=== PATIENT | male | born 1975 | race Caucasian/White ===

== ENCOUNTER 2017-10-12 18:14 | Emergency (ER) | payer SELFPAY ==
[2017-10-12 18:15] VITALS: BP 122/78; PULSE 85; RESP 16; TEMP 36.9; O2SAT 98
[2017-10-12 18:58] LABS: Absolute Lymphocyte Count 2.13 X10^3/ul (0.83-4.51); Absolute Neutrophil Count 5.5 X10^3/uL (2.0-7.7); Basophil# 0.16 X10^3/uL; Basophil% 1.8 % (0-1); Eosinophil# 0.33 X10^3/uL; Eosinophils% 3.6 % (0-5); Hematocrit 45.3 % (40-54); Hemoglobin 14.7 g/dl (13.0-16.5); Lymphocyte # 2.13 X10^3/ul (4.0); Lymphocyte % 23.5 % (19-41); Mean Corp Hgb Conc 32.5 g/gl (32-36); Mean Corpuscular Hgb 29.9 pg (27.0-32.0); Mean Corpuscular Volume 92.3 fL (80-94); Mean Platelet Vol. 9.7 fl (6.2-12.0); Monocyte% 9.9 % (0-10); Neutrophil # 5.52 X10^3/uL (2.7-7.7); Neutrophil % 61.1 % (47-70); Platelet Count 296 K/mm3 (150-450); RBC Distribution Width CV 13.6 % (11.6-14.6); RBC Distribution Width SD 45.9 fl (35.1-43.9); Red Blood Count 4.91 M/mm3 (4.6-6.2); White Blood Count 9.1 K/mm3 (4.4-11.0)
[2017-10-12 18:59] LABS: POSITIVE COUNT NO; POSITIVE DIFFERENTIAL NO; POSITIVE MORPHOLOGY NO
[2017-10-12 19:04] LABS: Anion Gap 7 (5-15); BUN 13 mg/dL (7-18); BUN/Creat Ratio 14.6 RATIO (10-20); Calcium,Total 9.3 mg/dL (8.5-10.1); Chloride 104 mmol/L (98-107); Creatinine, Serum 0.89 mg/dL (0.70-1.30); EST Glomerular Filtration Rate 100 mL/min (>60); Est Glom Filt Rate - Afr Amer 121 mL/min (>60); Estimated Creatinine Clearance 98.11 ml/min; Glucose 73 mg/dL (74-106); Potassium 4.5 mmol/L (3.5-5.1); Sodium Level 140 mmol/L (136-145)
[2017-10-12 19:08] LABS: Amphetamine Urine VISTA POSITIVE (<1000 ng/mL); Barbiturate Urine VISTA NEGATIVE (< 200 ng/mL); Benzodiazepine Urine VISTA NEGATIVE (< 200 ng/mL); Cocaine Urine VISTA NEGATIVE (< 300 ng/mL); Ecstacy Urine VISTA NEGATIVE (< 500 ng/mL); Methadone Urine VISTA NEGATIVE (< 300 ng/mL); PCP Urine VISTA NEGATIVE (< 25 ng/mL); THC Urine VISTA NEGATIVE (< 50 ng/mL); Vista UDS pH Range 6
[2017-10-12 19:21] VITALS: BP 111/68; PULSE 74; RESP 16; O2SAT 99
--- NOTE | 2017-10-12 20:09 | ED.DCSUM_ITS ---
- ER Visit Summary Date of Service: 10/12/17 Chief Complaint: Suicidal thoughts History of Present Illness: The patient is a 41 M with no primary care physician or psychiatrist. He reports that he has had suicidal thoughts for the past 2 days. Reports this is because he has no more Rosa to turn to. States that he is upset about his marriage because his is a drug addict. He does not have a plan to harm himself. Review of systems: General: No fever, chills, cold sweats. Cardiovascular: No chest pain, palpitations. Respiratory: No cough, shortness of breath, dyspnea on exertion. Gastrointestinal: No abdominal pain, nausea, vomiting, diarrhea, melena, or hematochezia. Genitourinary: No dysuria, frequency, hematuria. Skin: No rash. Neuro: No headache, numbness, weakness. Physical Examination: Vitals: Stable. Afebrile. General: Well-nourished and well-developed. Head: Normocephalic atraumatic. Neck: Supple, no lymphadenopathy. No JVD. Nontender. Cardiovascular: Regular rate and rhythm. No murmurs. Respiratory: No respiratory distress. Clear to auscultation bilaterally. Abdominal: Soft, nontender, nondistended, normal bowel sounds. No guarding, rebound, or peritoneal signs. Back: Nontender. Extremities: Nontender, no edema. Skin: Normal color, no rash. Neurologic: Alert and oriented ?3. Cranial nerves II through XII are intact. Normal strength and sensation. Mental status exam: Patient appears their stated age. Good posture and grooming. Good eye contact. Normal rate, volume, and latency of speech. No homicidal ideation. No auditory or visual hallucinations. Flow of thought is logical. Insight and judgment is fair. Test Results: CBC is more for basophils of 2. Chem-7 is more for glucose 73. Tox screen shows amphetamines. Blood alcohol level 0. Emergency Department Course and Treatment: Patient is resting comfortably and is very compliant while here. Treatment Plan: Patient is able to contract for safety. I do not feel that he needs to be admitted to the hospital. He was discussed with the counseling center and is given an appointment tomorrow at 3 PM. He is instructed to return to the emergency department for any worsening thoughts of harming himself. Disposition: To home in improved and stable condition. Impression: 1. Depression. 2. Methamphetamine abuse. This note was generated with Eg[employer] dictation software. It may contain incorrect words, spelling, and punctuation that were not noted in review of the chart prior to signing ED Disposition - Plan for ED Patient: Disposition: Home or Assisted Living Chief Complaint: Suicidal Instructions: ED Depression Referrals: Counseling,Center [GROUP OF PHYSICIANS] - 10/13/17 3:00 pm
== END 2017-10-12 20:32 | disposition home or self-care (01) ==
PROVIDERS: Emergency Provider Emergency Medicine
DX: F32.9 Major depressive disorder, single episode, unspecified (principal); F15.10 Other stimulant abuse, uncomplicated; Z87.891 Personal history of nicotine dependence
CPT/HCPCS: 36415; 80048; 80307; 80320; 85025; 99283; G0480

== ENCOUNTER 2022-06-08 16:42 | Emergency (ER) | payer MEDICAID, SELFPAY ==
[2022-06-08 16:43] VITALS: BP 135/75; PULSE 95; RESP 16; TEMP 35.8; O2SAT 94; BMI 19.6
[2022-06-08] MEDS: predniSONE 20 MG Tablet 40 MG PO (17:31)
[2022-06-08] MEDS: DiphenhydrAMINE 25 MG Capsule 50 MG PO (17:33)
--- NOTE | 2022-06-08 17:50 | EDS_ITS ---
HPI <ANAY Rodriguez - Last Filed: 06/08/22 17:58> History of Present Illness Chief Complaint: Rash Narrative Narrative: Patient presenting today with a generalized pruritic rash that erupted over this last week. He states he has it on his trunk, legs, arms, and groin. He [place] out in the [place] and thinks that he got poison ivette. He has a history of poison ivette and states that this feels similar. He has been using chamomile lotion without relief. He denies a PMH of any chronic health conditions. PFSH <ANAY Rodriguez - Last Filed: 06/08/22 17:58> PFSH Medical History no medical history Home Medications diphenhydramine HCl 25 mg capsule (Benadryl) 25 mg PO TID PRN allergic reaction 5 days #14 caps 06/08/22 [Rx Last Taken Unknown] prednisone 20 mg tablet 40 mg PO DAILY 10 days #20 tabs 06/08/22 [Rx Last Taken Unknown] Allergy/AdvReac Type Severity Reaction Status Date / Time Penicillins Allergy Swelling Verified 06/08/22 16:45 Social History Smoking Status: Former smoker ROS <ANAY Rodriguez - Last Filed: 06/08/22 17:58> ROS ED Constitutional Constitutional ED: Denies chills or fever(s) Cardiovascular Cardiovascular: Denies chest pain Respiratory/Chest Respiratory/Chest: Denies cough or dyspnea Gastrointestinal Gastrointestinal: Denies abdominal pain, nausea or vomiting Musculoskeletal Musculoskeletal: Denies arthralgias or myalgias Integumentary Reports rash; Denies abscess or Abrasions Neurologic Neurologic: Denies weakness Psychiatric Psychiatric: Denies anxiety or depression EXAM <ANAY Rodriguez - Last Filed: 06/08/22 17:58> Physical Exam Const Vital Signs: 06/08/22 16:43 Temperature 96.5 F L Temperature Source Temporal Pulse Rate 95 Respiratory Rate 16 Blood Pressure 135/75 H Blood Pressure Mean 95 Pulse Ox 94 Oxygen Delivery Method Room Air Positive well nourished, well developed and no apparent distress General Appearance ED: well developed HEENT Reports normocephalic and head/scalp atraumatic Mouth ED: Yes moist mucous membranes normal Eyes PERRL and EOMs intact bilaterally Neck full ROM and supple Chest Wall inspection of chest normal Resp normal respiratory effort and clear to auscultation bilaterally Cardio regular rate and regular rhythm GI soft to palpation, non-tender, non-distended and no masses Back/Spine normal ROM and normal to inspection Extremity full ROM General Extremety ED: Negative for edema General Extremity: Negative for edema Neuro oriented x3, CN's II-XII intact bilaterally, moves all extremities, no focal motor deficits and no sensory deficits noted Sensorium / Orientation: awake and alert Psych mental status grossly normal and thought process normal Skin Skin Narrative: Several linear erythemic fluid-filled blisters on arms, legs, and chest. <Collin Villaseñor MD - Last Filed: 06/08/22 18:17> Physical Exam Const Vital Signs: 06/08/22 16:43 Temperature 96.5 F L Temperature Source Temporal Pulse Rate 95 Respiratory Rate 16 Blood Pressure 135/75 H Blood Pressure Mean 95 Pulse Ox 94 Oxygen Delivery Method Room Air MDM <ANAY Rodriguez - Last Filed: 06/08/22 17:58> [facility] Narrative Medical decision making narrative: Patient presenting today with a pruritic rash that he has had worsening over this past week with concerns that he has poison ivette after hanging out in the [place] with his friend on Thursday. He has a history of poison ivette and states this feels similar. Patient does have multiple linear and erythemic fluid-filled blisters scattered around his arms, legs, and chest that are consistent with a poison ivette dermatitis. There are no signs of any infection or abscess. He is well-appearing and in no acute distress. He has been started on prednisone with first dose here as well as Benadryl. He will be discharged home in stable condition and is comfortable with plan. <Collin Villaseñor MD - Last Filed: 06/08/22 18:17> [facility] Treatment and Re-Evaluation :: I have personally performed a face to face assessment of the patient and have reviewed the FATMATA Note. I performed a substantive portion of the visit including all aspects of the following. My marquez findings include: History is diffuse, itchy rash, history of being out in the [place]. No fevers or purulent drainage. Exam is afebrile. Vital signs noted. Nontoxic-appearing. Positive diffuse, pruritic rash consistent with contact dermatitis. Medical Decision Making symptomatic treatment, steroid burst, antihistamine, follow-up primary care. Discharge. Other additions or changes: [None] Discharge Plan Triage Chief Complaint: Rash ED Midlevel Provider: Annabelle Gan ED Provider: Collin Villaseñor Dx/Rx/DC Orders Clinical Impression: Contact dermatitis Instructions: ED Poison Ivette Rash Prescriptions: New prednisone 20 mg tablet 40 mg PO DAILY 10 Days Qty: 20 0RF diphenhydramine HCl [Benadryl] 25 mg capsule 25 mg PO TID PRN (Reason: allergic reaction) 5 Days Qty: 14 0RF Primary Care Provider: Care Physician,No Primary Referrals: Care Physician,No Primary [Primary Care Provider] - Activity Restrictions/Additional Instructions: Take the prednisone until it is complete. You can take the Benadryl as needed for symptoms. Disposition Disposition: Home, Self Care Discharge Date/Time: 06/08/22 17:41
== END 2022-06-08 17:41 | disposition home or self-care (01) ==
PROVIDERS: Emergency Provider Emergency Medicine; Visit Provider Emergency Medicine
DX: L25.9 Unspecified contact dermatitis, unspecified cause (principal); Z87.891 Personal history of nicotine dependence
CPT/HCPCS: 99283

== ENCOUNTER 2023-08-12 16:31 | Emergency (ER) | payer MEDICAID, SELFPAY ==
[2023-08-12 16:32] VITALS: BP 83/62; PULSE 82; RESP 16; TEMP 36.3; O2SAT 100; BMI 22.4
--- NOTE | 2023-08-12 16:48 | EKG12_ITS ---
Test Reason : PHYSCH Blood Pressure : / mmHG Vent. Rate : 069 BPM Atrial Rate : 069 BPM P-R Int : 136 ms QRS Dur : 088 ms QT Int : 378 ms P-R-T Axes : 033 040 059 degrees QTc Int : 405 ms Normal sinus rhythm Normal ECG Confirmed by Ok Cline ([id number]), movie editor TRUE MARMOLEJO ([id number]) on 08/15/2023 7:33:19 AM Referred By: TWAN Confirmed By:Ok Cline
--- NOTE | 2023-08-12 16:49 | EDS_ITS ---
HPI HPI - Psych History of Present Illness Chief Complaint: Mental Health Detail of Chief Complaint: Medical clearance for psychiatric facility Informant: patient Narrative Narrative: Patient presents to the emergency department at request of counseling center for clearance for placement to mental health facility. Patient apparently has been feeling quite paranoid and anxious for months. He has remote history of methamphetamine abuse but has been clean for about 4 months. Patient states he is having a hard time keeping a job because he gets quite paranoid and then has a hard time retaining information people are telling him. He is hearing some voices that are usually muffled and he was just calling his name. Denies any visual hallucinations. Patient denies feeling suicidal or homicidal. Patient is concerned about his current job and losing it and wants to get some help to get stabilized. PFSH PFSH Medical History no medical history Home Medications ?Medication ?Instructions ?Recorded ?Last Taken ?Type diphenhydramine HCl 25 mg capsule 25 mg PO TID PRN allergic reaction 06/08/22 Unknown Rx (Benadryl) 5 days #14 caps prednisone 20 mg tablet 40 mg (2 x 20 mg) PO DAILY 10 days 06/08/22 Unknown Rx #20 tabs Allergy/AdvReac Type Severity Reaction Status Date / Time Penicillins Allergy Swelling Verified 06/08/22 16:45 Social History Smoking Status: Former smoker ROS ROS ED Review of Systems ROS Unobtainable: other Constitutional Constitutional ED: Reports lethargy; Denies chills, fever(s), sweats or weight loss Eyes Eyes: Denies blurry vision, change in vision or diplopia ENT ENT ED: Denies rhinorrhea or sore throat Cardiovascular Cardiovascular: Denies chest pain, orthopnea or racing heartbeat Respiratory/Chest Respiratory/Chest: Denies cough, dyspnea, dyspnea on exertion, orthopnea or sputum Gastrointestinal Gastrointestinal: Denies abdominal pain, diarrhea, nausea or vomiting Genitourinary Genitourinary ED: Denies dysuria, hematuria or urinary frequency Musculoskeletal Musculoskeletal: Denies arthralgias, back pain, myalgias or neck pain Integumentary Denies abscess, Abrasions or rash Neurologic Neurologic: Denies headache(s) or weakness Psychiatric Psychiatric: Reports other Details: Paranoia, anxiety ; Denies anxiety, depression or suicidal thoughts Endocrine Endocrinology: Denies polydipsia, polyphagia or polyuria Hematologic/Lymphatic Hematologic/Lymphatic: Denies easy bleeding, easy bruising or lymphadenopathy Allergic/Immunologic Allergic/Immunologic ED: Denies mouth swelling, tongue swelling or urticaria EXAM Physical Exam Const Vital Signs: 08/12/23 16:32 08/12/23 18:51 Temperature 97.4 F L Temperature Source Temporal Pulse Rate 82 75 Respiratory Rate 16 18 Blood Pressure 83/62 L 96/65 Blood Pressure Mean 69 75 Pulse Ox 100 99 Oxygen Delivery Method Room Air Room Air Positive well nourished and well developed General Appearance ED: well developed and NAD HEENT Reports TM's clear and moist mucous membranes normocephalic and atraumatic; Negative for trauma or tenderness Tympanic Membrane ED: Yes TM's clear Eyes PERRL and EOMs intact bilaterally General Eye ED: Negative for pale conjunctiva or scleral icterus Neck no lymphadenopathy, supple and no JVD General: Negative for tenderness Chest Wall inspection of chest normal and palpation of chest normal Chest: Negative for tenderness Resp normal respiratory effort and clear to auscultation bilaterally Effort and Inspection: Negative for respiratory distress or pain with movement Auscultation: Negative for rhonchi, wheezes or diminished lung sounds Cardio regular rate, regular rhythm, S1 normal heart sound, S2 normal heart sound and no murmurs Peripheral Pulses: pulses 2+ throughout GI normal to inspection, nondistended, normoactive bowel sounds, soft to palpation, non-tender, non-distended and no masses Back/Spine no CVA tenderness and no thoracic nor lumbar tenderness Extremity normal to inspection General Extremety ED: Negative for edema General Extremity: Negative for edema Neuro oriented x3, CN's II-XII intact bilaterally, no sensory deficits noted and gait normal Sensorium / Orientation: awake, alert, oriented to person, oriented to place and oriented to time Motor Exam: strength 5/5 throughout and strength abnormal Psych mental status grossly normal Skin no rashes or lesions noted and no wounds MDM MDM MDM Narrative Medical decision making narrative: Patient presents to the emergency department for medical clearance for psychiatric facility. CBC with differential obtained was unremarkable. Chemistries unremarkable. Alcohol was less than 3. Toxicology screen pending. Patient was accepted at psychiatric facility. He will be transferred for definitive care. Lab Data Attestation: I reviewed the patient's lab results. Labs: Laboratory Results - last 24 hr 08/12/23 17:00 WBC 6.3 RBC 4.33 L Hgb 12.7 L Hct 39.0 L MCV 90.1 MCH 29.3 MCHC 32.6 RDW Std Deviation 44.6 H RDW Coeff of Kena 13.3 Plt Count 233 MPV 9.5 Immature Gran % (Auto) 0.300 Neut % (Auto) 59.2 Lymph % (Auto) 23.0 [place] % (Auto) 8.9 Eos % (Auto) 7.0 H Baso % (Auto) 1.6 H Absolute Neuts (auto) 3.7 Absolute Lymphs (auto) 1.44 Nucleated RBC % 0 Sodium 140 Potassium 3.9 Chloride 109 H Carbon Dioxide 31.0 Anion Gap 0 L BUN 18 Creatinine 1.04 Estim Creat Clear Calc 85.80 Est GFR (MDRD) Af Amer 98 Est GFR (MDRD) Non-Af 81 BUN/Creatinine Ratio 17.3 Glucose 97 Calcium 8.6 Ethyl Alcohol < 3.0 EKG Initial EKG: Attestation: I personally reviewed and interpreted this EKG as follows: Comments: Sinus rhythm with ventricular rate of 69 bpm with no acute ST segment changes Discharge Plan Triage Chief Complaint: Mental Health ED Provider: Tonie Diaz Dx/Rx/DC Orders Clinical Impression: Psychosis, Acute paranoia Prescriptions: No Action prednisone 20 mg tablet 40 mg PO DAILY 10 Days Qty: 20 0RF diphenhydramine HCl [Benadryl] 25 mg capsule 25 mg PO TID PRN (Reason: allergic reaction) 5 Days Qty: 14 0RF Primary Care Provider: Care Physician,No Primary Referrals: Care Physician,No Primary [Primary Care Provider] - Print Language: Irish Disposition Disposition: Psychiatric Hospital or Unit
[2023-08-12 17:21] LABS: Absolute Lymphocyte Count 1.44 X10^3/uL (0.83-4.51); Absolute Neutrophil Count 3.7 X10^3/uL (2.0-7.7); Basophil% 1.6 % (0-1); Eosinophil# 0.44 X10^3/uL; Hemoglobin 12.7 g/dL (13.0-16.5); Lymphocyte # 1.44 X10^3/ul (0.83-4.51); Mean Corp Hgb Conc 32.6 g/dL (32-36); Mean Corpuscular Hgb 29.3 pg (27.0-32.0); Mean Corpuscular Volume 90.1 fL (80-94); Mean Platelet Vol. 9.5 fl (6.2-12.0); Monocyte# 0.56 X10^3/uL; Monocyte% 8.9 % (0-10); NRBC Flagged by Analyzer 0 % (0-5); Neutrophil # 3.71 X10^3/uL (2.7-7.7); Neutrophil % 59.2 % (47-70); Platelet Count 233 K/mm3 (150-450); RBC Distribution Width CV 13.3 % (11.6-14.6); RBC Distribution Width SD 44.6 fl (35.1-43.9); Red Blood Count 4.33 M/mm3 (4.6-6.2); White Blood Count 6.3 K/mm3 (4.4-11.0)
[2023-08-12 17:31] LABS: Anion Gap 0 (5-15); BUN 18 mg/dL (7-18); BUN/Creat Ratio 17.3 RATIO (10-20); Calcium,Total 8.6 mg/dL (8.5-10.1); Chloride 109 mmol/L (98-107); Creatinine, Serum 1.04 mg/dL (0.70-1.30); EST Glomerular Filtration Rate 81 mL/min (>60); Est Glom Filt Rate - Afr Amer 98 mL/min (>60); Glucose 97 mg/dL (74-106); Potassium 3.9 mmol/L (3.5-5.1); Sodium Level 140 mmol/L (136-145)
[2023-08-12 17:32] LABS: Alcohol, Blood (Medical)-Serum < 3.0 mg/dL
[2023-08-12 18:51] VITALS: BP 96/65; PULSE 75; RESP 18; O2SAT 99
[2023-08-12 20:08] LABS: Amphetamine Urine VISTA NEGATIVE (<1000 ng/mL); Barbiturate Urine VISTA NEGATIVE (< 200 ng/mL); Benzodiazepine Urine VISTA NEGATIVE (< 200 ng/mL); Cocaine Urine VISTA NEGATIVE (< 300 ng/mL); Ecstacy Urine VISTA NEGATIVE (< 500 ng/mL); Methadone Urine VISTA NEGATIVE (< 300 ng/mL); PCP Urine VISTA NEGATIVE (< 25 ng/mL); THC Urine VISTA POSITIVE (< 50 ng/mL); Vista UDS pH Range 7
--- NOTE | 2023-08-12 20:35 | ED.RN ---
Physician's ETA for transport to [facility] 0700 08/13/23
--- NOTE | 2023-08-12 23:41 | ED.RN ---
Rian Harrell updated on pt's ETA
[2023-08-13 02:51] VITALS: BP 111/61; PULSE 60; RESP 16; TEMP 36.3; O2SAT 97
--- NOTE | 2023-08-13 03:14 | ED.RN ---
Report called to Cee [facility]OK[facility], questions/concerns answered
[2023-08-13 07:33] VITALS: BP 111/61; PULSE 60; RESP 16; TEMP 36.3; O2SAT 97
== END 2023-08-13 07:42 ==
PROVIDERS: Emergency Provider Emergency Medicine; Visit Provider Emergency Medicine
DX: F29 Unspecified psychosis not due to a substance or known physiological condition (principal); F22 Delusional disorders; Z87.891 Personal history of nicotine dependence
CPT/HCPCS: 80048; 80307; 80320; 85025; 93005; 99283; G0480

== ENCOUNTER → 2023-11-10 | Outpatient (CLI) | payer MEDICAID, SELFPAY ==
[2023-11-10 12:27] LABS: Erythrocyte Sedimentation Rate 9 mm/hr (0-20)
[2023-11-10 13:28] LABS: Rheumatoid Factor < 10.0 IU/mL (<15)
== END | disposition home or self-care (01) ==
LOC: BIMLAB 09:35
PROVIDERS: PCP Family Medicine; Visit Provider Family Medicine
DX: M24.549 Contracture, unspecified hand (principal)
CPT/HCPCS: 36415; 85652; 86431

== ENCOUNTER → 2023-11-27 | Outpatient (CLI) | payer MEDICAID, SELFPAY ==
--- NOTE | 2023-11-27 14:56 | RAD_ITS ---
STUDY: X-RAY - LEFT HAND REASON FOR EXAM: Male, 48 years old. Pain, decreased range of motion TECHNIQUE: 3 view(s) of the hand. COMPARISON: None. FINDINGS: The index and fifth digits appear to be in permanent flexion, likely due to Dupuytren''s contractures Normal radiocarpal articulation. Normal distal radioulnar joint. Normal visualized carpal bones. Normal carpal articulations Normal carpometacarpal articulation of the thumb. Normal second through fifth carpometacarpal joints. Normal metacarpi. Normal metacarpophalangeal joint of the thumb. Normal interphalangeal joint of the thumb. Normal proximal and distal phalanges of the thumb. Normal metacarpophalangeal joints of the second through fifth fingers. Normal proximal and distal interphalangeal joints of the second through fifth fingers. Normal phalanges of the second through fifth fingers. The soft tissue structures are unremarkable. RAD/Hand Min 3 Views IMPRESSION: No demonstrated fracture or significant joint space abnormality. The index and fifth fingers are in apparent permanent contraction consistent with Dupuytren''s contractures Electronically Signed: Michael Malloy MD at 15:15 EDT ,
== END | disposition home or self-care (01) ==
LOC: RAD 14:55
PROVIDERS: PCP Family Medicine; Referring Provider Surgery Plastic and Reconstructive Surgery; Visit Provider Surgery Plastic and Reconstructive Surgery
DX: M24.549 Contracture, unspecified hand (principal)
CPT/HCPCS: 73130

== ENCOUNTER → 2023-12-23 | Outpatient (CLI) | payer MEDICAID, SELFPAY | END | disposition home or self-care (01) | PROVIDERS: PCP Family Medicine; Referring Provider Surgery Plastic and Reconstructive Surgery; Visit Provider Surgery Plastic and Reconstructive Surgery | DX: M24.549 Contracture, unspecified hand (principal) | CPT/HCPCS: 95886; 95910 ==

== ENCOUNTER 2024-01-27 07:26 | Day surgery (SDC) | payer MEDICAID, SELFPAY ==
[2024-01-06 15:20] LABS: Absolute Lymphocyte Count 2.47 X10^3/uL (0.83-4.51); Absolute Neutrophil Count 4.6 X10^3/uL (2.0-7.7); Basophil% 1.2 % (0-1); Eosinophil# 0.41 X10^3/uL; Eosinophils% 4.8 % (0-5); Hematocrit 41.7 % (40-54); Hemoglobin 14.1 g/dL (13.0-16.5); Lymphocyte # 2.47 X10^3/ul (0.83-4.51); Lymphocyte % 28.9 % (19-41); Mean Corp Hgb Conc 33.8 g/dL (32-36); Mean Corpuscular Hgb 29.7 pg (27.0-32.0); Mean Platelet Vol. 9.5 fl (6.2-12.0); Monocyte# 0.91 X10^3/uL; Monocyte% 10.6 % (0-10); NRBC Flagged by Analyzer 0 % (0-5); Neutrophil # 4.62 X10^3/uL (2.7-7.7); Platelet Count 293 K/mm3 (150-450); RBC Distribution Width CV 13.2 % (11.6-14.6); RBC Distribution Width SD 42.4 fl (35.1-43.9); Red Blood Count 4.74 M/mm3 (4.6-6.2); White Blood Count 8.6 K/mm3 (4.4-11.0)
[2024-01-06 15:52] LABS: AST(SGOT) 14 U/L (15-37); Alanine Aminotransfer ALT/SGPT 31 U/L (16-61); Albumin, Serum 3.9 g/dL (3.2-5.0); Alkaline Phosphatase 67 U/L (45-117); Anion Gap 4 (5-15); BUN 16 mg/dL (7-18); BUN/Creat Ratio 15.5 RATIO (10-20); Calcium,Total 9.3 mg/dL (8.5-10.1); Chloride 103 mmol/L (98-107); Cholesterol 160 mg/dL (200); Creatinine, Serum 1.03 mg/dL (0.70-1.30); EST Glomerular Filtration Rate 82 mL/min (>60); Est Glom Filt Rate - Afr Amer 99 mL/min (>60); Globulin 4.1 g/dL (2.2-4.2); Glucose 92 mg/dL (74-106); High Density Lipoprotein 52 mg/dL; Potassium 4.5 mmol/L (3.5-5.1); Sodium Level 138 mmol/L (136-145); Triglycerides 105 mg/dL; Very Low Density Lipoprotein 21 mg/dL (5-40)
--- NOTE | 2024-01-07 14:05 | EKG12_ITS ---
Test Reason : PRE OP Blood Pressure : */* mmHG Vent. Rate : 78 BPM Atrial Rate : 78 BPM P-R Int : 142 ms QRS Dur : 82 ms QT Int : 370 ms P-R-T Axes : 57 39 56 degrees QTcB Int : 421 ms Normal sinus rhythm Normal ECG Confirmed by CHRIS SCHNEIDER ([id number]), graphic editor SYLVIA MONTALVO ([id number]) on 01/08/2024 11:58:53 AM Referred By: Tuan Sanchez Confirmed By: CHRIS SCHNEIDER
[2024-01-27] VITALS (9 sets, daily range): BP systolic 102–123; BP diastolic 66–80; PULSE 58–101; RESP 16–18; TEMP 36.1–36.6; O2SAT 95–100; BMI 25.0
--- NOTE | 2024-01-27 07:42 | PRE.ANES_ITS ---
ASA Classification* ASA Classification ASA Classification: 3 Assessment & Plan Anesthesia* Anesthesia Assessment Anesthesia Assessment: Discussed sedation and/or anesthesia options, risks, benefits, and alternatives with patient/parents/legal guardian/POA. Questions invited. The patient/parents/legal guardian/POA seems to understand and agrees to proceed with anesthesia plan. Reviewed the physical assessment, medical history, allergy history and patient home medications list prior to surgery/procedure/anesthetic and documented any changes. Performed airway and anesthesia risk assessments. Anesthesia Type Anesthesia Type: General Anesthesia Focused Assessment* Airway Assessment Mouth opens: >3 cm Mallampati Score: II Focused Labs Anesthesia Preop lab: CBC WBC 8.6 K/mm3 (4.4-11.0) 01/06/24 14:51 RBC 4.74 M/mm3 (4.6-6.2) 01/06/24 14:51 Hgb 14.1 g/dL (13.0-16.5) 01/06/24 14:51 Hct 41.7 % (40-54) 01/06/24 14:51 Plt Count 293 K/mm3 (150-450) 01/06/24 14:51 CHEMISTRY Potassium 4.5 mmol/L (3.5-5.1) 01/06/24 14:51 Sodium 138 mmol/L (136-145) 01/06/24 14:51 BUN 16 mg/dL (7-18) 01/06/24 14:51 Creatinine 1.03 mg/dL (0.70-1.30) 01/06/24 14:51 Glucose 92 mg/dL (74-106) 01/06/24 14:51 COAG Pre-Assessment Diagnosis/Proposed Procedure Planned Operative Procedure(s): PALMAR FASCIECTOMY FOR DUPUYTREUS LEFT AND RIGHT RING FINGER A1 KATHRYN RELEASE Anesthesia History 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 When Was Last Pacemaker Check QUESTION #4 FULL TEXT: You/Your Family Experience fever (hyperthermia) with Anesthesia Last Oral Intake Last Oral intake: Last Oral Intake NPO since Meds taken in AM with sips of water? Meds patient instructed to take am of surgery PONV PONV - garment manufacturer: PONV - garment manufacturer Female No 01/06/24 08:25 HX of Motion Sickness No 01/06/24 08:25 HX of N/V After Surgery No 01/06/24 08:25 Non-Smoker Yes 01/06/24 08:25 Duration of Surgery greater Yes 01/06/24 08:25 than 60 minutes Number of Risk Factors 2 01/06/24 08:25 PONV Score Moderate Risk 01/06/24 08:25 Height & Weight Height & Weight: Anesthesia: Height & Weight Height 5 ft 9 in 01/19/24 09:22 Respiratory Assessment Respiratory Assessment - garment manufacturer: Respiratory Tract Infection Hx - garment manufacturer Hx Respiratory Tract Infection No 01/06/24 08:25 STOP Sleep Apnea STOP Sleep Apnea - garment manufacturer: STOP Sleep Apnea - garment manufacturer Hx Hypertension No 01/06/24 08:25 Hx Sleep Apnea No 01/06/24 08:25 CPAP BIPAP Do you snore loudly (louder No 01/06/24 08:25 than talking or can be heard Do you often feel tired/ No 01/06/24 08:25 fatigued/ sleepy during daytime? Has anyone observed you stop No 01/06/24 08:25 breathing during sleep? STOP Results Negative 01/06/24 08:25 QUESTION #5 FULL TEXT : Do you snore loudly (louder than talking or can be heard through closed doors)? 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 Specify any problems Hx of Preganancy in last 3 N/A 01/06/24 08:25 Months Nurse Filling Out Transfusion DSCHRIBER 01/06/24 08:25 & Questions: Date: 01/06/24 01/06/24 08:25 Time: 08:01/06/24 08:25 Patient unable to answer at this time (ie. confused, unrespo /Reproduction History /Reproductive History - garment manufacturer: /Reproductive Hx- garment manufacturer Hx Now No 01/06/24 08:25 Gestational Age (in weeks): EDC: Hx Hx Para Hx Section SAB No 01/06/24 08:25 Active Medications Active Medications: Current Medications Generic Name Dose Route Start Last Admin Trade Name Freq PRN Reason Stop Dose Admin Clindamycin Phosphate 900 mg in 50 mls @ 75 mls/hr 01/27/24 11:00 Cleocin IV 01/27/24 11:39 PREOP ONE Sodium Chloride 1,000 mls @ 15 mls/hr 01/27/24 07:35 IV 02/01/24 20:54 .Q48H [facility] Protocol PFSH Medical History Wears glasses Depression Anxiety Marijuana use Restless legs Migraine headache Seizures Gastric reflux Former smoker Physical exam, pre-employment History of tumor Arthritis Home Medications ?Medication ?Instructions ?Recorded ?Last Taken ?Type hydroxyzine pamoate 50 mg capsule 50 mg PO BID PRN PRN anxiety 11/10/23 Unknown History meloxicam 7.5 mg tablet 7.5 mg PO DAILY 11/10/23 Unknown History risperidone 1 mg tablet 1 mg PO BID 11/10/23 Unknown History buspirone 15 mg tablet 15 mg PO TID 01/06/24 Unknown History esomeprazole magnesium 40 mg 40 mg PO QDAY #30 caps 01/06/24 Unknown Rx capsule,delayed release famotidine 20 mg tablet 20 mg PO QHS #20 tabs 01/06/24 Unknown Rx tramadol 50 mg tablet 50 mg PO BID PRN pain #30 tabs 01/26/24 Unknown Rx Allergy/AdvReac Type Severity Reaction Status Date / Time Penicillins Allergy Swelling Verified 01/27/24 07:30 Family History Father Anxiety Arthritis Hx of blood clots Cancer skin Depression Myocardial infarction Hypertension CVA (cerebral vascular accident) Mother Arthritis Cancer Fibromyalgia Surgical History History of removal of cyst Social History household members: family housing: house current occupational status: employed current occupation: [employer] Smoking Status: Former smoker how long ago did patient quit smoking: quit smoking 3yr ago alcohol intake: never substance use type: does not use what type of physical activity do you participate in: walking frequency: 3-4 times per week seatbelt use: always do you feel safe at home: Yes additional social history: no vaping, no substance, ibuprofen and mobic prn. no blood clotting dx history Review of Systems (Anesthesia) ROS Narrative System reviewed and no additional complaints, except as documented.
[2024-01-27] MEDS: 0.9% Normal Saline (1000mL) 1,000 ML 15 ML IV (08:01)
--- NOTE | 2024-01-27 09:00 | DUP_PTH ---
PATIENT: LEBRON MARTIN [place] [facility] [place][id number] AGE/SX: 48/M ROOM: RE01/27/[address]: Dr. Tuan Sanchez MD : 1975 BED: DIS: 01/27/2024 SPEC #: [id number] RECD: 01/28/24 13:57 STATUS: DOROTEO RESandy #: [id number] DIEGO: 01/27/24 09:[address]: Tuan Sanchez DEPT: SURGICAL PATHOLOGY RECD BY: Caitlin Brown ENTERED: 01/29/24 09:36 SP TYPE: COLIN FONTENOT DR: Dr. Kun Soto, DO Tissues: A - Ligament, NOS B - Ligament, NOS C - Finger, NOS Procedures: Decalcification bone/plaque Surgery Specimen Level IV HEADER OPERATION: Fasciectomy for Dupuytrens left hand, joint release PRE-OP DIAGNOSIS: Dupuytren contracture TISSUE SUBMITTED: A- Left index finger Dupuytrens cord, B- Left middle finger Dupuytrens cord, C- Left small finger MICROSCOPIC DIAGNOSIS A. Left index finger tissue, biopsy: Consistent with Dupuytren's cord. B. Soft tissue of left middle finger, excision: Consistent with Dupuytren's cord. C. Left small finger: Bone and tissue with focal reparative and reactive change. Skin- no pathologic change. [facility] COMMENT Case has been reviewed in consultation with Dr. Graham who concurs with the above diagnosis. IDC:SJ MICROSCOPIC DESCRIPTION Slides are reviewed. GROSS DESCRIPTION A. Received in fixative is one container labeled with the patient's name and designated Left index finger Dupuytren's cord. The specimen consists of a white tissue fragment which is soft measuring 2.5 x 1.0 x 0.6cm. The specimen is bisected and submitted in one cassette. B. Received in fixative is one container labeled with the patient's name and designated Left middle finger Dupuytren's cord. The specimen consists of a whiteish tissue fragment which is soft measuring 2.7cm in length and 5.0mm in greatest diameter. The specimen is totally submitted in one cassette. C. Received in fixative is one container labeled with the patient's name and designated Left small finger. The specimen consists of a finger which appears normal and measures 5.0cm in length. The entire nail is present and measures 1.2cm in length and 1.2cm in greatest width. The skin portion of the finger measures 3.0cm in length. The greatest diameter of the finger is 1.8cm. A fragment of bone and tendon stick out from the skin portion. The skin appears grossly viable at the excision site. The bone and tendon tissue extends for approximately 2.0cm beyond the skin portion and greatest diameter is 1.5cm. Export Packer section submitted in two cassettes after decalcification. 01/29/2024 TC:5 CPT:[id number]
--- NOTE | 2024-01-27 09:07 | HP.PCM.SX_ITS ---
HPI - General HPI Narrative LEBRON MARTIN, is a 48 M who presents for left hand Dupuytren's Contracture Surgery. Current Encounter (DATE OF SURGERY H&P UPDATE): I saw and examined the patient this morning in pre-operative holding. We discussed risks and benefits of today's surgery and they would like to proceed. NO CHANGE in health history since last seen and evaluated. Ready to proceed with surgery. [facility]LY [facility] Medical History Wears glasses Depression Anxiety Marijuana use Restless legs Migraine headache Seizures Gastric reflux Former smoker Physical exam, pre-employment History of tumor Arthritis Home Medications ?Medication ?Instructions ?Recorded ?Last Taken ?Type hydroxyzine pamoate 50 mg capsule 50 mg PO BID PRN PRN anxiety 11/10/23 Unknown History meloxicam 7.5 mg tablet 7.5 mg PO DAILY 11/10/23 Unknown History risperidone 1 mg tablet 1 mg PO BID 11/10/23 Unknown History buspirone 15 mg tablet 15 mg PO TID 01/06/24 Unknown History esomeprazole magnesium 40 mg 40 mg PO QDAY #30 caps 01/06/24 01/27/24 07:00 Rx capsule,delayed release famotidine 20 mg tablet 20 mg PO QHS #20 tabs 01/06/24 Unknown Rx tramadol 50 mg tablet 50 mg PO BID PRN pain #30 tabs 01/26/24 Unknown Rx Allergy/AdvReac Type Severity Reaction Status Date / Time Penicillins Allergy Swelling Verified 01/27/24 07:30 Family History Father Anxiety Arthritis Hx of blood clots Cancer skin Depression Myocardial infarction Hypertension CVA (cerebral vascular accident) Mother Arthritis Cancer Fibromyalgia Surgical History History of removal of cyst Social History household members: family housing: house current occupational status: employed 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 no blood clotting dx history Vital Signs Vital Signs Vital Signs: 01/27/24 07:55 01/27/24 07:55 Temperature 97.8 F Temperature Source Temporal Pulse Rate 58 L Respiratory Rate 16 Respiratory Pattern Normal Blood Pressure 115/73 Blood Pressure Mean 87 Blood Pressure Source Monitor Blood Pressure Position Sitting Blood Pressure Location Left Arm Pulse Ox 100 Oxygen Delivery Method Room Air Weight Weight: 169 lb 12.095 oz Body Mass Index (BMI) 25.0 Physical Exam Narrative PE: LEFT UPPER EXTREMITY Ruff Left index finger: LIF Left long finger: LLF Left ring finger: LRF Left small finger: LSF Exam of the LEFT upper limb revealed: (+) tenderness to palpation over A1 aline region of LEFT RING finger. (+) reproducible triggering of Left ring finger. (+) Table Top test. (+) pretendinous cord visible and palpable over index, long, ring, and small fingers. (80) degree of flexion contracture of PIPJ of LIF. (20) degree of flexion contracture of MCPJ of LIF. (60) degree of flexion contracture of PIPJ of LLF. (20) degree of flexion contracture of MCPJ of LLF. (10) degree of flexion contracture of PIPJ of LRF. (20) degree of flexion contracture of MCPJ of LRF. (110) degree of flexion contracture of PIPJ of LSF. (45) degree of flexion contracture of MCPJ of LSF Motor: Can bend all DIP, PIP, and MP joints, but trouble extending 2/2 contractures. Sensation: 7-8 mm 2-point on the ulnar and radial borders of the LSF and on the ulnar border of the LRF. Otherwise 2 mm 2-point discrimination on the radial and ulnar borders of the other digits. Positive Tinel sign over the left cubital tunnel, but not over Guyon's canal. Negative provocative test to the left transverse carpal ligament. No obvious signs of muscle wasting in the left hand. Vascular: fingers warm and well perfused. RUE: Right hand with mild Dupuytren's disease (no resting contractures but palpable cords) Results Lab / Micro Data 01/06/24 14:51 01/06/24 14:51 Assessment & Plan Assessment/Plan (1) Dupuytren contracture: PLAN: Plan I discussed with Mr. Martin the diagnosis and proposed treatment options.?? With regards to the triggering, the following was discussed: Treatment options for trigger finger discussed. Non-surgical treatment options include splinting, oral NSAIDs, and cortisone injection. When these options fail to improve symptoms, surgical release of A1 aline would be recommended.We also discussed how Dupuytren's disease may cause thickening of the flexor aline system, as well as thickened palmar fascia, which may make trigger finger more likely. This may also potentially make cortisone injection less effective in the treatment of trigger finger.Furthermore, any surgery on the hand (such as trigger finger release), in the presence of Dupuytren's disease, may lead to thickened and sensitive scar, as well as possible prolonged hand edema and stiffness. We could release it at the time of the Dupuytren's contracture release, and he was happy with this plan. We also discussed the pathophysiology of Dupuytren's disease, as well as treatment options. The following was discussed Once flexion contracture occurs, patient may choose to have Xiaflex (collagenase injection), percutaneous aponeurotomy, or limited fasciectomy. Xiaflex injection involves 2 clinic visits. The collagenase injection is performed during the first visit. After a week, the patient returns to clinic for cord manipulation, followed by extension night splint fabrication. The recovery time after Xiaflex injection is between 2-4 weeks. However, there is a higher rate of recurrence. There is also 1-2% chance of flexor tendon rupture associated with Xiaflex treatment, especially when treating the small finger. Percutaneous needle aponeurotomy involves making multiple small stab skin incisions along the course of the pretendinous/spiral cord, and cutting the cord at multiple locations to lengthen the cord, and therefore release the contracture. It is much less invasive than open surgery (eg. limited fasciectomy). However, the recurrence rate is higher than limited fasciectomy. Also, because the digital nerve/digital artery cannot be visualized during this procedure, there is a higher risk of injury to the digital nerve/artery. Limited fasciectomy is capable of removing a much larger amount of diseased tissue/Dupuytren's tissue. However, due to the extent of surgery, recovery time will likely be between 2-4 months, with intense hand therapy. However, the recurrence rate is the lowest amongst all forms of treatment. The main risks involved with limited fasciectomy would be injury to the digital nerve and digital artery. We also discussed that after any type of intervention, it would be important to wear a night extension splint for at least 6 months to minimize rate of recurrence. I also talked the patient extensively about the joint contractures most notably the, PIP joint contractures on the small and index fingers. Given the chronicity of the contractures, I believe he will need a checkrein ligament release and likely joint release as well in order to straighten the fingers. I talked to him about destabilizing the joint, which could lead to inability to lift heavy things without the joint buckling and therefore needing a fusion. I also talked him about the potential for ischemia of the fingers leading to need for amputations secondary to this vascularization iatrogenically during surgery. I also talked to him about iatrogenic nerve damage. PLAN FROM 27 November 2023: He needs a workup for cubital tunnel syndrome. Based on his physical exam. I have ordered an EMG. I have also referred him to hematology for above-noted reasons regarding familial blood clotting problems. We will submit to insurance for approval for limited palmar fasciectomy and ring finger trigger finger release, as the patient has elected to proceed with surgery. He understands the recovery time and need for physical therapy. I will also have his primary care doctor cleared him for surgery (especially given comorbidities). Plan from 07 January 2024: I spoke with the patient's primary care provider ANAY Thibodeaux, who thinks he is ready for surgery and cleared him. I also spoke with Mr. Martin' nurse practitioner who provides his counseling and his medication for his schizophrenia. He also cleared Mr. Martin for the Dupuytren's contracture surgery, and believes that the patient will follow through with the postoperative protocols for splinting and occupational therapy. The patient has spoken to him at several counseling sessions about his Dupuytren's disease and consistently wants to get this problem taken care of. Finally I spoke to the patient's mother on the telephone and we talked about postoperative care. The patient has his own apartment now, but spends a lot of time at home with his parents as well, and they are willing to take care of him postoperatively while he recovers. She also feels that the timing is right for surgery as the patient has been stable and doing quite well on his medications and not doing drugs or alcohol. I believe the patient is optimized for surgery at this point. I talked to Mr. Martin today in clinic about the severity of disease and we reiterated the concerns for the PIP joint contractures especially on the small and index fingers. He will need PIP joint releases and I talked to them about the potential for not being able to get these digits straightened completely, and the potential to destabilize the joint by releasing the collateral ligaments, which could lead to need for fusion. I talked him also about the potential need for amputation of the small finger, as it is so chronically contracted. I reiterated to him the risks of devascularization of the fingers during the operation which could lead to amputation. I also discussed with him the risks of nerve injuries, which are quite high. Furthermore we discussed the risks of need for wound care and revision procedures. We also talked about the risk of needing a skin graft which is a distinct possibility, and we talked about donor site locations and the hypothenar eminence in the forearm. He is accepting of the risks. He would like to proceed with fasciectomy for Dupuytren's contracture. He has been scheduled tentatively for 20 January 2024. He understands plan for postoperative protocol postop week 1 with occupational therapist who will make him a nighttime splint and start him on exercises. Plan from 19 Jan 2024: We further discussed goals of the surgery and the above noted risks/benefits and alternatives and potential for treatment. We talked about small finger treatments, including the digit wigit, which he is not interested in (does not want to do the pin site care, movements, and multiple surgeries with unpredictable results). We also discussed the option for extensive release of the PIP joint including the checkrein ligaments and accessory collateral ligaments and possibly proper collaterals. We talked about subsequent joint instability and possible joint fusion as a treatment. He is not interested in this option as much, because it would take longer to heal and the finger may still get in the way. He reported today the pinky doesn't do anything but get in the way. I also talked to him about amputation of the small finger through the proximal interphalangeal joint (PIP joint) as an option, and we discussed the risks/benefits. We would also do Dupuytren's contracture release to impove MP joint of the small finger. He was in agreement with this plan, as this will likely get him back to work faster. Plan for limited palmar fasciectomy of the index, long, and small fingers, with amputation of the small finger through the PIP joint. INTERVAL H&P PLAN, DATE OF SURGERY: We will proceed with surgery today. I talked to him again today about options other than amputation for the small finger, including PIP joint checkrein release/accessory ligament release with possible fusion as needed, digit widgit,and other modalities, but he would like PIP joint amputation. I have discussed with several colleagues including my partner and fellowship mentors, and they agree this is a reasonable option. He understands risks, benefits, and alternatives (all discussed). He understands high risk of digitalnerve injury. Plan for limited palmar fasciectomy of the left index and long fingers, small finger limited palmar fasciectomy with PIP joint level amputation of the left small finger.
[2024-01-27] MEDS: Clindamycin 900 MG/50 ML BAG 75 MG IV (09:30)
[2024-01-27] MEDS: BUPIVACAINE LIPOSOME/PF 20 ML VIAL OPERA.SITE (12:53)
[2024-01-27] MEDS: Bupivacaine Mpf 0.5% 30 ML VIAL (13:30)
--- NOTE | 2024-01-27 13:53 | PCM.POST.ANE ---
Anesthesia: Postop Eval I Current Vital Signs Temperature: 97.5 F Pulse Rate: 98 Blood Pressure: 121/78 Respiratory Rate: 18 Pulse Ox: 100 Oxygen Delivery Method: Room Air Assessment Airway patent: Yes Spontaneous unlabored respirations: Yes Mental status: Awake and Calm nausea: No Vomiting: No Anesthesia Complication: No Fluid Hydration Crystalloid volume administer (ml): 1,000 Total IV fluid infused: 1,000 Progress Note Anesthesia document: Postop Eval 1 completed: Yes
--- NOTE | 2024-01-27 14:16 | POSTOPAN2_ITS ---
Anesthesia Postop Eval I Sum Postop Eval Completion status Anesthesia document: Postop Eval 1 completed: Yes Anesthesia Postop Eval I Summary Anesthesia Postop Eval I Summary: Anesthesia Postop Eval I: Assessment Summary Airway patent Yes 01/27/24 13:54 [email or web address] Spontaneous unlabored Yes 01/27/24 13:54 PLUMBER [email or web address] respirations Mental status Awake,Calm 01/27/24 13:54 PLUMBER [email or web address] nausea No 01/27/24 13:54 PLUMBER SUPERVISOR.MIAHOBAries Vomiting No 01/27/24 13:54 PLUMBER [email or web address].[email or web address] Anesthesia Postop Eval I: Fluid Summary Crystalloid volume administer 1,000 01/27/24 13:54 [email or web address] (ml) Colloids volume administered ( ml) Blood Product volume administered (ml) Total IV fluid infused 1,000 01/27/24 13:54 PLUMBER [email or web address] Anesthesia Postop Eval I: Summary Notes Anesthesia Complication No 01/27/24 13:54 PLUMBER [email or web address] Anesthesia Complication Comment: Post-operative progress note Anesthesia: Postop Eval II Evaluation Mental status: Awake Pain Level: 2 nausea: No Vomiting: No
--- NOTE | 2024-01-27 14:16 | PCM.POSTANE2 ---
Anesthesia Postop Eval I Sum Postop Eval Completion status Anesthesia document: Postop Eval 1 completed: Yes Anesthesia Postop Eval I Summary Anesthesia Postop Eval I Summary: Anesthesia Postop Eval I: Assessment Summary Airway patent Yes 01/27/24 13:54 [email or web address] Spontaneous unlabored Yes 01/27/24 13:54 FABRICATION [email or web address] respirations Mental status Awake,Calm 01/27/24 13:54 FABRICATION [email or web address] nausea No 01/27/24 13:54 FABRICATION ENGINEER.MIAHOBAries Vomiting No 01/27/24 13:54 FABRICATION ENGINEER.MIAHOBAries Anesthesia Postop Eval I: Fluid Summary Crystalloid volume administer 1,000 01/27/24 13:54 [email or web address] (ml) Colloids volume administered ( ml) Blood Product volume administered (ml) Total IV fluid infused 1,000 01/27/24 13:54 [email or web address].[email or web address] Anesthesia Postop Eval I: Summary Notes Anesthesia Complication No 01/27/24 13:54 FABRICATION [email or web address] Anesthesia Complication Comment: Post-operative progress note Anesthesia: Postop Eval II Evaluation Mental status: Awake Pain Level: 2 nausea: No Vomiting: No
--- NOTE | 2024-01-27 15:46 | SUR.PHASEII ---
Patient nauseous in phase 2, dr. cabello aware. ordered scopolomine patch. emesis after applied, ordered benadryl/ reglan. see anesthesia document.
--- NOTE | 2024-01-27 15:50 | SUR.PHASEII ---
dr. doe to bedside post op.
--- NOTE | 2024-01-27 17:40 | OP.PCM_ITS ---
Operative Report (Standard) Operative Information Date of Procedure: 01/27/24 Pre-Operative Diagnosis: Left Hand Dupuytren's Contracture Post-Operative Diagnosis: Same Surgery/Procedure Performed: 1) Left index finger (LIF) limited palmar fasciectomy, CPT: 59632 2) LIF checkrein ligament release, proximal interphalangeal (PIP) joint, CPT: 94244 3) Left long finger (LLF) limited palmar fasciectomy, CPT: 55611 4) LLF A1 aline release, CPT: 79633 5) Left small finger (LSF) amputation at the PIP joint, CPT: 50386 call center operations manager: Yes Liaison Planner: Kay Braden Tasks completed by reproductive healthcare assistant: Retracting Type of Anesthesia: General/Supplemental (20 cc injected of a 50-50 mixture of 20 cc of Exparel and 20 cc of 0.25% Marcaine ) RN Documented Start/Stop Times: Operation Date: 01/27/24 09:00 Case Time Into Pre-Op 01/27/24 07:31 Out of Pre-Op 01/27/24 09:19 Anesthesia Start 01/27/24 09:26 Into Room 01/27/24 09:26 Procedure Start 01/27/24 09:49 Procedure End 01/27/24 13:42 Anesthesia End 01/27/24 13:50 Out of Room 01/27/24 13:50 Into Recovery 01/27/24 13:52 Out of Recovery 01/27/24 14:23 Into Phase II Recovery 01/27/24 14:27 Out of Phase II 01/27/24 17:20 Procedure Start Time: 09:49 Procedure Stop Time: 13:42 Select all DRAINS/GRAFTS/IMPLANTS that apply: None Estimated Blood Loss: 10 cc Specimen collected: Yes Description of specimen(s) removed: Dupuytren's cords to the index, long fingers, and the small finger amputated portion Description of surgery: Indications: Geo Guerrero is a 48-year-old male with past medical history of left hand Dupuytren's contracture with a severe left small finger contracture that has been persistent at the PIP joint for about 10 years. The index and long fingers have started to contract over the past 2 years then he presents today for limited palmar fasciectomy of the left index and long fingers, possible PIP joint releases, and also an amputation of the PIP level of the left small finger. He understands the risks, benefits, and alternative treatments to the above-noted procedures. 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 Procedure details: Patient was correctly identified in preoperative holding and the left index, long, and small fingers were marked. The patient was taken back to the operating room where he was administered general anesthesia and prepped and draped in sterile fashion. A timeout was performed before the procedure was started. The tourniquet was inflated to 250 mmHg after the Esmarch was used. I began the procedure by designing Leander incisions over the index and long fi ngers. I began at the level of the palm for dissection of the index finger cord opening the Annie's incision and finding the Dupuytren's cord superficial to the distal transverse palmar fascia. Deep to the distal transverse palmar fascia, I was able to find the neurovascular bundles and identify and protect them as I dissected them distally and also dissected out the cord distally. The cord was dissected into the finger past the PIP joint to its insertion over the A4 aline. The cord was released (cord excised and sent to pathology), which led to significant release of the PIP joint contracture of the index finger; however, it was persistently stuck at about 25 degrees flexion despite significant force attempting to extend it to neutral. I therefore made the decision to do a checkrein ligament release of the PIP joint volar plate. The A3 aline was incised and the FDS and FDP were retracted laterally. The check rein ligaments were released over the distal volar surface of P1 with a 15 blade scalpel. I was then able to passively extend the index finger to neutral position, so the accessory collateral ligaments were spared. I then let the tourniquet down and the wounds were irrigated with copious amounts normal saline. The Leander incisions on the index finger were closed with interrupted 3-0 nylon horizontal mattress sutures after hemostasis was obtained with bipolar electrocautery. The Esmarch was again used and the tourniquet inflated to 250 mmHg. The palmar Leander incisions for the long finger were then incised with a 15 blade scalpel and the cord was identified in the palm superficial to the distal transverse palmar fascia. The radial and ulnar digital bundles were also identified deep to the fascia, and preserved. They were followed distally as was the cord with a careful dissection. There were multiple cord components of the long finger, including a cord component going deep over the A1 aline, and therefore the A1 aline was released with a 15 blade scalpel and the cord completely excised at this level. There was also a spiral cord which was medializing the ulnar neurovascular bundle to the left long finger, and it was carefully dissected distally around the neurovascular bundle to its insertion over the A4 aline distally. The cord was excised with a 15 blade scalpel and sent to pathology. This provided significant release of the PIP joint and I was able to passively extend the long finger to the neutral position. I then let the tourniquet down and the wounds were irrigated with copious amounts normal saline. The Leander incisions on the long finger were closed with interrupted 3-0 nylon horizontal mattress sutures after hemostasis was obtained with bipolar electrocautery. The Esmarch was again used and the tourniquet inflated to 250 mmHg. A dorsal flap of skin was designed over the small finger to cover the PIP joint at the level of amputation. A 15 blade scalpel was then used to amputate the small finger at the PIP joint level and then subsequently rotate and advance disease- free dorsal skin over the head of P1. A rongeur was used to eliminate the PIP joint cartilage surface of P1. The wound was irrigated with copious amounts of normal saline. Traction neurectomies were performed for the distal digital nerves and the tourniquet was let down and hemostasis was obtained with bipolar electrocautery including the distal digital arteries. The dorsal flap was sutured into place with 3-0 nylon interrupted sutures. The release of the cord and the PIP joint eliminated all contractile forces prohibiting complete passive extension of the digit back to neutral at the MCP joint, and therefore decision to further perform limited palmar fasciectomy on this digit was deferred. The tourniquet was let down. All digits were warm and well-perfused, even when passively extending to the neutral position. 20 cc of the 50-50 mixture of Exparel and bupivacaine (see above) was injected for a local block at the incisions/digits. Xeroform was applied over the incisions. A volar blocking splint was applied with plaster. The patient tolerated the procedure well. Tourniquet times: Up at 9:57, down at 11:23 Up at 11:43, down at 12:42 Up at 13:02, down at 13:17 Surgical Findings: * Spiral cord on the left long finger medializing the ulnar digital nerve * Neurovascular bundles intact following dissection * Able to passively get index, long, and left small fingers to neutral position Complications Complications: No Admit VTE Documentation VTE Mechan Device Prophylaxis: SCD's
== END 2024-01-27 17:22 | disposition home or self-care (01) ==
LOC: SDC 07:27 → AC 07:30
PROVIDERS: Physician Assistant; PCP Family Medicine; Referring Provider Surgery Plastic and Reconstructive Surgery; Visit Provider Surgery Plastic and Reconstructive Surgery
PROC: (CPT 26045; principal; 2024-01-27 08:45)
DX: M24.542 Contracture, left hand (principal); F20.9 Schizophrenia, unspecified; Z87.891 Personal history of nicotine dependence; Z79.891 Long term (current) use of opiate analgesic; F41.9 Anxiety disorder, unspecified; F32.A Depression, unspecified; F12.90 Cannabis use, unspecified, uncomplicated
CPT/HCPCS: 26123; 26525; 26125; 26055; 26952; 01810; 36415; 80053; 80061; 85025; 88305; 88311; 93005; C9290; J2405

== ENCOUNTER 2024-04-20 06:17 | Day surgery (SDC) | payer MEDICAID, SELFPAY ==
[2024-04-20] VITALS (8 sets, daily range): BP systolic 91–143; BP diastolic 57–95; PULSE 58–71; RESP 16–18; TEMP 36.3–36.8; O2SAT 95–100; BMI 24.4
--- NOTE | 2024-04-20 06:47 | PRE.ANES_ITS ---
ASA Classification* ASA Classification ASA Classification: 2 Assessment & Plan Anesthesia* Anesthesia Assessment Anesthesia Assessment: Discussed sedation and/or anesthesia options, risks, benefits, and alternatives with patient/parents/legal guardian/POA. Questions invited. The patient/parents/legal guardian/POA seems to understand and agrees to proceed with anesthesia plan. Reviewed the physical assessment, medical history, allergy history and patient home medications list prior to surgery/procedure/anesthetic and documented any changes. Performed airway and anesthesia risk assessments. Anesthesia Type Anesthesia Type: MAC Anesthesia Focused Assessment* Airway Assessment Mouth opens: >3 cm Mallampati Score: II Focused Labs Anesthesia Preop lab: CBC WBC 8.6 K/mm3 (4.4-11.0) 01/06/24 14:51 01/06/24 RBC 4.74 M/mm3 (4.6-6.2) 01/06/24 14:51 01/06/24 Hgb 14.1 g/dL (13.0-16.5) 01/06/24 14:51 01/06/24 Hct 41.7 % (40-54) 01/06/24 14:51 01/06/24 Plt Count 293 K/mm3 (150-450) 01/06/24 14:51 01/06/24 CHEMISTRY Potassium 4.5 mmol/L (3.5-5.1) 01/06/24 14:51 01/06/24 Sodium 138 mmol/L (136-145) 01/06/24 14:51 01/06/24 BUN 16 mg/dL (7-18) 01/06/24 14:51 01/06/24 Creatinine 1.03 mg/dL (0.70-1.30) 01/06/24 14:51 01/06/24 Glucose 92 mg/dL (74-106) 01/06/24 14:51 01/06/24 COAG Pre-Assessment Diagnosis/Proposed Procedure Planned Operative Procedure(s): EGD AND COLONOSCOPY Anesthesia History Anesthesia History - 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 When Was Last Pacemaker Check QUESTION #4 FULL TEXT: You/Your Family Experience fever (hyperthermia) with Anesthesia Last Oral Intake Last Oral intake: Last Oral Intake NPO since Meds taken in AM with sips of water? Meds patient instructed to take am of surgery PONV PONV - patient clerical assistant: PONV - patient clerical assistant Female No 04/18/24 13:46 HX of Motion Sickness Yes 04/18/24 13:46 HX of N/V After Surgery Yes 04/18/24 13:46 Non-Smoker Yes 04/18/24 13:46 Duration of Surgery greater No 04/18/24 13:46 than 60 minutes Number of Risk Factors 3 04/18/24 13:46 PONV Score Moderate Risk 04/18/24 13:46 Height & Weight Height & Weight: Anesthesia: Height & Weight Height 5 ft 9 in 03/10/24 13:30 Respiratory Assessment Respiratory Assessment - patient clerical assistant: Respiratory Tract Infection Hx - patient clerical assistant Hx Respiratory Tract Infection No 04/18/24 13:46 STOP Sleep Apnea STOP Sleep Apnea - patient clerical assistant: STOP Sleep Apnea - patient clerical assistant Hx Hypertension No 04/18/24 13:46 Hx Sleep Apnea No 04/18/24 13:46 CPAP BIPAP Do you snore loudly (louder No 04/18/24 13:46 than talking or can be heard Do you often feel tired/ No 04/18/24 13:46 fatigued/ sleepy during daytime? Has anyone observed you stop No 04/18/24 13:46 breathing during sleep? STOP Results Negative 04/18/24 13:46 QUESTION #5 FULL TEXT : Do you snore loudly (louder than talking or can be heard through closed doors)? 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 Specify any problems Hx of Preganancy in last 3 N/A 04/18/24 13:46 Months Nurse Filling Out Transfusion [facility] 04/18/24 13:46 & Questions: Date: 04/18/24 04/18/24 13:46 Time: 13:49 04/18/24 13:46 Patient unable to answer at this time (ie. confused, unrespo /Reproduction History /Reproductive History - patient clerical assistant: /Reproductive Hx- patient clerical assistant Hx Now No 04/18/24 13:46 Gestational Age (in weeks): EDC: Hx Hx Para Hx Section SAB No 01/28/24 13:13 [facility] Medical History Wears glasses Depression Anxiety Marijuana use Restless legs Migraine headache Seizures Gastric reflux Former smoker Physical exam, pre-employment History of tumor Arthritis Home Medications ?Medication ?Instructions ?Recorded ?Last Taken ?Type risperidone 1 mg tablet 1 mg PO BID 11/10/23 Unknown History buspirone 15 mg tablet 15 mg PO TID 01/06/24 Unknow n History esomeprazole magnesium 40 mg 40 mg PO QDAY #30 caps 01/27/24 07:00 Rx capsule,delayed release Diltiazem 2% / Lidocaine 5% #1 ea 03/17/24 Unknown Rx ointment (compound) (Diltiazem 2%/Lidocaine 5% ointment (compound)) cholecalciferol (vitamin D3) 62.5 62.5 mcg PO DAILY Unknown History mcg (2,500 unit) capsule olanzapine 2.5 mg tablet (Zyprexa) 2.5 mg PO QDAY 02/18 Unknown History pantoprazole 40 mg tablet,delayed 40 mg PO QDAY #90 ta bs 03/17/24 Unknown Rx release tramadol 50 mg tablet 50 mg PO BID PRN pain #30 ta bs 03/22/24 Unknown Rx Allergy/AdvReac Type Severity Reaction Status Date / Time Penicillins Allergy Swelling Verified 04/18/24 13:44 Family History Father Anxiety Arthritis Hx of blood clots Cancer skin Depression Myocardial infarction Hypertension CVA (cerebral vascular accident) Mother Arthritis Cancer Fibromyalgia Surgical History H/O release of tendon History of removal of cyst Social History household members: family housing: house current occupational status: employed current occupation: [employer] Smoking Status: Former smoker how long ago did patient quit smoking: quit smoking 3yr ago alcohol intake: never substance use type: does not use what type of physical activity do you participate in: walking frequency: 3-4 times per week seatbelt use: always do you feel safe at home: Yes additional social history: no vaping, no substance, ibuprofen and mobic prn. no blood clotting dx history Review of Systems (Anesthesia) ROS Narrative System reviewed and no additional complaints, except as documented.
--- NOTE | 2024-04-20 07:30 | COLBX_PTH ---
PATIENT: LEBRON MARTIN LOC: EN U#:[id number] AGE/SX: 48/M ROOM: RE04/20/[address]: Dr. Ian Sawant DO : 1975 BED: DIS: 04/20/2024 SPEC #: [id number] RECD: 04/20/24 09:18 STATUS: DOROTEO ASAEL #: [id number] DIEGO: 04/20/24 07:[address]: Ian Sawant DEPT: SURGICAL PATHOLOGY RECD BY: Yuliya Sinclair ENTERED: 04/20/24 10:01 SP TYPE: COLON BX OTHR DR: Dr. Kun Soto, Tissues: A - Gastric mucous membrane B - Gastric mucous membrane C - Duodenum, NOS D - Esophagus, NOS E - COLON BIOPSY F - Sigmoid colon biopsy Procedures: Immunohistochemical Stains Surgery Specimen Level IV HEADER OPERATION: Colonoscopy, EGD biopsy and polypectomy PRE-OP DIAGNOSIS: GERD, loose stools, blood in stool, nausea / vomiting TISSUE SUBMITTED: A- Gastric cardia biopsy, B- Gastric antrum biopsy, C- Duodenum biopsy, D- Distal esophagus biopsy, E- Random colon biopsy, F-Sigmoid polyp MICROSCOPIC DIAGNOSIS A. Stomach, cardia, biopsy: * Oxyntic mucosa with mild chronic inflammation. * Negative for Helicobacter-like organisms (H&E). B. Stomach, antrum, biopsy: * Antral mucosa with features of reactive gastropathy. * IHC negative for H pylori organisms. C. Duodenum, biopsy: * Normal villous architecture with no specific pathologic change. * Negative for increased intraepithelial lymphocytes. D. Distal esophagus. biopsy: * Columnar mucosa with focal goblet cell metaplasia - see note. * Benign squamous mucosa. * Negative for dysplasia. * Note: The diagnosis depends on the location of the biopsy and the extent of the mucosal irregularity. If the biopsy originates from the tubular esophagus and the mucosal irregularity extends at least 1 cm above the top of the gastric folds, this represents Eng mucosa. If the biopsy originates from the gastric cardia and/or the mucosal irregularity is less than 1 cm in extent, this represents intestinal metaplasia. E. Colon, random, biopsy: * No specific pathologic change. * The histologic features of microscopic colitis are not demonstrated. F. Sigmoid colon, polyp, biopsy: * Mucosal prolapse. MICROSCOPIC DESCRIPTION Slides are reviewed. These tests were developed and their performance characteristics determined by [facility]. They may not have been cleared or approved by the U.S. Food and Drug Administration. The FDA has determined that such clearance or approval is not necessary. The above immunohistochemical/dualISH markers are ordered and reviewed by the Pathologist. GROSS DESCRIPTION A. Received in fixative is one container labeled with the patient's name and designated Gastric cardia biopsy. The specimen consists of two irregular fragments of light gaytan soft tissue that in aggregate measure 0.8 x 0.3 x 0.1 cm. The specimen is totally submitted in one cassette. B. Received in fixative is one container labeled with the patient's name and designated Gastric antrum biopsy. The specimen consists of one irregular fragment of light gaytan soft tissue that measures 0.5 x 0.3 x 0.2 cm. The specimen is totally submitted in one cassette. C. Received in fixative is one container labeled with the patient's name and designated Duodenum biopsy. The specimen consists of multiple irregular fragments of light gaytan soft tissue that in aggregate measure 1 x 0.3 x 0.1 cm. The specimen is totally submitted in one cassette. D. Received in fixative is one container labeled with the patient's name and designated Distal esophagus biopsy. The specimen consists of multiple irregular fragments of light gaytan soft tissue that in aggregate measure 0.7 x 0.5 x 0.2 cm. The specimen is totally submitted in one cassette. E. Received in fixative is one container labeled with the patient's name and designated Random colon biopsy. The specimen consists of multiple irregular fragments of light gaytan soft tissue that in aggregate measure 1.5 x 0.4 x 0.2 cm. The specimen is totally submitted in one cassette. F. Received in fixative is one container labeled with the patient's name and designated Sigmoid polyp. The specimen consists of one irregular fragment of light gaytan soft tissue that measures 0.6 x 0.5 x 0.2 cm. The specimen is totally submitted in one cassette. MS/mr 04/20/2024 CPT:91948t0,04259
--- NOTE | 2024-04-20 07:34 | PCM.HP.STD ---
[facility] - General General Date of Admission: 04/20/24 Date of Service: 04/20/24 Chief Complaint: abdominal pain, bloating, change in bowel habits and LGIB HPI Narrative LEBRON MARTIN, is a 48 M who presents for the evaluation of GERD, with abdominal disomfort and hemorroids. Pt has had progressively worsening heartburn over the past 8 years. He has been on Nexium 40 mg daily and it is no longer working. He has daily heartburn and nausea. He is vomiting up to three times per week. He gets full and bloated as soon as he starts eating. These symptoms have led to a 15 lbs weight loss over the past few months. He is also having constipation alternating with loose stools. He is having loose stools around 3x per week that are bright yellow and come with extreme urgency. Pt does still have his gallbladder. He has noticed that dairy can be a trigger but no other foods have been identified. He thinks he may have hemorrhoids as he feels something pop out when he has a bm. For about 40 minutes after a bm he will feel some pain and pressure near his anus until the hemorrhoid is reduced. He is having bright red blood when he wipes and feels this is related to the presumed hemorrhoid. [facility] Medical History Wears glasses Depression Anxiety Marijuana use Restless legs Migraine headache Seizures Gastric reflux Former smoker Physical exam, pre-employment History of tumor Arthritis Home Medications ?Medication ?Instructions ?Recorded ?Last Taken ?Type risperidone 1 mg tablet 1 mg PO BID 11/10/23 04/19/24 History buspirone 15 mg tablet 15 mg PO TID 01/06/24 04/19/24 History esomeprazole magnesium 40 mg 40 mg PO QDAY #30 caps 01/06/24 04/19/24 Rx capsule,delayed release Held on 04/20/24. Instructions: Order Changed Diltiazem 2% / Lidocaine 5% #1 ea 03/17/24 Unknown Rx ointment (compound) (Diltiazem 2%/Lidocaine 5% ointment (compound)) cholecalciferol (vitamin D3) 62.5 62.5 mcg PO DAILY 03/17/24 04/19/24 History mcg (2,500 unit) capsule olanzapine 2.5 mg tablet (Zyprexa) 2.5 mg PO QHS 03/17/24 04/19/24 History pantoprazole 40 mg tablet,delayed 40 mg PO QDAY #90 tabs 03/17/24 04/19/24 Rx release tramadol 50 mg tablet 50 mg PO BID PRN pain #30 tabs 03/22/24 Unknown Rx Allergy/AdvReac Type Severity Reaction Status Date / Time Penicillins Allergy Swelling Verified 04/18/24 13:44 Family History Father Anxiety Arthritis Hx of blood clots Cancer skin Depression Myocardial infarction Hypertension CVA (cerebral vascular accident) Mother Arthritis Cancer Fibromyalgia Surgical History H/O release of tendon History of removal of cyst Social History household members: family housing: house current occupational status: employed current occupation: [employer] Smoking Status: Former smoker how long ago did patient quit smoking: quit smoking 3yr ago alcohol intake: never substance use type: does not use what type of physical activity do you participate in: walking frequency: 3-4 times per week seatbelt use: always do you feel safe at home: Yes additional social history: no vaping, no substance, ibuprofen and mobic prn. no blood clotting dx history ROS Constitutional Constitutional: Denies fatigue, fever(s), poor appetite, weight gain or weight loss Gastrointestinal Gastrointestinal: Denies belching, bloating, change in bowel habits, change in stool character, chewing difficulty, coffee ground emesis, constipation, cramping, diarrhea, dyspepsia, dysphagia, early satiety, excessive flatus, fecal incontinence, heartburn, hematemesis, hematochezia, hemorrhoids, loose stools, melena, nausea, odynophagia, rectal bleeding, tenesmus, vomiting or weight changes Vital Signs Vital Signs Vital Signs: 04/20/24 06:51 Temperature 98.2 F Temperature Source Temporal Pulse Rate 70 Respiratory Rate 18 Blood Pressure 102/69 Blood Pressure Mean 80 Blood Pressure Source Monitor Blood Pressure Position Semi-Fowlers Blood Pressure Location Left Arm Pulse Ox 100 Oxygen Delivery Method Room Air Weight Weight: 165 lb 5.547 oz Body Mass Index (BMI) 24.4 Physical Exam Const alert, oriented x3, no apparent distress and healthy appearing General Appearance: cooperative GI normal to inspection, nondistended, normoactive bowel sounds, soft to palpation, non-tender and non-distended Percussion: normal to percussion Rectal Exam: deferred Assessment & Plan Assessment/Plan (1) Abdominal bloating: (2) Nausea & vomiting: (3) Loose stools: (4) Blood in the stool: (5) GERD (gastroesophageal reflux disease): QUALIFIERS: Esophagitis presence: esophagitis presence not specified Qualified Code(s): K21.9 - Gastro-esophageal reflux disease without esophagitis PLAN: Assessment and Plan Assessment and Plan (1) Loose stools: Status: Acute Plan: This is a 48 yo male pt here today for evaluation of GI symptoms that have been progressively worsening over the past 8 years. His heartburn is not well controlled on nexium 40 mg daily. I started him on Pantoprazole 40 mg daily. We will increase to BID if needed. He will also undergo EGD as I have concern for gastritis, esophagitis, gastroparesis or ulcers. Pt may need further work up with [facility] pending the results of the EGD. He is also having lower GI issues with constipation, loose stools and hemorrhoids. He declined rectal exam today. I will send in compounded ointment for presumed hemorrhoids. I ordered stool testing for inflammation or infection. He has never had a colonoscopy. He will undergo colonoscopy at the same time as EGD. If he is found to have internal hemorrhoids during colonoscopy these will be banded. He will f/u after procedure for further assessment and to discuss treatment plan. -Start pantoprazole 40 mg -EGD -Colonoscopy with banding if indicated -Stool testing -f/u after procedure (2) GERD (gastroesophageal reflux disease): Status: Acute Qualifiers: Esophagitis presence: esophagitis presence not specified Qualified Code(s): K21.9 - Gastro-esophageal reflux disease without esophagitis (3) Blood in the stool: Status: Acute (4) Nausea & vomiting: Status: Acute (5) Abdominal bloating: Status: Acute Orders: Orders Calprotectin, Stool Today R19.5 - Other fecal abnormalities Pancreatic Elastase, Fecal Today R19.5 - Other fecal abnormalities ENTERIC PATHOGEN PANEL STOOL Today K58.9 - Irritable bowel syndrome, unspecified, R19.5 - Other fecal abnormalities OVA+PARA w/Giardia EIA [id number] Today R19.5 - Other fecal abnormalities CDIFF (PCR) Today R19.5 - Other fecal abnormalities
--- NOTE | 2024-04-20 08:17 | PCM.POST.ANE ---
Anesthesia: Postop Eval I Current Vital Signs Temperature: 97.6 F Pulse Rate: 67 Blood Pressure: 106/92 Respiratory Rate: 16 Pulse Ox: 96 Oxygen Delivery Method: Room Air Assessment Airway patent: Yes Spontaneous unlabored respirations: Yes Mental status: Asleep nausea: No Vomiting: No Anesthesia Complication: No Fluid Hydration Crystalloid volume administer (ml): 60 Total IV fluid infused: 60 Progress Note Anesthesia document: Postop Eval 1 completed: Yes
--- NOTE | 2024-04-20 08:19 | OP.CCLET_ITS ---
04/20/2024 Kun Soto Re : Upper GI endoscopy procedure for Geo Guerrero Dear Dr. Soto This procedure was performed on Saturday, April 20, 2024. 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 Biopsied. - Medium-sized hiatal hernia. - Erythematous mucosa in the cardia and antrum. Biopsied. - No gross lesions in the duodenal bulb. Biopsied. Recommendations : - Discharge patient to home. - Resume previous diet. - Continue present medications. - Await pathology results. My findings are described in the full procedure note, which is enclosed. If I can be of further assistance, please feel free to contact me at . Sincerely, Ian Sawant, 04/20/2024 8:18:23 AM This report has been signed electronically.
--- NOTE | 2024-04-20 08:19 | OP.EGD_ITS ---
Patient Name: Geo Guerrero Procedure Date: 04/20/2024 7:41 AM Date of : 1975 Age: 48 Procedure: Upper GI endoscopy Indications: Suspected esophageal reflux Providers: Ian Sawant DO Medicines: Monitored Anesthesia Care Patient Profile: This is a 48 year old male. Refer to note in patient chart for documentation of history and physical. Patient has symptoms of chronic heartburn and chronic nausea. Complications: No immediate complications. Procedure: Pre-Anesthesia Assessment: - Prior to the procedure, a History and Physical was performed, and patient medications and allergies were reviewed. The patient is competent. The risks and benefits of the procedure and the sedation options and risks were discussed with the patient. All questions were answered and informed consent was obtained. Patient identification and proposed procedure were verified by the physician in the pre-procedure area. Mental Status Examination: alert and oriented. Airway Examination: normal oropharyngeal airway and neck mobility. Respiratory Examination: clear to auscultation. CV Examination: normal. Prophylactic Antibiotics: The patient does not require prophylactic antibiotics. Prior Anticoagulants: The patient has taken no anticoagulant or antiplatelet agents except for NSAID medication. ASA Grade Assessment: II - A patient with mild systemic disease. After reviewing the risks and benefits, the patient was deemed in satisfactory condition to undergo the procedure. The anesthesia plan was to use monitored anesthesia care (MAC). Immediately prior to administration of medications, the patient was re-assessed for adequacy to receive sedatives. The heart rate, respiratory rate, oxygen saturations, blood pressure, adequacy of pulmonary ventilation, and response to care were monitored throughout the procedure. The physical status of the patient was re-assessed after the procedure. After obtaining informed consent, the endoscope was passed under direct vision. Throughout the procedure, the patient's blood pressure, pulse, and oxygen saturations were monitored continuously. The Colonoscope was introduced through the mouth, and advanced to the second part of duodenum. The upper GI endoscopy was accomplished without difficulty. Scope In: 7:49:26 AM Scope Out: 7:55:17 AM Total Procedure Duration Time 0 hours 5 minutes 51 seconds Findings: There were esophageal mucosal changes consistent with short-segment Eng's esophagus present in the lower third of the esophagus. The maximum longitudinal extent of these mucosal changes was 2 cm in length. Mucosa was biopsied with a cold forceps for histology in a targeted manner at intervals of 1 cm in the lower third of the esophagus. One specimen bottle was sent to pathology. Verification of patient identification for the specimen was done. Estimated blood loss was minimal. A medium-sized hiatal hernia was present. Patchy mildly erythematous mucosa without bleeding was found in the cardia and in the gastric antrum. Biopsies were taken with a cold forceps for histology. Verification of patient identification for the specimen was done. Estimated blood loss was minimal. Biopsies were taken with a cold forceps for Helicobacter pylori testing. Verification of patient identification for the specimen was done. Estimated blood loss was minimal. No gross lesions were noted in the duodenal bulb. Biopsies were taken with a cold forceps for histology. Verification of patient identification for the specimen was done. Estimated blood loss was minimal. Impression: - Esophageal mucosal changes consistent with short-segment Eng's esophagus. Biopsied. - Medium-sized hiatal hernia. - Erythematous mucosa in the cardia and antrum. Biopsied. - No gross lesions in the duodenal bulb. Biopsied. Recommendation: - Discharge patient to home. - Resume previous diet. - Continue present medications. - Await pathology results. Procedure Code(s): --- Professional --- 29003, Esophagogastroduodenoscopy, flexible, transoral; with biopsy, single or multiple CPT copyright 2021 [employer]. All rights reserved. The codes documented in this report are preliminary and upon supervisor bottle machines review may be revised to meet current compliance requirements. Ian Sawant DO 04/20/2024 8:18:23 AM This report has been signed electronically. Number of Addenda: 0 Note Initiated On: 04/20/2024 7:41 AM
--- NOTE | 2024-04-20 08:21 | OP.COLON_ITS ---
Patient Name: Geo Guerrero Procedure Date: 04/20/2024 7:55 AM Date of : 1975 Age: 48 Procedure: Colonoscopy Indications: Generalized abdominal pain, Hematochezia Providers: Ian Sawant DO Medicines: Monitored Anesthesia Care Patient Profile: This is a 48 year old male. Refer to note in patient chart for documentation of history and physical. Patient has symptoms of chronic heartburn and chronic nausea. Last Colonoscopy: none. The patient's first colonoscopy is today. Complications: No immediate complications. Procedure: Pre-Anesthesia Assessment: - Prior to the procedure, a History and Physical was performed, and patient medications and allergies were reviewed. The patient is competent. The risks and benefits of the procedure and the sedation options and risks were discussed with the patient. All questions were answered and informed consent was obtained. Patient identification and proposed procedure were verified by the physician in the pre-procedure area. Mental Status Examination: alert and oriented. Airway Examination: normal oropharyngeal airway and neck mobility. Respiratory Examination: clear to auscultation. CV Examination: normal. Prophylactic Antibiotics: The patient does not require prophylactic antibiotics. Prior Anticoagulants: The patient has taken no anticoagulant or antiplatelet agents except for NSAID medication. ASA Grade Assessment: II - A patient with mild systemic disease. After reviewing the risks and benefits, the patient was deemed in satisfactory condition to undergo the procedure. The anesthesia plan was to use monitored anesthesia care (MAC). Immediately prior to administration of medications, the patient was re-assessed for adequacy to receive sedatives. The heart rate, respiratory rate, oxygen saturations, blood pressure, adequacy of pulmonary ventilation, and response to care were monitored throughout the procedure. The physical status of the patient was re-assessed after the procedure. After I obtained informed consent, the scope was passed under direct vision. Throughout the procedure, the patient's blood pressure, pulse, and oxygen saturations were monitored continuously. The Colonoscope was introduced through the anus and advanced to the terminal ileum. The colonoscopy was performed without difficulty. The patient tolerated the procedure well. The quality of the bowel preparation was adequate. The terminal ileum, ileocecal valve, appendiceal orifice, and rectum were photographed. Scope In: 7:56:55 AM Scope Withdrawal Time 0 hours 8 minutes 19 seconds Scope Out: 8:07:29 AM Total Procedure Duration Time 0 hours 10 minutes 34 seconds Findings: Hemorrhoids were found on perianal exam. A few small-mouthed diverticula were found in the recto-sigmoid colon. A 10 mm polyp was found in the sigmoid colon. The polyp was sessile. The polyp was removed with a hot snare. Resection and retrieval were complete. Verification of patient identification for the specimen was done. Estimated blood loss was minimal. An area of mildly congested mucosa was found in the sigmoid colon, at the splenic flexure, at the hepatic flexure and in the ascending colon. Biopsies were taken with a cold forceps for histology. Verification of patient identification for the specimen was done. Estimated blood loss was minimal. Impression: - Hemorrhoids found on perianal exam. - Diverticulosis in the recto-sigmoid colon. - One 10 mm polyp in the sigmoid colon, removed with a hot snare. Resected and retrieved. - Congested mucosa in the sigmoid colon, at the splenic flexure, at the hepatic flexure and in the ascending colon. Biopsied. Recommendation: - Discharge patient to home. - Resume previous diet. - Continue present medications. - Await pathology results. - Repeat colonoscopy in 5 years for surveillance. Procedure Code(s): --- Professional --- 17015, Colonoscopy, flexible; with removal of tumor(s), polyp(s), or other lesion(s) by snare technique 09016, 59, Colonoscopy, flexible; with biopsy, single or multiple CPT copyright 2021 [employer]. All rights reserved. The codes documented in this report are preliminary and upon abstracter review may be revised to meet current compliance requirements. Ian Sawant DO 04/20/2024 8:21:04 AM This report has been signed electronically. Number of Addenda: 0 Note Initiated On: 04/20/2024 7:55 AM
--- NOTE | 2024-04-20 08:21 | OP.CCLET_ITS ---
04/20/2024 Kun Soto Re : Colonoscopy procedure for Geo Guerrero Dear Dr. Soto This procedure was performed on Saturday, April 20, 2024. My impressions and recommendations are as follows: Impressions : - Hemorrhoids found on perianal exam. - Diverticulosis in the recto-sigmoid colon. - One 10 mm polyp in the sigmoid colon, removed with a hot snare. Resected and retrieved. - Congested mucosa in the sigmoid colon, at the splenic flexure, at the hepatic flexure and in the ascending colon. Biopsied. Recommendations : - Discharge patient to home. - Resume previous diet. - Continue present medications. - Await pathology results. - Repeat colonoscopy in 5 years for surveillance. My findings are described in the full procedure note, which is enclosed. If I can be of further assistance, please feel free to contact me at . Sincerely, Ian Sawant, 04/20/2024 8:21:04 AM This report has been signed electronically.
--- NOTE | 2024-04-20 08:42 | PCM.POSTANE2 ---
Anesthesia Postop Eval I Sum Postop Eval Completion status Anesthesia document: Postop Eval 1 completed: Yes Anesthesia Postop Eval I Summary Anesthesia Postop Eval I Summary: Anesthesia Postop Eval I: Assessment Summary Airway patent Yes 04/20/24 08:18 [email or web address] Spontaneous unlabored Yes 04/20/24 08:18 [email or web address] respirations Mental status Asleep 04/20/24 08:18 [email or web address] nausea No 04/20/24 08:18 [email or web address] Vomiting No 04/20/24 08:18 [email or web address] Anesthesia Postop Eval I: Fluid Summary Crystalloid volume administer 60 04/20/24 08:18 [email or web address] (ml) Colloids volume administered ( ml) Blood Product volume administered (ml) Total IV fluid infused 60 04/20/24 08:18 [email or web address] Anesthesia Postop Eval I: Summary Notes Anesthesia Complication No 04/20/24 08:18 [email or web address] Anesthesia Complication Comment: Post-operative progress note Anesthesia: Postop Eval II Evaluation Mental status: Awake Pain Level: 0 nausea: No Vomiting: No
== END 2024-04-20 08:50 | disposition home or self-care (01) ==
LOC: EN 06:17 → AC 06:18
PROVIDERS: PCP Family Medicine; Referring Provider Family Medicine; Visit Provider Internal Medicine Gastroenterology
PROC: 0DJD8ZZ Inspection of Lower Intestinal Tract, Via Natural or Artificial Opening Endoscopic (ICD-10-PCS; CPT 45378; principal; 2024-04-20 07:25)
DX: K63.89 Other specified diseases of intestine (principal); K57.30 Diverticulosis of large intestine without perforation or abscess without bleeding; K44.9 Diaphragmatic hernia without obstruction or gangrene; K31.89 Other diseases of stomach and duodenum; K21.9 Gastro-esophageal reflux disease without esophagitis; K64.9 Unspecified hemorrhoids; F32.A Depression, unspecified; Z79.899 Other long term (current) drug therapy; Z87.891 Personal history of nicotine dependence
CPT/HCPCS: 45385; 45380; 43239; 88305; 88342; A4216; J2405

== ENCOUNTER → 2024-04-29 | Outpatient (CLI) | payer MEDICAID, SELFPAY ==
--- NOTE | 2024-04-29 09:45 | RAD_ITS ---
PROCEDURE: HAND MIN 3 VIEWS REASON FOR EXAM: PAIN TECHNIQUE: Three-view imaging of the right hand. COMPARISON: None FINDINGS: Degenerative changes detected at the carpus with bony osteophyte formation which appears to account for palpable abnormality. This is most prominent base of the 4th metacarpal. No evidence of acute fracture. No bone destruction RAD/Hand Min 3 Views IMPRESSION: Bony osteophyte formation seen at the carpus accounting for patient's symptoms. No acute findings. This is probably due to sequela of old trauma Reading Location: [id number]
== END | disposition home or self-care (01) ==
PROVIDERS: PCP Family Medicine; Referring Provider Surgery Plastic and Reconstructive Surgery; Visit Provider Surgery Plastic and Reconstructive Surgery
DX: M24.549 Contracture, unspecified hand (principal)
CPT/HCPCS: 73130

== ENCOUNTER → 2024-05-26 | Outpatient (CLI) | payer MEDICAID, SELFPAY ==
--- NOTE | 2024-05-26 10:11 | NM_ITS ---
PROCEDURE: GASTRIC EMPTYING STUDY 05/26/2024 REASON FOR EXAM: HEARTBURN COMPARISON: None. TECHNIQUE: The patient ingested a standard meal of the radiopharmaceutical in oatmeal.. Anterior and posterior planar images of the upper abdomen were obtained at 1 minute intervals for a total of 60 minutes. Regions of interest were drawn, and a geometric mean was used to calculate a [id number]. Medications taken in the past 24 hours that may affect gastric emptying: None RADIOPHARMACEUTICAL: 1.2 mCi of Technetium sulfur colloid. FINDINGS: Percent activity remaining in stomach: 1 hour 47 % (normal 37-90%) NM/Gastric Emptying Study IMPRESSION: Normal gastric emptying study with 47% of activity remaining in the stomach at 60 minutes. Reading Location: [place] [id number]
== END | disposition home or self-care (01) ==
LOC: NM 10:09
PROVIDERS: PCP Family Medicine; Referring Provider Student in an Organized Health Care Education/Training Program; Visit Provider Student in an Organized Health Care Education/Training Program
DX: R14.0 Abdominal distension (gaseous) (principal); R11.2 Nausea with vomiting, unspecified
CPT/HCPCS: 78264; A9541

== ENCOUNTER 2024-05-31 09:30 | Outpatient (RCR) | payer MEDICAID, SELFPAY ==
--- NOTE | 2024-02-11 16:05 | HP.OTEVAL ---
Patient's Visit Information Visit Information Visit Information: LEBRON MARTIN is a 48 year old M, referred to Occupational Therapy by Dr. Tuan Sanchez MD, with a diagnosis of Dupuytren's contracture/fasciotomy and left little finger amputation at PIP. 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 Patient was seen my Allison Mitchell around 01/28/24 and she fabricated a resting hand splint for him to wear at night. He reports no issues with the hand splint. Patient is right hand dominant. 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 Patient reports ~5 days ago his left index finger started to swell up and was increased sensitivity/pain and now he can't bend it. He follows up with Dr. Sanchez on 02/12/24 and plans to ask him about this. ADLs Comments: currently staying with his mom and dad so they can help him as needed but he typically lives alone. Parents are helping with opening containers and cooking but otherwise he is completing his self-care independently. Able to get coat on/off. ROM Opposition: able to oppose R hand and all but little finger on the left MP: L index 80, L middle 75, L ring 70, L little 75 PIP: L index 70, L middle 77, L ring 68 DIP: L index 40, L middle 33, L ring 25 ROM Comments: ROM intact with shoulder, elbow, wrist Strength Automotive Fleet Supervisor: R 75, 71, 64 Lateral Pinch: R 14# Tripod Pinch: R 15# Tip-to-Tip Pinch: 14# Edema PIP: L index PIP 9 cm, L middle PIP 9 cm, L ring finger PIP 8 cm Other: 23 cm L MCP Sensation Index: tingling and numbness in index finger Quick DASH-Disab of Arm,Shoulder& Hand Quick DASH Score: 75.0000 Goals Goal:: Patient will demonstrate improved functional ROM of left hand for ADL's with increase in overall finger range of motion by at least 15 degreees total. Goal:: Patient will demonstrate decreased edema in left fingers for functional use of left hand with 2 cm or more less of swelling in index, middle, and ring fingers. Goal:: Patient will report increased independence with ADL's with a quick dash score of 65 of less. Goal:: Patient will be indep with orthotic wear schedule and HEP to improve fxnal use of left hand for ADl's. Rehabilitation General Assessment: Patient arrived 2 weeks and 1 day s/p dupuytren's release with fasciotomy and left little finger amputation at [facility]. Patient was seen by Allison Mitchell CHT, on 01/28/24 for fabrication of volar resting hand splint for night time wear. No concerns with [facility]. Patient presents with swelling, decreased ROM, and functional use of left hand and would benefit from skilled intervention to improve these areas for indep ADL participation. Rehabilitation Potential: Good Anticipated Interventions Anticipated Interventions: A/AAROM/PROM, Strengthening, Edema Control, Triggerpoint Release, Desensitization, Orthoses, Joint Protection/Energy Conservation and Home Program Visit Plan Frequency: 2x /Week Duration: 6 Weeks General Plan: 2x/week for 6 weeks to work on ROM, progressive strengthening, fine motor manipulation, manual tissue mobilization, HEP, wound care TEXT: Thank you for the opportunity to evaluate your patient. For Medicare and Medicare HMO plans, please review the plan of care and approve it. It will need to be FAXED BACK to us at [phone] for Medicare purposes. Please let me know if there are questions or concerns regarding this plan of care. Physician Signature: Date:
--- NOTE | 2024-03-22 15:40 | HP.OT.NRP ---
Patient Information Patient Information: LEBRON MARTIN was seen in my office for initial evaluation on 02/11/24. The following Plan of Care was established for this patient: POC Established Initial Frequency: 2x /Week Initial Duration: 6 Weeks Plan: pt to bring orthosis in for adj. Anticipated Interventions Anticipated Interventions: A/AAROM/PROM, Strengthening, Edema Control, Triggerpoint Release, Desensitization, Orthoses, Joint Protection/Energy Conservation and Home Program Last Seen Last Seen: This patient was last seen in our office 03/08/24. Pertinent comments regarding their Occupational therapy will appear below: pt was seen for 5 OT sessions: last 4 visits pt no showed apts. - pt d/c at this time due to non- attendance. At this point I will be discontinuing this patient from occupational therapy. I would be happy to see this patient again in the future if found appropriate by the physician. Thank you! Yamile Mitchell, OTR/L, CHT
--- NOTE | 2024-09-14 14:43 | HP.OT.NRP ---
Patient Information Patient Information: LEBRON MARTIN was seen in my office for initial evaluation on 02/11/24. The following Plan of Care was established for this patient: POC Established Initial Frequency: 2x /Week Initial Duration: 6 Weeks Plan: initiate BTE and simulated work tasks Anticipated Interventions Anticipated Interventions: A/AAROM/PROM, Strengthening, Edema Control, Triggerpoint Release, Desensitization, Orthoses, Joint Protection/Energy Conservation and Home Program Last Seen Last Seen: This patient was last seen in our office 03/08/24. Pertinent comments regarding their Occupational therapy will appear below: pt was seen for 5 OT sessions: last 4 visits pt no showed apts. - pt d/c at this time due to non- attendance. At this point I will be discontinuing this patient from occupational therapy. I would be happy to see this patient again in the future if found appropriate by the physician. Thank you! Yamile Mitchell, OTR/L, CHT
== END 2024-05-31 19:00 | disposition home or self-care (01) ==
LOC: OT 09:30
PROVIDERS: PCP Family Medicine; Referring Provider Surgery Plastic and Reconstructive Surgery; Visit Provider Surgery Plastic and Reconstructive Surgery
DX: M72.0 Palmar fascial fibromatosis [Dupuytren] (principal)
CPT/HCPCS: 97110; 97140; 97166; 97530; 97760

== ENCOUNTER → 2024-07-08 | Outpatient (CLI) | payer MEDICAID, SELFPAY ==
[2024-07-12 11:08] LABS: Pancreatic Elastase, Fecal > 800 (>200)
[2024-07-12 14:08] LABS: Calprotectin, Stool 104 ug/g (0-120)
== END | disposition home or self-care (01) ==
LOC: LABSPEC 08:59
PROVIDERS: PCP Nurse Practitioner Family; Referring Provider Student in an Organized Health Care Education/Training Program; Visit Provider Student in an Organized Health Care Education/Training Program
DX: K58.9 Irritable bowel syndrome, unspecified (principal); R19.5 Other fecal abnormalities
CPT/HCPCS: 82274; 82653; 83993; 87177; 87209; 87329; 87506

== ENCOUNTER → 2024-07-13 | Outpatient (CLI) | payer MEDICAID, SELFPAY ==
--- NOTE | 2024-07-13 17:02 | RAD_ITS ---
PROCEDURE: CERV SPINE 2 OR 3 VIEWS 07/13/2024 REASON FOR EXAM: CHRONIC NECK PAIN TECHNIQUE: 3 views of the cervical spine. AP, lateral, open-mouth odontoid COMPARISON: None available FINDINGS: Cervical spine is visualized on the lateral from the skull base to the top of T1. No fracture or malalignment. No prevertebral soft tissue swelling. C6-7 severe disc space narrowing with degenerative endplate changes and uncovertebral hypertrophic change with mild posterior and anterior corner spurring. Visualized apices appear clear. RAD/Cerv Spine 2 or 3 Views IMPRESSION: C6-7 spondylosis/discogenic change as above. Reading Location: [id number]
[2024-07-13 17:15] LABS: Hematocrit 44.5 % (40-54); Hemoglobin 14.8 g/dL (13.0-16.5); Mean Corp Hgb Conc 33.3 g/dL (32-36); Mean Corpuscular Volume 90.1 fL (80-94); Platelet Count 224 K/mm3 (150-450); RBC Distribution Width CV 13.9 % (11.6-14.6); RBC Distribution Width SD 45.6 fl (35.1-43.9); Red Blood Count 4.94 M/mm3 (4.6-6.2); White Blood Count 11.3 K/mm3 (4.4-11.0)
[2024-07-13 17:55] LABS: ALB/GLOB Ratio 1.6 RATIO (0.9-2.4); AST(SGOT) 21 U/L (<=37); Alanine Aminotransfer ALT/SGPT 27 U/L (<=46); Alkaline Phosphatase 70 U/L (40-129); Anion Gap 9 (5-15); BUN 17 mg/dL (4-19); Calcium,Total 9.2 mg/dL (7.6-11.0); Carbon Dioxide 26.6 mmol/L (21.0-32.0); Chloride 104 mmol/L (98-108); Creatinine, Serum 0.94 mg/dL (0.70-1.20); EST Glomerular Filtration Rate 100 (>60); Globulin 2.5 g/dL (2.2-4.2); Glucose 87 mg/dL (70-99); Potassium 4.9 mmol/L (3.3-5.1); Protein, Total 6.5 g/dL (5.9-8.4); Sodium Level 140 mmol/L (133-145); Total Bilirubin 0.23 mg/dL (0.00-1.30)
== END | disposition home or self-care (01) ==
LOC: LAB 16:32
PROVIDERS: PCP Nurse Practitioner Family; Referring Provider Nurse Practitioner Family; Visit Provider Nurse Practitioner Family
DX: Z00.00 Encounter for general adult medical examination without abnormal findings (principal); M54.2 Cervicalgia; G89.29 Other chronic pain; Z13.1 Encounter for screening for diabetes mellitus; Z13.220 Encounter for screening for lipoid disorders
CPT/HCPCS: 36415; 72040; 80053; 85027

== ENCOUNTER → 2024-07-20 | Outpatient (CLI) | payer MEDICAID, SELFPAY ==
[2024-07-20 21:13] LABS: Amphetamine Urine NEGATIVE (<1000 ng/mL); Barbiturate Urine NEGATIVE (< 200 ng/mL); Benzodiazepine Urine NEGATIVE (< 200 ng/mL); Buprenorphine Urine NEGATIVE (< 200 ng/mL); Cocaine Urine NEGATIVE (< 300 ng/mL); Fentanyl, Urine NEGATIVE; Methadone Urine NEGATIVE (< 300 ng/mL); Opiates Urine NEGATIVE (< 300 ng/mL); Oxycodone, Urine NEGATIVE (< 100 ng/mL); PCP Urine NEGATIVE (< 25 ng/mL); THC Urine PRESUMPTIVE POSITIVE (< 50 ng/mL)
== END | disposition home or self-care (01) ==
LOC: LAB 17:07
PROVIDERS: PCP Nurse Practitioner Family; Referring Provider Anesthesiology Pain Medicine; Visit Provider Anesthesiology Pain Medicine
DX: F11.20 Opioid dependence, uncomplicated (principal)
CPT/HCPCS: 80307

== ENCOUNTER → 2024-09-07 | Outpatient (CLI) | payer MEDICAID, SELFPAY ==
--- NOTE | 2024-09-07 08:04 | MRI_ITS ---
PROCEDURE: SPINE CERVICAL (ROUTINE) 09/07/2024 REASON FOR EXAM: CERVICAL RADICULOPATHY TECHNIQUE: SPINE CERVICAL (ROUTINE) Multiplanar and multisequence images were obtained without IV contrast administration. COMPARISON: None. FINDINGS: Vertebrae: Cervical vertebral body heights are preserved. Bone marrow signal is unremarkable. Alignment: Normal. No spondylolisthesis. Spinal Cord: Cervical spinal cord is of normal size and signal intensities. Structures at the foramen magnum are unremarkable. C2-3: No significant foraminal or canal stenosis. C3-4: Uncovertebral hypertrophy. Facet joint arthropathy. Mild bilateral foramina stenosis. No canal stenosis. C4-5: No significant foraminal or canal stenosis C5-6: No significant foraminal or canal stenosis C6-7: No significant foraminal or canal stenosis. C7-T1: No significant foraminal or canal stenosis. MRI/Spine Cervical (Routine) IMPRESSION: Bilateral mild foraminal stenosis at C3-C4. Otherwise, unremarkable MRI of the cervical spine without significant foraminal or canal stenosis. Reading Location: [id number]
--- OUTSIDE RECORDS SUMMARY | 2024-09-07 08:29 | XMS RPT_ITS | CCD ---
Author Organization [facility] Care Team Providers Care Dry Room Attendant Name Role Phone Unavailable Primary Care Provider UnavailKATIE Herman MD Attending Unavailable PHYSICIAN, NONE Primary Care Unavailable Antonio IVERSON, Agnes Unavailable PHYSICIAN, NONE Primary Care Physician Unavailab jostin PHYSICIAN, NONE Primary Care Unavailable REFERRING, CONRAD GARCIA Attending Unavailable Cecily Garnica DO Primary Care Provider Trinidad Sanchez MD Unavailable GREGORY RIVERS Attending Unavailable TRINIDAD SANCHEZ Referring Unavailable CECILY GARNICA Primary Care Unavailable AGNES JONES Referring Unavailable ISA VILLA MD Attending Unavailsamuel siegel PHYSICIAN, NONE Primary Care Unavailable Dr. Cecily Garnica DO Primary Care Provider [phone] Dr. Cecily Garnica DO Referring Provider [phone] Dr. Trinidad Sanchez MD Attending Provider Dr. Trinidad Sanchez MD Referring Provider Dr. Triindad Sanchez MD Other Provider Obey Luis Attending Provider Neli San Attending Provider Dr. Ian Sawant DO Attending Provider Dr. Ian Sawant DO Other Provider Dr. Cecily Garnica DO Primary Care Provider Dr. Cecily Garnica DO Referring Provider [phone] Dr. Trinidad Sanchez MD Attending Provider Dr. Trinidad Sanchez MD Referring Provider Dr. Cecily Garnica DO Attending Provider [phone] Neli San Referring Provider Dr. Cecily Garnica DO Primary Care Provider Charles MCINTOSH, Dr. Cecily Nicholas Referring Provider [phone] Laura ORTIZ, Dr. Dickerson Attending Provider ZION NARROW FABRIC CALENDERER-C, GLORIA Primary Care Provider ZION NARROW FABRIC CALENDERER-C, GLORIA Attending Provider ZION NARROW FABRIC CALENDERER-C, GLORIA Referring Provider Charles MCINTOSH, Dr. Cecily Nicholas Primary Care Provider Dr. Cecily Garnica DO Referring Provider Neli San Attending Provider Jayne ORTIZ, Dr. Smith Attending Provider Jayne ORTIZ, Dr. Smith Referring Provider ZION NARROW FAB[employer]IC CALENDERER-C, GLORIA Primary Care Provider ZION NARROW FABRIC CALENDERER-C, GLORIA Attending Provider [phone] ZION [employer]ARROW FAB[employer]IC CALENDERER-C, GLORIA Referring Provider [phone] Trinidad Sanchez Attending Unavailable Brown, Cecily R Primary Care Unavailable Siska, Trinidad Referring Unavailable SiskaTrinidad Attending Unavailable Brown, Cecily R Primary Care Unavailable Sisjoycelyn, Trinidad Referring Unavailable Trinidad Sanchez Attending Unavailable Brown, Cecily R Primary Care Unavailable SiskaTrinidad Referring Unavailable Ian Sawant Attending Unavailable Brown, Cecily R Referring Unavailable Brown, Cecily R Primary Care Unavailable Siska, Trinidad Referring Unavailable Brown, Cecily R Primary Care Unavailable Trinidad Sanchez Attending Unavailable Neli Bazan Attending Unavailable Neli Bazan Referring Unavailable Brown, Cecily R Primary Care Unavailable Care Physician, No Primary Primary Care Unava ilable [facility] UnavailAgnes Holden Referring UnavailWesley Kuo Referring Unavailable Wesley Davenport Attending Unavailable Brown, Cecily R Primary Care Unavailable Chris Young Attending Unavailable Siska, Trinidad Referring Unavailable Brown, Cecily R Primary Care Unavailable Siska, Trinidad Attending Unavailable Brown, Cecily R Primary Care Unavailable Brown, Cecily R Referring Unavailable Brown, Cecily R Referring Unavailable Brown, Cecily R Primary Care Unavailable SiskaTrinidad Attending Unavailable Obey Luis Attending Unavailable Brown, Cecily R Referring Unavailable Brown, Cecily R Primary Care Unavailable Brown, Cecily R Referring Unavailable Brown, Cecily R Primary Care Unavailable SiskaTrinidad Attending Unavailable Siska, Trinidad Attending Unavailable Brown, Cecily R Referring Unavailable Brown, Cecily R Primary Care Unavailable Wesley Davenport Attending Unavailable Brown, Cecily R Referring Unavailable Brown, Cecliy R Primary Care Unavailable Neli Bazan Attending Unavailable Brown, Cecily R Referring Unavailable Brown, Cecily R Primary Care Unavailable Brown, Cecily R Attending Unavailable Brown, Cecily R Referring Unavailable GLORIA DONOVAN Primary Care Unavailable Neli Bazan Attending Unavailable Neli Bazan Referring Unavailable Trinidad Sanchez Attending Unavailable SiskaTrinidad Referring Unavailable SiskaTrinidad Consulting Unavailable Brown, Cecily R Primary Care Unavailable Friend, Ian Consulting Unavailable Friend, Ian Attending Unavailable Brown, Cecily R Primary Care Unavailable Brown, Cecily R Referring Unavailable Brown, Cecily R Referring Unavailable Anil Panda Attending Unavailable Brown, Cecily R Primary Care Unavailable SiskaTrinidad Attending Unavailable Siska, Trinidad Referring Unavailable Brown, Cecily R Primary Care Unavailable Siska, Trinidad Attending Unavailable Wesley Davenport Attending Unavailable Brown, Cecily R Referring Unavailable Brown, Cecily R Primary Care Unavailable Neli Bazan Attending Unavailable Brown, Cecily R Primary Care Unavailable Brown, Cecily R Referring Unavailable SiskaTrinidad Attending Unavailable Brown, Cecily R Primary Care Unavailable Brown, Cecily R Referring Unavailable Neli Bazan Attending Unavailable Brown, Cecily R Referring Unavailable Brown, Cecily R Primary Care Unavailable SiskaTrinidad Attending Unavailable Brown, Cecily R Referring Unavailable Brown, Cecily R Primary Care Unavailable Siska, Trinidad Attending Unavailable Brown, Cecily R Referring Unavailable Brown, Cecily R Primary Care Unavailable SiskaTrinidad Attending Unavailable Brown, Cecily R Referring Unavailable Brown, Cecily R Primary Care Unavailable SiskaTrinidad Attending Unavailable Brown, Cecily R Referring Unavailable Brown, Cecily R Primary Care Unavailable Brown, Cecily R Referring Unavailable Brown, Cecily R Primary Care Unavailable Obey Luis Attending Unavailable SiskaTrinidad Consulting Unavailable Ahmad, Arsal Attending Unavailable Trinidad Sanchez Referring Unavailable Brown, Cecily R Primary Care Unavailable ZION, GLORIA Primary Care Unavailable Basali, Ayman Attending Unavailable Basali, Ayman Referring Unavailable Brown, Cecily R Primary Care Unavailable Brown, Cecily R Attending Unavailable ZION, GLORIA Primary Care Unavailable Basali, Ayman Attending Unavailable Basali, Ayman Referring Unavailable Care Physician, No Primary Primary Care Unava ilable Care Physician, No Primary Referring Unava ilable Brown, Cecily R Attending Unavailable SisTrinidad hirsch Attending Unavailable ZION, GLORIA Referring Unavailable ZION, GLORIA Primary Care Unavailable ZION, GLORIA Primary Care Unavailable ZION, GLORIA Attending Unavailable ZION, GLORIA Referring Unavailable ZION, GLORIA Primary Care Unavailable Basali, Ayman Attending Unavailable Basali, Ayman Referring Unavailable ZION, GLORIA Attending Unavailable ZION, GLORIA Referring Unavailable ZION, GLORIA Primary Care Unavailable Allergies Allergy Classification Reported Allergen(s) Allergy Type Date of Onset Reaction(s) Facility (5 sources) Acetaminophen / HYDROcodone; Translations: [HYDROCODONE-ACET AMINOPHEN] Drug Allergy 11-05-19 14 GI Upset [facility] (5 sources) Penicillins; Translations: [PENICILLINS] Drug Intolerance 02-11-20 08 Rash [facility] (2 sources) Penicillin; Translations: [penicillins] Drug Allergy throat swelling [facility] (6 sources) Penicillins Allergy to substance 04-30-19 Swelling [facility] (1 source) Penicillins Drug allergy (disorder) 08-18-19 25 [facility] Repository Medications Current Medications Medication Drug Class(es) Dates Sig (Normalized) Sig (Original) Tylenol (2 sources) Start: 12-25-2018 Tylenol 0 Refill(s) Start Date: 12/25/18 Status: Ordered aluminum chloride 200 mg/ml topical solution (5 sources) Start: 05-18-2024 Aluminum Chloride (Drysol) 20 % solution Active 1 [facility] TOPICAL EVERY WEEK as needed for hyperhidrosis 37.5 2 May 18, 2024 12:00am busPIRone hydrochloride 15 mg oral tablet (13 sources) Start: 01-06-2024 take 1 tablet by mouth three times daily Buspirone 15 mg tablet Active 15 mg PO THREE TIMES A DAY January 06, 2024 1:00am Start: 2023 take 1 tablet by [facility] three times daily busPIRone (BUSPAR) 15 mg tablet Take 15 mg by mouth three times a day. 2023 Active Start: 11-10-2023 End: 01-06-2024 take 1 tablet by mouth three times daily Buspirone 10 mg tablet Discontinued 10 mg PO THREE TIMES A DAY November 10, 2023 12:00am January 06, 2024 9:21am cholecalciferol 0.025 mg oral tablet (7 sources) Vitamin D Start: 08-17-2024 take 1 tablet by mouth once daily Cholecalciferol (Vitamin D3) (Vitamin D3) 25 mcg (1,000 unit) tablet Active 25 ug PO daily August 17, 2024 12:00am Start: 03-17-2024 End: 08-17-2024 take 1 capsule by mouth once daily Cholecalciferol (Vitamin D3) 62.5 mcg (2,500 unit) capsule Discontinued 62.5 ug PO DAILY March 17, 2024 1:00am August 17, 2024 3:40pm Start: 03-17-2024 take 1 capsule by [facility] once daily Cholecalciferol (Vitamin D3) 62.5 mcg (2,500 unit) capsule Active 62.5 ug PO DAILY March 17, 2024 1:00am clindamycin 300 mg oral capsule (4 sources) Lincosamide Antibacterial Start: 01-25-2015 take 1 capsule by mouth four times daily clindamycin (CLEOCIN) 300 mg capsule Take 1 capsule by mouth four times daily. 40 capsule 0 01/25/2015 Active Comment on above: Take 1 capsule by [facility] four times daily. Dexlansoprazole 30 mg capsule,biphase delayed releas (5 sources) Start: 05-20-2024 take 1 capsule by mouth once daily Dexlansoprazole 30 mg capsule,biphase delayed releas Active 30 mg PO daily May 20, 2024 12:00am Start: 05-20-2024 take 1 capsule by [facility] once daily Dexlansoprazole 30 mg capsule,biphase delayed releas Active 30 mg PO daily May 20, 2024 12:00am Diltiazem 2% / Lidocaine 5% Ointment (Compound) [Diltiazem 2%/Lidocaine 5% Ointment (Compound)] (Diltiazem 2%/Lidocaine 5% ) ointment (6 sources) Start: 03-17-2024 Diltiazem 2% / Lidocaine 5% Ointment (Compound) [Diltiazem 2%/Lidocaine 5% Ointment (Compound)] (Diltiazem 2%/Lidocaine 5% ) ointment Active 0 .Route 1 March 17, 2024 1:00am apply pea sized amount to anus twice daily for hemorrhoids Start: 03-17-2024 Diltiazem 2% / Lidocaine 5% Ointment (Compound) [Diltiazem 2%/Lidocaine 5% Ointment (Compound)] (Diltiazem 2%/Lidocaine 5% ) ointment Active 0 .Route 1 March 17, 2024 1:00am apply pea sized amount to anus twice daily for hemorrhoids esomeprazole 40 mg delayed release oral capsule (16 sources) Proton Pump Inhibitor Start: 01-06-2024 take 1 capsule by mouth once daily Esomeprazole Magnesium 40 mg capsule,delayed release(DR/EC) Active 40 mg PO daily 30 January 06, 2024 1:00am On Hold: Order Changed Start: 12-25-2018 NexIUM 0 Refil l(s) Start Date: 12/25/18 Status: Ordered Start: 02-14-2015 take 1 capsule by mo ut once daily esomeprazole magnesium (NEXIUM 24HR) 22.3 mg cpDR Take 1 capsule by mouth once daily. 30 capsule 5 02/14/2015 Active Start: 02-10-2015 take 1 capsule by mo uth once daily before breakfast esomeprazole (NEXIUM) 40 mg capsule Take 1 capsule by mouth daily before breakfast. 1/2 hr before meal. 30 capsule 0 02/10/2015 Active Comment on above: Take 1 capsule by mo uth daily before breakfast. 1/2 hr before meal. Take 1 capsule by mo uth once daily. famotidine 20 mg oral tablet (10 sources) Histamine-2 Receptor Antagonist Start: 07-08-2024 take 1 tablet by mouth once daily Famotidine 20 mg tablet Active 20 mg PO daily 60 July 08, 2024 12:00am Start: 01-06-2024 End: 03-17-2024 take 1 tablet by mouth at bedtime Famotidine 20 mg tablet Discontinued 20 mg PO AT BEDTIME 20 0 January 06, 2024 1:00am March 17, 2024 4:38pm hydrOXYzine pamoate 50 mg oral capsule (8 sources) Antihistamine Start: 08-17-2024 Hydroxyzine Pa moate 50 mg capsule Active mg PO August 17, 2024 12:00am Start: 11-10-2023 End: 03-17-2024 take 1 capsule by mouth twice daily as needed for anxiety Hydroxyzine Pamoate 50 mg capsule Discontinued 50 mg PO TWICE DAILY NEEDED as needed for anxiety November 10, 2023 12:00am March 17, 2024 4:38pm Start: 11-05-2023 take 1 capsule by mo [facility] every six hours as needed hydrOXYzine pamoate (VISTARIL) 50 mg capsule Take 50 mg by mouth four times a day as needed. 11/05/2023 Active OLANZapine 5 mg oral tablet (13 sources) Atypical Antipsychotic Start: 08-17-2024 take 1 tablet by mouth at bedtime Olanzapine 5 mg tablet Active 5 mg PO AT BEDTIME August 17, 2024 12:00am Start: 03-17-2024 End: 05-18-2024 take 1 tablet by mouth at bedtime as needed Olanzapine (Zyprexa) 2.5 mg tablet Active 2.5 mg PO AT BEDTIME as needed May 18, 2024 10:34am Start: 11-12-2023 [facility] OLANZapine (ZYPREXA) 10 mg tablet Take 10 mg by mouth daily at bedtime. 11/12/2023 Active omeprazole 20 mg / sodium bicarbonate 1100 mg oral capsule (4 sources) Proton Pump Inhibitor Start: 12-05-2014 take 1 capsule by mouth twice daily Omeprazole-Sodium Bicarbonate 20-1.1 mg-gram cap Take 1 capsule by mouth twice daily. 60 capsule 2 12/05/2014 Active Comment on above: Take 1 capsule by mo ut twice daily. ramelteon 8 mg oral tablet (1 source) Melatonin Receptor Agonist Start: 08-17-2024 take 1 tablet by mouth at bedtime Ramelteon 8 mg tablet Active 8 mg PO AT BEDTIME August 17, 2024 12:00am risperiDONE 2 mg oral tablet (8 sources) Atypical Antipsychotic Start: 08-17-2024 take 1 tablet by mouth at bedtime Risperidone 2 mg tablet Active 2 mg PO AT BEDTIME August 17, 2024 12:00am Start: 11-10-2023 take 1 tablet by giancarlo th twice daily Risperidone 1 mg tablet Active 1 mg PO TWICE A DAY November 10, 2023 12:00am Start: 11-05-2023 take 1 tablet by giancarlo th every twelve hours risperiDONE (RISPERDAL) 1 mg tablet Take 1 tablet by mouth every 12 hours. 11/05/2023 Active sucralfate 1000 mg oral tablet (4 sources) Aluminum Complex Start: 01-25-2015 take 1 tablet by mouth at bedtime sucralfate (CARAFATE) 1 gram tablet Indications: Heartburn Take 1 tablet by mouth before meals and at bedtime. 120 tablet 1 01/25/2015 Active Comment on above: Take 1 tablet by giancarlo th before meals and at bedtime. traZODone hydrochloride 50 mg oral tablet (1 source) Serotonin Reuptake Inhibitor Start: 2023 take 1 tablet by mouth once daily at bedtime traZODone (DESYREL) 50 mg tablet Take 50 mg by mouth daily at bedtime. 2023 Active Completed/Discontinued Medications Medication Drug Class(es) Dates Sig (Normalized) Sig (Original) betamethasone 0.5 mg/ml / clotrimazole 10 mg/ml topical cream (6 sources) Azole Antifungal, Corticosteroid Start: 02-05-2024 End: 03-17-2024 Clotrimazole-Betame thasone 1-0.05 % cream Discontinued 1 NMA TOPICAL TWICE A DAY 15 14 1 February 05, 2024 1:00am March 17, 2024 4:37pm dicyclomine hydrochloride 20 mg oral tablet (2 sources) Anticholinergic Start: 11-22-2021 End: 11-27-2021 dicyclomine 20 mg oral tablet Dose : 20 mg = 1 tab(s), Oral, QID, PRN abdominal discomfort, # 20 tab(s), 0 Refill(s), Abdominal pain Start Date: 11/22/21 Stop Date: 11/27/21 Status: Ordered diphenhydrAMINE hydrochloride 25 mg oral capsule (6 sources) Histamine-1 Receptor Antagonist Start: 06-08-2022 End: 11-10-2023 take 1 capsule by mouth three times daily as needed Diphenhydramine Hcl (Benadryl) 25 mg capsule Discontinued 25 mg PO THREE TIMES A DAY as needed for allergic reaction 14 5 0 June 08, 2022 12:00am November 10, 2023 9:10am doxycycline hyclate 50 mg oral capsule (6 sources) Tetracycline-class Drug Start: 01-27-2024 End: 02-05-2024 take 1 capsule by mouth twice daily Doxycycline Hyclate 50 mg capsule Discontinued 50 mg PO TWICE A DAY 10 5 0 January 27, 2024 3:30pm February 05, 2024 9:57am Esomeprazole Magnesium 20 mg capsule,delayed release(DR/EC) (6 sources) Start: 11-10-2023 End: 01-06-2024 take 1 capsule by mouth once daily Esomeprazole Magnesium 20 mg capsule,delayed release(DR/EC) Discontinued 20 mg PO daily November 10, 2023 12:00am January 06, 2024 2:54pm meloxicam 7.5 mg oral tablet (10 sources) Nonsteroidal Anti-inflammatory Drug Start: 11-10-2023 End: 03-17-2024 take 1 tablet by mouth once daily Meloxicam 7.5 mg tablet Discontinued 7.5 mg PO DAILY November 10, 2023 12:00am March 17, 2024 4:37pm Start: 12-04-2014 take 1 tablet by giancarlo once daily meloxicam (MOBIC) 15 mg tablet Take 1 tablet by mouth once daily. 30 tablet 0 12/04/2014 Active Comment on above: Take 1 tablet by giancarlo th once daily. ondansetron 4 mg disintegrating oral tablet (6 sources) Serotonin-3 Receptor Antagonist Start: 01-27-20 End: 02-01-20 take 1 tablet by mouth every eight hours as needed for nausea and vomiting Ondansetron 4 mg tablet,disintegratin g Discontinued 4 mg PO Q8H as needed for nausea and vomiting 15 5 0 January 27, 2024 1:00am January 31, 2024 1:00am February 01, 2024 1:09am oxyCODONE hydrochloride 5 mg oral tablet (18 sources) Opioid Agonist Start: 02-09-20 End: 02-14-20 take 1 tablet by mouth twice daily as needed for pain Oxycodone 5 mg tablet Discontinued 5 mg PO TWICE A DAY as needed for pain 10 5 0 February 09, 2024 February 13, 2024 1:00am February 14, 2024 1:09am Dupuytren's contracture Palmar fascial fibromatosis [Dupuytren] Start: 02-02-2024 End: 02-05-2024 take 1 tablet by mouth every twelve hours as needed for pain Oxycodone 5 mg tablet Discontinued 5 mg PO Q12H as needed for pain 10 5 0 February 02, 2024 February 06, 2024 1:00am February 05, 2024 9:57am Dupuytren's contracture Palmar fascial fibromatosis [Dupuytren] Start: 01-27-2024 End: 02-05-2024 take 1 tablet by mouth every eight hours as needed for pain Oxycodone 5 mg tablet Discontinued 5 mg PO Q8H as needed for pain 20 5 January 27, 2024 February 05, 2024 9:57am Dupuytren's contracture Palmar fascial fibromatosis [Dupuytren] pantoprazole 40 mg delayed release oral tablet (6 sources) Proton Pump Inhibitor Start: 03-17-2024 End: 05-18-2024 take 1 tablet by mouth once daily Pantoprazole 40 mg tablet,delayed release (DR/EC) Discontinued 40 mg PO daily 90 March 17, 2024 1:00am May 18, 2024 10:35am predniSONE 20 mg oral tablet (6 sources) Start: 06-08-2022 End: 11-10-2023 take 2 tablets by mouth once daily Prednisone 20 mg tablet Discontinued 40 mg PO DAILY 20 10 June 08, 2022 12:00am November 10, 2023 9:10am traMADol hydrochloride 50 mg oral tablet (20 sources) Opioid Agonist Start: 03-22-2024 End: 05-27-2024 take 1 tablet by mouth twice daily as needed for pain Tramadol 50 mg tablet Discontinued 50 mg PO TWICE A DAY as needed for pain May 06, 2024 4:34pm May 27, 2024 10:47am to be taken on an occasional basis for severe pain. Start: 11-10-2023 End: 03-17-2024 take 1 tablet by mouth twice daily as needed for pain Tramadol 50 mg tablet Discontinued 50 mg PO TWICE A DAY as needed for pain 30 0 February 24, 2024 11:20am March 17, 2024 4:38pm to be taken on an occasional basis for severe pain. Start: 02-02-2015 take 1 tablet by giancarlo th every six hours as needed traMADol (ULTRAM) 50 mg tablet Take 1 tablet by mouth every 6 hours as needed for Pain. 12 tablet 0 02/02/2015 Active Comment on above: Take 1 tablet by giancarlo th every 6 hours as needed for Pain. Vonoprazan (Voquezna) 10 mg tablet (10 sources) Start: 06-02-2024 End: 06-03-2024 take 1 tablet by mouth once daily Vonoprazan (Voquezna) 10 mg tablet Discontinued 10 mg PO daily 30 June 02, 2024 6:24am June 03, 2024 8:20am Start: 06-02-2024 End: 06-03-2024 take 1 tablet by mouth once daily Vonoprazan (Voquezna) 10 mg tablet Discontinued 10 mg PO daily June 02, 2024 6:24am June 03, 2024 8:20am Start: 05-03-2024 End: 06-02-2024 take 1 tablet by mouth once daily Vonoprazan (Voquezna) 10 mg tablet Discontinued 10 mg PO daily 30 May 03, 2024 12:00am June 02, 2024 6:24am Start: 05-03-2024 End: 06-02-2024 take 1 tablet by mouth once daily Vonoprazan (Voquezna) 10 mg tablet Discontinued 10 mg PO daily May 03, 2024 12:00am June 02, 2024 6:24am Start: 05-03-2024 take 1 tablet by giancarlo th once daily Vonoprazan (Voquezna) 10 mg tablet Active 10 mg PO daily May 03, 2024 12:00am Vonoprazan (Voquezna) 20 mg tablet (4 sources) Start: 06-03-2024 End: 07-29-2024 take 1 tablet by mouth once daily Vonoprazan (Voquezna) 20 mg tablet Discontinued 20 mg PO daily 56 56 0 June 03, 2024 12:00am July 28, 2024 12:00am July 29, 2024 12:08am Start: 06-03-2024 take 1 tablet by giancarlo th once daily Vonoprazan (Voquezna) 20 mg tablet Active 20 mg PO daily 56 56 June 03, 2024 12:00am July 28, 2024 12:00am Problems Active Problems Problem Classification Problem Date Documented Da te Episodic/Chronic Abdominal pain (1 source) Generalized abdominal pain; Translations: [Generalized abdominal pain] Episodic Allergic reactions (6 sources) Contact dermatitis; Translations: [Unspecified contact dermatitis, unspecified cause] 06-16-2022 Episodic Esophageal disorders (20 sources) Gastroesophageal reflux disease; Translations: [Gastro-esophageal reflux disease without esophagitis] Onset: 0 07-25-2009 Chronic Headache; including migraine (8 sources) Migraine; Translations: [Migraine, unspecified, not intractable, without status migrainosus] 11-19-2015 Chronic Inflammatory conditions of male genital organs (6 sources) Epididymitis; Translations: [Epididymitis] 05-10-2013 Episodic Other acquired deformities (6 sources) Disorder of hand; Translations: [Contracture, unspecified hand] 11-10-2023 Chronic Other acquired deformities (2 sources) Contracture, unspecified hand; Translations: [Contracture, unspecified hand] Onset: 4 Chronic Other acquired deformities (1 source) Contracture, left hand; Translations: [Contracture, left hand] Onset: 5 Chronic Other connective tissue disease (20 sources) Dupuytren's contracture; Translations: [Palmar fascial fibromatosis [Dupuytren]] 11-27-2023 Episodic Comment on above: Left>Right Other connective tissue disease (1 source) Hand pain; Translations: [Pain in unspecified hand] 08-17-2024 Episodic Other gastrointestinal disorders (1 source) Irritable bowel syndrome without diarrhea; Translations: [Irritable bowel syndrome, unspecified] Onset: 5 Chronic Other gastrointestinal disorders (15 sources) Loose stool; Translations: [Other fecal abnormalities] 03-17-2024 Episodic Other gastrointestinal disorders (20 sources) Abdominal bloating; Translations: [Abdominal distension (gaseous)] 03-17-2024 Episodic Other nervous system disorders (4 sources) Carpal tunnel syndrome of right wrist; Translations: [Carpal tunnel syndrome, right upper limb] Onset: 5 12-04-2014 Chronic Other screening for suspected conditions (not mental disorders or infectious disease) (1 source) Encounter for screening for lipoid disorders; Translations: [Encounter for screening for lipoid disorders] Onset: Episodic Other skin disorders (8 sources) Lesion of scalp; Translations: [Disorder of the skin and subcutaneous tissue, unspecified] 02-05-2024 Episodic Other skin disorders (10 sources) Generalized hyperhidrosis; Translations: [Drug-induced hyperhidrosis] 05-18-2024 Episodic Pleurisy; pneumothorax; pulmonary collapse (2 sources) Pneumothorax 12-28-2013 Episodic Residual codes; unclassified (7 sources) FH: Thrombosis; Translations: [Family history of ischemic heart disease and other diseases of the circulatory system] 12-16-2023 Episodic Schizophrenia and other psychotic disorders (20 sources) Schizophrenia in remission; Translations: [Schizophrenia, unspecified] 11-10-2023 Chronic Spondylosis; intervertebral disc disorders; other back problems (1 source) Radiculopathy, cervical region; Translations: [Radiculopathy, cervical region] Onset: Episodic Substance-related disorders (1 source) Opioid dependence, uncomplicated; Translations: [Opioid dependence, uncomplicated] Onset: Chronic Unclassified (6 sources) M72.0 - Palmar fascial fibromatosis [Dupuytren],M24.549 - Contracture, unspecified hand Unclassified (1 source) Contracture of hand Past or Other Problems Problem Classification Problem Date Documented Da te Episodic/Chronic Administrative/social admission (7 sources) Patient encounter status; Translations: [Encounter for pre-employment examination] Onset: 12-29-2023 12-29-2023 Episodic Gastrointestinal hemorrhage (17 sources) Hematochezia; Translations: [Melena] Onset: 01-07-2024 01-06-2024 Episodic Nausea and vomiting (20 sources) Nausea and vomiting; Translations: [Nausea with vomiting, unspecified] Onset: 04-27-2024 03-17-2024 Episodic Other connective tissue disease (2 sources) Palmar fascial fibromatosis [Dupuytren]; Translations: [Palmar fascial fibromatosis [Dupuytren]] Onset: 02-15-2024 Episodic Other gastrointestinal disorders (2 sources) Abdominal distension (gaseous); Translations: [Abdominal distension (gaseous)] Onset: 04-27-2024 Episodic Other gastrointestinal disorders (2 sources) Other fecal abnormalities; Translations: [Other fecal abnormalities] Onset: 03-17-2024 Episodic Other gastrointestinal disorders (1 source) Diarrhea, unspecified; Translations: [Diarrhea, unspecified] Onset: 04-27-2024 Episodic Other non-traumatic joint disorders (1 source) Disorder of wrist joint; Translations: [Osteophyte, right wrist] Onset: 12-04-2014 12-04-2014 Episodic Other non-traumatic joint disorders (3 sources) Osteophyte, right wrist; Translations: [Exostosis of unspecified site] Onset: 12-04-2014 12-04-2014 Episodic Other non-traumatic joint disorders (1 source) Pain in joints of left hand; Translations: [Pain in joints of left hand] Onset: 02-04-2024 Episodic Other non-traumatic joint disorders (1 source) Pain in joints of right hand; Translations: [Pain in joints of right hand] Onset: 02-04-2024 Episodic Other skin disorders (1 source) Disorder of the skin and subcutaneous tissue, unspecified; Translations: [Disorder of the skin and subcutaneous tissue, unspecified] Onset: 02-05-2024 Episodic Other upper respiratory disease (4 sources) Deviated nasal septum; Translations: [Deviated nasal septum] Onset: 02-11-2008 02-11-2008 Episodic Residual codes; unclassified (1 source) Family history of ischemic heart disease and other diseases of the circulatory system; Translations: [Family history of ischemic heart disease and other diseases of the circulatory system] Onset: 02-15-2024 Episodic Results Test Name Value Interpretation Reference Range Facility Plastic Surgery Visit Report on 08-17-2024 Plastic Surgery Visit Report [facility] Plastic Reconstructive Surgery [address], [address] [place] [address] OFFICE VISIT Date of Service: 08/17/24 MR#: [id number] Acct: [id number] Name: GEO GUERRERO Rep #: [id number] : 1975 Provider: Dr. Trinidad Sanchez MD Age/Sex: 48/M Location: [facility] Status: Signed Intake Vital Signs 3 05/18/24 10:37 08/17/24 15:37 Height 5 ft 9 in 5 ft 9 in BP 118/82 H Blood Pressure Location Lt brachial Position Sitting Respiration 18 Pulse 110 H Temp 99.1 F Temp Source Oral Pulse Oximetry (%) 98 Oxygen Delivery Method room air Intake Visit Reasons: Hand pain Chief Complaint: hand pain Is patient in pain?: Yes (10 right hand is worse than the left) Allergies Penicillins Allergy (Verified 08/17/24 15:38) Swelling Medications 3 ???Medication ???Instructions ???Recorded ???Confirmed ???Type risperidone 1 mg tablet 1 mg PO BID 11/10/23 08/17/24 Hist ory buspirone 15 mg tablet 15 mg PO TID 01/06/24 08/17/24 His tory esomeprazole magnesium 40 mg 40 mg PO QDAY #30 caps 01/06/24 Rx capsule,delayed release Held on 04/20/24. Instructions: Order Changed Diltiazem 2% / Lidocaine 5% #1 ea 03/17/24 08/17/24 Rx ointment (compound) (Diltiazem 2%/Lidocaine 5% ointment (compound)) aluminum chloride 20 % topical 1 applic topical QWEEK PRN 5 08/17/24 Rx solution (Drysol) hyperhidrosis #37.5 mL olanzapine 2.5 mg tablet (Zyprexa) 2.5 mg PO QHS PRN 05/18/2408/17 History dexlansoprazole 30 mg 30 mg PO QDAY #30 caps 05/20/24 Rx capsule,biphase delayed release tramadol 50 mg tablet 50 mg PO BID PRN pain #20 tabs 01/1008/17/24 Rx famotidine 20 mg tablet 20 mg PO QDAY #60 tabs 07/08/24 Rx cholecalciferol (vitamin D3) 25 25 mcg PO QDAY 08/17/24 08/17/24 H istory mcg (1,000 unit) tablet (Vitamin D3) hydroxyzine pamoate 50 mg capsule mg PO 08/17/24 08/17/24 History olanzapine 5 mg tablet 5 mg PO QHS 08/17/24 08/17/24 Hist ory ramelteon 8 mg tablet 8 mg PO QHS 08/17/24 08/17/24 Hist ory risperidone 2 mg tablet 2 mg PO QHS 08/17/24 08/17/24 Hist ory Nurse's Note: pt here for eval for hand pain, left hand pain and right hand pain.The right hand is worse than the left 05/26 [facility] Medical History Wears glasses Depression Anxiety Marijuana use Restless legs Migraine headache Seizures Gastric reflux Former smoker Physical exam, pre-employment History of tumor Arthritis Surgical History H/O release of tendon History of removal of cyst Family History Father Anxiety Arthritis Hx of blood clots Cancer skin Depression Myocardial infarction Hypertension CVA (cerebral vascular accident) Mother Arthritis Cancer Fibromyalgia Social History household members: family housing: house current occupational status: employed current occupation: [employer] Smoking Status: Former smoker how long ago did patient quit smoking: quit smoking 3yr ago alcohol intake: never substance use type: does not use what type of physical activity do you participate in: walking frequency: 3-4 times per week seatbelt use: always do you feel safe at home: Yes additional social history: no vaping, no substance, ibuprofen and mobic prn. no blood clotting dx history HPI Hand/Wrist Pain HPI FOLLOW UP Details: PROCEDURE DETAILS Date of Procedure: 01/27/24 Pre-Operative Diagnosis: Left Hand Dupuytren's Contracture Post-Operative Diagnosis: Same Surgery/Procedure Performed: 1) Left index finger (LIF) limited palmar fasciectomy, CPT: 79415 2) LIF checkrein ligament release, proximal interphalangeal (PIP) joint, CPT: 71743 3) Left long finger (LLF) limited palmar fasciectomy, CPT: 51710 4) LLF A1 aline release, CPT: 65083 5) Left small finger (LSF) amputation at the PIP joint, CPT: 40818 29 April 2024: Doing well today 3 months after above noted surgery for his Dupuytren's disease. No numbness/tingling. Happy with result. 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 He dropped a tray and broke glass into some of the eggs at breakfast. He thinks that he was going too fast and doesn't have as firm of a camp boss strength yet. He had a conversation about this with his boss and they asked that he take a little more time off to recover before he returns. Mr. Guerrero asked for a work note to be off for a couple more weeks. He feels like when he is doing better at [place], he can tr (more content not included)... Normal [facility] L3410.9992on 07-22-2024 [facility] Misc. COMMENT Normal . [facility] Comment on above: Order Comment: [id number] 0URINE TOXICOLOGY Result Comment: Test Ordered: [id number] Amphetamines Screen, Urine Negative ng/mL UI Reference Range: Zunxmq=344 Amphetamine test includes Amphetamine and Methamphetamine. Barbiturates Negative ng/mL UI Reference Range: Tjcixg=070 Benzodiazepines Negative ng/mL UI Reference Range: Nufnvd=586 Cocaine (Metab.), Urine Negative ng/mL UI Reference Range: Dnjzyb=579 Opiates Negative ng/mL UI Reference Range: Bzabkq=708 Opiate test includes Codeine, Morphine, Hydromorphone, Hydrocodone. 6-Acetylmorphine, Urine Negative ng/mL UI Reference Range: Cutoff=10 Oxycodone/Oxymorphone, Urine Negative ng/mL UI Reference Range: Wornen=707 Test includes Oxycodone and Oxymorphone PCP, Urine Negative ng/mL UI Reference Range: Cutoff=25 Methadone Screen, Urine Negative ng/mL UI Reference Range: Rjzzwv=182 Propoxyphene, Urine Negative ng/mL UI Reference Range: Klkxet=065 Fentanyl, Urine Negative ng/mL UI Reference Range: Cutoff=2.0 Test includes Fentanyl and Norfentanyl This test was developed and its performance characteristics determined by [facility]. It has not been cleared or approved by the Food and Drug Administration. Tramadol Negative ng/mL UI Reference Range: Nmrkfa=556 Buprenorphine, Urine Negative ng/mL UI Reference Range: Cutoff=10 Creatinine, Urine 325.3 [H ] mg/dL UI Reference Range: 20.0-300.0 pH, Urine 5.9 UI Reference Range: 4.5-8.9 Performed at: - [facility] [address] [place], [place] [id number] Carpenter Supervisor [employer]: Sadaf Hoffmann PhD, Phone: [phone] Performed at: - [facility] [id number] Carpenter Supervisor [employer]: Wu Cassidy PhD, Phone: [phone] Performed By: #### L 3410.9992, L505.5000 ####[facility] [address] [place], [address] Amphetamine detection with 1 000 ng/mL as cutoffOrdered By: Sarah Godoy on 07-20-2024 Amphetamines Screen method >1000 ng/mL Ql (U) Negative < 200 ng/mL [facility] No Panel InformationOrdered By: Leticiagore Jayne on 07-20-2024 Urine Buprenorphine Qualitative Negative < 200 ng/mL [facility] Urine Oxycodone Screen Negative < 100 ng/mL [facility] Quantitative urine opiates m easurementOrdered By: Sarah Godoy on 07-20-2024 Opiates Ql (U) Negative < 300 ng/mL [facility] Screening urine fentanyl mariela surementOrdered By: Sarah Godoy on 07-20-2024 fentaNYL Screen Ql (U) Negative [facility] Urine Drug Screen (VISTA)on 07-20-2024 AMPHETAMINES Negative Normal <1000 ng/mL [facility] Comment on above: Order Comment: TRAMA DOL Performed By: #### L 3410.9992, L505.5000 ####[facility] [address] [facility] [place], [place], [id number] BARBITIURATES Negative Normal < 200 ng/mL [facility] Comment on above: Order Comment: TRAMA DOL Performed By: #### L 3410.9992, L505.5000 ####[facility] [address] [place], [address] BENZODIAZIPINE Negative Normal < 200 ng/mL [facility] Comment on above: Order Comment: TRAMA DOL Performed By: #### L 3410.9992, L505.5000 ####[facility] [address] [place], [address] BUP Ur Drug Scr Negative Normal < 200 ng/mL [facility] Comment on above: Order Comment: TRAMA DOL Performed By: #### L 3410.9992, L505.5000 ####[facility] [address] [facility] [address] COCAINE Negative Normal < 300 ng/mL [facility] Comment on above: Order Comment: TRAMA DOL Performed By: #### L 3410.9992, L505.5000 ####[facility] [address] [place] [address] Fentanyl Negative Normal [facility] Comment on above: Order Comment: TRAMA DOL Performed By: #### L 3410.9992, L505.5000 ####[facility] [address] [place], [address] METHADONE Negative Normal < 300 ng/mL [facility] Comment on above: Order Comment: TRAMA DOL Performed By: #### L 3410.9992, L505.5000 ####[facility] [address] [facility] [address] OPIATES Negative Normal < 300 ng/mL [facility] Comment on above: Order Comment: TRAMA DOL Performed By: #### L 3410.9992, L505.5000 ####[facility] [address] [facility] [address] OXYCODONE Negative Normal < 100 ng/mL [facility] Comment on above: Order Comment: TRAMA DOL Performed By: #### L 3410.9992, L505.5000 ####[facility] [address] [place], [address] PCP Negative Normal < 25 ng/mL [facility] Comment on above: Order Comment: TRAMA DOL Performed By: #### L 3410.9992, L505.5000 ####[facility] [address] [place], [address] THC Positive Normal < 50 ng/mL [facility] Comment on above: Order Comment: TRAMA DOL Result Comment: If c onfirmation testing is needed, a separate order will be required to send out testing to the reference laboratory. Performed By: #### L 3410.9992, L505.5000 ####[facility] [address] [place], [address] Urine benzodiazepine levelOr dered By: Sarah Godoy on 07-20-2024 Benzodiazepines Ql (U) Negative < 200 ng/mL [facility] Urine cocaine levelOrdered B y: Sarah Godoy on 07-20-2024 Cocaine Ql (U) Negative < 300 ng/mL [facility] Urine uqzqw-7-gzivgltpcpenzy abinol (THC) measurementOrdered By: Sarah Godoy on 07-20-2024 Cannabinoids Screen Ql (U) Positive < 50 ng/mL [facility] Comment on above: If confirmation test ing is needed, a separate order will be required to send out testing to the reference laboratory. Urine phencyclidine (PCP) de tectionOrdered By: Sarah Godoy on 07-20-2024 Phencyclidine Ql (U) Negative < 25 ng/mL [facility] Anion gap in Serum or Plasma Ordered By: GLORIA DONOVAN on 07-13-2024 Anion gap [Moles/Vol] 9 mmol/L 5-15 [facility] BUN/creatinine ratioOrdered By: GLORIA DONOVAN on 07-13-2024 Urea nitrogen/Creatinine [Mass ratio] 18.0 mg/mg 10-20 [facility] Bilirubin, totalOrdered By: GLORIA DONOVAN on 07-13-2024 Bilirubin [Mass/Vol] 0.23 mg/dL 0.00-1.30 [facility] CBC-Complete Blood Cnt No Di ffon 07-13-2024 Erythrocyte distribution width (RBC) [Ratio] 13.9 % Normal 11.6-14.6 [facility] Comment on above: Performed By: #### L 500.4050, L100.0500 #### [facility] [address] [place], [address] Hematocrit (Bld) [Volume fraction] 44.5 % Normal 40-54 [facility] Comment on above: Performed By: #### L 500.4050, L100.0500 #### [facility] [address] [place], [address] Hemoglobin (Bld) [Mass/Vol] 14.8 g/dL Normal 13.0-16.5 [facility] Comment on above: Performed By: #### L 500.4050, L100.0500 #### [facility] [address] [place], [address] MCH (RBC) [Entitic mass] 30.0 pg Normal 27.0-32.0 [facility] Comment on above: Performed By: #### L 500.4050, L100.0500 #### [facility] [address] [place], [address] MCHC (RBC) [Mass/Vol] 33.3 g/dL Normal 32-36 [facility] Comment on above: Performed By: #### L 500.4050, L100.0500 #### [facility] [address] [place], [address] MCV (RBC) [Entitic vol] 90.1 fL Normal 80-94 [facility] Comment on above: Performed By: #### L 500.4050, L100.0500 #### [facility] [address] [place], [address] Platelet mean volume (Bld) [Entitic vol] 10.0 fL Normal 6.2-12.0 [facility] Comment on above: Performed By: #### L 500.4050, L100.0500 #### [facility] [address] [place], [address] Platelets (Bld) [#/Vol] 224 10*3/uL Normal 150-450 [facility] Comment on above: Performed By: #### L 500.4050, L100.0500 #### [facility] [address] [place], [address] RBC (Bld) [#/Vol] 4.94 10*6/uL Normal 4.6-6.2 [facility] Comment on above: Performed By: #### L 500.4050, L100.0500 #### [facility] [address] [place], [address] RDW SD 45.6 fl High 35.1-43.9 [facility] Comment on above: Performed By: #### L 500.4050, L100.0500 #### [facility] [address] [place], [address] WBC (Bld) [#/Vol] 11.3 10*3/uL High 4.4-11.0 [facility] Comment on above: Performed By: #### L 500.4050, L100.0500 #### [facility] [address] [place], [address] Carbon dioxide, total [Moles /volume] in Central venous bloodOrdered By: GLORIA DONOVAN on 07-13-2024 CO2 [Moles/Vol] 26.6 mmol/L 21.0-32.0 [facility] Cerv Spine 2 or 3 Viewson Cerv Spine 2 or 3 Views [facility] Imaging Services [address] [place] [address] Cerv Spine 2 or 3 Views MR#: [id number] Acct: [id number] Name: GEO GUERRERO Rep #: [id number] : 1975 M 48 From: Trinidad Botello MD PCP: GLORIA DONOVAN Status: REG CLI Study: Cerv Spine 2 or 3 Views Date of Exam: 07/13/24 Exam# [id number] Ordering Dr: GLORIA DONOVAN PROCEDURE: CERV SPINE 2 OR 3 VIEWS 07/13/2024 REASON FOR EXAM: CHRONIC NECK PAIN TECHNIQUE: 3 views of the cervical spine. AP, lateral, open-mouth odontoid COMPARISON: None available FINDINGS: Cervical spine is visualized on the lateral from the skull base to the top of T1. No fracture or malalignment. No prevertebral soft tissue swelling. C6-7 severe disc space narrowing with degenerative endplate changes and uncovertebral hypertrophic change with mild posterior and anterior corner spurring. Visualized apices appear clear. RAD/Cerv Spine 2 or 3 Views IMPRESSION: C6-7 spondylosis/discogenic change as above. Reading Location: [id number] CC: GLORIA DONOVAN Wide Load Escort: Signed Normal [facility] Chloride assayOrdered By: JASPAL DONOVAN on 07-13-2024 Chloride [Moles/Vol] 104 mmol/L 98-108 [facility] Comprehensive Metabolic Prof ilon 07-13-2024 Albumin [Mass/Vol] 4.0 g/dL Normal 3.5-5.0 [facility] Comment on above: Performed By: #### L 500.4050, L100.0500 #### [facility] [address] [place], [address] Albumin/Globulin [Mass ratio] 1.6 {ratio} Normal 0.9-2.4 [facility] Comment on above: Performed By: #### L 500.4050, L100.0500 #### [facility] [address] [place], [address] ALK PHOS 70 U/L Normal 40-129 [facility] Comment on above: Performed By: #### L 500.4050, L100.0500 #### [facility] [address] [place], [address] ALT [Catalytic activity/Vol] 27 U/L Normal <=46 [facility] Comment on above: Performed By: #### L 500.4050, L100.0500 #### [facility] [address] [place], [address] AST [Catalytic activity/Vol] 21 U/L Normal <=37 [facility] Comment on above: Performed By: #### L 500.4050, L100.0500 #### [facility] [address] [place], [address] Bilirubin [Mass/Vol] 0.23 mg/dL Normal 0.00-1.30 [facility] Comment on above: Performed By: #### L 500.4050, L100.0500 #### [facility] [address] [place], [address] BUN/CRE 18.0 RATIO Normal 10-20 [facility] Comment on above: Performed By: #### L 500.4050, L100.0500 #### [facility] [address] [place], [address] Calcium [Mass/Vol] 9.2 mg/dL Normal 7.6-11.0 [facility] Comment on above: Performed By: #### L 500.4050, L100.0500 #### [facility] [address] [place], [address] Chloride [Moles/Vol] 104 mmol/L Normal 98-108 [facility] Comment on above: Performed By: #### L 500.4050, L100.0500 #### [facility] [address] [place], [address] CO2 [Moles/Vol] 26.6 mmol/L Normal 21.0-32.0 [facility] Comment on above: Performed By: #### L 500.4050, L100.0500 #### [facility] [address] [place], [address] Creatinine [Mass/Vol] 0.94 mg/dL Normal 0.70-1.20 [facility] Comment on above: Performed By: #### L 500.4050, L100.0500 #### [facility] [address] [place], [address] GAP 9 Normal 5-15 [facility] Comment on above: Performed By: #### L 500.4050, L100.0500 #### [facility] [address] [place], [address] GFR/1.73 sq M.predicted among non-blacks MDRD (S/P/Bld) [Vol rate/Area] 100 mL/min/{1.73_m2} Normal >60 [facility] Comment on above: Result Comment: mL/m in/1.73m2 CKD-EPI Creatinine Equation (2020) Performed By: #### L 500.4050, L100.0500 #### [facility] [address] [place], [address] Globulin (S) [Mass/Vol] 2.5 g/dL Normal 2.2-4.2 [facility] Comment on above: Performed By: #### L 500.4050, L100.0500 #### [facility] [address] [place], [address] Glucose [Mass/Vol] 87 mg/dL Normal 70-99 [facility] Comment on above: Performed By: #### L 500.4050, L100.0500 #### [facility] [address] [place], [address] Potassium [Moles/Vol] 4.9 mmol/L Normal 3.3-5.1 [facility] Comment on above: Performed By: #### L 500.4050, L100.0500 #### [facility] [address] [place], [address] Sodium [Moles/Vol] 140 mmol/L Normal 133-145 [facility] Comment on above: Performed By: #### L 500.4050, L100.0500 #### [facility] [address] [place], [address] T PROT 6.5 g/dL Normal 5.9-8.4 [facility] Comment on above: Performed By: #### L 500.4050, L100.0500 #### [facility] [address] [place], [address] Urea nitrogen [Mass/Vol] 17 mg/dL Normal 4-19 [facility] Comment on above: Performed By: #### L 500.4050, L100.0500 #### [facility] [address] [place], [address] Erythrocyte distribution wid th ratioOrdered By: GLORIA DONOVAN on 07-13-2024 Erythrocyte distribution width (RBC) [Ratio] 13.9 % 11.6-14.6 [facility] Erythrocyte distribution wid th standard deviationOrdered By: GLORIA DONOVAN on 07-13-2024 Erythrocyte distribution width (RBC) [Ratio] 45.6 fl High 35.1-43.9 [facility] Glomerular filtration rate ( GFR) estimation/1.73 sq m using serum, plasma, or whole bOrdered By: GLORIA DONOVAN on 07-13-2024 GFR/1.73 sq M.predicted among non-blacks MDRD (S/P/Bld) [Vol rate/Area] 100 mL/min/{1.73_m2} >60 [facility] Comment on above: mL/min/1.73m2 CKD-EP I Creatinine Equation (2020) Hematocrit Auto (Bld) [Volum e fraction]Ordered By: GLORIA DONOVAN on 07-13-2024 Hematocrit (Bld) [Volume fraction] 44.5 % 40-54 [facility] Hemoglobin measurementOrdere d By: GLORIA DONOVAN on 07-13-2024 Hemoglobin (Bld) [Mass/Vol] 14.8 g/dL 13.0-16.5 [facility] - Chemistry and C hemistry - challengeOrdered By: GLORIA DONOVAN on 07-13-2024 AST [Catalytic activity/Vol] 21 U/L <38 [facility] MCV (mean corpuscular volume ) determinationOrdered By: GLORIA DONOVAN on 07-13-2024 MCV (RBC) [Entitic vol] 90.1 fL 80-94 [facility] Mean corpuscular hemoglobin (MCH) determinationOrdered By: GLORIA DONOVAN on 07-13-2024 MCH (RBC) [Entitic mass] 30.0 pg 27.0-32.0 [facility] Mean corpuscular hemoglobin concentration (MCHC) determinationOrdered By: GLORIA DONOVAN on 07-13-2024 MCHC (RBC) [Mass/Vol] 33.3 g/dL 32-36 [facility] Mean platelet volume determi nationOrdered By: GLORIA DONOVAN on 07-13-2024 Platelet mean volume (Bld) [Entitic vol] 10.0 fL 6.2-12.0 [facility] Platelet countOrdered By: JASPAL DONOVAN on 07-13-2024 Platelets (Bld) [#/Vol] 224 10*3/uL 150-450 [facility] Potassium measurement (mass/ volume)Ordered By: GLORIA DONOVAN on 07-13-2024 Potassium (Unsp spec) [Mass/Vol] 4.9 mmol/L 3.3-5.1 [facility] RBC Auto (Bld) [#/Vol]Ordere d By: GLORIA DONOVAN on 07-13-2024 RBC (Bld) [#/Vol] 4.94 10*6/uL 4.6-6.2 [facility] Serum creatinine measurement (mass/volume)Ordered By: GLORIA DONOVAN on 07-13-2024 Creatinine [Mass/Vol] 0.94 mg/dL 0.70-1.20 [facility] Serum globulin measurementOr dered By: GLORIA DONOVAN on 07-13-2024 Globulin (S) [Mass/Vol] 2.5 g/dL 2.2-4.2 [facility] Serum glucose measurement (m ass/volume)Ordered By: GLORIA DONOVAN on 07-13-2024 Glucose [Mass/Vol] 87 mg/dL 70-99 [facility] Serum or plasma alanine echeverria otransferase (ALT) measurementOrdered By: GLORIA DONOVAN on 07-13-2024 ALT [Catalytic activity/Vol] 27 U/L <47 [facility] Serum or plasma albumin chao urement (mass/volume)Ordered By: GLORIA DONOVAN on 07-13-2024 Albumin [Mass/Vol] 4.0 g/dL 3.5-5.0 [facility] Serum or plasma albumin/glob ulin mass ratioOrdered By: GLORIA DONOVAN on 07-13-2024 Albumin/Globulin [Mass ratio] 1.6 {ratio} 0.9-2.4 [facility] Serum or plasma alkaline lita sphatase measurementOrdered By: GLORIA DONOVAN on 07-13-2024 ALP [Catalytic activity/Vol] 70 U/L 40-129 [facility] Serum or plasma calcium chao urement (mass/volume)Ordered By: GLORIA DONOVAN on 07-13-2024 Calcium [Mass/Vol] 9.2 mg/dL 7.6-11.0 [facility] Serum or plasma urea nitroge n measurement (mass/volume)Ordered By: GLORIA DONOVAN on 07-13-2024 Urea nitrogen [Mass/Vol] 17 mg/dL 4-19 [facility] Sodium levelOrdered By: MARIO ALBERTO DONOVAN on 07-13-2024 Sodium [Moles/Vol] 140 mmol/L 133-145 [facility] Total proteinOrdered By: JETT DONOVAN on 07-13-2024 Protein [Mass/Vol] 6.5 g/dL 5.9-8.4 [facility] White blood cell (WBC) count Ordered By: GLORIA DONOVAN on 07-13-2024 WBC (Bld) [#/Vol] 11.3 10*3/uL High 4.4-11.0 [facility] Calprotectin, Stoolon [address] 104 ug/g Normal 0-120 [facility] Comment on above: Result Comment: Conc entration Interpretation Follow-Up < 5 - 50 ug/g Normal None >50 -120 ug/g Borderline Re-evaluate in 4-6 weeks >120 ug/g Abnormal Repeat as clinically indicated Performed at: [address] [id number] [employer] Supervisor [employer]: Anna Barnes MD, Phone: [phone] Performed By: #### L 7000.0750, M100.637, L7000.0700 ####[facility] [address] [place], [address] L7000.0750on 07-12-2024 P ELASTASE,FECA > 800 Normal >200 [facility] Comment on above: Result Comment: Resu lt Units: ug Elast./g Severe Pancreatic Insufficiency: <100 Moderate Pancreatic Insufficiency: 100 - 200 Normal: >200 Performed at: [address] [id number] [place] Supervisor [employer]: Anna Barnes MD, Phone: [phone] Performed By: #### L 7000.0750, M100.637, L7000.0700 ####[facility] [id number] [place], [address] Calprotectin stoolOrdered By : Neli Bazan on 07-08-2024 Calprotectin stool 104 ug/g 0-120 [facility] Comment on above: Concentration Interp retation Follow-Up< 5 - 50 ug/g Normal None>50 -120 ug/g Borderline Re-evaluate in 4-6 weeks >120 ug/g Abnormal Repeat as clinically indicatedPerformed at: [address] [id number] Director: Anna Barnes MD, Phone: [phone] ENTERIC PATHOGEN PANEL STOOL on 07-08-2024 EP PANEL Normal Reference Ran ge = Not Detected Nucleic acid amplification test method Not detected for Campylobacter group, Salmonella species, Shigella species, Vibrio Group, Yersinia enterocolitica, EHEC (Shiga Toxin 1, Shiga Toxin 2), Norovirus Gl/Gll, and Rotavirus A. Other common stool pathogens are not detected on this panel include: Aeromonas/Plesiomonas or parasites. Order testing for these organisms separately if suspected. This is an amplified DNA test which makes it both specific and sensitive. CAMPYLOBACTER Not Detected Norovirus Not Detected Rotavirus Not Detected Salmonella Not Detected Shiga Toxin Not Detected Shigella sp. Not Detected VIBRIO Not Detected Yersinia Not Detected Normal [facility] Comment on above: Performed By: #### L 7000.0750, M100.637, L7000.0700 ####[facility] [id number] [place], [address] Gastroenterology Visit Repor ton 07-08-2024 Gastroenterology Visit Report [facility] Gastroenterology [address] [place] [address] OFFICE VISIT Date of Service: 07/08/24 MR#: [id number] Acct: [id number] Name: GEO GUERRERO Rep #: [id number] : 1975 Provider: ANAY Phillips Age/Sex: 48/M Location: [facility] Status: Signed Intake Vital Signs 04/29/24 08:22 05/18/24 10:37 Height 5 ft 9 in 5 ft 9 in Intake Visit Reasons: 2 M FU Chief Complaint: GERD Allergies Penicillins Allergy (Verified 07/08/24 09:13) Swelling Medications ???Medication ???Instructions ???Recorded ???Confirmed ???Type risperidone 1 mg tablet 1 mg PO BID 11/10/23 07/08/24 Hist ory buspirone 15 mg tablet 15 mg PO TID 01/06/24 07/08/24 His tory esomeprazole magnesium 40 mg 40 mg PO QDAY #30 caps 01/06/24 Rx capsule,delayed release Held on 04/20/24. Instructions: Order Changed Diltiazem 2% / Lidocaine 5% #1 ea 03/17/24 06/23/24 Rx ointment (compound) (Diltiazem 2%/Lidocaine 5% ointment (compound)) cholecalciferol (vitamin D3) 62.5 62.5 mcg PO DAILY 03/17/24 History mcg (2,500 unit) capsule aluminum chloride 20 % topical 1 applic topical QWEEK PRN 5 07/08/24 Rx solution (Drysol) hyperhidrosis #37.5 mL olanzapine 2.5 mg tablet (Zyprexa) 2.5 mg PO QHS PRN 05/18/2407/08 History dexlansoprazole 30 mg 30 mg PO QDAY #30 caps 05/20/24 Rx capsule,biphase delayed release tramadol 50 mg tablet 50 mg PO BID PRN pain #20 tabs 01/1007/08/24 Rx vonoprazan 20 mg tablet (Voquezna) 20 mg PO QDAY 8 weeks #56 tabs 0 06/03/24 07/08/24 Rx famotidine 20 mg tablet 20 mg PO QDAY #60 tabs 07/08/24 Rx Nurse's Note: Patient is here for a 2 month follow up, he said everything has been going fine. He has not had any issues. If he takes the Voquenza he is waking up with heartburn in the middle of the night so he has been taking it around 7 am . [facility] Medical History Wears glasses Depression Anxiety Marijuana use Restless legs Migraine headache Seizures Gastric reflux Former smoker Physical exam, pre-employment History of tumor Arthritis Surgical History H/O release of tendon History of removal of cyst Family History Father Anxiety Arthritis Hx of blood clots Cancer skin Depression Myocardial infarction Hypertension CVA (cerebral vascular accident) Mother Arthritis Cancer Fibromyalgia Social History household members: family housing: house current occupational status: employed current occupation: [employer] Smoking Status: Former smoker how long ago did patient quit smoking: quit smoking 3yr ago alcohol intake: never substance use type: does not use what type of physical activity do you participate in: walking frequency: 3-4 times per week seatbelt use: always do you feel safe at home: Yes additional social history: no vaping, no substance, ibuprofen and mobic prn. no blood clotting dx history HPI HPI Chief Complaint: GERD Details: GEO GUERRERO, is a 48 M who presents to the office today for f/u. I established in Feb 2024 with complaints of heartburn and nausea over the past 8 years. Endorses weight loss over the past few months due to these symptoms. Also having constipation, diarrhea and hemorrhoids. Started on Pantoprazole 40 mg Colonoscopy 3.5.25; - Hemorrhoids found on perianal exam. - Diverticulosis in the recto-sigmoid colon. - One 10 mm polyp in the sigmoid colon, removed with a hot snare. Resected and retrieved. - Congested mucosa in the sigmoid colon, at the splenic flexure, at the hepatic flexure and in the ascending colon. Biopsied EGD 3..; - Esophageal mucosal changes consistent with short-segment Eng's esophagus. Biopsied. - Medium-sized hiatal hernia. - Erythematous mucosa in the cardia and antrum. Biopsied. - No gross lesions in the duodenal bulb. Biopsied. Last OV 3.18.25 Continued heartburn and bloating even after increasing PPI to twice a day. Unable to eat much. Pt does not have teeth and feels he cannot digest as well due to this. GES ordered. Start Voquezna. GES 4.10.25; normal OV 5.21.25 Pt doing well with improvement in his epigastric pain. He notes that he will wake up around 2 am with some heartburn but will try to go back to sleep. It goes away when he takes his voquezna at 7am. He has no further GI concerns today. ROS Const Constitutional: Positive for sleep problems (REPORTS SLEEPING MORE THAN NORMAL 1 1/2 MONTHS) and other (EXCESSIVE HAND SWEATING); No body ache, chills, excessive sweating, fatigue, fever(s), frequent fal (more content not included)... Normal [facility] Stool Occult Blood iFOBon STOB Negative Normal [facility] Comment on above: Performed By: #### M 100.7900 #### [facility] [address] [place], [address] Stool gastrointestinal hemog lobin detection by immunologic methodOrdered By: Obey Del Castillo on 07-08-2024 Lower GI hemoglobin IA Ql (Stl) [facility] Stool pancreatic elastase me asurement (mass/mass)Ordered By: Neli Bazan on 07-08-2024 Elastase.pancreatic (Stl) [Mass/Mass] > 800 >200 [facility] Comment on above: Result Units: ug Dena st./g Severe Pancreatic Insufficiency: <100 Moderate Pancreatic Insufficiency: 100 - 200 Normal: >200Performed at: [facility] [id number] Director: Anna Barnes MD, Phone: [phone] Plastic Surgery Visit Report on 06-23-2024 Plastic Surgery Visit Report [facility] Plastic Reconstructive Surgery [address], [address] [place], [place] [address] OFFICE VISIT Date of Service: 06/23/24 MR#: [id number] Acct: [id number] Name: GEO GUERRERO Rep #: [id number] : 1975 Provider: Dr. Trinidad Sanchez MD Age/Sex: 48/M Location: [facility] Status: Signed Intake Vital Signs 3 05/18/24 10:37 06/23/24 09:34 Height 5 ft 9 in Weight: 158 lb BMI 23.3 BP 110/90 H 95/65 Blood Pressure Location Rt brachial Lt brachial Position Sitting Sitting Respiration 16 18 Pulse 82 62 Pulse Source Monitor Monitor Temp 98.6 F Temp Source Temporal Pulse Oximetry (%) 98 94 Oxygen Delivery Method room air room air Intake Visit Reasons: FOLLOW UP Chief Complaint: f/u dupuytrens contracture Is patient in pain?: No Allergies Penicillins Allergy (Verified 06/23/24 09:33) Swelling Medications 3 ???Medication ???Instructions ???Recorded ???Confirmed ???Type risperidone 1 mg tablet 1 mg PO BID 11/10/23 06/23/24 Hist ory buspirone 15 mg tablet 15 mg PO TID 01/06/24 06/23/24 His tory esomeprazole magnesium 40 mg 40 mg PO QDAY #30 caps 11/20/24 05 /08/25 Rx capsule,delayed release Held on 04/20/24. Instructions: Order Changed Diltiazem 2% / Lidocaine 5% #1 ea 03/17/24 06/23/24 Rx ointment (compound) (Diltiazem 2%/Lidocaine 5% ointment (compound)) cholecalciferol (vitamin D3) 62.5 62.5 mcg PO DAILY 03/17/24 History mcg (2,500 unit) capsule aluminum chloride 20 % topical 1 applic topical QWEEK PRN 5 06/23/24 Rx solution (Drysol) hyperhidrosis #37.5 mL olanzapine 2.5 mg tablet (Zyprexa) 2.5 mg PO QHS PRN 05/18/2406/23 History dexlansoprazole 30 mg 30 mg PO QDAY #30 caps 05/20/24 Rx capsule,biphase delayed release tramadol 50 mg tablet 50 mg PO BID PRN pain #20 tabs 01/1006/23/24 Rx vonoprazan 20 mg tablet (Voquezna) 20 mg PO QDAY 8 weeks #56 tabs 0 06/03/24 06/23/24 Rx PFSH Medical History Wears glasses Depression Anxiety Marijuana use Restless legs Migraine headache Seizures Gastric reflux Former smoker Physical exam, pre-employment History of tumor Arthritis Surgical History H/O release of tendon History of removal of cyst Family History Father Anxiety Arthritis Hx of blood clots Cancer skin Depression Myocardial infarction Hypertension CVA (cerebral vascular accident) Mother Arthritis Cancer Fibromyalgia Social History household members: family housing: house current occupational status: employed current occupation: [email or web address] Smoking Status: Former smoker how long ago did patient quit smoking: quit smoking 3yr ago alcohol intake: never substance use type: does not use what type of physical activity do you participate in: walking frequency: 3-4 times per week seatbelt use: always do you feel safe at home: Yes additional social history: no vaping, no substance, ibuprofen and mobic prn. no blood clotting dx history HPI FOLLOW UP Details: PROCEDURE DETAILS Date of Procedure: 01/27/24 Pre-Operative Diagnosis: Left Hand Dupuytren's Contracture Post-Operative Diagnosis: Same Surgery/Procedure Performed: 1) Left index finger (LIF) limited palmar fasciectomy, CPT: 83376 2) LIF checkrein ligament release, proximal interphalangeal (PIP) joint, CPT: 16471 3) Left long finger (LLF) limited palmar fasciectomy, CPT: 39728 4) LLF A1 aline release, CPT: 96513 5) Left small finger (LSF) amputation at the PIP joint, CPT: 93720 29 April 2024: Doing well today 3 months after above noted surgery for his Dupuytren's disease. No numbness/tingling. Happy with result. 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 He dropped a tray and broke glass into some of the eggs at breakfast. He thinks that he was going too fast and doesn't have as firm of a camp boss strength yet. He had a conversation about this with his boss and they asked that he take a little more time off to recover before he returns. Mr. Guerrero asked for a work note to be off for a couple more weeks. 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 Also is asking about right hand dorsal wrist bulkiness (minimal pain though). Reports a history of multiple right hand traumas when he was dealing with mental health problems and believes he broke it several times. 27 May 2024: Geo Guerrero presents 4 months postop from his Dupu (more content not included)... Normal [facility] Plastic Surgery Visit Report on 05-27-2024 Plastic Surgery Visit Report [facility] Plastic Reconstructive Surgery [address], [address] [place] [address] OFFICE VISIT Date of Service: 05/27/24 MR#: [id number] Acct: [id number] Name: GEO GUERRERO Rep #: [id number] : 1975 Provider: Dr. Trinidad Sanchez MD Age/Sex: 48/M Location: [facility] Status: Signed Intake Vital Signs 3 04/20/24 06:51 05/18/24 10:37 05/27/24 08:42 Height 5 ft 9 in 5 ft 9 in BP 111/74 Blood Pressure Location Rt brachial Position Sitting Respiration 16 Pulse 68 Pulse Source Monitor Temp 97.9 F Temp Source Temporal Pulse Oximetry (%) 99 Oxygen Delivery Method room air Intake Visit Reasons: 1 M FU Chief Complaint: f/u dupuytrens contracture Allergies Penicillins Allergy (Verified 05/27/24 08:38) Swelling Medications 3 ???Medication ???Instructions ???Recorded ???Confirmed ???Type risperidone 1 mg tablet 1 mg PO BID 11/10/23 05/27/24 Hist ory buspirone 15 mg tablet 15 mg PO TID 01/06/24 05/27/24 His tory esomeprazole magnesium 40 mg 40 mg PO QDAY #30 caps 01/06/24 Rx capsule,delayed release Held on 04/20/24. Instructions: Order Changed Diltiazem 2% / Lidocaine 5% #1 ea 03/17/24 05/27/24 Rx ointment (compound) (Diltiazem 2%/Lidocaine 5% ointment (compound)) cholecalciferol (vitamin D3) 62.5 62.5 mcg PO DAILY 03/17/24 History mcg (2,500 unit) capsule vonoprazan 10 mg tablet (Voquezna) 10 mg PO QDAY #30 tabs 05/03/24 05/27/24 Rx tramadol 50 mg tablet 50 mg PO BID PRN pain #20 tabs 05/27/24 Rx aluminum chloride 20 % topical 1 applic topical QWEEK PRN 5 05/27/24 Rx solution (Drysol) hyperhidrosis #37.5 mL olanzapine 2.5 mg tablet (Zyprexa) 2.5 mg PO QHS PRN 05/18/2405/27 History dexlansoprazole 30 mg 30 mg PO QDAY #30 caps 05/20/24 Rx capsule,biphase delayed release PFSH Medical History Wears glasses Depression Anxiety Marijuana use Restless legs Migraine headache Seizures Gastric reflux Former smoker Physical exam, pre-employment History of tumor Arthritis Surgical History H/O release of tendon History of removal of cyst Family History Father Anxiety Arthritis Hx of blood clots Cancer skin Depression Myocardial infarction Hypertension CVA (cerebral vascular accident) Mother Arthritis Cancer Fibromyalgia Social History household members: family housing: house current occupational status: employed current occupation: [employer] Smoking Status: Former smoker how long ago did patient quit smoking: quit smoking 3yr ago alcohol intake: never substance use type: does not use what type of physical activity do you participate in: walking frequency: 3-4 times per week seatbelt use: always do you feel safe at home: Yes additional social history: no vaping, no substance, ibuprofen and mobic prn. no blood clotting dx history HPI 1 M FU Details: PROCEDURE DETAILS Date of Procedure: 01/27/24 Pre-Operative Diagnosis: Left Hand Dupuytren's Contracture Post-Operative Diagnosis: Same Surgery/Procedure Performed: 1) Left index finger (LIF) limited palmar fasciectomy, CPT: 82254 2) LIF checkrein ligament release, proximal interphalangeal (PIP) joint, CPT: 45727 3) Left long finger (LLF) limited palmar fasciectomy, CPT: 71776 4) LLF A1 aline release, CPT: 36716 5) Left small finger (LSF) amputation at the PIP joint, CPT: 74458 29 April 2024: Doing well today 3 months after above noted surgery for his Dupuytren's disease. No numbness/tingling. Happy with result. 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 He dropped a tray and broke glass into some of the eggs at breakfast. He thinks that he was going too fast and doesn't have as firm of a camp boss strength yet. He had a conversation about this with his boss and they asked that he take a little more time off to recover before he returns. Mr. Guerrero asked for a work note to be off for a couple more weeks. 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 Also is asking about right hand dorsal wrist bulkiness (minimal pain though). Reports a history of multiple right hand traumas when he was dealing with mental health problems and believes he broke it several times. Current Encounter, 27 May 2024: Geo Guerrero presents 4 months postop from his Dupuytren's contracture limited palmar fasciectomy and small finger amputation. He has been having some issues with (more content not included)... Normal [facility] Gastric Emptying Studyon Gastric Emptying Study [facility] Imaging Services [address] [place] [address] Gastric Emptying Study MR#: [id number] Acct: [id number] Name: GEO GUERRERO Rep #: [id number] : 1975 M 48 From: Malick Mercer MD PCP: Dr. Cecily Garnica, DO Status: REG CLI Study: Gastric Emptying Study Date of Exam: 05/26/24 Exam# [id number] Ordering Dr: Neli Bazan PROCEDURE: GASTRIC EMPTYING STUDY 05/26/2024 REASON FOR EXAM: HEARTBURN COMPARISON: None. TECHNIQUE: The patient ingested a standard meal of the radiopharmaceutical in oatmeal.. Anterior and posterior planar images of the upper abdomen were obtained at 1 minute intervals for a total of 60 minutes. Regions of interest were drawn, and a geometric mean was used to calculate a [id number]. Medications taken in the past 24 hours that may affect gastric emptying: None RADIOPHARMACEUTICAL: 1.2 mCi of Technetium sulfur colloid. FINDINGS: Percent activity remaining in stomach: 1 hour 47 % (normal 37-90%) NM/Gastric Emptying Study IMPRESSION: Normal gastric emptying study with 47% of activity remaining in the stomach at 60 minutes. Reading Location: [place] [address] CC: Dr. Cecily Garnica, DO; ANAY Phillips Wide Load Escort: Signed Normal [facility] Internal Medicine Office Vis zaire 05-18-2024 Internal Medicine Office Visit [facility] [address] [place] [address] OFFICE VISIT Date of Service: 05/18/24 MR#: [id number] Acct: [id number] Name: GEO GUERRERO Rep #: [id number] : 1975 Provider: Dr. Cecily ward, DO Age/Sex: 48/M Location: [facility] Status: Signed Intake Vital Signs 04/29/24 08:22 05/18/24 10:37 Height 5 ft 9 in 5 ft 9 in Weight: 158 lb BMI 23.3 BP 110/90 H Blood Pressure Location Rt brachial Position Sitting Respiration 16 Pulse 82 Pulse Source Monitor Temp 98.6 F Temp Source Temporal Pulse Oximetry (%) 98 Oxygen Delivery Method room air Intake Visit Reasons: NECK PAIN, EXCESSIVE SWEATING IN HANDS Chief Complaint: NECK PAIN, EXCESSIVE SWEATING IN HANDS Is patient in pain?: Yes (NECK) Pain scale (1-10): 3 Allergies Penicillins Allergy (Verified 05/18/24 10:33) Swelling Medications ???Medication ???Instructions ???Recorded ???Confirmed ???Type risperidone 1 mg tablet 1 mg PO BID 11/10/23 05/18/24 Hist ory buspirone 15 mg tablet 15 mg PO TID 01/06/24 05/18/24 His tory esomeprazole magnesium 40 mg 40 mg PO QDAY #30 caps 01/06/24 Rx capsule,delayed release Held on 04/20/24. Instructions: Order Changed Diltiazem 2% / Lidocaine 5% #1 ea 03/17/24 04/29/24 Rx ointment (compound) (Diltiazem 2%/Lidocaine 5% ointment (compound)) cholecalciferol (vitamin D3) 62.5 62.5 mcg PO DAILY 03/17/24 History mcg (2,500 unit) capsule vonoprazan 10 mg tablet (Voquezna) 10 mg PO QDAY #30 tabs 05/03/24 05/18/24 Rx tramadol 50 mg tablet 50 mg PO BID PRN pain #20 tabs 05/18/24 Rx aluminum chloride 20 % topical 1 applic topical QWEEK PRN 5 05/18/24 Rx solution (Drysol) hyperhidrosis #37.5 mL olanzapine 2.5 mg tablet (Zyprexa) 2.5 mg PO QHS PRN 05/18/2405/18 History Have you fallen in the past year?: No PFSH Medical History Wears glasses Depression Anxiety Marijuana use Restless legs Migraine headache Seizures Gastric reflux Former smoker Physical exam, pre-employment History of tumor Arthritis Surgical History H/O release of tendon History of removal of cyst Family History Father Anxiety Arthritis Hx of blood clots Cancer skin Depression Myocardial infarction Hypertension CVA (cerebral vascular accident) Mother Arthritis Cancer Fibromyalgia Social History household members: family housing: house current occupational status: employed current occupation: [employer] Smoking Status: Former smoker how long ago did patient quit smoking: quit smoking 3yr ago alcohol intake: never substance use type: does not use what type of physical activity do you participate in: walking frequency: 3-4 times per week seatbelt use: always do you feel safe at home: Yes additional social history: no vaping, no substance, ibuprofen and mobic prn. no blood clotting dx history HPI HPI Chief Complaint: NECK PAIN, EXCESSIVE SWEATING IN HANDS Details: GEO GUERRERO, is a 48 M who presents to the office today for neck discomfort and excessive sweating in the hands. He has had some reconstructive hand surgery because of severe contractures and that is been very successful. He has good use of both of his hands. Unfortunately he has had some problems with hallucinations and delusions and his psychiatrist has been adjusting medications. Some of the medications caused too much fatigue and he was sleeping 20 hours a day so his medicines have recently been changed however now he is bothered quite severely with hyperhidrosis both hands and feet. ROS Const Constitutional: Positive for sleep problems (REPORTS SLEEPING MORE THAN NORMAL 1 1/2 MONTHS) and other (EXCESSIVE HAND SWEATING); No body ache, chills, excessive sweating, fatigue, fever(s), frequent falls, headache(s), snoring, weakness or change in appetite Eyes Eyes: No blurry vision, change in vision or Light sensitivity ENT ENT: Positive for neck pain (C/O NECK "CRUNCHING" AND PAINFUL); No abnormal hearing, ear or mastoid pain, tinnitus, nasal congestion, nasal discharge, headache(s) or sore throat Resp Respiratory: No cough, shortness of breath, snoring or wheezing Cardio Cardiology: No chest pain at rest, chest pain with exertion, excessive sweating, shortness of breath, dyspnea on exertion, lightheadedness, orthopnea or palpitations Gastro GI: No abdominal pain, change in bowel habits, constipation, cramping, diarrhea or nausea/dyspepsia Genitourinary Male: No burning urination, painful urination, urinary incontinence or urinary frequency Mus (more content not included)... Normal [facility] Gastroenterology Visit Repor canelo 05-03-2024 Gastroenterology Visit Report [facility] Gastroenterology [address] [place] [address] OFFICE VISIT Date of Service: 05/03/24 MR#: [id number] Acct: [id number] Name: GEO GUERRERO Rep #: [id number] : 1975 Provider: ANAY Phillips Age/Sex: 48/M Location: [facility] Status: Signed Intake Vital Signs 04/20/24 06:51 04/29/24 08:22 Height 5 ft 9 in 5 ft 9 in Intake Visit Reasons: Follow Up Chief Complaint: heartburn 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 Allergies Penicillins Allergy (Verified 04/29/24 08:50) Swelling Have you fallen in the past year?: No Nurse's Note: OV 05.03.24 Pt here for f/u. Pt reports he is having very uncomfortable heartburn. States he is taking pantoprazole 40mg BID with little relief. [facility] Medical History Wears glasses Depression Anxiety Marijuana use Restless legs Migraine headache Seizures Gastric reflux Former smoker Physical exam, pre-employment History of tumor Arthritis Surgical History H/O release of tendon History of removal of cyst Family History Father Anxiety Arthritis Hx of blood clots Cancer skin Depression Myocardial infarction Hypertension CVA (cerebral vascular accident) Mother Arthritis Cancer Fibromyalgia Social History household members: family housing: house current occupational status: employed current occupation: [employer] Smoking Status: Former smoker how long ago did patient quit smoking: quit smoking 3yr ago alcohol intake: never substance use type: does not use what type of physical activity do you participate in: walking frequency: 3-4 times per week seatbelt use: always do you feel safe at home: Yes additional social history: no vaping, no substance, ibuprofen and mobic prn. no blood clotting dx history HPI HPI Chief Complaint: heartburn Details: GEO GUERRERO, is a 48 M who presents to the office today for f/u. [facility] established 03.17.24 with complaints of heartburn and nausea progressing over the past 8 years. Endorses 15 lbs weight loss over the past few months. Pt also with constipation alternating with diarrhea. Feels he may have hemorrhoids. *Start Pantoprazole 40 mg Colonoscopy 3.07.10; - Hemorrhoids found on perianal exam. - Diverticulosis in the recto-sigmoid colon. - One 10 mm polyp in the sigmoid colon, removed with a hot snare. Resected and retrieved. - Congested mucosa in the sigmoid colon, at the splenic flexure, at the hepatic flexure and in the ascending colon. Biopsied EGD .07.10; - Esophageal mucosal changes consistent with short-segment Eng's esophagus. Biopsied. - Medium-sized hiatal hernia. - Erythematous mucosa in the cardia and antrum. Biopsied. - No gross lesions in the duodenal bulb. Biopsied. OV 325 Pt continues to have severe heartburn and bloating. He increased his PPI to twice a day and has not had relief. He is unable to eat much due to the pain and bloating. He wonders if he does not digest his food well due to not having teeth. He has nausea but no vomiting. ROS Const Constitutional: Positive for fatigue; No fever(s) or weight change ENT ENT: No difficulty swallowing Gastro GI: Positive for abdominal pain, excessive flatus and nausea/dyspepsia; No belching, bloating, change in bowel habits, change in stool character, coffee ground emesis, constipation, cramping, diarrhea, heartburn, difficulty swallowing, feeling full early, incontinent of stools, Vomiting blood/hematemesis, Blood in stool, loose stools, Black,tarry stools, pain with swallowing, vomiting or other Musc Musculoskeletal: Positive for Arthritis and restless legs; No joint pain Skin Skin: No yellowing of the eye or itchy eyes Neuro Neurology: Positive for restless legs Psych Psychiatric: Positive for anxiety and Positive for depression Endo Endocrine: Positive for fatigue; No weight change Aller/Imm Allergy/Immunologic: No itchy eyes [place]/Lymp Hematologic/Lymphatic: No easy bleeding or easy bruising Exam Const General: cooperative and comfortable Nutritional Appearance: average body habitus and well nourished HENMT Head: normal to inspection Ears: hearing grossly normal bilaterally Nose: external nose normal Face and sinus: normal facial exam Mouth: oral mucosae normal Throat: posterior oropharynx normal Eyes General: appearance normal, both eyes and all related structures Neck Neck: normal visual inspection Chest Chest palpation inspection: normal inspection of the chest Resp Effort Inspection: normal respiratory effort Auscultation: Bilateral: Clear to Auscultation Cardio Palpation: normal PMI Rate: regul (more content not included)... Normal [facility] Hand Min 3 Viewson 5 Hand Min 3 Views [facility] Imaging Services [address], [place] [id number] Hand Min 3 Views MR#: [id number] Acct: [id number] Name: GEO GUERRERO Rep #: [id number] : 1975 M 48 From: Lux Persaud PCP: Dr. Cecily Garnica, DO Status: REG CLI Study: Hand Min 3 Views Date of Exam: 04/29/24 Exam# [id number] Ordering Dr: Trinidad Sanchez MD PROCEDURE: HAND MIN 3 VIEWS REASON FOR EXAM: PAIN TECHNIQUE: Three-view imaging of the right hand. COMPARISON: None FINDINGS: Degenerative changes detected at the carpus with bony osteophyte formation which appears to account for palpable abnormality. This is most prominent base of the 4th metacarpal. No evidence of acute fracture. No bone destruction RAD/Hand Min 3 Views IMPRESSION: Bony osteophyte formation seen at the carpus accounting for patient's symptoms. No acute findings. This is probably due to sequela of old trauma Reading Location: [id number] CC: Dr. Cecily Garnica DO; Dr. Trinidad Sanchez MD Wide Load Escort: Signed Normal [facility] Plastic Surgery Visit Report on 04-29-2024 Plastic Surgery Visit Report [facility] Plastic Reconstructive Surgery [address], [address] [place] [address] OFFICE VISIT Date of Service: 04/29/24 MR#: [id number] Acct: [id number] Name: GEO GUERRERO Rep #: [id number] : 1975 Provider: Dr. Trinidad Sanchez MD Age/Sex: 48/M Location: [facility] Status: Signed Intake Vital Signs 3 03/10/24 13:30 04/20/24 06:51 Height 5 ft 9 in 5 ft 9 in Intake Visit Reasons: FOLLOW UP Chief Complaint: post op dupuytrens Is patient in pain?: No Allergies Penicillins Allergy (Verified 04/29/24 08:50) Swelling Medications 3 ???Medication ???Instructions ???Recorded ???Confirmed ???Type risperidone 1 mg tablet 1 mg PO BID 11/10/23 04/29/24 Hist ory buspirone 15 mg tablet 15 mg PO TID 01/06/24 04/29/24 His tory esomeprazole magnesium 40 mg 40 mg PO QDAY #30 caps 01/06/24 Rx capsule,delayed release Held on 04/20/24. Instructions: Order Changed Diltiazem 2% / Lidocaine 5% #1 ea 03/17/24 04/29/24 Rx ointment (compound) (Diltiazem 2%/Lidocaine 5% ointment (compound)) cholecalciferol (vitamin D3) 62.5 62.5 mcg PO DAILY 03/17/24 History mcg (2,500 unit) capsule olanzapine 2.5 mg tablet (Zyprexa) 2.5 mg PO QHS 03/17/24 04/29/24 History pantoprazole 40 mg tablet,delayed 40 mg PO QDAY #90 tabs 03/17/24 0 04/29/24 Rx release tramadol 50 mg tablet 50 mg PO BID PRN pain #30 tabs 06/1004/29/24 Rx Subjective Details: PROCEDURE DETAILS Date of Procedure: 01/27/24 Pre-Operative Diagnosis: Left Hand Dupuytren's Contracture Post-Operative Diagnosis: Same Surgery/Procedure Performed: 1) Left index finger (LIF) limited palmar fasciectomy, CPT: 48788 2) LIF checkrein ligament release, proximal interphalangeal (PIP) joint, CPT: 80159 3) Left long finger (LLF) limited palmar fasciectomy, CPT: 92296 4) LLF A1 aline release, CPT: 99232 5) Left small finger (LSF) amputation at the PIP joint, CPT: 95280 Current Encounter, 29 April 2024: Doing well today 3 months after above noted surgery for his Dupuytren's disease. No numbness/tingling. Happy with result. 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 He dropped a tray and broke glass into some of the eggs at breakfast. He thinks that he was going too fast and doesn't have as firm of a camp boss strength yet. He had a conversation about this with his boss and they asked that he take a little more time off to recover before he returns. Mr. Guerrero asked for a work note to be off for a couple more weeks. 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 Also is asking about right hand dorsal wrist bulkiness (minimal pain though). Reports a history of multiple right hand traumas when he was dealing with mental health problems and believes he broke it several times. Objective Details: Left Upper Extremity Inspection: Incisions healed. Some scaring (wrosening/recurrent Dupuytren's) in the ulnar palm but not pulling on small finger s/p the amputation at the PIP joint. LEFT UPPER EXTREMITY Ruff Left index finger: LIF Left long finger: LLF Left ring finger: LRF Left small finger: LSF Exam of the LEFT upper limb revealed: (-) Table Top test. (-) pretendinous cord visible and palpable over index, long, and small fingers. (+) pretendinous cord visible and palpable over the ring, but no ring finger contracture at the MP or PIP joints (20) degree of flexion contracture of PIPJ of LIF. (0) degree of flexion contracture of MCPJ of LIF. (0) degree of flexion contracture of PIPJ of LLF. (0) degree of flexion contracture of MCPJ of LLF. (10) degree of flexion contracture of PIPJ of LRF. (20) degree of flexion contracture of MCPJ of LRF. (0) degree of flexion contracture of MCPJ of LSF S/p amputation of the small finger at the PIP joint Motor: Able to bend and extend all MP, PIP, and DIP joints. Sensory: Intact to light touch on the radial and ulnar borders. He has 2mm 2-point discrimination on the radial and ulnar borders of the index and long fingers. He has sensation to light touch at the tip of the small finger (at the amputation stump). Vascular: Finger tips are warm and well perfused with <2 second capillary refill. Right Upper Extremity Inspection: Bulkiness over CMC joints dorsally consistent with arthritis/osteophytes. Minimal Dupuytren's disease, no contractures. Palpation: Slight TTP over dorsal CMC joints, but no instability. Motor: Able to bend and extend all MP, PIP, and DIP joints. Sensory: Intact to light touch on the radial and ulnar borders. Vascular: Finger tips are warm and well perfused with <2 second capillary refill. (more content not included)... Normal [facility] Colonoscopy Reporton 025 Colonoscopy Report [facility] Medical Records Department [address] [place] [address] Colonoscopy Report MR#: [id number] Acct: [id number] Name: GEO GUERRERO Rep #: [id number] : 1975 48 From: Ian Sawant DO PCP: Dr. Cecily Garnica, DO Status:[facility] [place] [place] Patient Name: Geo Guerrero Procedure Date: 04/20/2024 7:55 AM Date of : 1975 Age: 48 Procedure: Colonoscopy Indications: Generalized abdominal pain, Hematochezia Providers: Ian Sawant DO Medicines: Monitored Anesthesia Care Patient Profile: This is a 48 year old male. Refer to note in patient chart for documentation of history and physical. Patient has symptoms of chronic heartburn and chronic nausea. Last Colonoscopy: none. The patient's first colonoscopy is today. Complications: No immediate complications. Procedure: Pre-Anesthesia Assessment: - Prior to the procedure, a History and Physical was performed, and patient medications and allergies were reviewed. The patient is competent. The risks and benefits of the procedure and the sedation options and risks were discussed with the patient. All questions were answered and informed consent was obtained. Patient identification and proposed procedure were verified by the physician in the pre-procedure area. Mental Status Examination: alert and oriented. Airway Examination: normal oropharyngeal airway and neck mobility. Respiratory Examination: clear to auscultation. CV Examination: normal. Prophylactic Antibiotics: The patient does not require prophylactic antibiotics. Prior Anticoagulants: The patient has taken no anticoagulant or antiplatelet agents except for NSAID medication. ASA Grade Assessment: II - A patient with mild systemic disease. After reviewing the risks and benefits, the patient was deemed in satisfactory condition to undergo the procedure. The anesthesia plan was to use monitored anesthesia care (MAC). Immediately prior to administration of medications, the patient was re-assessed for adequacy to receive sedatives. The heart rate, respiratory rate, oxygen saturations, blood pressure, adequacy of pulmonary ventilation, and response to care were monitored throughout the procedure. The physical status of the patient was re-assessed after the procedure. After I obtained informed consent, the scope was passed under direct vision. Throughout the procedure, the patient's blood pressure, pulse, and oxygen saturations were monitored continuously. The Colonoscope was introduced through the anus and advanced to the terminal ileum. The colonoscopy was performed without difficulty. The patient tolerated the procedure well. The quality of the bowel preparation was adequate. The terminal ileum, ileocecal valve, appendiceal orifice, and rectum were photographed. Scope In: 7:56:55 AM Scope Withdrawal Time 0 hours 8 minutes 19 seconds Scope Out: 8:07:29 AM Total Procedure Duration Time 0 hours 10 minutes 34 seconds Findings: Hemorrhoids were found on perianal exam. A few small-mouthed diverticula were found in the recto-sigmoid colon. A 10 mm polyp was found in the sigmoid colon. The polyp was sessile. The polyp was removed with a hot snare. Resection and retrieval were complete. Verification of patient identification for the specimen was done. Estimated blood loss was minimal. An area of mildly congested mucosa was found in the sigmoid colon, at the splenic flexure, at the hepatic flexure and in the ascending colon. Biopsies were taken with a cold forceps for histology. Verification of patient identification for the specimen was done. Estimated blood loss was minimal. Impression: - Hemorrhoids found on perianal exam. - Diverticulosis in the recto-sigmoid colon. - One 10 mm polyp in the sigmoid colon, removed with a hot snare. Resected and retrieved. - Congested mucosa in the sigmoid colon, at the splenic flexure, at the hepatic flexure and in the ascending colon. Biopsied. Recommendation: - Discharge patient to home. - Resume previous diet. - Continue present medications. - Await pathology results. - Repeat colonoscopy in 5 years for surveillance. Procedure Code(s): --- Professional --- 68939, Colonoscopy, flexible; with removal of tumor(s), polyp(s), or other lesion(s) by snare technique 15184, 59, Colonoscopy, flexible; with biopsy, single or multiple CPT copyright 2021 [employer]. All rights reserved. The codes documented in this report are preliminary and upon meat process worker review may be revised to meet current compliance requirements. Ian Sawant DO 04/20/2024 8:21:04 AM This report has been signed electronically. Number of Addenda: 0 Note Initiated On: 04/20/2024 7:55 AM 04/20/24 0821 Date Ian Sawant DO Cosigner Signature: Nima (more content not included)... Normal [facility] EGD Reporton 04-20-2024 EGD Report [facility] Medical Records Department [address] [place] [address] EGD Report MR#: [id number] Acct: [id number] Name: GEO GUERRERO Rep #: [id number] : 1975 48 From: Ian Sawant DO PCP: Dr. Cecily Garnica DO Status:[facility] [place] [place] Patient Name: Geo Guerrero Procedure Date: 04/20/2024 7:41 AM Date of : 1975 Age: 48 Procedure: Upper GI endoscopy Indications: Suspected esophageal reflux Providers: Ian Sawant DO Medicines: Monitored Anesthesia Care Patient Profile: This is a 48 year old male. Refer to note in patient chart for documentation of history and physical. Patient has symptoms of chronic heartburn and chronic nausea. Complications: No immediate complications. Procedure: Pre-Anesthesia Assessment: - Prior to the procedure, a History and Physical was performed, and patient medications and allergies were reviewed. The patient is competent. The risks and benefits of the procedure and the sedation options and risks were discussed with the patient. All questions were answered and informed consent was obtained. Patient identification and proposed procedure were verified by the physician in the pre-procedure area. Mental Status Examination: alert and oriented. Airway Examination: normal oropharyngeal airway and neck mobility. Respiratory Examination: clear to auscultation. CV Examination: normal. Prophylactic Antibiotics: The patient does not require prophylactic antibiotics. Prior Anticoagulants: The patient has taken no anticoagulant or antiplatelet agents except for NSAID medication. ASA Grade Assessment: II - A patient with mild systemic disease. After reviewing the risks and benefits, the patient was deemed in satisfactory condition to undergo the procedure. The anesthesia plan was to use monitored anesthesia care (MAC). Immediately prior to administration of medications, the patient was re-assessed for adequacy to receive sedatives. The heart rate, respiratory rate, oxygen saturations, blood pressure, adequacy of pulmonary ventilation, and response to care were monitored throughout the procedure. The physical status of the patient was re-assessed after the procedure. After obtaining informed consent, the endoscope was passed under direct vision. Throughout the procedure, the patient's blood pressure, pulse, and oxygen saturations were monitored continuously. The Colonoscope was introduced through the mouth, and advanced to the second part of duodenum. The upper GI endoscopy was accomplished without difficulty. Scope In: 7:49:26 AM Scope Out: 7:55:17 AM Total Procedure Duration Time 0 hours 5 minutes 51 seconds Findings: There were esophageal mucosal changes consistent with short-segment Eng's esophagus present in the lower third of the esophagus. The maximum longitudinal extent of these mucosal changes was 2 cm in length. Mucosa was biopsied with a cold forceps for histology in a targeted manner at intervals of 1 cm in the lower third of the esophagus. One specimen bottle was sent to pathology. Verification of patient identification for the specimen was done. Estimated blood loss was minimal. A medium-sized hiatal hernia was present. Patchy mildly erythematous mucosa without bleeding was found in the cardia and in the gastric antrum. Biopsies were taken with a cold forceps for histology. Verification of patient identification for the specimen was done. Estimated blood loss was minimal. Biopsies were taken with a cold forceps for Helicobacter pylori testing. Verification of patient identification for the specimen was done. Estimated blood loss was minimal. No gross lesions were noted in the duodenal bulb. Biopsies were taken with a cold forceps for histology. Verification of patient identification for the specimen was done. Estimated blood loss was minimal. Impression: - Esophageal mucosal changes consistent with short-segment Eng's esophagus. Biopsied. - Medium-sized hiatal hernia. - Erythematous mucosa in the cardia and antrum. Biopsied. - No gross lesions in the duodenal bulb. Biopsied. Recommendation: - Discharge patient to home. - Resume previous diet. - Continue present medications. - Await pathology results. Procedure Code(s): --- Professional --- 53837, Esophagogastroduodenos copy, flexible, transoral; with biopsy, single or multiple CPT copyright 2021 [employer]. All rights reserved. The codes documented in this report are preliminary and upon meat process worker review may be revised to meet current compliance requirements. Ian Sawant DO 04/20/2024 8:18:23 AM This report has been signed electronically. Number of Addenda: 0 Note Initiated On: 04/20/2024 7:41 AM 04/20/24 0818 Date Ian Sawant DO Cosigner Sig (more content not included)... Normal [facility] Immunohistochemical Stainson 04-20-2024 Immunohistochemical Stains ---- Patient Age/Sex Location Account Attending Physician ---- GEO GUERRERO/M EN [id number] Ian Sawant DO ---- Specimen: [id number] Received: 04/20/24 Status: DOROTEO Anguiano Num: [id number] Spec Type: COLON BX Subm Dr: Ian Sawant DO HEADER OPERATION: Colonoscopy, EGD biopsy and polypectomy PRE-OP DIAGNOSIS: GERD, loose stools, blood in stool, nausea / vomiting TISSUE SUBMITTED: A- Gastric cardia biopsy, B- Gastric antrum biopsy, C- Duodenum biopsy, D- Distal esophagus biopsy, E- Random colon biopsy, F-Sigmoid polyp ---- MICROSCOPIC DIAGNOSIS A. Stomach, cardia, biopsy: * Oxyntic mucosa with mild chronic inflammation. * Negative for Helicobacter-like organisms (H E). B. Stomach, antrum, biopsy: * Antral mucosa with features of reactive gastropathy. * IHC negative for H pylori organisms. C. Duodenum, biopsy: * Normal villous architecture with no specific pathologic change. * Negative for increased intraepithelial lymphocytes. D. Distal esophagus. biopsy: * Columnar mucosa with focal goblet cell metaplasia - see note. * Benign squamous mucosa. * Negative for dysplasia. * Note: The diagnosis depends on the location of the biopsy and the extent of the mucosal irregularity. If the biopsy originates from the tubular esophagus and the mucosal irregularity extends at least 1 cm above the top of the gastric folds, this represents Eng mucosa. If the biopsy originates from the gastric cardia and/or the mucosal irregularity is less than 1 cm in extent, this represents intestinal metaplasia. E. Colon, random, biopsy: * No specific pathologic change. * The histologic features of microscopic colitis are not demonstrated. F. Sigmoid colon, "polyp", biopsy: * Mucosal prolapse. MICROSCOPIC DESCRIPTION Slides are reviewed. ---- Patient Age/Sex Location Account Attending Physician ---- GEO GUERRERO/M EN [id number] Ian Sawant DO ---- GROSS DESCRIPTION A. Received in fixative is one container labeled with the patient's name and designated Gastric cardia biopsy." The specimen consists of two irregular fragments of light gaytan soft tissue that in aggregate measure 0.8 x 0.3 x 0.1 cm. The specimen is totally submitted in one cassette. B. Received in fixative is one container labeled with the patient's name and designated Gastric antrum biopsy." The specimen consists of one irregular fragment of light gaytan soft tissue that measures 0.5 x 0.3 x 0.2 cm. The specimen is totally submitted in one cassette. C. Received in fixative is one container labeled with the patient's name and designated "Duodenum biopsy." The specimen consists of multiple irregular fragments of light gaytan soft tissue that in aggregate measure 1 x 0.3 x 0.1 cm. The specimen is totally submitted in one cassette. D. Received in fixative is one container labeled with the patient's name and designated Distal esophagus biopsy." The specimen consists of multiple irregular fragments of light gaytan soft tissue that in aggregate measure 0.7 x 0.5 x 0.2 cm. The specimen is totally submitted in one cassette. E. Received in fixative is one container labeled with the patient's name and designated Random colon biopsy. The specimen consists of multiple irregular fragments of light gaytan soft tissue that in aggregate measure 1.5 x 0.4 x 0.2 cm. The specimen is totally submitted in one cassette. F. Received in fixative is one container labeled with the patient's name and designated "Sigmoid polyp." The specimen consists of one irregular fragment of light gaytan soft tissue that measures 0.6 x 0.5 x 0.2 cm. The specimen is totally submitted in one cassette. MS/ 04/20/2024 [facility]:[id number] ---- Patient Age/Sex Location Account Attending Physician ---- GEO GUERRERO 48/M EN [id number] Ian Sawant DO ---- Signed (signature on file) Dr. Silvia Singh MD 04/25/24 1536 ---- Normal [facility] Comment on above: Performed By: #### P MARGARET #### [facility] [address] [place], [place], [id number] MR/POSTOP.ANEon 04-20-2024 MR/POSTOP.[facility] Medical Records Department [address] [place] [address] Anesthesia Postop Eval I 04/20/2417 MR#: [id number] Acct: [id number] Name: GEO GUERRERO Rep #: [id number] : 1975 48 From: Ashok Wilkinson PCP: Dr. Cecily Garnica, DO Status:REG SDC Y Race: C Location: [place] [address] Anesthesia: Postop Eval I Current Vital Signs Temperature: 97.6 F Pulse Rate: 67 Blood Pressure: 106/92 Respiratory Rate: 16 Pulse Ox: 96 Oxygen Delivery Method: Room Air Assessment Airway patent: Yes Spontaneous unlabored respirations: Yes Mental status: Asleep nausea: No Vomiting: No Anesthesia Complication: No Fluid Hydration Crystalloid volume administer (ml): 60 Total IV fluid infused: 60 Progress Note Anesthesia document: Postop Eval 1 completed: Yes 04/20/24 08 Date Ashok Lynch Signature: Date CC: Signed Normal [facility] MR/[id number] 04-20-2024 /[facility] Medical Records Department [address] [place] [address] Anesthesia Postop Eval II 04/20/24 0842 MR#: [id number] Acct: [id number] Name: GEO GUERRERO Rep #: [id number] : 1975 48 From: Hardy Mccarthy MD PCP: Dr. Cecily Garnica, DO Status:REG SDC Y Race: C Location: [place] [address] Anesthesia Postop Eval I Sum Postop Eval Completion status Anesthesia document: Postop Eval 1 completed: Yes Anesthesia Postop Eval I Summary Anesthesia Postop Eval I Summary: Anesthesia Postop Eval I: Assessment Summary Airway patent Yes 04/20/24 08:18 [email or web address] Spontaneous unlabored Yes 04/20/24 08:18 [email or web address] respirations Mental status Asleep 04/20/24 08:18 [email or web address] nausea No 04/20/24 08:18 [email or web address] Vomiting No 04/20/24 08:18 [email or web address] Anesthesia Postop Eval I: Fluid Summary Crystalloid volume administer 60 04/20/24 08:18 [email or web address] (ml) Colloids volume administered ( ml) Blood Product volume administered (ml) Total IV fluid infused 60 04/20/24 08:18 [email or web address] Anesthesia Postop Eval I: Summary Notes Anesthesia Complication No 04/20/24 08:18 [email or web address] Anesthesia Complication Comment: Post-operative progress note Anesthesia: Postop Eval II Evaluation Mental status: Awake Pain Level: 0 nausea: No Vomiting: No 04/20/24 0842 Date Hardy Lynch Signature: Date CC: Signed Normal [facility] OT D/C of Non Returning Pton 03-22-2024 OT D/C of Non Returning Pt [facility] [place] [address] / REHABILITATION SERVICES DISCHARGE SUMMARY MR#: [id number] Acct: [id number] Name: GEO GUERRERO Rep #: [id number] : 1975 48 From: Yamile SOTO/Sindy, CHT Referring Dr.: Dr. Trinidad Sanchez MD Status: REG RCR Eval Date: Discharge Date: Patient Information Patient Information: GEO GUERRERO was seen in my office for initial evaluation on 02/11/24. The following Plan of Care was established for this patient: POC Established Initial Frequency: 2x /Week Initial Duration: 6 Weeks Plan: pt to bring orthosis in for adj. Anticipated Interventions Anticipated Interventions: A/AAROM/PROM, Strengthening, Edema Control, Triggerpoint Release, Desensitization, Orthoses, Joint Protection/Energy Conservation and Home Program Last Seen Last Seen: This patient was last seen in our office 03/08/24. Pertinent comments regarding their Occupational therapy will appear below: pt was seen for 5 OT sessions: last 4 visits pt no showed apts. - pt d/c at this time due to non- attendance. At this point I will be discontinuing this patient from occupational therapy. I would be happy to see this patient again in the future if found appropriate by the physician. Thank you! Yamile Mitchell, OTR/L, CHT 03/22/24 1541 CC: Dr. Cecily Garnica, DO; Dr. Trinidad Sanchez MD MK Signed Normal [facility] Gastroenterology Visit Repor ton 03-17-2024 Gastroenterology Visit Report [facility] Gastroenterology [address] [place] [address] OFFICE VISIT Date of Service: 03/17/24 MR#: [id number] Acct: [id number] Name: GEO GUERRERO Rep #: [id number] : 1975 Provider: ANAY Phillips Age/Sex: 48/M [place] [facility] [place] [facility] [place]: Signed Intake Vital Signs 02/02/24 08:52 03/10/24 13:30 Height 5 ft 9 in 5 ft 9 in Intake Visit Reasons: RECTAL PROLAPSE Chief Complaint: heartburn 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 Is patient in pain?: No Allergies Penicillins Allergy (Verified 03/17/24 15:34) Swelling Medications ???Medication ???Instructions ???Recorded ???Confirmed ???Type risperidone 1 mg tablet 1 mg PO BID 11/10/23 03/17/24 Hist ory buspirone 15 mg tablet 15 mg PO TID 01/06/24 03/17/24 His tory esomeprazole magnesium 40 mg 40 mg PO QDAY #30 caps 01/06/24 Rx capsule,delayed release Diltiazem 2% / Lidocaine 5% #1 ea 03/17/24 03/17/24 Rx ointment (compound) (Diltiazem 2%/Lidocaine 5% ointment (compound)) cholecalciferol (vitamin D3) 62.5 mcg PO 03/17/24 03/17/24 History mcg (2,500 unit) capsule olanzapine 2.5 mg tablet (Zyprexa) 2.5 mg PO QDAY 03/17/24 03/17/24 History pantoprazole 40 mg tablet,delayed 40 mg PO QDAY #90 tabs 03/17/24 0 03/17/24 Rx release Nurse's Note: Feels bloated or full shortly after he starts to eat. Has bad acid reflux. Has alternating diarrhea and constipation and it feels like something is hanging out until he can relax then whatever it was retracts. Blood in stool noticed. Feels like his hands and feet get sweaty but cold after he eats. Dairy makes things worse. This has all been going on for 10 years. [facility] Medical History (Reviewed 03/10/24 @ 13:40 by Christiana Torres NARROW FABRIC CALENDERER, NARROW FABRIC CALENDERER-C) Wears glasses Depression Anxiety Marijuana use Restless legs Migraine headache Seizures Gastric reflux Former smoker Physical exam, pre-employment History of tumor Arthritis Surgical History H/O release of tendon History of removal of cyst Family History Father Anxiety Arthritis Hx of blood clots Cancer skin Depression Myocardial infarction Hypertension CVA (cerebral vascular accident) Mother Arthritis Cancer Fibromyalgia Social History household members: family housing: house current occupational status: employed current occupation: [employer] Smoking Status: Former smoker how long ago did patient quit smoking: quit smoking 3yr ago alcohol intake: never substance use type: does not use what type of physical activity do you participate in: walking frequency: 3-4 times per week seatbelt use: always do you feel safe at home: Yes additional social history: no vaping, no substance, ibuprofen and mobic prn. no blood clotting dx history HPI HPI Chief Complaint: heartburn Details: GEO GUERRERO, is a 48 M who presents to the office today for establishment with [facility]. Pt has had progressively worsening heartburn over the past 8 years. He has been on Nexium 40 mg daily and it is no longer working. He has daily heartburn and nausea. He is vomiting up to three times per week. He gets full and bloated as soon as he starts eating. These symptoms have led to a 15 lbs weight loss over the past few months. He is also having constipation alternating with loose stools. He is having loose stools around 3x per week that are bright yellow and come with extreme urgency. Pt does still have his gallbladder. He has noticed that dairy can be a trigger but no other foods have been identified. He thinks he may have hemorrhoids as he feels something "pop out" when he has a bm. For about 40 minutes after a bm he will feel some pain and pressure near his anus until the hemorrhoid is reduced. He is having bright red blood when he wipes and feels this is related to the presumed hemorrhoid. ROS Const Constitutional: Positive for fatigue and weight change; No fever(s) ENT ENT: No difficulty swallowing Gastro GI: Positive for abdominal pain, bloating, diarrhea, heartburn, Blood in stool, nausea/dyspepsia and vomiting; No belching, change in bowel habits, change in stool character, coffee ground emesis, constipation, cramping, difficulty swallowing, feeling full early, excessive flatus, incontinent of stools, loose stools, Black,tarry stools, pain with swallowing or other Musc Musculoskeletal: Positive for Arthritis and restless legs; No joint pain Skin Skin: No yellowing of the eye or itchy eyes Neuro Neurology: Positive for restless legs Psych Psychiatric: Positive for anxiety and No depression Endo Endocrine: Positive for fatigue and weight change (more content not included)... Normal [facility] Plastic Surgery Visit Report on 03-10-2024 Plastic Surgery Visit Report [facility] Plastic Reconstructive Surgery [address], [address] [place] [address] OFFICE VISIT Date of Service: 03/10/24 MR#: [id number] Acct: [id number] Name: GEO GUERRERO Rep #: [id number] : 1975 Provider: Dr. Trinidad Sanchez MD Age/Sex: 48/M Location: [facility] [place] Status: Signed Pt seen evaluated w/FATMATA. I personally interviewed exam the pt. I was involved in all aspects of pt's orders, interpretation of results treatment Intake Vital Signs 3 02/12/24 09:36 03/10/24 13:30 Height 5 ft 9 in 5 ft 9 in BP 109/77 117/77 Blood Pressure Location Rt brachial Lt brachial Position Sitting Sitting Respiration 18 18 Pulse 74 75 Pulse Source Monitor Monitor Temp 97.6 F L 984 F H Temp Source Oral Oral Pulse Oximetry (%) 96 99 Oxygen Delivery Method room air room air Intake Visit Reasons: 1 M F/U Chief Complaint: 1 month f/u Is patient in pain?: No Allergies Penicillins Allergy (Verified 03/10/24 13:28) Swelling Medications 3 ???Medication ???Instructions ???Recorded ???Confirmed ???Type hydroxyzine pamoate 50 mg capsule 50 mg PO BID PRN PRN anxiety 11/10/23 03/10/24 History meloxicam 7.5 mg tablet 7.5 mg PO DAILY 11/10/23 03/10/24 History risperidone 1 mg tablet 1 mg PO BID 11/10/23 03/10/24 History buspirone 15 mg tablet 15 mg PO TID 01/06/24 03/10/24 History esomeprazole magnesium 40 mg 40 mg PO QDAY #30 caps 01/06/24 03/10/24 Rx capsule,delayed release famotidine 20 mg tablet 20 mg PO QHS #20 tabs 01/06/24 03/10/24 Rx clotrimazole-betametha sone 1 1 applic topical BID 2 weeks #15 02/05/24 03/10/24 Rx %-0.05 % topical cream grams tramadol 50 mg tablet 50 mg PO BID PRN pain #30 tabs 02/24/24 03/10/24 Rx Nurse's Note: pt states doing well. Would like to know about getting cleared for work. Subjective Details: Geo states that he is doing well. He states that he is healed and would like to return to work. He is denying any complaints at this time. He has a a few more OT appointments that finish up next week. Objective Details: Incisions have healed well on his left hand. His swelling has resolved. He is wearing a finger compression sleeve on his left small finger. He is able to bend and extend all of his MP, PIP, and DIP joints on his left hand. He is able to make a fist and has good camp boss strength. Capillary refill <2 seconds. Coding Level of Care Code Global Post Op Diagnoses Dupuytren contracture M72.0 [facility] Medical History Wears glasses Depression Anxiety Marijuana use Restless legs Migraine headache Seizures Gastric reflux Former smoker Physical exam, pre-employment History of tumor Arthritis Surgical History H/O release of tendon History of removal of cyst Family History Father Anxiety Arthritis Hx of blood clots Cancer skin Depression Myocardial infarction Hypertension CVA (cerebral vascular accident) Mother Arthritis Cancer Fibromyalgia Social History household members: family housing: house current occupational status: employed current occupation: [email or web address] Smoking Status: Former smoker how long ago did patient quit smoking: quit smoking 3yr ago alcohol intake: never substance use type: does not use what type of physical activity do you participate in: walking frequency: 3-4 times per week seatbelt use: always do you feel safe at home: Yes additional social history: no vaping, no substance, ibuprofen and mobic prn. no blood clotting dx history Assessment and Plan (No Qualifiers) Assessment and Plan (1) Dupuytren contracture: Status: Acute Comment: Left>Right Plan: Patient is very happy with his results. Continue night time splinting and exercises with occupational therapy. Continue ROM exercises and massaging the scarring. He is released to return to work with no restrictions. Dr. Sanchez came in to evaluate him and discuss plan of care. Follow up 6-8 weeks. Call or come in sooner if develop any concerns. 03/10/24 1430 > Date Christiana Torres NP NARROW FABRIC CALENDERER-C 03/12/24 1333 Cosigner Signature: Date (if applicable) Trinidad Sanchez MD CC: Normal [facility] Plastic Surgery Visit Report on 02-12-2024 Plastic Surgery Visit Report [facility] Plastic Reconstructive Surgery [address], [address] [place] [address] OFFICE VISIT Date of Service: 02/12/24 MR#: [id number] Acct: [id number] Name: GEO GUERRERO Rep #: [id number] : 1975 Provider: Dr. Trinidad Sanchez MD Age/Sex: 48/M Location: [facility] [place] Status: Signed Intake Vital Signs 3 02/02/24 08:52 02/05/24 08:58 02/12/24 09:36 Height 5 ft 9 in 5 ft 9 in 5 ft 9 in BP 109/77 Blood Pressure Location Rt brachial Position Sitting Respiration 18 Pulse 74 Pulse Source Monitor Temp 97.6 F L Temp Source Oral Pulse Oximetry (%) 96 Oxygen Delivery Method room air Intake Visit Reasons: Wound Check Chief Complaint: Wound Check Allergies Penicillins Allergy (Verified 02/12/24 09:36) Swelling Medications 3 ???Medication ???Instructions ???Recorded ???Confirmed ???Type hydroxyzine pamoate 50 mg capsule 50 mg PO BID PRN PRN anxiety 11/10/23 02/12/24 History meloxicam 7.5 mg tablet 7.5 mg PO DAILY 11/10/23 02/12/24 History risperidone 1 mg tablet 1 mg PO BID 11/10/23 02/12/24 History buspirone 15 mg tablet 15 mg PO TID 01/06/24 02/12/24 History esomeprazole magnesium 40 mg 40 mg PO QDAY #30 caps 01/06/24 02/12/24 Rx capsule,delayed release famotidine 20 mg tablet 20 mg PO QHS #20 tabs 01/06/24 02/12/24 Rx clotrimazole-betametha sone 1 1 applic topical BID 2 weeks #15 02/05/24 02/12/24 Rx %-0.05 % topical cream grams oxycodone 5 mg tablet 5 mg PO BID PRN pain 5 days #10 02/09/24 02/12/24 Rx tabs tramadol 50 mg tablet 50 mg PO BID PRN pain #30 tabs 02/11/24 02/12/24 Rx Nurse's Note: Dupuytrens contracture FU [facility] Medical History Wears glasses Depression Anxiety Marijuana use Restless legs Migraine headache Seizures Gastric reflux Former smoker Physical exam, pre-employment History of tumor Arthritis Surgical History H/O release of tendon History of removal of cyst Family History Father Anxiety Arthritis Hx of blood clots Cancer skin Depression Myocardial infarction Hypertension CVA (cerebral vascular accident) Mother Arthritis Cancer Fibromyalgia Social History household members: family housing: house current occupational status: employed current occupation: [employer] Smoking Status: Former smoker how long ago did patient quit smoking: quit smoking 3yr ago alcohol intake: never substance use type: does not use what type of physical activity do you participate in: walking frequency: 3-4 times per week seatbelt use: always do you feel safe at home: Yes additional social history: no vaping, no substance, ibuprofen and mobic prn. no blood clotting dx history HPI Wound Check Details: Doing well overall. Sutures removed today in clinic without any issues. Has been following the occupational therapy and has been wearing his night time extension splint each night. Exam Details LUE: Inspection: Some PIP joint swelling consistent with the Checkrein ligament release on left index finger, but improved since the last time I saw him. No signs of infection today. No pain with axial loading of the left index finger. No drainage. Motor: Able to bend and extend all MP, PIP, and DIP joints. Ring finger is stiff, but able to improve ROM greatly during our visit by moving it for the patient. Opposition: able to oppose R hand and all but little finger on the left MP: L index 80, L middle 80, L ring 90, L little 70 PIP: L index 70, L middle 80, L ring 80 DIP: L index 40, L middle 40, L ring 70 Sensory: Intact to light touch on the radial and ulnar borders of all fingers. Vascular: Finger tips are warm and well perfused with <2 second capillary refill. Coding Level of Care Code Global Post Op Diagnoses Dupuytren contracture M72.0 Assessment and Plan (No Qualifiers) Assessment and Plan (1) Dupuytren contracture: Status: Acute Comment: Left>Right Plan: Expected course overall. Sutures removed. Continue night time splinting and exercises with occupational therapy. Discussed stiffness with finger flexion that is now developing. No reason for stiffness other than the pain/splinting, so needs to start press and hold (demonstrated this -- keeping in flexion (digit into palm) with other finger and holding for 10 seconds despite pain). Discussed local wound care as needed (dial soap soaks with warm soapy water. Boil water, let cool, then put soap in a clean bowl and soak in the water). F/u in 1 month to check progress or sooner if questions/problems. Patient happy with re (more content not included)... Normal [facility] OT General Evaluationon 12-2 OT General Evaluation [facility] Occupational Therapy [facility] [address] [place] [address]. [address] [place] [address] / REHABILITATION SERVICES INITIAL EVALUATION MR#: [id number] Acct: [id number] Name: GEO GUERRERO Rep #: [id number] : 1975 48 From: Tonya Talamantes Referring Dr.: Dr. Trinidad Sanchez MD Status: REG [facility] Insurance: [facility] Eval Date: [facility] Patient's Visit Information Visit Information Visit Information: GEO GUERRERO is a 48 year old M, referred to Occupational Therapy by Dr. 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 Patient was seen my Allison Mitchell around 01/28/24 and she fabricated a resting hand splint for him to wear at night. He reports no issues with the hand splint. Patient is right hand dominant. 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 Patient reports 5 days ago his left index finger started to swell up and was increased sensitivity/pain and now he can't bend it. He follows up with Dr. Sanchez on 02/12/24 and plans to ask him about this. ADLs Comments: currently staying with his mom and dad so they can help him as needed but he typically lives alone. Parents are helping with opening containers and cooking but otherwise he is completing his self-care independently. Able to get coat on/off. ROM Opposition: able to oppose R hand and all but little finger on the left MP: L index 80, L middle 75, L ring 70, L little 75 PIP: L index 70, L middle 77, L ring 68 DIP: L index 40, L middle 33, L ring 25 ROM Comments: ROM intact with shoulder, elbow, wrist Strength Care Advocate: R 75, 71, 64 Lateral Pinch: R 14# Tripod Pinch: R 15# Tip-to-Tip Pinch: 14# Edema PIP: L index PIP 9 cm, L middle PIP 9 cm, L ring finger PIP 8 cm Other: 23 cm L MCP Sensation Index: tingling and numbness in index finger Quick DASH-Disab of Arm,Shoulder Hand Quick DASH Score: 75.0000 Goals Goal:: Patient will demonstrate improved functional ROM of left hand for ADL's with increase in overall finger range of motion by at least 15 degreees total. Goal:: Patient will demonstrate decreased edema in left fingers for functional use of left hand with 2 cm or more less of swelling in index, middle, and ring fingers. Goal:: Patient will report increased independence with ADL's with a quick dash score of 65 of less. Goal:: Patient will be indep with orthotic wear schedule and HEP to improve fxnal use of left hand for ADl's. Rehabilitation General Assessment: Patient arrived 2 weeks and 1 day s/p dupuytren's release with fasciotomy and left little finger amputation at [facility]. Patient was seen by Allison Mitchell CHT, on 01/28/24 for fabrication of volar resting hand splint for night time wear. No concerns with splint wear at thist mode. Patient presents with swelling, decreased ROM, and functional use of left hand and would benefit from skilled intervention to improve these areas for indep ADL participation. Rehabilitation Potential: Good Anticipated Interventions Anticipated Interventions: A/AAROM/PROM, Strengthening, Edema Control, Triggerpoint Release, Desensitization, Orthoses, Joint Protection/Energy Conservation and Home Program Visit Plan Frequency: 2x /Week Duration: 6 Weeks General Plan: 2x/week for 6 weeks to work on ROM, progressive strengthening, fine motor manipulation, manual tissue mobilization, HEP, wound care TEXT: Thank you for the opportunity to evaluate your patient. For Medicare and Medicare HMO plans, please review the plan of care and approve it. It will need to be FAXED BACK to us at [phone] for Medicare purposes. Please let me know if there are questions or concerns regarding this plan of care. Physician Signature: Date:__ 02/11/24 1606 CC: Dr. Cecily Garnica DO; Dr. Trinidad Sanchez MD TCL Signed For Medicare only, by signing this I certify the plan of care. Physicians Signature Date Normal [facility] Internal Medicine Office Vis zaire 02-05-2024 Internal Medicine Office Visit [facility] [address] [place] [address] [place] [address] OFFICE VISIT Date of Service: 02/05/24 MR#: [id number] Acct: [id number] Name: GEO GUERRERO Rep #: [id number] : 1975 Provider: ANAY Umaña Age/Sex: 48/M Location: [facility] [place] Status: Signed Intake Vital Signs 02/02/24 08:52 02/05/24 08:58 Height 5 ft 9 in 5 ft 9 in Weight: 167 lb 8 oz BMI 24.7 BP 128/72 H Blood Pressure Location Lt brachial Position Sitting Respiration 16 Pulse 85 Pulse Source Monitor Temp 97.4 F L Temp Source Temporal Pulse Oximetry (%) 98 Oxygen Delivery Method room air Intake Visit Reasons: POSSIBLE RING WORM Chief Complaint: skin concerns 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 Accompanied by: Self Is patient in pain?: No Allergies Penicillins Allergy (Verified 02/05/24 08:55) Swelling Medications ???Medication ???Instructions ???Recorded ???Confirmed ???Type hydroxyzine pamoate 50 mg capsule 50 mg PO BID PRN PRN anxiety 11/10/23 02/05/24 History meloxicam 7.5 mg tablet 7.5 mg PO DAILY 11/10/23 02/05/24 History risperidone 1 mg tablet 1 mg PO BID 11/10/23 02/05/24 History buspirone 15 mg tablet 15 mg PO TID 01/06/24 02/05/24 History esomeprazole magnesium 40 mg 40 mg PO QDAY #30 caps 01/06/24 02/05/24 Rx capsule,delayed release famotidine 20 mg tablet 20 mg PO QHS #20 tabs 01/06/24 02/05/24 Rx tramadol 50 mg tablet 50 mg PO BID PRN pain #30 tabs 01/26/24 02/05/24 Rx clotrimazole-betametha sone 1 1 applic topical BID 2 weeks #15 02/05/24 02/05/24 Rx %-0.05 % topical cream grams PFSH Medical History (Updated 02/05/24 @ 09:46 by ANAY Licona) Wears glasses Depression Anxiety Marijuana use Restless legs Migraine headache Seizures Gastric reflux Former smoker Physical exam, pre-employment History of tumor Arthritis Surgical History (Updated 02/05/24 @ 08:58 by Tiera Anderson MA) H/O release of tendon History of removal of cyst Family History Father Anxiety Arthritis Hx of blood clots Cancer skin Depression Myocardial infarction Hypertension CVA (cerebral vascular accident) Mother Arthritis Cancer Fibromyalgia Social History household members: family housing: house current occupational status: employed current occupation: [employer] Smoking Status: Former smoker how long ago did patient quit smoking: quit smoking 3yr ago alcohol intake: never substance use type: does not use what type of physical activity do you participate in: walking frequency: 3-4 times per week seatbelt use: always do you feel safe at home: Yes additional social history: no vaping, no substance, ibuprofen and mobic prn. no blood clotting dx history HPI HPI Chief Complaint: skin concerns Details: GEO GUERRERO, is a 48 M who presents to the office today for area of dryness / itching on the left scalp area. Patient states that he first noticed that this was itchy and so he started to watch it and then noticed it was sort of round and so was concerned with ringworm. ROS Const Constitutional: No body ache, chills, excessive sweating, fatigue, fever(s), frequent falls, headache(s), snoring, weakness or change in appetite Eyes Eyes: No blurry vision, change in vision, eye pain or Light sensitivity ENT ENT: No abnormal hearing, ear or mastoid pain, tinnitus, nasal congestion, headache(s), neck pain or sore throat Resp Respiratory: No cough, shortness of breath, snoring or wheezing Cardio Cardiology: No chest pain at rest, chest pain with exertion, excessive sweating, dyspnea on exertion, lightheadedness, orthopnea or palpitations Gastro GI: No abdominal pain, change in bowel habits, constipation, cramping, diarrhea, nausea/dyspepsia or vomiting Genitourinary Male: No burning urination, painful urination, urinary incontinence or urinary frequency Musc Musculoskeletal: No abnormal gait, joint pain, back pain, limited range of motion, muscle weakness, neck pain or numbness Skin Skin: No dry skin, redness, lesions, itchy eyes, rash or wounds Neuro Neurology: No abnormal gait, abnormal hearing, weakness, frequent falls, headache(s), memory loss or numbness Psych Psychiatric: No anxiety, No change in appetite, No depression, No memory loss and No Thoughts of harming yourself/Others Endo Endocrine: No cold intolerance, excessive sweating, fatigue, flushing, heat intolerance, increased thirst/drinking or increased hunger Aller/Imm Allergy/Immunologic: No itchy eyes, seasonal allergy symptoms, hives or wheezing [place]/Lymp Hematologic/Lymphatic: No easy bleeding or easy bruising Exam Const General: cooperative, healthy appearing, comfortable, no acute distress, w (more content not included)... Normal [facility] Plastic Surgery Visit Report on 02-02-2024 Plastic Surgery Visit Report [facility] Plastic Reconstructive Surgery [address], [address] [place], [place] [id number] OFFICE VISIT Date of Service: 02/02/24 MR#: [id number] Acct: [id number] Name: GEO GUERRERO Rep #: [id number] : 1975 Provider: Dr. Trinidad Sanchez MD Age/Sex: 48/M Location: [place] [address] Status: Signed Intake Vital Signs 3 01/28/24 13:13 01/28/24 14:32 02/02/24 08:52 Height 5 ft 9 in 5 ft 9 in 5 ft 9 in BP 124/83 H Blood Pressure Location Rt brachial Position Sitting Respiration 18 Pulse 78 Temp 98.1 F Temp Source Oral Pulse Oximetry (%) 93 Oxygen Delivery Method room air Intake Visit Reasons: post op appt Chief Complaint: post op Dupuytrens Is patient in pain?: Yes (hand left ) Pain scale (1-10): 5 Allergies Penicillins Allergy (Verified 02/02/24 08:51) Swelling Medications 3 ???Medication ???Instructions ???Recorded ???Confirmed ???Type hydroxyzine pamoate 50 mg capsule 50 mg PO BID PRN PRN anxiety 11/10/23 02/02/24 History meloxicam 7.5 mg tablet 7.5 mg PO DAILY 11/10/23 02/02/24 History risperidone 1 mg tablet 1 mg PO BID 11/10/23 02/02/24 History buspirone 15 mg tablet 15 mg PO TID 01/06/24 02/02/24 History esomeprazole magnesium 40 mg 40 mg PO QDAY #30 caps 01/06/24 02/02/24 Rx capsule,delayed release famotidine 20 mg tablet 20 mg PO QHS #20 tabs 01/06/24 02/02/24 Rx tramadol 50 mg tablet 50 mg PO BID PRN pain #30 tabs 01/26/24 02/02/24 Rx doxycycline hyclate 50 mg capsule 50 mg PO BID 5 days #10 caps 01/27/24 02/02/24 Rx oxycodone 5 mg tablet 5 mg PO Q8H PRN pain 5 days #20 01/27/24 02/02/24 Rx tabs oxycodone 5 mg tablet 5 mg PO Q12H PRN pain 5 days #10 02/02/24 02/02/24 Rx tabs Nurse's Note: Post op Dupuytrens Subjective Details: Doing well today. No numbness/tingling. Happy with result. Splint removed. Pain controlled. His mother has been taking good care of him while he recovers (has been doing good narcotic stewardship in setting of previous addiction problems). Completed antibiotics last night. Objective Details: LUE: Inspection: Some PIP joint swelling consistent with the Checkrein ligament release. No signs of infection today. No drainage. Motor: Able to bend and extend all MP, PIP, and DIP joints. Sensory: Intact to light touch on the radial and ulnar borders of all fingers. Vascular: Finger tips are warm and well perfused with <2 second capillary refill. Passively can extend all fingers to neutral position. Some resting contracture persisting on the index and long fingers at the PIP joints. Coding Level of Care Code Global Post Op Diagnoses Dupuytren contracture M72.0 [facility] Medical History Wears glasses Depression Anxiety Marijuana use Restless legs Migraine headache Seizures Gastric reflux Former smoker Physical exam, pre-employment History of tumor Arthritis Surgical History History of removal of cyst Family History Father Anxiety Arthritis Hx of blood clots Cancer skin Depression Myocardial infarction Hypertension CVA (cerebral vascular accident) Mother Arthritis Cancer Fibromyalgia Social History household members: family housing: house current occupational status: employed current occupation: [employer] Smoking Status: Former smoker how long ago did patient quit smoking: quit smoking 3yr ago alcohol intake: never substance use type: does not use what type of physical activity do you participate in: walking frequency: 3-4 times per week seatbelt use: always do you feel safe at home: Yes additional social history: no vaping, no substance, ibuprofen and mobic prn. no blood clotting dx history Assessment and Plan (No Qualifiers) Assessment and Plan (1) Dupuytren contracture: Status: Acute Comment: Left>Right Plan: Expected course Doing well overall. He is seeing the hand therapist now for a night time splint fabrication and exercises. F/u next Thursday after Gonzalo for wound check. 02/02/2422 Date Trinidad Sanchez MD Cosigner Signature: Date (if applicable) CC: Normal [facility] Plastic Surgery Visit Report on 01-28-2024 Plastic Surgery Visit Report [facility] Plastic Reconstructive Surgery [address], [address] [place] [address] OFFICE VISIT Date of Service: 01/28/24 MR#: [id number] Acct: [id number] Name: GEO GUERRERO Rep #: [id number] : 1975 Provider: Dr. Trinidad Sanchez MD Age/Sex: 48/M Location: [facility] Status: Signed Intake Vital Signs 3 01/27/24 07:55 01/28/24 13:13 01/28/24 14:32 Height 5 ft 9 in 5 ft 9 in 5 ft 9 in BP 124/83 H Blood Pressure Location Rt brachial Position Sitting Respiration 18 Pulse 78 Temp 98.1 F Temp Source Oral Pulse Oximetry (%) 93 Oxygen Delivery Method room air Intake Visit Reasons: POST OP WOUND CHECK Chief Complaint: post op pain Is patient in pain?: Yes (09/25) Allergies Penicillins Allergy (Verified 01/28/24 14:34) Swelling Nurse's Note: pt here post op, pain at 09/25 Subjective Details: Here today because he feels like splint is too tight. Otherwise doing O.K. Reports that the block has worn off and his fingers are hurting. Objective Details: Left hand No signs of hematoma or wound problems. Sensation: intact to light touch on radial and ulnar borders of all digits (despite Exparel) Vascular: Fingers are warm and well perfused. Coding Level of Care Code Global Post Op Diagnoses Dupuytren contracture M72.0 [facility] Medical History Wears glasses Depression Anxiety Marijuana use Restless legs Migraine headache Seizures Gastric reflux Former smoker Physical exam, pre-employment History of tumor Arthritis Surgical History History of removal of cyst Family History Father Anxiety Arthritis Hx of blood clots Cancer skin Depression Myocardial infarction Hypertension CVA (cerebral vascular accident) Mother Arthritis Cancer Fibromyalgia Social History household members: family housing: house current occupational status: employed current occupation: [employer] Smoking Status: Former smoker how long ago did patient quit smoking: quit smoking 3yr ago alcohol intake: never substance use type: does not use what type of physical activity do you participate in: walking frequency: 3-4 times per week seatbelt use: always do you feel safe at home: Yes additional social history: no vaping, no substance, ibuprofen and mobic prn. no blood clotting dx history Assessment and Plan (No Qualifiers) Assessment and Plan (1) Dupuytren contracture: Status: Acute Comment: Left>Right Plan: Expected course except the splint changed and reports forearm feels better. Placed loosely. F/u on Thursday with me and with OT (night time splint to be made and therapy protocol start). 01/28/24 1440 Date Trinidad Sanchez MD Cosigner Signature: Date (if applicable) CC: Normal [facility] Decalcification bone/plaqueo n 01-27-2024 Decalcification bone/plaque ---- Patient Age/Sex Location Account Attending Physician ---- GEO GUERRERO [place] [id number]. Trinidad Sanchez MD ---- Specimen: [id number] Received: 01/28/243619 Status: DOROTEO Anguiano Num: [id number] Spec Type: DUPYTREN'S Subm Dr: Dr. Trinidad Sanchez MD HEADER OPERATION: Fasciectomy for Dupuytrens left hand, joint release PRE-OP DIAGNOSIS: Dupuytren contracture TISSUE SUBMITTED: A- Left index finger Dupuytrens cord, B- Left middle finger Dupuytrens cord, C- Left small finger ---- MICROSCOPIC DIAGNOSIS A. Left index finger tissue, biopsy: Consistent with Dupuytren's cord. B. Soft tissue of left middle finger, excision: Consistent with Dupuytren's cord. C. Left small finger: Bone and tissue with focal reparative and reactive change. Skin- no pathologic change. AM.mr 02/03/2024 COMMENT Case has been reviewed in consultation with Dr. Graham who concurs with the above diagnosis. IDC: MICROSCOPIC DESCRIPTION Slides are reviewed. GROSS DESCRIPTION A. Received in fixative is one container labeled with the patient's name and designated Left index finger Dupuytren's cord." The specimen consists of a white tissue fragment which is soft measuring 2.5 x 1.0 x 0.6cm. The specimen is bisected and submitted in one cassette. B. Received in fixative is one container labeled with the patient's name and designated Left middle finger Dupuytren's cord." The specimen consists of a whiteish tissue fragment which is soft measuring 2.7cm in length and 5.0mm in greatest diameter. The specimen is totally submitted in one cassette. C. Received in fixative is one container labeled with the patient's name and designated Left small finger. The specimen consists of a finger which appears normal and measures 5.0cm in length. The entire nail is present and measures 1.2cm in length and 1.2cm in greatest width. The skin portion of the finger measures 3.0cm in length. The greatest diameter of the finger is 1.8cm. A fragment of bone and tendon stick out from the skin portion. The skin appears grossly viable at the excision site. The bone and tendon tissue extends for approximately 2.0cm beyond the skin portion and greatest diameter is 1.5cm. ---- Patient Age/Sex Location Account Attending Physician ---- GEO GUERRERO [place] [id number] Dr. Trinidad Sanchez MD ---- Bindery Machine Setter section submitted in two cassettes after decalcification. 01/29/2024 TC:5 CPT:32866t4,05385 ---- Patient Age/Sex Location Account Attending Physician ---- GEO GUERRERO [place] [id number] Dr. Trinidad Sanchez MD ---- Signed (signature on file) Dr. Marcelino Garcia, DO 02/03/24 1215 ---- Normal [facility] Comment on above: Performed By: #### P DEC ####[facility] [address] [place], [address] H AND P Exam - Surgicalon H&P Exam - Surgical [facility] Medical Records Department [address] [place] [address] H P Exam - Surgical 01/27/24 0907 MR#: [id number] Acct: [id number] Name: GEO GUERRERO Rep #: [id number] : 1975 48 From: Trinidad Sanchez MD PCP: Dr. Cecily Garnica, DO Status:[facility] Location: [place] [address] HPI - General HPI Narrative GEO GUERRERO, is a 48 M who presents for left hand Dupuytren's Contracture Surgery. Current Encounter (DATE OF SURGERY H P UPDATE): I saw and examined the patient this morning in pre- operative holding. We discussed risks and benefits of today's surgery and they would like to proceed. NO CHANGE in health history since last seen and evaluated. Ready to proceed with surgery. [facility] Medical History Wears glasses Depression Anxiety Marijuana use Restless legs Migraine headache Seizures Gastric reflux Former smoker Physical exam, pre-employment History of tumor Arthritis Home Medications ???Medication ???Instructions ???Recorded ???Last Taken ???Type hydroxyzine pamoate 50 mg capsule 50 mg PO BID PRN PRN anxiety 11/10/23 Unknown History meloxicam 7.5 mg tablet 7.5 mg PO DAILY 11/10/23 Unknown History risperidone 1 mg tablet 1 mg PO BID 11/10/23 Unknown History buspirone 15 mg tablet 15 mg PO TID 01/06/24 Unknown History esomeprazole magnesium 40 mg 40 mg PO QDAY #30 caps 01/06/24 01/27/24 07:00 Rx capsule,delayed release famotidine 20 mg tablet 20 mg PO QHS #20 tabs 01/06/24 Unknown Rx tramadol 50 mg tablet 50 mg PO BID PRN pain #30 tabs 01/26/24 Unknown Rx Allergy/AdvReac Type Severity Reaction Status Date / Time Penicillins Allergy Swelling Verified 01/27/24 07:30 Family History Father Anxiety Arthritis Hx of blood clots Cancer skin Depression Myocardial infarction Hypertension CVA (cerebral vascular accident) Mother Arthritis Cancer Fibromyalgia Surgical History History of removal of cyst Social History household members: family housing: house current occupational status: employed current occupation: [employer] Smoking Status: Former smoker how long ago did patient quit smoking: quit smoking 3yr ago alcohol intake: never substance use type: does not use what type of physical activity do you participate in: walking frequency: 3-4 times per week seatbelt use: always do you feel safe at home: Yes additional social history: no vaping, no substance, ibuprofen and mobic prn. no blood clotting dx history Vital Signs Vital Signs Vital Signs: 01/27/24 07:55 01/27/24 07:55 Temperature 97.8 F Temperature Source Temporal Pulse Rate 58 L Respiratory Rate 16 Respiratory Pattern Normal Blood Pressure 115/73 Blood Pressure Mean 87 Blood Pressure Source Monitor Blood Pressure Position Sitting Blood Pressure Location Left Arm Pulse Ox 100 Oxygen Delivery Method Room Air Weight Weight: 169 lb 12.095 oz Body Mass Index (BMI) 25.0 Physical Exam Narrative PE: LEFT UPPER EXTREMITY Ruff Left index finger: LIF Left long finger: LLF Left ring finger: LRF Left small finger: LSF Exam of the LEFT upper limb revealed: (+) tenderness to palpation over A1 aline region of LEFT RING finger. (+) reproducible triggering of Left ring finger. (+) Table Top test. (+) pretendinous cord visible and palpable over index, long, ring, and small fingers. (80) degree of flexion contracture of PIPJ of LIF. (20) degree of flexion contracture of MCPJ of LIF. (60) degree of flexion contracture of PIPJ of LLF. (20) degree of flexion contracture of MCPJ of LLF. (10) degree of flexion contracture of PIPJ of LRF. (20) degree of flexion contracture of MCPJ of LRF. (110) degree of flexion contracture of PIPJ of LSF. (45) degree of flexion contracture of MCPJ of LSF Motor: Can bend all DIP, PIP, and MP joints, but trouble extending 2/2 contractures. Sensation: 7-8 mm 2-point on the ulnar and radial borders of the LSF and on the ulnar border of the LRF. Otherwise 2 mm 2-point discrimination on the radial and ulnar borders of the other digits. Positive Tinel sign over the left cubital tunnel, but not over Guyon's canal. Negative provocative test to the left transverse carpal ligament. No obvious signs of muscle wasting in the left hand. Vascular: fingers warm and well perfused. RUE: Right hand with mild Dupuytren's disease (no resting contractures but palpable cords) Results Lab / Micro Data 01/06/24 14:51 01/06/24 14:51 Assessment Plan Assessment/Plan (1) Dupuytren contracture: PLAN: Plan (more content not included)... Normal [facility] MR/POSTOP.KRISTINAon 01-27-2024 MR/POSTOP.[facility] Medical Records Department [address] [place] [address] Anesthesia Postop Eval I 01/27/24 1353 MR#: [id number] Acct: [id number] Name: GEO GUERRERO Rep #: [id number] : 1975 48 From: Tosin Osorio CRNA PCP: Dr. Cecily Garnica, DO Status:REG SDC Y Race: C Location: [place] [address] Anesthesia: Postop Eval I Current Vital Signs Temperature: 97.5 F Pulse Rate: 98 Blood Pressure: 121/78 Respiratory Rate: 18 Pulse Ox: 100 Oxygen Delivery Method: Room Air Assessment Airway patent: Yes Spontaneous unlabored respirations: Yes Mental status: Awake and Calm nausea: No Vomiting: No Anesthesia Complication: No Fluid Hydration Crystalloid volume administer (ml): 1,000 Total IV fluid infused: 1,000 Progress Note Anesthesia document: Postop Eval 1 completed: Yes 01/27/24 1354 Date Tosin Osorio FAN RUNNER Cosigner Signature: Date CC: Signed Normal [facility] MR/[id number] 01-27-2024 [facility] Medical Records Department [address] [place] [address] Anesthesia Postop Eval II 01/27/24 1416 MR#: [id number] Acct: [id number] Name: GEO GUERRERO Rep #: [id number] : 1975 48 From: Hardy Mccarthy MD PCP: Dr. Cecily Garnica, DO Status:REG SDC Y Race: C Location: [place] [address] Anesthesia Postop Eval I Sum Postop Eval Completion status Anesthesia document: Postop Eval 1 completed: Yes Anesthesia Postop Eval I Summary Anesthesia Postop Eval I Summary: Anesthesia Postop Eval I: Assessment Summary Airway patent Yes 01/27/24 13:54 [email or web address] [email or web address] Spontaneous unlabored Yes 01/27/24 13:54 FAN [email or web address] respirations Mental status Awake,Calm 01/27/24 13:54 FAN [email or web address] nausea No 01/27/24 13:54 FAN RUNNER.[email or web address] Vomiting No 01/27/24 13:54 FAN [email or web address] Anesthesia Postop Eval I: Fluid Summary Crystalloid volume administer 1,000 01/27/24 13:54 FAN RUNNER.[email or web address] (ml) Colloids volume administered ( ml) Blood Product volume administered (ml) Total IV fluid infused 1,000 01/27/24 13:54 FAN [email or web address] Anesthesia Postop Eval I: Summary Notes Anesthesia Complication No 01/27/24 13:54 FAN [email or web address] Anesthesia Complication Comment: Post-operative progress note Anesthesia: Postop Eval II Evaluation Mental status: Awake Pain Level: 2 nausea: No Vomiting: No 01/27/24 1416 Date Hardy Lynch Signature: Date CC: Signed Normal [facility] Operative Reporton 4 Operative Report [facility] Medical Records Department [address] [place] [address] Operative Report 01/27/24 1740 MR#: [id number] Acct: [id number] Name: GEO GUERRERO Rep #: [id number] : 1975 48 From: Trinidad Sanchez MD PCP: Dr. Cecily Garnica, DO Status:[facility] Location: [facility] [place] [place] Operative Report (Standard) Operative Information Date of Procedure: 01/27/24 Pre-Operative Diagnosis: Left Hand Dupuytren's Contracture Post-Operative Diagnosis: Same Surgery/Procedure Performed: 1) Left index finger (LIF) limited palmar fasciectomy, CPT: 25561 2) LIF checkrein ligament release, proximal interphalangeal (PIP) joint, CPT: 73874 3) Left long finger (LLF) limited palmar fasciectomy, CPT: 58167 4) LLF A1 aline release, CPT: 03706 5) Left small finger (LSF) amputation at the PIP joint, CPT: 16102 spool cleaner: Yes Paper Cup Machine Operator: Kay Braden Tasks completed by first sampler: Retracting Type of Anesthesia: General/Supplemental (20 cc injected of a 50-50 mixture of 20 cc of Exparel and 20 cc of 0.25% Marcaine ) RN Documented Start/Stop Times: Operation Date: 01/27/24 09:00 Case Time Into Pre-Op 01/27/24 07:31 Out of Pre-Op 01/27/24 09:19 Anesthesia Start 01/27/24 09:26 Into Room 01/27/24 09:26 Procedure Start 01/27/24 09:49 Procedure End 01/27/24 13:42 Anesthesia End 01/27/24 13:50 Out of Room 01/27/24 13:50 Into Recovery 01/27/24 13:52 Out of Recovery 01/27/24 14:23 Into Phase II Recovery 01/27/24 14:27 Out of Phase II 01/27/24 17:20 Procedure Start Time: 09:49 Procedure Stop Time: 13:42 Select all DRAINS/GRAFTS/IMPLANTS that apply: None Estimated Blood Loss: 10 cc Specimen collected: Yes Description of specimen(s) removed: Dupuytren's cords to the index, long fingers, and the small finger amputated portion Description of surgery: Indications: Goe Guerrero is a 48-year-old male with past medical history of left hand Dupuytren's contracture with a severe left small finger contracture that has been persistent at the PIP joint for about 10 years. The index and long fingers have started to contract over the past 2 years then he presents today for limited palmar fasciectomy of the left index and long fingers, possible PIP joint releases, and also an amputation of the PIP level of the left small finger. He understands the risks, benefits, and alternative treatments to the above-noted procedures. 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 Procedure details: Patient was correctly identified in preoperative holding and the left index, long, and small fingers were marked. The patient was taken back to the operating room where he was administered general anesthesia and prepped and draped in sterile fashion. A timeout was performed before the procedure was started. The tourniquet was inflated to 250 mmHg after the Esmarch was used. I began the procedure by designing Leander incisions over the index and long fingers. I began at the level of the palm for dissection of the index finger cord opening the Annie's incision and finding the Dupuytren's cord superficial to the distal transverse palmar fascia. Deep to the distal transverse palmar fascia, I was able to find the neurovascular bundles and identify and protect them as I dissected them distally and also dissected out the cord distally. The cord was dissected into the finger past the PIP joint to its insertion over the A4 aline. The cord was released (cord excised and sent to pathology), which led to significant release of the PIP joint contracture of the index finger; however, it was persistently stuck at about 25 degrees flexion despite significant force attempting to extend it to neutral. I therefore made the decision to do a checkrein ligament release of the PIP joint volar plate. The A3 aline was incised and the FDS and FDP were retracted laterally. The check rein ligaments were released over the distal volar surface of P1 with a 15 blade scalpel. I was then able to passively extend the index finger to neutral position, so the accessory collateral ligaments were spared. I then let the tourniquet down and the wounds were irrigated with copious amounts normal saline. The Leander incisions on the index finger were closed with interrupted 3-0 nylon horizontal mattress sutures after hemostasis was obtained with bipolar electrocautery. The Esmarch was again used and the tourniquet inflated to 250 mmHg. The palmar Leander incisions for the long finger were then incised with a 15 blade scalpel and the cord was identified in the palm superficial to the distal transverse palmar fascia. The radial and ulnar digital bundles were also identified deep to the fascia, and preserved. They were followed distally as was the cord with a careful dissection. There were multipl (more content not included)... Normal [facility] Plastic Surgery Visit Report on 01-19-2024 Plastic Surgery Visit Report [facility] Plastic Reconstructive Surgery [address] [place] [address] OFFICE VISIT Date of Service: 01/19/24 MR#: [id number] Acct: [id number] Name: GEO GUERRERO Rep #: [id number] : 1975 Provider: Dr. Trinidad Sanchez MD Age/Sex: 48/M Location: [facility] Status: Signed Intake Vital Signs 3 01/07/24 13:11 01/19/24 09:22 Height 5 ft 9 in 5 ft 9 in Weight: 173 lb 170 lb BMI 25.5 25.1 BP 110/75 Blood Pressure Location Rt brachial Position Sitting Respiration 18 Pulse 83 Pulse Source Monitor Temp 97.9 F Temp Source Oral Pulse Oximetry (%) 95 Oxygen Delivery Method room air Intake Visit Reasons: PREOP Chief Complaint: preop visit Is patient in pain?: No Allergies Penicillins Allergy (Verified 01/19/24 09:23) Swelling Medications 3 ???Medication ???Instructions ???Recorded ???Confirmed ???Type hydroxyzine pamoate 50 mg capsule 50 mg PO BID PRN PRN anxiety 11/10/23 01/19/24 History meloxicam 7.5 mg tablet 7.5 mg PO DAILY 11/10/23 01/19/24 History risperidone 1 mg tablet 1 mg PO BID 11/10/23 01/19/24 History buspirone 15 mg tablet 15 mg PO TID 01/06/24 01/19/24 History esomeprazole magnesium 40 mg 40 mg PO QDAY #30 caps 01/06/24 01/19/24 Rx capsule,delayed release famotidine 20 mg tablet 20 mg PO QHS #20 tabs 01/06/24 01/19/24 Rx tramadol 50 mg tablet 50 mg PO BID PRN pain #30 tabs 01/06/24 01/19/24 Rx Nurse's Note: Preop Dupuytren contracture release [facility] Medical History Wears glasses Depression Anxiety Marijuana use Restless legs Migraine headache Seizures Gastric reflux Former smoker Physical exam, pre-employment History of tumor Arthritis Surgical History History of removal of cyst Family History Father Anxiety Arthritis Hx of blood clots Cancer skin Depression Myocardial infarction Hypertension CVA (cerebral vascular accident) Mother Arthritis Cancer Fibromyalgia Social History household members: family housing: house current occupational status: employed current occupation: [employer] Smoking Status: Former smoker how long ago did patient quit smoking: quit smoking 3yr ago alcohol intake: never substance use type: does not use what type of physical activity do you participate in: walking frequency: 3-4 times per week seatbelt use: always do you feel safe at home: Yes additional social history: no vaping, no substance, ibuprofen and mobic prn. no blood clotting dx history HPI PREOP Details: HPI: Geo Guerrero is a right hand dominant 48 YO male who presents with a chief complaint of Dupuytren's contracture in the left upper extremity. 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 He has a family history of Dupuytren's as his grandmother had it. He reports that it has been there for several years but getting worse. His small finger has been contracted for the past 5 years and now his index and long finger are starting to contract more. He has never had any operative intervention on this hand. He has never hurt this hand. He reports triggering of the ring finger as well on this hand. He was referred to me by Dr. Garnica from [facility]. The patient is in remission from alcohol use disorder and schizophrenia (currently takes risperidone). I spoke with the patient's father on the phone today. The patient has a family history of blood clots (father had 2 blood clots, which may not have been provoked). Patient has never had any workup for a clotting disorder and his Caprini score was 6 today when I calculated it with him. I therefore discussed with them referral to Dr. Hansen ([facility]) for a workup for a clotting problem before we placed the patient under general anesthesia (may need a postoperative course of anticoagulation). 07 Jan 2024: Patient here for follow-up. He has had his EMG which was unremarkable. I talked to him more about his psychiatric history today. He reports that he has been off of drugs and alcohol for years, and that his current medication for schizophrenia has been stable for the past 6 months. He did have a hallucination approximately 3 months ago, but this was well-managed with counseling coping mechanisms and his medications. I asked if I could call his mother and his counselor, and he agreed. Patient is interested in going back to work as soon as (more content not included)... Normal [facility] 12 Lead EKGon 01-07-2024 12 Lead EKG [facility] Cardiovascular Services [address] [place] [address] 12 Lead EKG 01/07/24 1410 MR#: [id number] Acct: [id number] Name: GEO GUERRERO Rep #: [id number] : 1975 48 From: Chris Young MD Attending Dr: Dr. Trinidad Sanchez MD Status: PRE SDC Ordering Dr: Obey Del Castillo PA Date: 01/07/24 Location: [facility] [place], [place] Sex: M C Admitted: Test Reason : PRE OP Blood Pressure : */* mmHG Vent. Rate : 78 BPM Atrial Rate : 78 BPM P-R Int : 142 ms QRS Dur : 82 ms QT Int : 370 ms P-R-T Axes : 57 39 56 degrees QTcB Int : 421 ms Normal sinus rhythm Normal ECG Confirmed by CHRIS YOUNG ([id number]), medical editor SYLVIA MONTALVO ([id number]) on 01/08/2024 11:58:53 AM Referred By: Trinidad Sanchez Confirmed By: CHRIS YOUNG 01/08/24 1158 Date Chris Young MD CC: Dr. Cecily Garnica DO; Dr. Trinidad Sanchez MD; ANAY Umaña Signed Normal [facility] Plastic Surgery Visit Report on 01-07-2024 Plastic Surgery Visit Report [facility] Plastic Reconstructive Surgery [address], [address] [place] [address] OFFICE VISIT Date of Service: 01/07/24 MR#: [id number] Acct: [id number] Name: GEO GUERRERO Rep #: [id number] : 1975 Provider: Dr. Trinidad Sanchez MD Age/Sex: 48/M Location: [facility] Status: Signed with Addenda ADDENDUM by Dr. Trinidad Sanchez MD on 01/08/24 at 1717 Assessment and Plan (No Qualifiers) Assessment and Plan (1) Dupuytren contracture: Status: Acute Comment: Left>Right Plan Hematology workup from the [facility] machinist tool and die was performed. No concern for hypercoagulable state requiring any change in normal protocol for perioperative DVT prophylaxis. "No indication for postop anticoagulation." Per Dr. Aishwarya MD ([facility]) 01/08/24 1717 Date Trinidad Sanchez MD cc: * Signed Intake Vital Signs 3 11/10/23 09:16 01/06/24 13:18 01/07/24 13:11 Height 5 ft 9 in 5 ft 9 in 5 ft 9 in Weight: 173 lb BMI 25.5 BP 110/75 Blood Pressure Location Rt brachial Position Sitting Respiration 18 Pulse 83 Pulse Source Monitor Temp 97.9 F Temp Source Oral Pulse Oximetry (%) 95 Oxygen Delivery Method room air Intake Visit Reasons: Review hemo eval/emg results/med clearance/Pre op Chief Complaint: preop visit Is patient in pain?: Yes (hand left) Pain scale (1-10): 3 Allergies Penicillins Allergy (Verified 01/07/24 13:11) Swelling Medications 3 ???Medication ???Instructions ???Recorded ???Confirmed ???Type hydroxyzine pamoate 50 mg capsule 50 mg PO BID PRN PRN anxiety 11/10/23 01/07/24 History meloxicam 7.5 mg tablet 7.5 mg PO DAILY 11/10/23 01/07/24 History risperidone 1 mg tablet 1 mg PO BID 11/10/23 01/07/24 History buspirone 15 mg tablet 15 mg PO TID 01/06/24 01/07/24 History esomeprazole magnesium 40 mg 40 mg PO QDAY #30 caps 01/06/24 01/07/24 Rx capsule,delayed release famotidine 20 mg tablet 20 mg PO QHS #20 tabs 01/06/24 01/07/24 Rx tramadol 50 mg tablet 50 mg PO BID PRN pain #30 tabs 01/06/24 01/07/24 Rx Nurse's Note: preop dupuytren contracture [facility] Medical History Wears glasses Depression Anxiety Marijuana use Restless legs Migraine headache Seizures Gastric reflux Former smoker Physical exam, pre-employment History of tumor Arthritis Surgical History History of removal of cyst Family History Father Anxiety Arthritis Hx of blood clots Cancer skin Depression Myocardial infarction Hypertension CVA (cerebral vascular accident) Mother Arthritis Cancer Fibromyalgia Social History household members: family housing: house current occupational status: employed current occupation: [employer] Smoking Status: Former smoker how long ago did patient quit smoking: quit smoking 3yr ago alcohol intake: never substance use type: does not use what type of physical activity do you participate in: walking frequency: 3-4 times per week seatbelt use: always do you feel safe at home: Yes additional social history: no vaping, no substance, ibuprofen and mobic prn. no blood clotting dx history HPI Review hemo eval/emg results/med clearance/Pre op Details: HPI: Geo Guerrero is a right hand dominant 48 YO male who presents with a chief complaint of Dupuytren's contracture in the left upper extremity. 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 He has a family history of Dupuytren's as his grandmother had it. He reports that it has been there for several years but getting worse. His small finger has been contracted for the past 5 years and now his index and long finger are starting to contract more. He has never had any operative intervention on this hand. He has never hurt this hand. He reports triggering of the ring finger as well on this hand. He was referred to me by Dr. Garnica from [facility]. The patient is in remission from alcohol use disorder and schizophrenia (currently takes risperidone). I spoke with the patient's father on the phone today. The patient has a family history of blood clots (father had 2 blood clots, which may not have been provoked). Patient has never had any workup for a clotting disorder and his Caprini score was 6 today when I calculated it with him. I therefore discussed with them referral to Dr. Hansen ([facility]) for (more content not included)... Normal [facility] Absolute neutrophil countOrd ered By: Obey Del Castillo on 01-06-2024 Neutrophils (Bld) [#/Vol] 4.6 10*3/uL 2.0-7.7 [facility] Albumin to globulin ratioOrd ered By: Obey Del Castillo on 01-06-2024 Albumin/Globulin [Mass ratio] 1.0 {ratio} 0.9-2.4 [facility] Basophil percentageOrdered B y: Obey Del Castillo on 01-06-2024 Basophils/100 WBC (Bld) 1.2 % High 0-1 [facility] Bilirubin, totalOrdered By: Obey Del Castillo on 01-06-2024 Bilirubin [Mass/Vol] 0.30 mg/dL 0.20-1.00 [facility] Comment on above: For patients on eltr ombopag therapy, use of Dimension Turin TBIL is not recommended. Blood urea nitrogen (BUN)/cr eatinine ratioOrdered By: Obey Del Castillo on 01-06-2024 Urea nitrogen/Creatinine [Mass ratio] 15.5 mg/mg - [facility] CBC W/Diff, Automatedon 12-18 Absolute Lymph 2.47 X10 3/uL Normal 0.83-4.51 [facility] Comment on above: Performed By: #### L 100.0100, L500.4100, L500.4050 #### [facility] [address] [place], [address] Absolute Neut 4.6 X10 3/uL Normal 2.0-7.7 [facility] Comment on above: Performed By: #### L 100.0100, L500.4100, L500.4050 #### [facility] [address] [place], [address] Basophils/100 WBC (Bld) 1.2 % High 0-1 [facility] Comment on above: Performed By: #### L 100.0100, L500.4100, L500.4050 #### [facility] [address] [place], [address] Eosinophils/100 WBC (Bld) 4.8 % Normal 0-5 [facility] Comment on above: Performed By: #### L 100.0100, L500.4100, L500.4050 #### [facility] [address] [place], [address] Erythrocyte distribution width (RBC) [Ratio] 13.2 % Normal 11.6-14.6 [facility] Comment on above: Performed By: #### L 100.0100, L500.4100, L500.4050 #### [facility] [address] [place], [address] Hematocrit (Bld) [Volume fraction] 41.7 % Normal 40-54 [facility] Comment on above: Performed By: #### L 100.0100, L500.4100, L500.4050 #### [facility] [address] [place], [address] Hemoglobin (Bld) [Mass/Vol] 14.1 g/dL Normal 13.0-16.5 [facility] Comment on above: Performed By: #### L 100.0100, L500.4100, L500.4050 #### [facility] [address] [place], [address] IG% 0.500 Normal 0.0-0.9 [facility] Comment on above: Result Comment: IG% - Immature Granulocytes (promyelocytes, myelocytes and metamyelocytes) > 1% indicates that a LEFT SHIFT is Present. Performed By: #### L 100.0100, L500.4100, L500.4050 #### [facility] [address] [place], [address] Lymphocytes/100 WBC (Bld) 28.9 % Normal 19-41 [facility] Comment on above: Performed By: #### L 100.0100, L500.4100, L500.4050 #### [facility] [address] [place], [address] MCH (RBC) [Entitic mass] 29.7 pg Normal 27.0-32.0 [facility] Comment on above: Performed By: #### L 100.0100, L500.4100, L500.4050 #### [facility] [address] [place], [address] MCHC (RBC) [Mass/Vol] 33.8 g/dL Normal 32-36 [facility] Comment on above: Performed By: #### L 100.0100, L500.4100, L500.4050 #### [facility] [address] [place], [address] MCV (RBC) [Entitic vol] 88.0 fL Normal 80-94 [facility] Comment on above: Performed By: #### L 100.0100, L500.4100, L500.4050 #### [facility] [address] [place], [address] Monocytes/100 WBC (Bld) 10.6 % High 0-10 [facility] Comment on above: Performed By: #### L 100.0100, L500.4100, L500.4050 #### [facility] [address] [place], [address] Neutrophils/100 WBC (Bld) 54.0 % Normal 47-70 [facility] Comment on above: Performed By: #### L 100.0100, L500.4100, L500.4050 #### [facility] [address] [place], [address] Nucleated RBC (Bld) [#/Vol] 0 10*3/uL Normal 0-5 [facility] Comment on above: Performed By: #### L 100.0100, L500.4100, L500.4050 #### [facility] [address] [place], [address] Platelet mean volume (Bld) [Entitic vol] 9.5 fL Normal 6.2-12.0 [facility] Comment on above: Performed By: #### L 100.0100, L500.4100, L500.4050 #### [facility] [address] [place], [address] Platelets (Bld) [#/Vol] 293 10*3/uL Normal 150-450 [facility] Comment on above: Performed By: #### L 100.0100, L500.4100, L500.4050 #### [facility] [address] [place], [address] RBC (Bld) [#/Vol] 4.74 10*6/uL Normal 4.6-6.2 [facility] Comment on above: Performed By: #### L 100.0100, L500.4100, L500.4050 #### [facility] [address] [place], [address] RDW SD 42.4 fl Normal 35.1-43.9 [facility] Comment on above: Performed By: #### L 100.0100, L500.4100, L500.4050 #### [facility] [address] [place], [address] WBC (Bld) [#/Vol] 8.6 10*3/uL Normal 4.4-11.0 [facility] Comment on above: Performed By: #### L 100.0100, L500.4100, L500.4050 #### [facility] [address] [place], [address] Carbon dioxide measurementOr dered By: Obey Del Castillo on 01-06-2024 CO2 [Moles/Vol] 31.0 mmol/L 21.0-32.0 [facility] Chloride measurementOrdered By: Obey Del Castillo on 01-06-2024 Chloride [Moles/Vol] 103 mmol/L 98-107 [facility] Comprehensive Metabolic Prof ilon 01-06-2024 Albumin [Mass/Vol] 3.9 g/dL Normal 3.2-5.0 [facility] Comment on above: Performed By: #### L 100.0100, L500.4100, L500.4050 #### [facility] [address] [place], [address] Albumin/Globulin [Mass ratio] 1.0 {ratio} Normal 0.9-2.4 [facility] Comment on above: Performed By: #### L 100.0100, L500.4100, L500.4050 #### [facility] [address] [place], [address] ALK P 67 U/L Normal 45-117 [facility] Comment on above: Performed By: #### L 100.0100, L500.4100, L500.4050 #### [facility] [address] [place], [address] ALT [Catalytic activity/Vol] 31 U/L Normal 16-61 [facility] Comment on above: Performed By: #### L 100.0100, L500.4100, L500.4050 #### [facility] [address] [place], [address] AST [Catalytic activity/Vol] 14 U/L Low 15-37 [facility] Comment on above: Performed By: #### L 100.0100, L500.4100, L500.4050 #### [facility] [address] [place], [address] Bilirubin [Mass/Vol] 0.30 mg/dL Normal 0.20-1.00 [facility] Comment on above: Result Comment: For patients on eltrombopag therapy, use of Dimension Turin TBIL is not recommended. Performed By: #### L 100.0100, L500.4100, L500.4050 #### [facility] [address] [place], [address] BUN/CRE 15.5 RATIO Normal 10-20 [facility] Comment on above: Performed By: #### L 100.0100, L500.4100, L500.4050 #### [facility] [address] [place], [address] CA,Total 9.3 mg/dL Normal 8.5-10.1 [facility] Comment on above: Performed By: #### L 100.0100, L500.4100, L500.4050 #### [facility] [address] [place], [address] Chloride [Moles/Vol] 103 mmol/L Normal 98-107 [facility] Comment on above: Performed By: #### L 100.0100, L500.4100, L500.4050 #### [facility] [address] [place], [address] CO2 [Moles/Vol] 31.0 mmol/L Normal 21.0-32.0 [facility] Comment on above: Performed By: #### L 100.0100, L500.4100, L500.4050 #### [facility] [address] [place], [address] Creatinine [Mass/Vol] 1.03 mg/dL Normal 0.70-1.30 [facility] Comment on above: Result Comment: The validity of the calculated GFR GFRAA in patients over 70 years has not been determined. Clinical correlation is essential. Performed By: #### L 100.0100, L500.4100, L500.4050 #### [facility] [address] [place], [address] EST GFR - AA 99 mL/min Normal >60 [facility] Comment on above: Result Comment: Afri can Albanian GFR Calc Performed By: #### L 100.0100, L500.4100, L500.4050 #### [facility] [address] [place], [address] GAP 4 Low 5-15 [facility] Comment on above: Performed By: #### L 100.0100, L500.4100, L500.4050 #### [facility] [address] [place], [address] GFR/1.73 sq M.predicted among non-blacks MDRD (S/P/Bld) [Vol rate/Area] 82 mL/min/{1.73_m2} Normal >60 [facility] Comment on above: Result Comment: Non- GFR Calc Performed By: #### L 100.0100, L500.4100, L500.4050 #### [facility] [address] [place], [address] Globulin (S) [Mass/Vol] 4.1 g/dL Normal 2.2-4.2 [facility] Comment on above: Performed By: #### L 100.0100, L500.4100, L500.4050 #### [facility] [address] [place], [address] Glucose [Mass/Vol] 92 mg/dL Normal 74-106 [facility] Comment on above: Performed By: #### L 100.0100, L500.4100, L500.4050 #### [facility] [address] [place], [address] Potassium [Moles/Vol] 4.5 mmol/L Normal 3.5-5.1 [facility] Comment on above: Performed By: #### L 100.0100, L500.4100, L500.4050 #### [facility] [address] [place], [address] Sodium [Moles/Vol] 138 mmol/L Normal 136-145 [facility] Comment on above: Performed By: #### L 100.0100, L500.4100, L500.4050 #### [facility] [address] [place], [address] T PROT 8.0 g/dL Normal 6.4-8.2 [facility] Comment on above: Performed By: #### L 100.0100, L500.4100, L500.4050 #### [facility] [address] [place], [address] Urea nitrogen [Mass/Vol] 16 mg/dL Normal 7-18 [facility] Comment on above: Performed By: #### L 100.0100, L500.4100, L500.4050 #### [facility] [address] [place], [address] Eosinophil percentageOrdered By: Obey Del Castillo on 01-06-2024 Eosinophils/100 WBC (Bld) 4.8 % 0-5 [facility] Erythrocyte distribution wid th ratioOrdered By: Obey Del Castillo on 01-06-2024 Erythrocyte distribution width (RBC) [Ratio] 13.2 % 11.6-14.6 [facility] Erythrocyte distribution wid th standard deviationOrdered By: Obey Del Castillo on 01-06-2024 Erythrocyte distribution width (RBC) [Entitic vol] 42.4 fL 35.1-43.9 [facility] Estimated glomerular filtrat ion rate (GFR) AmericanOrdered By: Obey Del Castillo on 01-06-2024 Estimated GFR (MDRD) Amer 99 mL/min >60 [facility] Comment on above: GFR Calc Glomerular filtration rate ( GFR) estimationOrdered By: Obey De lCastillo on 01-06-2024 Estimated GFR (MDRD) Non-Af Amer 82 mL/min >60 [facility] Comment on above: Non- GFR Calc Glucose measurementOrdered B y: Obey Del Castillo on 01-06-2024 Glucose [Mass/Vol] 92 mg/dL 74-106 [facility] Hematocrit Auto (Bld) [Volum e fraction]Ordered By: Obey Del Castillo on 01-06-2024 Hematocrit (Bld) [Volume fraction] 41.7 % 40-54 [facility] Hemoglobin measurementOrdere d By: Obey Del Castillo on 01-06-2024 Hemoglobin (Bld) [Mass/Vol] 14.1 g/dL 13.0-16.5 [facility] High density lipoprotein (HD L) measurementOrdered By: Obey Del Castillo on 01-06-2024 Cholesterol in HDL [Mass/Vol] 52 mg/dL >40 [facility] Comment on above: The drugs N-Acetylcy steine and Metamizole may falsely depress this assay. Reference Range HDL <40 mg/dL Low HDL Cholesterol HDL >or= 60 mg/dL High HDL Cholesterol Immature granulocytes/100 WB C Auto (Bld)Ordered By: Obey Del Castillo on 01-06-2024 Immature granulocytes/100 WBC (Bld) 0.500 % 0.0-0.9 [facility] Comment on above: IG% - Immature Granu locytes (promyelocytes, myelocytes and metamyelocytes) > 1% indicates that a LEFT SHIFT is Present. Internal Medicine Office Vis zaire 01-06-2024 Internal Medicine Office Visit [facility] [place] [address] [place] [address] OFFICE VISIT Date of Service: 01/06/24 MR#: [id number] Acct: [id number] Name: GEO GUERRERO Rep #: [id number] : 1975 Provider: ANAY Umaña Age/Sex: 48/M Location: [facility] Status: Signed Intake Vital Signs 11/10/23 09:16 01/06/24 13:18 Height 5 ft 9 in 5 ft 9 in Weight: 173 lb BMI 25.5 BP 122/72 H Blood Pressure Location Lt brachial Position Sitting Respiration 16 Pulse 57 L Pulse Source Monitor Temp 97.2 F L Temp Source Temporal Pulse Oximetry (%) 99 Oxygen Delivery Method room air Intake Visit Reasons: ACUTE - SURGERY CLEARANCE Chief Complaint: surgery clearance 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 Accompanied by: Self Is patient in pain?: No Allergies Penicillins Allergy (Verified 01/06/24 13:13) Swelling Medications ???Medication ???Instructions ???Recorded ???Confirmed ???Type hydroxyzine pamoate 50 mg capsule 50 mg PO BID PRN PRN anxiety 11/10/23 01/06/24 History meloxicam 7.5 mg tablet 7.5 mg PO DAILY 11/10/23 01/06/24 History risperidone 1 mg tablet 1 mg PO BID 11/10/23 01/06/24 History buspirone 15 mg tablet 15 mg PO TID 01/06/24 01/06/24 History esomeprazole magnesium 40 mg 40 mg PO QDAY #30 caps 01/06/24 01/06/24 Rx capsule,delayed release famotidine 20 mg tablet 20 mg PO QHS #20 tabs 01/06/24 01/06/24 Rx tramadol 50 mg tablet 50 mg PO BID PRN pain #30 tabs 01/06/24 Rx PFSH Medical History Wears glasses Depression Anxiety Marijuana use Restless legs Migraine headache Seizures Gastric reflux Former smoker Physical exam, pre-employment History of tumor Arthritis Surgical History History of removal of cyst Family History Father Anxiety Arthritis Hx of blood clots Cancer skin Depression Myocardial infarction Hypertension CVA (cerebral vascular accident) Mother Arthritis Cancer Fibromyalgia Social History household members: family housing: house current occupational status: employed current occupation: [employer] Smoking Status: Former smoker how long ago did patient quit smoking: quit smoking 3yr ago alcohol intake: never substance use type: does not use what type of physical activity do you participate in: walking frequency: 3-4 times per week seatbelt use: always do you feel safe at home: Yes additional social history: no vaping, no substance, ibuprofen and mobic prn. no blood clotting dx history HPI HPI Chief Complaint: surgery clearance Details: GEO GUERRERO, is a 48 M who presents to the office today for surgical clearance. Patient is scheduled to have surgery on his left hand to correct deputyren's contracture as well as an A1 aline release. Patient has dealt with the hand contractures for many years. Overall patient is a relatively healthy 48 year old male without any significant PMH. He denies any physical issues stating that most of his issues in the past have been mental health. He states that he does have issues with reflux that he states has been worse the past 6 month. He does state that he has noticed some blood on the tissue paper after a BM. He does have some family history of heart disease in his father (multiple MIs) Patient does not currently use nicotine having quite over a year ago. Patient does not consumer ETOH anymore. He has been completely clean for the past 4 years He does consume a large amt of coffee Patient has had surgeries previously without any complications from anasthesia (that was probably 10 year ago he states). ROS Const Constitutional: No body ache, chills, excessive sweating, fatigue, fever(s), frequent falls, headache(s), snoring, weakness or change in appetite Eyes Eyes: No blurry vision, change in vision, eye pain or Light sensitivity ENT ENT: No abnormal hearing, ear or mastoid pain, tinnitus, nasal congestion, headache(s), neck pain or sore throat Resp Respiratory: No cough, shortness of breath, snoring or wheezing Cardio Cardiology: No chest pain at rest, chest pain with exertion, excessive sweating, dyspnea on exertion, lightheadedness, orthopnea or palpitations Gastro GI: No abdominal pain, change in bowel habits, constipation, cramping, diarrhea, nausea/dyspepsia or vomiting Genitourinary Male: No burning urination, painful urination, urinary incontinence or urinary frequency Musc Musculoskeletal: No abnormal gait, joint pain, back pain, limited range of motion, muscle weakness, neck pain or numbness Skin Skin: No dry skin, redness, lesions, itchy eyes, rash or wounds Neuro Neurology: No (more content not included)... Normal [facility] - Chemistry and C hemistry - challengeOrdered By: Obey Del Castillo on 01-06-2024 AST [Catalytic activity/Vol] 14 U/L Low 15-37 [facility] Lipid Profileon 01-06-2024 Cholesterol [Mass/Vol] 160 mg/dL Normal 200 [facility] Comment on above: Result Comment: <200 mg/dL Desirable 200-240 mg/dL Borderline >240 mg/dL High Risk Performed By: #### L 100.0100, L500.4100, L500.4050 #### [facility] [address] [place], [address] Cholesterol in HDL [Mass/Vol] 52 mg/dL Normal [facility] Comment on above: Result Comment: The drugs N-Acetylcysteine and Metamizole may falsely depress this assay. Reference Range HDL <40 mg/dL Low HDL Cholesterol HDL >or= 60 mg/dL High HDL Cholesterol Performed By: #### L 100.0100, L500.4100, L500.4050 #### [facility] [address] [place], [address] Cholesterol in LDL [Mass/Vol] 87 mg/dL Normal 0-130 [facility] Comment on above: Performed By: #### L 100.0100, L500.4100, L500.4050 #### [facility] [address] [place], [address] Cholesterol in VLDL [Mass/Vol] 21 mg/dL Normal 5-40 [facility] Comment on above: Performed By: #### L 100.0100, L500.4100, L500.4050 #### [facility] [address] [place], [address] Triglyceride [Mass/Vol] 105 mg/dL Normal [facility] Comment on above: Result Comment: The drugs N-Acetylcysteine and Metamizole may falsely depress this assay. Serum Triglycerides Reference Interval Normal <150 mg/dL Borderline high 150 - 199 mg/dL High 200 - 499 mg/dL Very High > or = 500 mg/dL Performed By: #### L 100.0100, L500.4100, L500.4050 #### [facility] [address] [place], [place], [id number] Low density lipoprotein (LDL ) cholesterol measurementOrdered By: Obey Del Castillo on 01-06-2024 Cholesterol in LDL [Mass/Vol] 87 mg/dL 0-130 [facility] Lymphocytes Auto (Unsp spec) [#/Vol]Ordered By: Obey Del Castillo on 01-06-2024 Lymphocytes (Bld) [#/Vol] 2.47 10*3/uL 0.83-4.51 [facility] Lymphocytes/100 WBC Auto (Un sp spec)Ordered By: Obey Del Castillo on 01-06-2024 Lymphocytes/100 WBC (Bld) 28.9 % 19-41 [facility] MCV (mean corpuscular volume ) determinationOrdered By: Obey Del Castillo on 01-06-2024 MCV (RBC) [Entitic vol] 88.0 fL 80-94 [facility] Mean corpuscular hemoglobin (MCH) determinationOrdered By: Obey Del Castillo on 01-06-2024 MCH (RBC) [Entitic mass] 29.7 pg 27.0-32.0 [facility] Mean corpuscular hemoglobin concentration (MCHC) determinationOrdered By: Obey Del Castillo on 01-06-2024 MCHC (RBC) [Mass/Vol] 33.8 g/dL 32-36 [facility] Mean platelet volume determi nationOrdered By: Obey Del Castillo on 01-06-2024 Platelet mean volume (Bld) [Entitic vol] 9.5 fL 6.2-12.0 [facility] Monocyte percentageOrdered B y: Obey Del Castillo on 01-06-2024 Monocytes/100 WBC (Bld) 10.6 % High 0-10 [facility] Neutrophil percentageOrdered By: Obey Del Castillo on 01-06-2024 Neutrophils/100 WBC (Bld) 54.0 % 47-70 [facility] Nucleated red blood cell per centageOrdered By: Obey Del Castillo on 01-06-2024 Nucleated RBC/100 WBC (Bld) [Ratio] 0 % 0-5 [facility] Platelet countOrdered By: Dada Del Castillo on 01-06-2024 Platelets (Bld) [#/Vol] 293 10*3/uL 150-450 [facility] Potassium measurementOrdered By: Obey Del Castillo on 01-06-2024 Potassium [Moles/Vol] 4.5 mmol/L 3.5-5.1 [facility] RBC Auto (Bld) [#/Vol]Ordere d By: Obey Del Castillo on 01-06-2024 RBC (Bld) [#/Vol] 4.74 10*6/uL 4.6-6.2 [facility] Serum anion gap measurementO rdered By: Obey Del Castillo on 01-06-2024 Anion gap [Moles/Vol] 4 mmol/L Low 5-15 [facility] Serum globulin measurementOr dered By: Obey Del Castillo on 01-06-2024 Globulin (S) [Mass/Vol] 4.1 g/dL 2.2-4.2 [facility] Serum or plasma alanine echeverria otransferase (ALT) measurementOrdered By: Obey Del Castillo on 01-06-2024 ALT [Catalytic activity/Vol] 31 U/L 16-61 [facility] Serum or plasma albumin chao urement (mass/volume)Ordered By: Obey Del Castillo on 01-06-2024 Albumin [Mass/Vol] 3.9 g/dL 3.2-5.0 [facility] Serum or plasma alkaline lita sphatase measurementOrdered By: Obey Del Castillo on 01-06-2024 ALP [Catalytic activity/Vol] 67 U/L 45-117 [facility] Serum or plasma calcium chao urement (mass/volume)Ordered By: Obey Del Castillo on 01-06-2024 Calcium [Mass/Vol] 9.3 mg/dL 8.5-10.1 [facility] Serum or plasma cholesterol measurement (mass/volume)Ordered By: Obey Del Castillo on 01-06-2024 Cholesterol [Mass/Vol] 160 mg/dL <200 [facility] Comment on above: <200 mg/dL Desirable 200-240 mg/dL Borderline >240 mg/dL High Risk Serum or plasma creatinine m easurement (mass/volume)Ordered By: Obey Del Castillo on 01-06-2024 Creatinine [Mass/Vol] 1.03 mg/dL 0.70-1.30 [facility] Comment on above: The validity of the calculated GFR & GFRAA in patients over 70 years has not been determined. Clinical correlation is essential. Serum or plasma urea nitroge n measurement (mass/volume)Ordered By: Obey Del Castillo on 01-06-2024 Urea nitrogen [Mass/Vol] 16 mg/dL 7-18 [facility] Sodium levelOrdered By: Marcelo Del Castillo on 01-06-2024 Sodium [Moles/Vol] 138 mmol/L 136-145 [facility] Total proteinOrdered By: Stiven Del Castillo on 01-06-2024 Protein [Mass/Vol] 8.0 g/dL 6.4-8.2 [facility] Triglycerides measurementOrd ered By: Obey Del Castillo on 01-06-2024 Triglyceride [Mass/Vol] 105 mg/dL <199 [facility] Comment on above: The drugs N-Acetylcy steine and Metamizole may falsely depress this assay.Serum Triglycerides Reference Interval Normal <150 mg/dL Borderline high 150 - 199 mg/dL High 200 - 499 mg/dL Very High > or = 500 mg/dL Very low density lipoprotein (VLDL) cholesterol measurementOrdered By: Obey Del Castillo on 01-06-2024 VLDL Cholesterol 21 mg/dL 5-40 [facility] White blood cell (WBC) count Ordered By: Obey Del Castillo on 01-06-2024 WBC (Bld) [#/Vol] 8.6 10*3/uL 4.4-11.0 [facility] Quantiferon TB-Gold+on 01-04 QFT MITOGEN JUAN > 10.00 Normal . [facility] Comment on above: Performed By: #### L 3400.8000 ####[facility] [address] [place], [address] QFT NIL VALUE 0 IU/mL Normal . [facility] Comment on above: Performed By: #### L 3400.8000 ####[facility] [address] [place], [place], [id number] QFT TB GOLD+ Comment Normal . [facility] Comment on above: Result Comment: Kam tiFERON-TB Gold Plus is a qualitative indirect test for M tuberculosis infection (including disease) and is intended for use in conjunction with risk assessment, radiography, and other medical and diagnostic evaluations. The QuantiFERON-TB Gold Plus result is determined by subtracting the Nil value from either TB antigen (Ag) value. The Mitogen tube serves as a control for the test. Performed By: #### L 3400.8000 ####[facility] [id number] [place], [place], [id number] QFT TB POS CRIT Negative Normal Negative [facility] Comment on above: Result Comment: No r esponse to M tuberculosis antigens detected. Infection with M tuberculosis is unlikely, but high risk individuals should be considered for additional testing (ATS/IDSA/CDC Clinical Practice Guidelines, 2017). The reference range is an Antigen minus Nil result of <0.35 IU/mL. The specimen received for QuantiFERON testing was incubated by the ordering institution. Specific procedures outlined in our Directory of Services and in the package insert for the QuantiFERON Gold (In Tube) test must be followed to enable for proper stimulation of cells for the production of interferon gamma. Chemiluminescence immunoassay methodology Performed at: [facility] [address] [id number] [employer] Supervisor [employer]: Wu Cassidy PhD, Phone: [phone] Performed By: #### L 3400.8000 ####[facility] [address] [place], [address] QFT TB1+ AG JUAN 0 IU/mL Normal . [facility] Comment on above: Performed By: #### L 3400.8000 ####[facility] [address] [place], [place], [id number] QFT TB2+ AG JUAN 0 IU/mL Normal . [facility] Comment on above: Performed By: #### L 3400.8000 ####[facility] [address] [place], [place], [id number] Office Visit Reporton 2023 Office Visit Report [facility] [address] [place] [address] OFFICE VISIT Date of Service: 12/29/23 MR#: [id number] Acct: [id number] Patient: GEO GUERRERO Rep #: [id number] : 1975 Provider: ANAY Matias Age/Sex: 48/M Location: [facility] Status: Signed Intake Vital Signs 11/10/23 09:16 Height 5 ft 9 in Intake Visit Reasons: QUANTIFERON/FIT TEST/[place] Chief Complaint: consult dupuytrens Allergies Penicillins Allergy (Verified 11/27/23 14:26) Swelling Office Procedures [facility] Billing Sheet Testing Pre-Employment PE: Yes Respirator Fit Testing: Yes Occquant-Quantiferon: Yes 12/30/23 0702 Date Wesley Lynch Signature: Date (if applicable) CC: Normal [facility] Office Visit Reporton 2023 Office Visit Report [facility] [address] [place] [address] OFFICE VISIT Date of Service: 12/29/23 MR#: [id number] Acct: [id number] Patient: GEO GUERRERO Rep #: [id number] : 1975 Provider: ANAY Matias Age/Sex: 48/M Location: [facility] Status: Signed Intake Vital Signs 11/10/23 09:16 Height 5 ft 9 in Intake Visit Reasons: QUANTIFERON/FIT TEST/[place] Chief Complaint: consult dupuytrens Allergies Penicillins Allergy (Verified 11/27/23 14:26) Swelling Office Procedures [facility] Billing Sheet Testing Respirator Fit Testing: Yes Occquant-Quantiferon: Yes 12/30/23 0616 Date Wesley [facility] Signature: Date (if applicable) CC: Normal [facility] Visit Reporton 1 02-27-2023 Urgent Care Visit Report [facility] [address], [address] [place] [address] OFFICE VISIT Date of Service: 12/29/23 MR#: [id number] Acct: [id number] Name: GEO GUERRERO Rep #: [id number] : 1975 Provider: ANAY Matias Age/Sex: 48/M Location: [facility] Status: Signed Intake Vital Signs 11/10/23 09:16 Height 5 ft 9 in Intake Visit Reasons: PE NON DOT PHYSICAL/[place] [facility] Chief Complaint: consult dupuytrens Allergies Penicillins Allergy (Verified 11/27/23 14:26) Swelling [facility] Medical History (Updated 12/29/23 @ 08:45 by ANAY Christina) Physical exam, pre-employment History of tumor Head ache Emotional problems Carpal tunnel syndrome Bone fracture Arthritis Surgical History History of removal of cyst Family History Father Anxiety Arthritis Hx of blood clots Cancer skin Depression Myocardial infarction Hypertension CVA (cerebral vascular accident) Mother Arthritis Cancer Fibromyalgia Social History household members: family housing: house current occupational status: employed current occupation: [employer] Smoking Status: Former smoker how long ago did patient quit smoking: quit smoking 3yr ago alcohol intake: never substance use type: does not use what type of physical activity do you participate in: walking frequency: 3-4 times per week seatbelt use: always do you feel safe at home: Yes additional social history: no vaping, no substance, ibuprofen and mobic prn. no blood clotting dx history HPI HPI Chief Complaint: consult dupuytrens Details: GEO GUERRERO, is a 48 M who presents to the office today for Office Procedures Physical Exam Coding PE Coding Pre-employment PE: Yes Coding Level of Care Code No Charge Diagnoses Physical exam, pre-employment Z02.1 Assessment and Plan Assessment and Plan (1) Physical exam, pre-employment: Status: Acute Orders: Orders Quantiferon TB-Gold+ Today Z02.1 - Encounter for pre-employment examination 12/29/23 0857 Date Wesley Lynch Signature: Date (if applicable) CC: Normal [facility] NCS and/or EMG Patienton NCS and/or EMG Patient [facility] Pulmonary Services/Neurology [address] [place] [address] MR#: [id number] Acct: [id number] Name: GEO GUERRERO Rep #: [id number] : 1975 48 From: Tuut Amaya MD Referring Dr: Trinidad Sanchez MD Status: REG [facility] Location: [facility] Date: 12/23/23 Sex: M C NCS and/or EMG Patient Report Ordering Doctor: Trinidad Sanchez DATE OF SERVICE: 12/23/23 eGo presents with occasional numbness in the left hand. He does have a Dupuytren's contracture. Electrodiagnostic findings: Left median motor nerve demonstrates normal distal latency, amplitude and conduction velocity. Normal left ulnar motor response, including conduction across the elbow. Normal median and ulnar F???waves. Sensory responses are within normal limits. Needle EMG testing was performed the left upper limb. All muscles tested showed no evidence of denervation with normal motor unit action potentials. Electrodiagnostic impression: This is a normal electrodiagnostic study of the left upper limb. There is no electrodiagnostic evidence for peripheral neuropathy, including carpal tunnel syndrome. There is no electrodiagnostic evidence for cervical radiculopathy Multi Select Codes Neurology Neurology Inter Codes: 58395-51 Musc test done w/n test comp (interp) (1) and 89193-30 Nrv cndj test 7-8 studies (interp) 12/23/231516 Date Tutu Amaya MD CC: Dr. Tutu Amaya MD; Dr. Cecily Garnica DO; Dr. Trinidad Sanchez MD Date Dictated: 12/23/231514 Date Transcribed: 12/23/231514 Wide Load Escort: LINSEY Marrufo [facility] CNOVSPon 12-16-2023 [facility] Visit (SP) Office (HEMAWS) GEO GUERRERO ([id number]) 1975 M Date Time Provider Department 12/16/23 9:00 AM GREGORY RIVERS During your visit today, we recorded the following information about you: Temperature Pulse Blood pressure Weight 98.3 degrees 73/minute 97/70 76 kg Height 1.72 m Gregory Rivers MD 12/16/2023 9:30 AM Signed HISTORY OF PRESENT ILLNESS: Geo Guerrero is a 48 year old male referred for evaluation of family history of DVT in father. Concern is that patient will have general anaesthesia wondering if he needs post op anticoagulation. Father has history 2 clots per records, one was LE DVT, occurred after surgery of unknown type. Patient has had 3 prior surgeries with general anaesthesia never had a clot after surgery or otherwise. No other family history clots. CLINICAL IMPRESSION: Planned hand surgery Family history of DVT Given patient has had multiple surgeries in past without VTE complications, and this surgery is low risk, do not feel he needs post op anticoagulation. RECOMMENDATION/PLAN: 1. No indication for post op anticoagulation Written and verbal health teaching given to patient, patient verbalizes understanding and agrees with treatment plan. 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 PMH - PAST MEDICAL HISTORY OF Fracture nose x 2 Pneumothorax 2001 [place]? No surgery. No chest tube. PAST SURGICAL HISTORY Procedure Laterality Date EXCISION GANGLION CYST, FOOT PAST SURGICAL HISTORY OF Excision benign tumor right neck PAST SURGICAL HISTORY OF removal of bone spur right foot PAST SURGICAL HISTORY OF Extraction wisdom teeth x 4 FAMILY HISTORY Problem Relation Age of Onset Heart Mother Arthritis Mother SLE, Fibromyalgia Cancer Mother Coronary Artery Disease Father VA x 3, first VA age 46 Social History Tobacco Use Smoking status: Former Types: Cigarettes Smokeless tobacco: Never Tobacco comments: 1 pack every 2 weeks Vaping Use Vaping status: Never Used Substance Use Topics Alcohol use: Not Currently Comment: On weekends Drug use: Yes Comment: Marijuana in past, not currently ALLERGIES: ALLERGIES Allergen Reactions Penicillins Rash Vicodin [Hydrocodon* GI Upset CURRENT OUTPATIENT MEDICATIONS: risperiDONE (RISPERDAL) 1 mg tablet Take 1 tablet by mouth every 12 hours. busPIRone (BUSPAR) 15 mg tablet Take 15 mg by mouth three times a day. OLANZapine (ZYPREXA) 10 mg tablet Take 10 mg by mouth daily at bedtime. hydrOXYzine pamoate (VISTARIL) 50 mg capsule Take 50 mg by mouth four times a day as needed. traZODone (DESYREL) 50 mg tablet Take 50 mg by mouth daily at bedtime. esomeprazole (NEXIUM) 40 mg capsule Take 1 capsule by mouth daily before breakfast. 1/2 hr before meal. traMADol (ULTRAM) 50 mg tablet Take 1 tablet by mouth every 6 hours as needed for Pain. meloxicam (MOBIC) 15 mg tablet Take 1 tablet by mouth once daily. esomeprazole magnesium (NEXIUM 24HR) 22.3 mg cpDR Take 1 capsule by mouth once daily. (Patient not taking: Reported on 12/16/2023) sucralfate (CARAFATE) 1 gram tablet Take 1 tablet by mouth before meals and at bedtime. (Patient not taking: Reported on 11/22/2021) clindamycin (CLEOCIN) 300 mg capsule Take 1 capsule by mouth four times daily. (Patient not taking: Reported on 11/22/2021) Omeprazole-Sodium Bicarbonate 20-1.1 mg-gram cap Take 1 capsule by mouth twice daily. (Patient not taking: Reported on 12/16/2023) REVIEW OF SYSTEMS: GENERAL: No fever, night sweats, weight loss or malaise. All other reviewed and negative other than HPI. PHYSICAL EXAMINATION: VITAL SIGNS: There were no vitals taken for this visit. GENERAL APPEARANCE: Well appearing, in no acute distress, alert and oriented x3, well-hydrated, well nourished. I spent a total of 30 minutes on the date of the service which included preparing to see the patient, [id number] patient care, completing clinical documentation, obtaining and/or reviewing separately obtained history, counseling and educating the patient/family/caregiv er, communicating with other HCPs (not separately reported), and communicating results to the patient/family/caregiv er. Electronically Signed: Gregory Rivers MD December 16, 2023 9:12 AM Referring Provider: TRINIDAD SANCHEZ [[id number]] Allergies As of Date: 12/16/2023 Noted Allergy Reaction PENICILLINS 02/11/2008 2 - Rash VICODIN (HYDROCODONE-ACETAMINO PHE*11/04/2013 8 - GI Upset Date Reviewed: 12/16/2023 Reviewed by: Joon Fajardo MA - Fully Assessed Reason for Visit: New Patient [172] Primary Visit Diagnosis:Family history of DVT [Z82.49] Prescriptions as of 12/16/2023 - risperiDONE (RISPERDAL) 1 mg tablet Take 1 tablet by mouth every 12 hours. - busPIRone (BUSPAR) 15 mg tablet Take 15 mg by mouth three times a da (more content not included)... Normal [facility] Juan Jose 11-30-2023 IQRAN Telephone (HEMCHERYL) GEO GUERRERO ([id number]) 1975 M Date Time Provider Department 11/30/23 GREGORY RIVERS During your visit today, we recorded the following information about you: Arelis Yancey 11/30/2023 12:50 PM Signed Lvm for patient to return the call. Please schedule with Dr. 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 TRINIDAD SANCHEZ* Arelis Yancey Larry Churchill 11/30/2023 2:23 PM Signed Patient called back and has been scheduled with for 12/16/23, he confirmed this date, time and location [facility] [place] [facility] Allergies As of Date: 11/30/2023 Noted Allergy Reaction PENICILLINS 02/11/2008 2 - Rash VICODIN (HYDROCODONE-ACETAMINO PHE*11/04/2013 8 - GI Upset Date Reviewed: 11/22/2021 Reviewed by: Gabo Alvarado APRN.HOSPITALITY JOB TITLES - Fully Assessed Reason for Visit: Appointment [186] Prescriptions as of 11/30/2023 - esomeprazole magnesium (NEXIUM 24HR) 22.3 mg cpDR Take 1 capsule by mouth once daily. - esomeprazole (NEXIUM) 40 mg capsule Take 1 capsule by mouth daily before breakfast. 1/2 hr before meal. - traMADol (ULTRAM) 50 mg tablet Take 1 tablet by mouth every 6 hours as needed for Pain. - sucralfate (CARAFATE) 1 gram tablet Take 1 tablet by mouth before meals and at bedtime. - clindamycin (CLEOCIN) 300 mg capsule Take 1 capsule by mouth four times daily. - Omeprazole-Sodium Bicarbonate 20-1.1 mg-gram cap Take 1 capsule by mouth twice daily. - meloxicam (MOBIC) 15 mg tablet Take 1 tablet by mouth once daily. 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 Cecily Garnica, Status: REG CLI Study: Hand Min 3 Views Date of Exam: 11/27/23 Exam# [id number] Ordering Dr: Trinidad Sanchez MD [id number] STUDY: X-RAY - LEFT HAND REASON FOR EXAM: Male, 48 years old. Pain, decreased range of motion TECHNIQUE: 3 view(s) of the hand. COMPARISON: None. FINDINGS: The index and fifth digits appear to be in permanent flexion, likely due to Dupuytren''s contractures Normal radiocarpal articulation. Normal distal radioulnar joint. Normal visualized carpal bones. Normal carpal articulations Normal carpometacarpal articulation of the thumb. Normal second through fifth carpometacarpal joints. Normal metacarpi. Normal metacarpophalangeal joint of the thumb. Normal interphalangeal joint of the thumb. Normal proximal and distal phalanges of the thumb. Normal metacarpophalangeal joints of the second through fifth fingers. Normal proximal and distal interphalangeal joints of the second through fifth fingers. Normal phalanges of the second through fifth fingers. The soft tissue structures are unremarkable. RAD/Hand Min 3 Views IMPRESSION: No demonstrated fracture or significant joint space abnormality. The index and fifth fingers are in apparent permanent contraction consistent with Dupuytren''s contractures Electronically Signed: Michael Malloy MD at 15:15 EDT Reading Location ID and State: [facility] / [place] , Service support , CC: Dr. Cecily Garnica, DO; Dr. Trinidad Sanchez MD Wide Load Escort: Signed Normal [facility] Plastic Surgery Visit Report on 11-27-2023 Plastic Surgery Visit Report [facility] Plastic Reconstructive Surgery [address], [address] [place] [address] OFFICE VISIT Date of Service: 11/27/23 MR#: [id number] Acct: [id number] Name: GEO GUERRERO Rep #: [id number] : 1975 Provider: Dr. Trinidad Sanchez MD Age/Sex: 48/M Location: [facility] Status: Signed with Addenda ADDENDUM by Dr. Trinidad Sanchez MD on 11/27/23 at 1701 Assessment and Plan (No Qualifiers) Assessment and Plan (1) Dupuytren contracture: Status: Acute Comment: Left>Right Plan CPT codes for insurance prior authorization are as follows: 78008 (trigger finger release), 95311 (fasciectomy palm/PIP joint), 58925 (each additional digit for fasciectomy), 64035 (PIP joint release) 11/27/23 1701 Date Trinidad Sanchez MD cc: * Signed Intake Vital Signs 3 11/10/23 09:16 11/27/23 14:28 Height 5 ft 9 in Weight: 165 lb 2 oz 168 lb BMI 24.3 BP 120/72 109/72 Blood Pressure Location Lt brachial Rt brachial Position Sitting Sitting Respiration 16 18 Pulse 75 80 Pulse Source Monitor Monitor Temp 97.7 F L 97.3 F L Temp Source Temporal Oral Pulse Oximetry (%) 98 Oxygen Delivery Method room air Intake Visit Reasons: Dupuytrens Chief Complaint: consult dupuytrens Is patient in pain?: No Allergies Penicillins Allergy (Verified 11/27/23 14:26) Swelling Medications 3 ???Medication ???Instructions ???Recorded ???Confirmed ???Type buspirone 10 mg tablet 10 mg PO TID 11/10/23 11/27/23 History esomeprazole magnesium 20 mg 20 mg PO QDAY 11/10/23 11/27/23 History capsule,delayed release hydroxyzine pamoate 50 mg capsule mg PO BID 11/10/23 11/27/23 History meloxicam 7.5 mg tablet 7.5 mg PO BID 11/10/23 11/27/23 History risperidone 1 mg tablet 1 mg PO BID 11/10/23 11/27/23 History tramadol 50 mg tablet 50 mg PO BID PRN pain #30 tabs 11/25/23 11/27/23 Rx Have you fallen in the past year?: No Nurse's Note: consult for dupuytrens [facility] Medical History History of tumor Head ache Emotional problems Carpal tunnel syndrome Bone fracture Arthritis Surgical History History of removal of cyst Family History Father Anxiety Arthritis Hx of blood clots Cancer skin Depression Myocardial infarction Hypertension CVA (cerebral vascular accident) Mother Arthritis Cancer Fibromyalgia Social History household members: family housing: house current occupational status: employed current occupation: [employer] Smoking Status: Former smoker how long ago did patient quit smoking: quit smoking 3yr ago alcohol intake: never substance use type: does not use what type of physical activity do you participate in: walking frequency: 3-4 times per week seatbelt use: always do you feel safe at home: Yes additional social history: no vaping, no substance, ibuprofen and mobic prn. no blood clotting dx history HPI Dupuytrens Details: CC: Contractures of the left hand. HPI: Geo Guerrero is a right hand dominant 48 YO male who presents with a chief complaint of Dupuytren's contracture in the left upper extremity. 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 He has a family history of Dupuytren's as his grandmother had it. He reports that it has been there for several years but getting worse. His small finger has been contracted for the past 5 years and now his index and long finger are starting to contract more. He has never had any operative intervention on this hand. He has never hurt this hand. He reports triggering of the ring finger as well on this hand. He was referred to me by Dr. Garnica from [facility]. The patient is in remission from alcohol use disorder and schizophrenia (currently takes risperidone). I spoke with the patient's father on the phone today. The patient has a family history of blood clots (father had 2 blood clots, which may not have been provoked). Patient has never had any workup for a clotting disorder and his Caprini score was 6 today when I calculated it with him. I therefore discussed with them referral to Dr. Hansen ([facility]) for a workup for a clotting problem before we placed the patient under general anesthesia (may need a postoperative course of anticoagulation). ROS General General: Yes good health; No fatigue (more content not included)... Normal [facility] Erythrocyte Sed Rateon 11-09 SED RATE 9 mm/hr Normal 0-20 [facility] Comment on above: Performed By: #### L 505.7010, L101.9900 ####[facility] [id number] [place], [place], [address] Internal Medicine Office Vis itojoey 11-10-2023 Internal Medicine Office Visit [facility] [address] [place] [address] [place] [address] OFFICE VISIT Date of Service: 11/10/23 MR#: [id number] Acct: [id number] Name: GEO GUERRERO Rep #: [id number] : 1975 Provider: Dr. Cecily Gaines own, DO Age/Sex: 47/M Location: [facility] Status: Signed Intake Vital Signs 06/08/22 16:43 08/11/23 08:43 08/12/23 16:32 11/10/23 09:16 Height 5 ft 9 in 5 ft 9 in 5 ft 9 in 5 ft 9 in Weight: 165 lb 2 oz BMI 24.3 BP 120/72 Blood Pressure Location Lt brachial Position Sitting Respiration 16 Pulse 75 Pulse Source Monitor Temp 97.7 F L Temp Source Temporal Pulse Oximetry (%) 98 Oxygen Delivery Method room air Intake Visit Reasons: [employer] EST CARE PPW SENT Chief Complaint: est care 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 Accompanied by: Self Is patient in pain?: Yes (b/l hands ) Pain scale (1-10): 3 Allergies Penicillins Allergy (Verified 11/10/23 09:10) Swelling Medications ???Medication ???Instructions ???Recorded ???Confirmed ???Type buspirone 10 mg tablet 10 mg PO TID 11/10/23 11/10/23 History esomeprazole magnesium 20 mg 20 mg PO QDAY 11/10/23 11/10/23 History capsule,delayed release hydroxyzine pamoate 50 mg capsule mg PO BID 11/10/23 11/10/23 History meloxicam 7.5 mg tablet 7.5 mg PO BID 11/10/23 11/10/23 History risperidone 1 mg tablet 1 mg PO BID 11/10/23 11/10/23 History PFSH Medical History (Updated 11/10/23 @ 10:[address] Cecily Garnica, DO) History of tumor Head ache Emotional problems Carpal tunnel syndrome Bone fracture Arthritis Family History (Updated 11/10/23 @ 09:15 by Tiera Anderson MA) Father Anxiety Arthritis Hx of blood clots Cancer skin Depression Myocardial infarction Hypertension CVA (cerebral vascular accident) Mother Arthritis Cancer Fibromyalgia Social History (Updated 11/10/23 @ 09:15 by Tiera Anderson MA) household members: family housing: house current occupational status: employed current occupation: [employer] Smoking Status: Former smoker alcohol intake: never substance use type: does not use what type of physical activity do you participate in: walking frequency: 3-4 times per week seatbelt use: always do you feel safe at home: Yes HPI HPI Chief Complaint: est care Details: GEO GUERRERO, is a 47 M who presents to the office today for a visit to establish care. He is a schizophrenic but is well-controlled on his medications. He has 2 major problems that have never really been adequately addressed --severe gastric reflux and significant contractures of his left hand with swelling on the dorsum of his right hand. He has never been evaluated by orthopedic surgery or hand surgery and he has never had an EGD. ROS Const Constitutional: No body ache, chills, excessive sweating, fatigue, fever(s), frequent falls, headache(s), snoring, weakness or change in appetite Eyes Eyes: No blurry vision, change in vision, eye pain or Light sensitivity ENT ENT: No abnormal hearing, ear or mastoid pain, tinnitus, nasal congestion, headache(s), neck pain or sore throat Resp Respiratory: No cough, shortness of breath, snoring or wheezing Cardio Cardiology: No chest pain at rest, chest pain with exertion, excessive sweating, dyspnea on exertion, lightheadedness, orthopnea or palpitations Gastro GI: No abdominal pain, change in bowel habits, constipation, cramping, diarrhea, nausea/dyspepsia or vomiting Genitourinary Male: No burning urination, painful urination, urinary incontinence or urinary frequency Musc Musculoskeletal: No abnormal gait, joint pain, back pain, limited range of motion, muscle weakness, neck pain or numbness Skin Skin: No dry skin, redness, lesions, itchy eyes, rash or wounds Neuro Neurology: No abnormal gait, abnormal hearing, weakness, frequent falls, headache(s), memory loss or numbness Psych Psychiatric: No anxiety, No change in appetite, No depression, No memory loss and No Thoughts of harming yourself/Others Endo Endocrine: No cold intolerance, excessive sweating, fatigue, flushing, heat intolerance, increased thirst/drinking or increased hunger Aller/Imm Allergy/Immunologic: No itchy eyes, seasonal allergy symptoms, hives or wheezing [place]/Lymp Hematologic/Lymphatic: No easy bleeding or easy bruising Exam Const General: cooperative and no acute distress Nutritional Appearance: average body habitus [facility] Head: normal to inspection Ears: hearing grossly normal bilaterally Nose: external nose normal Face and sinus: normal facial exam Mouth: oral mucosae normal Eyes General: appearance normal, both eyes and all related structures Neck Neck: normal visual inspection Neck mass: No Resp Effort Inspection: normal respiratory effort Auscultation: Bilateral: Clear to Auscultation (more content not included)... Normal [facility] Rheumatoid Factoron 11-10-19 24 RHEUMATOID FAC < 10.0 Normal <15 [facility] Comment on above: Performed By: #### L 031.9076, L101.2736 ####[facility] [id number] [place], [address] XR FOOT TWO VIEWS LEFTon XR FOOT TWO VIEWS LEFT ORIGINAL EXAMINATION: TWO XRAY VIEWS OF THE LEFT FOOT 11/06/2023 2:29 pm COMPARISON: None. HISTORY: ORDERING SYSTEM PROVIDED HISTORY: Reason for Exam: foot pain FINDINGS: No acute fracture or dislocation. There are bony erosions to the inferior surface of the 1st interphalangeal joint and 2nd 3rd and 4th interphalangeal joints which are well corticated and do not appear acute.. The joints of the midfoot appear well maintained. IMPRESSION: No acute process. Bony erosions to the interphalangeal joints which appear remote, possibly related to remote inflammatory arthropathy. I have personally reviewed the images of this examination and agree with the resident's findings and interpretation. Interpreted by: Ok Perkins MD Preliminary Report By: Wayne West MD Electronically signed By Ok Perkins MD Dictated Date: 11/06/2023 3:32:21 PM Prelim Date: 11/06/2023 4:26:27 PM Sign Date: 11/06/2023 4:26:27 PM Ordering Provider: [facility] REFERR[facility] XR HAND TWO VIEWS LEFTon XR HAND TWO VIEWS LEFT ORIGINAL EXAMINATION: TWO XRAY VIEWS OF THE LEFT HAND11/06/2023 9:56 am COMPARISON: None HISTORY: ORDERING SYSTEM PROVIDED HISTORY: Reason for Exam: HAND PAIN FINDINGS: Exam limited by patient mobility. No acute fracture or dislocation is identified. The profiled joint spaces are maintained. No aggressive osseous lesions. Contracture of the hand noted. IMPRESSION: Limited by the patient's contractures. No visualized fracture I have personally reviewed the images of this examination and agree with the resident's findings and interpretation. Interpreted by: German Flores MD Preliminary Report By: Wayne West MD Electronically signed By German Flores MD Dictated Date: 11/06/2023 10:07:25 AM Prelim Date: 11/06/2023 11:36:10 AM Sign Date: 11/06/2023 11:36:10 AM Ordering Provider: [facility] REFERRING [facility] MAIN XR Hand - bilateral PA and L ateral and Obliqueon 10-13-2023 IMPRESSION: Normal bone mineralization. 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 Flexion contractures of the left 2nd and 5th digits. No erosion or focal soft tissue swelling. No fracture or destructive osseous lesion. Wide Load Escort: ALESSANDRA Transcribe Date/Time: Oct 13 2023 6:54P Dictated by : ERIC VERGARA MD This examination was interpreted and the report reviewed and electronically signed by: ERIC VERGARA MD on Oct 13 2023 6:56PM [facility] DIVISION OF RADIOLOGY * * *Final Report* * * DATE OF EXAM: Oct 09 2023 2:20PM WOX [id number] - XR HAND 3V PA/LAT/OBL DEMI / PROCEDURE REASON: hand pain * * * * Physician Interpretation * * * * PROCEDURE: Bilateral hands INDICATION: hand pain.started noticing changes to hands years ago and getting progressively worse, left hand is worse, not able to straighten the 5th and index fingers at all, had a stroke years ago also not sure if related no inj TECHNIQUE: XR HAND 3V PA/LAT/OBL DEMI COMPARISON: None FINDINGS/ DIVISION OF RADIOLOGY Provider, Brandi Jacob [facility] - 10/13/2023 * * *Final Report* * * DATE OF EXAM: Oct 09 2023 2:20PM WOX [id number] - XR HAND 3V PA/LAT/OBL DEMI / PROCEDURE REASON: hand pain * * * * Physician Interpretation * * * * PROCEDURE: Bilateral hands INDICATION: hand pain.started noticing changes to hands years ago and getting progressively worse, left hand is worse, not able to straighten the 5th and index fingers at all, had a stroke years ago also not sure if related no inj TECHNIQUE: XR HAND 3V PA/LAT/OBL DEMI COMPARISON: None FINDINGS/ IMPRESSION IMPRESSION: Normal bone mineralization. 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 Flexion contractures of the left 2nd and 5th digits. No erosion or focal soft tissue swelling. No fracture or destructive osseous lesion. Wide Load Escort[facility] Transcribe Date/Time: Oct 13 2023 6:54P Dictated by : ERIC VERGARA MD This examination was interpreted and the report reviewed and electronically signed by: ERIC VERGARA MD on Oct 13 2023 6:56PM EST [facility] XR Hand - bilateral PA and L ateral and ObliqueOrdered By: [facility] Provider on 10-13-2023 [facility] XR HAND 3V PA/LAT/OBL BILon 10-09-2023 XR HAND 3V PA/LAT/OBL DEMI * * *Final Report* * * DATE OF EXAM: Oct 09 2023 2:20PM WOX [id number] - XR HAND 3V PA/LAT/OBL DEMI / PROCEDURE REASON: hand pain * * * * Physician Interpretation * * * * PROCEDURE: Bilateral hands INDICATION: hand pain.started noticing changes to hands years ago and getting progressively worse, left hand is worse, not able to straighten the 5th and index fingers at all, had a stroke years ago also not sure if related no inj TECHNIQUE: XR HAND 3V PA/LAT/OBL DEMI COMPARISON: None FINDINGS/ IMPRESSION: Normal bone mineralization. 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 Flexion contractures of the left 2nd and 5th digits. No erosion or focal soft tissue swelling. No fracture or destructive osseous lesion. Wide Load Escort: [facility] Transcribe Date/Time: Oct 13 2023 6:54P Dictated by : ERIC VERGARA MD This examination was interpreted and the report reviewed and electronically signed by: ERIC VERGARA MD on Oct 13 2023 6:56PM EST [id number] Normal [facility] XR Hand - bilateral PA and L ateral and Obliqueon 10-09-2023 Radiology Study observation (narrative) [facility] .Auto Diffon 11-22-2021 Basophil, Absolute 0.1 10 3/mcL Normal 0.0-0.2 [facility] ([place]) Comment on above: Performed By: #### L IP, CMP, GFR #### [address] [address] Basophils/100 WBC (Bld) 1.7 % Normal 0.0-2.5 [facility] ([place]) Comment on above: Performed By: #### L IP, CMP, GFR #### [address] [address] Eosinophil, Absolute 0.3 10 3/mcL Normal 0.0-0.4 [facility] ([place]) Comment on above: Performed By: #### L IP, CMP, GFR #### [address] [address] Eosinophils/100 WBC (Bld) 5.2 % Normal 0.0-7.0 [facility] ([place]) Comment on above: Performed By: #### L IP, CMP, GFR #### [address] [address] Lymphocyte, Absolute 1.4 10 3/mcL Normal 0.8-3.9 [facility] ([place] Comment on above: Performed By: #### L IP, CMP, GFR #### [address] [address] Lymphocytes/100 WBC (Bld) 22.9 % Normal 10.0-50.0 [facility] ([place] Comment on above: Performed By: #### L IP, CMP, GFR #### [address] [address] Monocyte, Absolute 0.6 10 3/mcL Normal 0.2-1.0 [facility] ([place] Comment on above: Performed By: #### L IP, CMP, GFR #### [address] [address] Monocytes/100 WBC (Bld) 10.5 % Normal 1.7-13.0 [facility] ([place] Comment on above: Performed By: #### L IP, CMP, GFR #### [address] [address] Neutrophils/100 WBC (Bld) 59.7 % Normal 37.0-80.0 [facility] ([place] Comment on above: Performed By: #### L IP, CMP, GFR #### [address] [address] .GFRon 11-22-2021 GFR 90 ml/min/1.73sqm Normal [facility] ([place] Comment on above: Result Comment: GFR Population mean for , Non- Americans Ages 20-29 = 116 mL/min/1.73 sq.m. Ages 30-39 = 107 mL/min/1.73 sq.m. Ages 40-49 = 99 mL/min/1.73 sq.m. Ages 50-59 = 93 mL/min/1.73 sq.m. Ages 60-69 = 85 mL/min/1.73 sq.m. Ages 70+ = 75 mL/min/1.73 sq.m. Chronic Kidney Disease: Less than 60 mL/min/1.73 square meters End Stage Renal Disease: Less than 15 mL/min/1.73 square meters Performed By: #### L IP, CMP, GFR #### [address] [address] GFR Non- 74 ml/min/1.73sqm Normal [facility] ([place] Comment on above: Result Comment: GFR Population mean for , Non- Americans Ages 20-29 = 116 mL/min/1.73 sq.m. Ages 30-39 = 107 mL/min/1.73 sq.m. Ages 40-49 = 99 mL/min/1.73 sq.m. Ages 50-59 = 93 mL/min/1.73 sq.m. Ages 60-69 = 85 mL/min/1.73 sq.m. Ages 70+ = 75 mL/min/1.73 sq.m. Chronic Kidney Disease: Less than 60 mL/min/1.73 square meters End Stage Renal Disease: Less than 15 mL/min/1.73 square meters Performed By: #### L IP, CMP, GFR #### [address] [address] .MDWon 11-22-2021 Monocyte Distribution Width 16.46 Normal 0.00-20.00 [facility] ([place] Comment on above: Result Comment: For ED adult patients suspected of sepsis, MDW<=20.0 does not rule out sepsis or risk of sepsis Performed By: #### L IP, CMP, GFR #### [address] [address] .NEUABSon 11-22-2021 Neutrophil, Absolute 3.6 10 3/mcL Normal 2.9-6.2 [facility] ([place] Comment on above: Performed By: #### L IP, CMP, GFR #### [address] [address] CBCon 11-22-2021 Erythrocyte distribution width (RBC) [Ratio] 14.4 % Normal 11.5-14.5 [facility] ([place] Comment on above: Performed By: #### L IP, CMP, GFR #### [address] [address] Hematocrit (Bld) [Volume fraction] 42.5 % Normal 42.0-52.0 [facility] ([place] Comment on above: Performed By: #### L IP, CMP, GFR #### [address] [address] Hgb 14.3 G/dL Normal 14.0-18.0 [facility] ([place] Comment on above: Performed By: #### L IP, CMP, GFR #### [address] [address] MCH (RBC) [Entitic mass] 30.1 pg Normal 27.0-31.2 [facility] ([place] Comment on above: Performed By: #### L IP, CMP, GFR #### [address] [address] MCHC 33.7 G/dL Normal 31.8-35.4 [facility] ([place] Comment on above: Performed By: #### L IP, CMP, GFR #### [address] [address] MCV (RBC) [Entitic vol] 89.1 fL Normal 80.0-94.0 [facility] ([place]) Comment on above: Performed By: #### L IP, CMP, GFR #### [address] [address] Platelet 282 10 3/mcL Normal 130-400 [facility] ([place] Comment on above: Performed By: #### L IP, CMP, GFR #### [address] [address] Platelet mean volume (Bld) [Entitic vol] 7.2 fL Low 7.4-10.4 [facility] ([place] Comment on above: Performed By: #### L IP, CMP, GFR #### [address] [address] RBC 4.77 10 6/mcL Normal 4.04-6.13 [facility] ([place] Comment on above: Performed By: #### L IP, CMP, GFR #### [address] [address] WBC 6.0 10 3/mcL Normal 4.6-10.8 [facility] ([place] Comment on above: Performed By: #### L IP, CMP, GFR #### [address] [address] CMPon 11-22-2021 Albumin Level 4.0 G/dL Normal 3.5-5.0 [facility] [place] Comment on above: Performed By: #### L IP, CMP, GFR #### [address] [address] Albumin/Globulin [Mass ratio] 1.2 {ratio} Normal 1.1-2.5 [facility] ([place] Comment on above: Performed By: #### L IP, CMP, GFR #### [address] [address] ALP [Catalytic activity/Vol] 58 U/L Normal 40-135 [facility] ([place] Comment on above: Performed By: #### L IP, CMP, GFR #### [address] [address] ALT [Catalytic activity/Vol] 18 U/L Normal 16-63 [facility] ([place] Comment on above: Performed By: #### L IP, CMP, GFR #### [address] [address] AST [Catalytic activity/Vol] 14 U/L Normal 10-40 [facility] ([place] Comment on above: Performed By: #### L IP, CMP, GFR #### [address] [address] Bili Total 0.5 mg/dL Normal 0.2-1.0 [facility] ([place] Comment on above: Result Comment: Use of this assay is not recommended for patients undergoing treatment with eltrombopag due to the potential for falsely elevated results. Performed By: #### L IP, CMP, GFR #### [address] [address] BUN/Creatinine Ratio 14 ratio Normal 7-27 [facility] ([place] Comment on above: Performed By: #### L IP, CMP, GFR #### [address] [address] Calcium [Mass/Vol] 9.3 mg/dL Normal 8.4-10.2 [facility] ([place]) Comment on above: Performed By: #### L IP, CMP, GFR #### [address] [address] Chloride [Moles/Vol] 100 mmol/L Normal 98-107 [facility] ([place] Comment on above: Performed By: #### L IP, CMP, GFR #### [address] [address] CO2 [Moles/Vol] 31 mmol/L High 22-29 [facility] ([place] Comment on above: Performed By: #### L IP, CMP, GFR #### [address] [address] Creatinine [Mass/Vol] 1.07 mg/dL Normal 0.70-1.30 [facility] ([place]) Comment on above: Performed By: #### L IP, CMP, GFR #### [address] [address] Electrolyte Balance 7.0 mEq/L Normal 4.0-15.0 [facility] ([place]) Comment on above: Performed By: #### L IP, CMP, GFR #### [address] [address] Globulin 3.3 G/dL Normal [facility] ([place] Comment on above: Performed By: #### L IP, CMP, GFR #### [address] [address] Glucose [Mass/Vol] 64 mg/dL Low 70-105 [facility] ([place] Comment on above: Performed By: #### L IP, CMP, GFR #### [address] [address] Potassium [Moles/Vol] 4.1 mmol/L Normal 3.5-5.1 [facility] ([place] Comment on above: Performed By: #### L IP, CMP, GFR #### [address] [address] Sodium [Moles/Vol] 138 mmol/L Normal 136-145 [facility] ([place] Comment on above: Performed By: #### L IP, CMP, GFR #### [address] [address] Total Protein 7.3 G/dL Normal 6.4-8.2 [facility] ([place] Comment on above: Performed By: #### L IP, CMP, GFR #### [address] [address] Urea nitrogen [Mass/Vol] 15 mg/dL Normal 7-18 [facility] ([place] Comment on above: Performed By: #### L IP, CMP, GFR #### [address] [address] [address] ABD/PELVIS W/ IV CONTRAST ONLYon 11-22-2021 CT ABD/PELVIS W/ IV CONTRAST ONLY ORIGINAL EXAMINATION: CT OF THE ABDOMEN AND PELVIS WITH CONTRAST 11/22/2021 8:30 pm TECHNIQUE: CT of the abdomen and pelvis was performed with the administration of intravenous contrast. Multiplanar reformatted images are provided for review. Automated exposure control, iterative reconstruction, and/or weight based adjustment of the mA/kV was utilized to reduce the radiation dose to as low as reasonably achievable. COMPARISON: None. HISTORY: ORDERING SYSTEM PROVIDED HISTORY: Reason for Exam: pain Abdominal pain for 4 days FINDINGS: Lower Chest: Included lung bases are clear. Heart size is normal. Organs: Liver, gallbladder, spleen, pancreas and adrenals are within normal limits. Normal renal cortical enhancement. No hydronephrosis or hydroureter. Bladder is nondistended. GI/Bowel: A few small bowel loops within the right lower quadrant are dilated up to 3 cm, questionable transition point at an area of short segment small bowel thickening. Nondilated appendix. Pelvis: Normal prostate. Peritoneum/Retroperito neum: Aorta is normal in course and caliber. No lymphadenopathy. IVC and portal vein are unremarkable. Bones/Soft Tissues: Scattered lucencies within the bilateral posterior iliac bones measure up to 1.3 cm. No fracture. IMPRESSION: Right lower quadrant borderline dilated small bowel loops with question of a short segment small bowel thickening could reflect a possible transition point from low-grade bowel obstruction, enteritis, or alternatively area of peristalsis. Scattered lucencies in the iliac bones adjacent to the sacroiliac joints, without discrete lucencies in the other osseous structures, nonspecific. Could be further investigated with MRI or remote prior cross-sectional images. I have personally reviewed the images of this examination and agree with the resident's findings and interpretation. Interpreted by: Robert Hernandez Preliminary Report By: Meg Frost Electronically signed By Robert Hernandez Dictated Date: 11/22/2021 8:36:11 PM Prelim Date: 11/22/2021 8:48:53 PM Sign Date: 11/22/2021 9:34:56 PM Ordering Provider: KATIE DOLL Normal [facility] ([place] LIPon 11-22-2021 Lipase Level 75 U/L Normal 73-393 [facility] ([place] Comment on above: Performed By: #### L IP, CMP, GFR #### [address] [address] UAon 11-22-2021 Color (U) Yellow Normal [facility] ([place] Comment on above: Performed By: #### U A #### [address] [address] Glucose (U) [Mass/Vol] Negative Normal Negative [facility] ([place] Comment on above: Performed By: #### U A #### [address] [address] Ketones Ql (U) Negative Normal Negative [facility] ([place] Comment on above: Performed By: #### U A #### [address] [address] UA Appear Clear Normal Clear [facility] [place] Comment on above: Performed By: #### U A #### [address] [address] UA Blood Negative Normal Negative [facility] ([place] Comment on above: Performed By: #### U A #### [address] [address] UA Leuk Est Negative Normal Negative [facility] [place] Comment on above: Performed By: #### U A #### [address] [address] UA Nitrite Negative Normal Negative [facility] [place] Comment on above: Performed By: #### U A #### [address] [address] UA pH 8.0 Normal 5.0 - 8.0 [facility] ([place] Comment on above: Performed By: #### U A #### [address] [address] UA Protein Negative Normal Negative [facility] [place] Comment on above: Performed By: #### U A #### [place] [address] UA Spec Grav 1.020 Normal 1.015-1.025 [facility] [place] Comment on above: Performed By: #### U A #### [place] [address] UA Specimen Type Clean Catch Normal [facility] [place] Comment on above: Performed By: #### U A #### [address] [address] UA Urobilinogen 0.2 E.U./dL Normal 0.2-1.0 [facility] ([place] Comment on above: Performed By: #### U A #### [place] [address] Urobilinogen (U) [Mass/Vol] Negative Normal Negative [facility] [place] Comment on above: Performed By: #### U A #### Kalpesh [address] [address] Vital Signs Date Time Vital Sign Value Performing Clinician Facility 08-17-2024 15:37-0400 Body height 175.[address] Cecily Garnica DO Work Phone: [facility] 08-17-2024 15:37-0400 Body temperature 99.1 [degF] Dr. Cecily Garnica DO Work Phone: [facility] 08-17-2024 15:37-0400 Diastolic blood pressure 82 mm[Hg] Dr. Cecily Garnica DO Work Phone: [facility] 08-17-2024 15:37-0400 Heart rate 110 /min Dr. Cecily Garnica DO Work Phone: [facility] 08-17-2024 15:37-0400 Respiratory rate 18 /min Dr. Cecily Garnica DO Work Phone: [facility] 08-17-2024 15:37-0400 SaO2% (BldA) [Mass fraction] 98 % Dr. Cecily Garnica DO Work Phone: [facility] 08-17-2024 15:37-0400 Systolic blood pressure 118 mm[Hg] Dr. Cecily Garnica DO Work Phone: [facility] 06-23-2024 09:34-0400 Diastolic blood pressure 65 mm[Hg] Dr. Cecily Garnica DO Work Phone: [facility] 06-23-2024 09:34-0400 Heart rate 62 /min Dr. Cecily Garnica DO Work Phone: [facility] 06-23-2024 09:34-0400 Respiratory rate 18 /min Dr. Cecily Garnica DO Work Phone: [facility] 06-23-2024 09:34-0400 SaO2% (BldA) [Mass fraction] 94 % Dr. Cecily Garnica DO Work Phone: [facility] 06-23-2024 09:34-0400 Systolic blood pressure 95 mm[Hg] Dr. Cecily Garnica DO Work Phone: [facility] 05-27-2024 08:42-0400 Body temperature 97.9 [degF] Dr. Cecily Garnica DO Work Phone: [facility] 05-27-2024 08:42-0400 Diastolic blood pressure 74 mm[Hg] Dr. Cecily Garnica DO Work Phone: [facility] 05-27-2024 08:42-0400 Heart rate 68 /min Dr. Cecily Garnica DO Work Phone: [facility] 05-27-2024 08:42-0400 Respiratory rate 16 /min Dr. Cecily Garnica DO Work Phone: [facility] 05-27-2024 08:42-0400 SaO2% (BldA) [Mass fraction] 99 % Dr. Cecily Garnica DO Work Phone: [facility] 05-27-2024 08:42-0400 Systolic blood pressure 111 mm[Hg] Dr. Cceily Garnica DO Work Phone: [facility] 05-18-2024 10:37-0400 Body height 175.[address] Cecily Garnica DO Work Phone: [facility] 05-18-2024 10:37-0400 Body mass index (BMI) [Ratio] 23.3 kg/m2 Dr. Cecily Garnica DO Work Phone: [facility] 05-18-2024 10:37-0400 Body temperature 98.6 [degF] Dr. Cecily Garnica DO Work Phone: [facility] 05-18-2024 10:37-0400 Body weight 71.[address] Cecily Garnica DO Work Phone: [facility] 05-18-2024 10:37-0400 Diastolic blood pressure 90 mm[Hg] Dr. Cecily Garnica DO Work Phone: [facility] 05-18-2024 10:37-0400 Heart rate 82 /min Dr. Cecily Garnica DO Work Phone: [facility] 05-18-2024 10:37-0400 Respiratory rate 16 /min Dr. Cecily Garnica DO Work Phone: [facility] 05-18-2024 10:37-0400 SaO2% (BldA) [Mass fraction] 98 % Dr. Cecily Garnica DO Work Phone: [facility] 05-18-2024 10:37-0400 Systolic blood pressure 110 mm[Hg] Dr. Cecily Garnica DO Work Phone: [facility] 04-20-2024 08:34-0500 Body temperature 97.4 [degF] Dr. Cecily Garnica DO Work Phone: [facility] 04-20-2024 08:34-0500 Diastolic blood pressure 61 mm[Hg] Dr. Cecily Garnica DO Work Phone: [facility] 04-20-2024 08:34-0500 Heart rate 58 /min Dr. Cecily Garnica DO Work Phone: [facility] 04-20-2024 08:34-0500 Respiratory rate 16 /min Dr. Cecily Garnica DO Work Phone: [facility] 04-20-2024 08:34-0500 SaO2% (BldA) [Mass fraction] 98 % Dr. Cecily Garnica DO Work Phone: [facility] 04-20-2024 08:34-0500 Systolic blood pressure 91 mm[Hg] Dr. Cecily Garnica DO Work Phone: [facility] 04-20-2024 06:51-0500 Body height 175.[address] Cecily Garnica DO Work Phone: [facility] 04-20-2024 06:51-0500 Body mass index (BMI) [Ratio] 24.4 kg/m2 Dr. Cecily Garnica DO Work Phone: [facility] 04-20-2024 06:51-0500 Body weight [address] Cecily Garnica DO Work Phone: [facility] 03-10-2024 13:30-0500 Body temperature 984 [degF] Dr. Cecily Garnica DO Work Phone: [facility] 03-10-2024 13:30-0500 Diastolic blood pressure 77 mm[Hg] Dr. Cecily Garnica DO Work Phone: [facility] 03-10-2024 13:30-0500 Heart rate 75 /min Dr. Cecily Garnica DO Work Phone: [facility] 03-10-2024 13:30-0500 Respiratory rate 18 /min Dr. Cecily Garnica DO Work Phone: [facility] 03-10-2024 13:30-0500 SaO2% (BldA) [Mass fraction] 99 % Dr. Cecily Garnica DO Work Phone: [facility] 03-10-2024 13:30-0500 Systolic blood pressure 117 mm[Hg] Dr. Cecily Garnica DO Work Phone: [facility] 02-12-2024 09:36-0500 Body temperature 97.6 [degF] Dr. Cecily Garnica DO Work Phone: [facility] 02-12-2024 09:36-0500 Diastolic blood pressure 77 mm[Hg] Dr. Cecily Garnica DO Work Phone: [facility] 02-12-2024 09:36-0500 Heart rate 74 /min Dr. Cecily Garnica DO Work Phone: [facility] 02-12-2024 09:36-0500 Respiratory rate 18 /min Dr. Cecily Garnica DO Work Phone: [facility] 02-12-2024 09:36-0500 SaO2% (BldA) [Mass fraction] 96 % Dr. Cecily Garnica DO Work Phone: [facility] 02-12-2024 09:36-0500 Systolic blood pressure 109 mm[Hg] Dr. Cecily Garnica DO Work Phone: [facility] 02-05-2024 08:58-0500 Body mass index (BMI) [Ratio] 24.7 kg/m2 Dr. Cecily Garnica DO Work Phone: [facility] 02-05-2024 08:58-0500 Body temperature 97.4 [degF] Dr. Cecily Garnica DO Work Phone: [facility] 02-05-2024 08:58-0500 Body weight 75.[address] Cecily Garnica DO Work Phone: [facility] 02-05-2024 08:58-0500 Diastolic blood pressure 72 mm[Hg] Dr. Cecily Garnica DO Work Phone: [facility] 02-05-2024 08:58-0500 Heart rate 85 /min Dr. Cecily Garnica DO Work Phone: [facility] 02-05-2024 08:58-0500 Respiratory rate 16 /min Dr. Cecily Garnica DO Work Phone: [facility] 02-05-2024 08:58-0500 SaO2% (BldA) [Mass fraction] 98 % Dr. Cecily Garnica DO Work Phone: [facility] 02-05-2024 08:58-0500 Systolic blood pressure 128 mm[Hg] Dr. Cecily Garnica DO Work Phone: [facility] 01-28-2024 14:32-0500 Body temperature 98.1 [degF] Dr. Cecily Garnica DO Work Phone: [facility] 01-28-2024 14:32-0500 Diastolic blood pressure 83 mm[Hg] Dr. Cecily Garnica DO Work Phone: [facility] 01-28-2024 14:32-0500 Heart rate 78 /min Dr. Cecily Garnica DO Work Phone: [facility] 01-28-2024 14:32-0500 Respiratory rate 18 /min Dr. Cecily Garnica DO Work Phone: [facility] 01-28-2024 14:32-0500 SaO2% (BldA) [Mass fraction] 93 % Dr. Cecily Garnica DO Work Phone: [facility] 01-28-2024 14:32-0500 Systolic blood pressure 124 mm[Hg] Dr. Cecily Garnica DO Work Phone: [facility] 01-27-2024 16:36-0500 Body temperature 97.4 [degF] Dr. Cecily Garnica DO Work Phone: [facility] 01-27-2024 16:36-0500 Diastolic blood pressure 72 mm[Hg] Dr. Cecily Garnica DO Work Phone: [facility] 01-27-2024 16:36-0500 Heart rate 85 /min Dr. Cecily Garnica DO Work Phone: [facility] 01-27-2024 16:36-0500 Respiratory rate 16 /min Dr. Cecily Garnica DO Work Phone: [facility] 01-27-2024 16:36-0500 SaO2% (BldA) [Mass fraction] 99 % Dr. Cecily Garnica DO Work Phone: [facility] 01-27-2024 16:36-0500 Systolic blood pressure 115 mm[Hg] Dr. Cecily Garnica DO Work Phone: [facility] 01-27-2024 07:55-0500 Body mass index (BMI) [Ratio] 25 kg/m2 Dr. Cecily Garnica DO Work Phone: [facility] 01-27-2024 07:55-0500 Body weight [address] Cecily Garnica DO Work Phone: [facility] 01-19-2024 09:22-0500 Body mass index (BMI) [Ratio] 25.1 kg/m2 Dr. Cecily Garnica DO Work Phone: [facility] 01-19-2024 09:22-0500 Body weight 77.[address] Cecily Garnica DO Work Phone: [facility] 12-16-2023 09:10-0400 Body height 172 cm Gregory Rivers MD Work Phone: [facility] 12-16-2023 09:10-0400 Body mass index (BMI) [Ratio] 25.68 kg/m2 Gregory Rivers MD Work Phone: [facility] 12-16-2023 09:10-0400 Body temperature 98.29 [degF] Gregory Rivers MD Work Phone: [facility] 12-16-2023 09:10-0400 Body weight 75.98 kg Gregory Rivers MD Work Phone: [facility] 12-16-2023 09:10-0400 Diastolic blood pressure 70 mm[Hg] Gregory Rivers MD Work Phone: [facility] 12-16-2023 09:10-0400 Heart rate 73 /min Gregory Rivers MD Work Phone: [facility] 12-16-2023 09:10-0400 SaO2% (BldA) [Mass fraction] 99 % Gregory Rivers MD Work Phone: [facility] 12-16-2023 09:10-0400 Systolic blood pressure 97 mm[Hg] Gregory Rivers MD Work Phone: [facility] 11-22-2021 18:07-0400 Body temperature 98.29 [degF] Gabo Alvarado APRN.HOSPITALITY JOB TITLES Work Phone: [facility] 11-22-2021 18:07-0400 Body weight 60.87 kg Gabo Alvarado APRN.HOSPITALITY [employer]OB TITLES Work Phone: [facility] 11-22-2021 18:07-0400 Diastolic blood pressure 70 mm[Hg] Gabo Alvarado APRN.HOSPITALITY [employer] TITLES Work Phone: [facility] 11-22-2021 18:07-0400 Heart rate 67 /min Gabo Alvarado APRN.HOSPITALITY [employer] TITLES Work Phone: [facility] 11-22-2021 18:07-0400 Respiratory rate 18 /min [facility].HOSPITALITY JOB TITLES Work Phone: [facility] 11-22-2021 18:07-0400 SaO2% (BldA) [Mass fraction] 98 % [facility] [employer].[employer]OSPITAL[employer] Work Phone: [facility] 11-22-2021 18:07-0400 Systolic blood pressure 116 mm[Hg] [facility].HOSPITALITY J[employer] TITLES Work Phone: [facility] Encounters Encounter Date Encounter Type Care Provider Facility Start: 09-07-2024 ambulatory [facility] Facilit y:[facility] Start: 08-29-2024 ambulatory GLORIA ZION Facilit y:[facility] Start: 08-17-2024 End: 08-17-[address] Trinidad Sanchez MD -[facility] Work Phone: Start: 08-17-2024 End: 08-17-[address] Cecily Garnica DO Work Phone: -[facility] Start: 07-20-2024 End: 07-20-[address] Cecily Garnica DO Work Phone: [facility] Work Phone: Start: 07-20-2024 End: 07-20-[address] Sraah Godoy MD -Laboratory Work Phone: Start: 07-20-2024 End: 07-20-2024 ambulatory GLORIA DONOVAN Facility:[facility] Start: 07-18-2024 Encounter for genera l adult medical examination without abnormal findings [facility] Start: 07-13-2024 Encounter for genera l adult medical examination without abnormal findings [facility] Start: 07-13-2024 End: 07-13-[address] Cecily Garnica DO Work Phone: [facility] Work Phone: Start: 07-13-2024 End: 07-13-2024 Patient encounter procedure GLORIA DONOVAN [employer] CALENDERER-C -Laboratory Work Phone: Start: 07-13-2024 End: 07-13-2024 ambulatory GLORIA DONOVAN Facility:[facility] Start: 07-08-2024 End: 07-08-2024 Patient encounter procedure Neli CUEVA -[facility] Work Phone: Start: 07-08-2024 End: 07-08-[address] Cecily Garnica DO Work Phone: [facility] Work Phone: Start: 07-08-2024 End: 07-08-2024 ambulatory GLORIAARLEEN DONOVAN Facility:[facility] Start: 06-23-2024 End: 06-23-[address] Trinidad Sanchez MD -[facility] Work Phone: Start: 06-23-2024 End: 06-23-2024 ambulatory Trinidad Sanchez Facility:[facility] Start: 05-31-[address] Trinidad fitzpatrick MD -Occupational Therapy Work Phone: Start: 05-27-2024 End: 05-27-[address] Trinidad Sanchez MD -[facility] Work Phone: Start: 05-27-2024 End: 05-27-2024 ambulatory Trinidad Sanchez Facility:[facility] Start: 05-26-2024 End: 05-26-[address] Cecily Garnica DO Work Phone: [facility] Work Phone: Start: 05-26-2024 End: 05-26-2024 Patient encounter procedure Neli CUEVA -Nuclear Medicine, [facility] Work Phone: Start: 05-26-2024 End: 05-26-2024 ambulatory Neli Bazan Facility:[facility] Start: 05-18-2024 End: 05-18-[address] Cecily Nicholas DO -[facility] Work Phone: Start: 05-18-2024 End: 05-18-2024 ambulatory Cecily Garncia Facility:[facility] Start: 05-10-[address] Trinidad fitzpatrick MD -Occupational Therapy Work Phone: Start: 05-09-2024 Encounter for other preprocedural examination Trinidad Sanchez [facility] Start: 05-03-2024 End: 05-03-2024 Patient encounter procedure Neli CUEVA -[facility] Work Phone: Start: 05-03-2024 End: 05-03-2024 ambulatory Neli Bazan Facility:[facility] Start: 04-29-2024 End: 04-29-[address] Cecily Garnica DO Work Phone: [facility] Work Phone: Start: 04-29-2024 End: 04-29-[address] Trinidad Sanchez MD -Laboratory Work Phone: Start: 04-29-2024 End: 04-29-[address] Trinidad Sanchez MD -[facility] Work Phone: Start: 04-29-2024 End: 04-29-2024 ambulatory Trinidad Sanchez Facility:[facility] Start: 04-29-2024 End: 04-29-2024 ambulatory Trinidad Sanchez Facility:[facility] Start: 04-20-2024 ambulatory Ian Sawant Facility :[facility] Start: 04-20-2024 Non-patient / Non-visit Ian Russell nd DO -[facility] Start: 04-20-2024 End: 04-20-2024 Admission to same day surgery center Ian Sawant DO -Endoscopy Work Phone: Start: 04-20-2024 End: 04-20-2024 ambulatory Ian Sawant Facility:[facility] Start: 03-17-2024 End: 03-17-2024 Patient encounter procedure Neli CUEVA -[facility] Work Phone: Start: 03-17-2024 End: 03-17-2024 ambulatory Neli Bazan Facility:[facility] Start: 03-10-2024 End: 03-10-[address] Trinidad Sanchez MD -[facility] Work Phone: Start: 03-10-2024 End: 03-10-2024 ambulatory Trinidad Sanchez Facility:[facility] Start: 03-08-2024 End: 05-31-2024 ambulatory [facility] Facility:[facility] Start: 02-12-2024 End: 02-12-[address] Trinidad Sanchez MD -[facility] Work Phone: Start: 02-12-2024 End: 02-12-2024 ambulatory Trinidad Claudiajoycelyn Facility:[facility] Start: 02-05-2024 End: 02-05-2024 Patient encounter procedure Obey CUEVA -[facility] Work Phone: Start: 02-05-2024 End: 02-05-2024 ambulatory Cecily Garnica Facility:[facility] Start: 02-02-2024 ambulatory Cecily Garnica Facilit y:[facility] Start: 02-02-2024 End: 02-02-[address] Trinidad Sanchez MD -[facility] Work Phone: Start: 02-02-2024 End: 02-02-2024 ambulatory Trinidad Sanchez Facility:[facility] Start: 01-28-2024 End: 01-28-[address] Trinidad Sanchez MD -[facility] Work Phone: Start: 01-28-2024 End: 01-28-2024 ambulatory Trinidad Sanchez Facility:[facility] Start: 01-27-2024 ambulatory Trinidad Taylor [facility] Start: 01-27-2024 Non-patient / Non-visit Dr. Trinidad celestin MD -[facility] Start: 01-27-2024 End: 01-27-2024 Admission to same day surgery center Dr. Trinidad Sanchez MD -Surgical Day Care Start: 01-27-2024 End: 01-27-2024 ambulatory Trinidad Sanchez Facility:[facility] Start: 01-19-2024 End: 01-19-[address] Trinidad Sanchez MD -[facility] Work Phone: Start: 01-19-2024 End: 01-19-2024 ambulatory Cecily Garnica Facility:[facility] Start: 01-07-2024 End: 01-07-2024 ambulatory Gilvinod Young Facility:[facility] Start: 01-07-2024 Encounter for other preprocedural examination Obey CUEVA [facility] Start: 01-07-2024 End: 01-07-2024 ambulatory Cecily Garnica Facility:[facility] Start: 01-06-[address] Cecily Garnica DO Work Phone: [facility] Start: 01-06-2024 End: 01-06-2024 ambulatory Obey CUEVA Facility:[facility] Start: 12-29-2023 End: 12-29-2023 ambulatory Wesley CUEVA Facility:[facility] Start: 12-23-2023 ambulatory Trinidad [facility] Start: 12-23-2023 End: 12-23-2023 ambulatory Trinidad [facility] Facility:[facility] Start: 12-16-2023 End: 12-16-2023 ambulatory Gregory Rivers MD Work Phone: Hematology/Oncology Comment on above: Family history of DV T (Primary Dx) Start: 12-16-2023 End: 12-16-2023 Patient encounter procedure Gregory Rivers MD Work Phone: Hematology/Oncology Start: 11-30-2023 End: 11-30-2023 Telephone encounter Gregory Rivers MD Work Phone: Hematology/Oncology Comment on above: Appointment Start: 11-27-2023 End: 11-27-2023 ambulatory Trinidad Sisojycelyn Facility:[facility] Start: 11-27-2023 End: 11-27-2023 ambulatory Trinidad [facility] Facility:[facility] Start: 11-10-2023 End: 11-10-2023 ambulatory No Primary Care Physician Facility:[facility] Start: 11-10-2023 End: 11-10-2023 ambulatory Cecily Garnica Facility:[facility] Start: 11-06-2023 End: 11-06-2023 ambulatory ISA VILLA MD Facility:[facility] Start: 11-06-2023 End: 11-06-2023 Patient encounter procedure PHY WO ID REFERRING [facility] Start: 11-06-2023 End: 11-06-2023 ambulatory NONE PHYSICIAN Facility:[facility] Start: 11-06-2023 End: 11-06-2023 Patient encounter procedure PHY WO ID REFERRING [facility] Start: 10-09-2023 End: 10-09-2023 ambulatory [facility] Facility:[facility] Start: 10-09-2023 End: 10-09-2023 Subsequent hospital visit by physician [facility] Work Phone: Radiology Start: 10-09-2023 ambulatory No Primary Car e Physician Facility:[facility] Start: 11-22-2021 End: 11-23-2021 Emergency department patient visit KATIE DOLL MD Facility:[facility] Start: 11-22-2021 End: 11-22-2021 Patient encounter procedure Gabo Alvarado APRN.HOSPITALITY JOB TITLES Work Phone: [facility] Comment on above: Abdominal pain, gene ralized (Primary Dx) Procedures Date Procedure Procedure Detail Performing Clinician Start: 07-20-2024 Methadone measurement, urine Dr. Cecily Garnica DO Work Phone: Start: 07-20-[address] Dyan Garnica DO Work Phone: Comment on above: Test Ordered: [id number] Screen, Urine Negative ng/mL UI Reference Range: Epxeaw=145Brbwerxgqbp test includes Amphetamine and Methamphetamine.Barbiturates Negative ng/mL UI Reference Range: Vdwgii=053Amtiybkobcovobr Negative ng/mL UI Reference Range: Kzrcfz=670Psregzu (Metab.), Urine Negative ng/mL UI Reference Range: Lebyrf=811Ptoofle Negative ng/mL UI Reference Range: Dztwuy=389Lcljni test includes Codeine, Morphine, Hydromorphone, Hydrocodone.6-Acetylmorphine, Urine Negative ng/mL UI Reference Range: Cutoff=10Oxycodone/Oxymorphone, Urine Negative ng/mL UI Reference Range: Opcqog=300Uznk includes Oxycodone and OxymorphonePCP, Urine Negative ng/mL UI Reference Range: Cutoff=25Methadone Screen, Urine Negative ng/mL UI Reference Range: Rxeygn=758Ncuvzzgmuhgu, Urine Negative ng/mL UI Reference Range: Colica=363Nipninqf, Urine Negative ng/mL UI Reference Range: Cutoff=2.0Test includes Fentanyl and NorfentanylThis test was developed and its performance characteristicsdetermined by [employer]. It has not been cleared orapproved by the Food and Drug Administration.Tramadol Negative ng/mL UI Reference Range: Rmazmo=915Zhkbopajimjyp, Urine Negative ng/mL UI Reference Range: Cutoff=10Creatinine, Urine 325.3 [H ] mg/dL UI Reference Range: 20.0-300.0pH, Urine 5.9 UI Reference Range: 4.5-8.9Performed at: [id number] [place], [place] [id number] Director: Sadaf Hoffmann PhD, Phone: [phone] at: [address] [id number] Director: Wu Cassidy PhD, Phone: [phone] Start: 07-13-2024 X-ray of cervical spine Dr. Cecily Garnica DO Work Phone: Start: 07-08-2024 Clostridium difficil e detection Dr. Cecily Garnica DO Work Phone: Start: 07-08-2024 Measurement of occul t blood in stool specimen using immunoassay Dr. Cecily Garnica DO Work Phone: Start: 07-08-[address] Cecily Garnica DO Work Phone: Start: 07-08-2024 Iadna-dna/rna gi pth gn multiplex probe tq 6-11 Dr. Cecily Garnica DO Work Phone: Start: 05-26-2024 Radionuclide gastric emptying study Dr. Cecily Garnica DO Work Phone: Start: 04-29-2024 Plain x-ray of hand Dr. Cecily Garnica DO Work Phone: Start: 10-09-2023 Radex hand minimum 3 views [facility] Provider Entire neck (body structure) PHY REFERRING Ganglion cyst (disorder) PHY REFERRING Plan of Treatment Date Care Activity Detail Author Start: 07-10-2025 Diabetes Screening Diabetes Screenin g [facility] Start: 07-08-2024 Giardia Antigen (KYLIE) Giardia Antige n (KYLIE) [facility] Start: 07-08-2024 Ova and Parasites Ova and Parasites [facility] Start: 07-08-2024 [facility] Start: 04-29-2024 Patient referral [facility] Work Phone: Start: 04-20-2024 Colonoscopy w/biopsy single/multiple COLONOSCOPY AND BIOPSY [facility] Start: 04-20-2024 Colsc flx w/rmvl of tumor polyp lesion snare tq COLONOSCOPY W/LESION REMOVAL [facility] Start: 04-20-2024 Egd transoral biopsy single/multiple EGD BIOPSY SINGLE/MULTIPLE [facility] Start: 04-20-2024 Patient discharge [facility] Start: 01-27-2024 Patient discharge [facility] Start: 01-27-2024 Amp f/th 1/2 jt/phal anx w/neurect local flap AMPUTATION OF FINGER/THUMB [facility] Start: 01-27-2024 Anes nerve muscle td n fascia&bursa forearm wrist ANESTH LOWER ARM SURGERY [facility] Start: 01-27-2024 Capsulectomy/capsulo miguel a iphal joint each RELEASE FINGER CONTRACTURE [facility] Start: 01-27-2024 Fasct prtl palmar 1 dgt prox iphal jt w/wo rpr RELEASE PALM CONTRACTURE [facility] Start: 01-27-2024 Fasct prtl palmr add l dgt prox iphal jt w/wo rpr RELEASE PALM CONTRACTURE [facility] Start: 01-27-2024 Tendon sheath incision INCISE FINGER TENDON SHEATH [facility] Start: 12-16-2023 End: 12-16-2023 ambulatory 12/16/2023 9:00 AM EDT Visit (SP) Office Hematology/Oncology [address] [place] [address] [place] [address] [place] [address] [employer]ER/Family history of ischemic heart disease and other diseases of the circulatory system/REF BY DR. TRINIDAD SANCHEZ* Hematology/Oncology Comment on above: [employer] CALENDERER/Family history of ischemic heart disease and other diseases of the circulatory system/REF BY DR. TRINIDAD SANCHEZ* Start: 10-18-2023 Covid-19 Vaccine () Covid-19 Vaccine () [facility] Start: 10-18-2023 Covid-19 Vaccine () Covid-19 Vaccine () [facility] Start: 10-18-2023 Influenza vaccination Influenza Vacc ine (#1) [facility] Start: 10-17-2021 Influenza vaccination INFLUENZA (#1) [facility] Start: 02-16-2021 DEPRESSION ASSESSMENT DEPRESSION ASS ESSMENT [facility] Start: 11-15-2020 COLOGUARD (FIT-DNA) COLOGUARD (FIT-D NA) [facility] Start: 11-15-2020 Colonoscopy COLONOSCOPY [facility] Start: 11-15-2020 COLORECTAL CANCER SCREENING COLORECTAL CANCER SCREENING [facility] Start: 11-15-[address] COLONOGRAPHY [facility] Start: 11-15-2020 DIABETES SCREEN DIABETES SCREEN [facility] Start: 11-15-2020 FECAL OCCULT BLOOD FECAL OCCULT BLOO D [facility] Start: 11-15-2020 Screening for malign ant neoplasm of colon [facility] Start: 11-15-2020 [facility] Start: 11-15-2010 Lipid panel Lipid Screening [facility] Start: 11-15-2010 LIPID SCREEN LIPID SCREEN [facility] Start: 11-15-1994 Hepatitis B Vaccine (1 of 3 - 19+ 3-dose series) Hepatitis B Vaccine (1 of 3 - 19+ 3-dose series) [facility] Start: 11-15-1994 Urine microalbumin profile [facility] Start: 11-15-1993 Anxiety Screening Anxiety Screening [facility] Start: 11-15-1993 Depression Screening Depression Scre ening [facility] Start: 11-15-1993 HEPATITIS C SCREENING HEPATITIS C [facility] Start: 11-15-1993 Hepatitis C screening Hepatitis C [facility] Start: 11-15-1993 HIV SCREENING HIV SCREENING [facility] Start: 11-15-1993 HIV screening HIV Screening [facility] Start: 11-15-1981 PNEUMOCOCCAL (1 - PCV) PNEUMOCOCCAL (1 - PCV) [facility] Start: 11-15-1981 Pneumococcal vaccination Pneum ococcal Vaccine (1 of 2 - PCV) [facility] Start: 05-15-1976 COVID-19 VACCINE (#1) COVID-19 VACCI NE (#1) [facility] Start: 1975 HEPATITIS B (1 of 3 - 3-dose series) HEPATITIS B (1 of 3 - 3-dose series) [facility] Clostridioides diffi cile DNA [Presence] in Unspecified specimen by TAYA with probe detection [facility] Elastase.pancreatic [Presence] in Stool [facility] Giardia lamblia anti gen assay [facility] Nucleic acid assay [facility] Ova OR parasites identification [facility] Patient referral [facility] Work Phone: Protein measurement [facility] Radionuclide gastric emptying study [facility] Immunizations Immunization Date Immunization Notes Care Provider Inés redd 11-04-2013 influenza, injectabl e, quadrivalent, preservative free Dr. Cecily Garnica DO Work Phone: [facility] 11-04-2013 influenza, seasonal, injectable Gabo Alvarado APRN.IQRA Work Phone: [facility] 11-04-2013 influenza virus vaccine, unspecified formulation Xr [place] Work Phone: [facility] Payers Date Payer Category Payer Unknown [id number] 2023 Self-pay 2023 Unknown [employer] X [id number] 2023-Present [phone] [address] [address] [place] [address] O [id number]. [id number] 2023 Unknown [id number] 2022 Private Health Insurance HUMANA [place]NA [place] [id number] 2022-Present [address] [address] [place] [address] Medicaid [id number] 2021 Medicaid [id number] 2016 [facility] [id number] 2013 Medicaid MEDICAID [facility] MEDICAID [id number] 2013-Present [phone] [address] [place] [address] Medicaid [id number] 1975 Unknown [id number] 2.16840.1.402594.3.579.2. 627 1975 Unknown [id number] 2.16840.1.351993.3.579.2. 627 1975 Unknown [id number] 2.16.840.1.811233.3.579.2. 627 Unknown [id number] 2.16840.1.033993.3.579.2. 462 Unknown [id number] 2.16840.1.274205.3.579.2. 462 Unknown [id number] 2.16840.1.287582.3.579.2. 462 Unknown [id number] 2.16.840.1.651223.3.579.2. 462 Unknown [id number] 2.16.840.1.749649.3.579.2. 462 Unknown [id number] 2.16.840.1.154291.3.579.2. 462 Unknown [id number] 2.16.840.1.583422.3.579.2. 462 Unknown [id number] 2.16840.1.691045.3.579.2. 462 Unknown [id number] 2.16.840.1.585531.3.579.2. 462 Unknown [id number] 2.16.840.1.807498.3.579.2. 462 Unknown [id number] 2.16.840.1.529607.3.579.2. 462 Unknown [id number] 2.16.840.1.948407.3.579.2. 462 Unknown [id number] 2.16.840.1.967588.3.579.2. 462 Unknown [id number] 2.16.840.1.954542.3.579.2. 462 Unknown [id number] 2.16.840.1.906543.3.579.2. 462 Unknown [id number] 2.16.840.1.610624.3.579.2. 462 Unknown [id number] 2.16.840.1.532241.3.579.2. 462 Unknown [id number] 2.16.840.1.414595.3.579.2. 462 Unknown [id number] 2.16.840.1.721232.3.579.2. 462 Unknown [id number] 2.16.840.1.217448.3.579.2. 462 Unknown [id number] 2.16.840.1.925357.3.579.2. 462 Unknown [id number] 2.16.840.1.887301.3.579.2. 462 Unknown [id number] 2.16.840.1.206500.3.579.2. 462 Unknown [id number] 2.16.840.1.066762.3.579.2. 462 Unknown [id number] 2.16.840.1.732764.3.579.2. 462 Unknown [id number] 2.16.840.1.778274.3.579.2. 462 Unknown [id number] 2.16.840.1.679116.3.579.2. 462 Unknown [id number] 2.16.840.1.176175.3.579.2. 462 Unknown [id number] 2.16.840.1.388659.3.579.2. 462 Unknown [id number] 2.16.840.1.343836.3.579.2. 462 Unknown [id number] 2.16.840.1.538038.3.579.2. 462 Unknown [id number] 2.16.840.1.166932.3.579.2. 462 Unknown [id number] 2.16.840.1.518974.3.579.2. 462 Unknown [id number] 2.16.840.1.259188.3.579.2. 462 Unknown [id number] 2.16.840.1.078828.3.579.2. 462 Unknown [id number] 2.16.840.1.460362.3.579.2. 462 Unknown [id number] 2.16.840.1.816634.3.579.2. 462 Unknown [id number] 2.16.840.1.370811.3.579.2. 462 Unknown [id number] 2.16.840.1.371593.3.579.2. 462 Unknown [id number] 2.16.840.1.168627.3.579.2. 462 Unknown [id number] 2.16.840.1.079715.3.579.2. 462 Social History Date Type Detail Facility Start: 11-02-2014 Tobacco smoking stat us DEIS Occasional tobacco smoker [facility] History of tobacco use Cigarette Smoker C [facility] Start: 11-02-2014 End: 12-16-2023 Tobacco use and exposure Smokeless tobacco non-user [facility] Start: 11-22-2021 Alcohol intake Current drinke r of alcohol (finding) [facility] Start: 02-11-2008 History SDOH Alcohol Comment On weekends [facility] Start: 10-14-2014 End: 12-16-2023 Tobacco Comment 1 pack every 2 weeks [facility] Start: 1975 Sex Assigned At Not on file C [facility] Start: 11-12-2021 End: 11-22-2021 Exposure to SARS-CoV-2 (event) Not sure [facility] Work Phone: Start: 11-22-2021 End: 12-16-2023 History of Social function [facility] Start: 11-22-2021 End: 12-16-2023 Tobacco use panel [facility] Start: 11-22-2021 Tobacco smoking status Light t obacco smoker (finding) [facility] Sex Assigned At Sex [facility] Start: 12-16-2023 End: 04-29-2024 Tobacco smoking status NHIS Ex-smoker [facility] History of tobacco use Current smoker [facility] Start: 12-16-2023 Alcoholic beverage intake Ex-drinker (finding) [facility] National Score (1-100), lower number is lower risk 67 [facility] Start: 05-10-2024 End: 06-01-2024 Sex Male (finding) [facility] Start: 1975 Sex Assigned At Male [facility] Goals Date Patient Goal Desired Activity /State Mental Status Date Assessment Result Facility 04-20-2024 Cognitive function Voice/Name;Touch/Shaki ng [facility] Work Phone: 01-27-2024 Cognitive function Voice/Name [facility] Work Phone: Clinical Notes 11-22-2021 to 07-14-2024 Note Date & Type Note Facility 07-14-2024 Radiology Diagnostic study note [facility] Imaging Services [address], [place] [address] Cerv Spine 2 or 3 Views MR#: [id number] Acct: [id number] Name: GEO GUERRERO Rep #: [id number] : 1975 M 48 From: Angel Botello MD PCP: GLORIA DONOVAN [employer]-C Status: REG C RYAN Study:Cerv Spine 2 or 3 Views Date of Exam: 07/13/24 Exam# [id number] Ordering Dr: GLORIA MOSCOSO PROCEDURE: CERV SPINE 2 OR 3 VIEWS 07/13/2024 REASON FOR EXAM: CHRONIC NECK PAIN TECHNIQUE: 3 views of the cervical spine. AP, lateral, open-mouth odontoid COMPARISON: None available FINDINGS: Cervical spine is visualized on the lateral from the skull base to the top of T1. No fracture or malalignment. No prevertebral soft tissue swelling. C6-7 severe disc space narrowing with degenerative endplate changes and uncovertebral hypertrophic change with mild posterior and anterior corner spurring. Visualized apices appear clear. RAD/Cerv Spine 2 or 3 Views IMPRESSION: C6-7 spondylosis/discogenic change as above. Reading Location: [id number] CC: GLORIA DONOVAN ~ Wide Load Escort: Signed [facility] 05-26-2024 Nuclear medicine Diagnostic study note [facility] Imaging Services [address] [place] [id number] Gastric Emptying Study MR#: [id number] Acct: [id number] Name: GEO GUERRERO Rep #: [id number] : 1975 M 48 From: Liyah Mercer MD PCP: Dr. Cecily Garnica, Status: RE G CLI Study:Gastric Emptying Study Date of Exam: 05/26/24 Exam# [id number] Ordering Dr: Neli Bazan PROCEDURE: GASTRIC EMPTYING STUDY 05/26/2024 REASON FOR EXAM: HEARTBURN COMPARISON: None. TECHNIQUE: The patient ingested a standard meal of the radiopharmaceutical in oatmeal.. Anterior and posterior planar images of the upper abdomen were obtained at 1 minute intervals for a total of 60 minutes. Regions of interest were drawn, and a geometric mean was used to calculate a [id number]. Medications taken in the past 24 hours that may affect gastric emptying: None RADIOPHARMACEUTICAL: 1.2 mCi of Technetium sulfur colloid. FINDINGS: Percent activity remaining in stomach: 1 hour 47 % (normal 37-90%) NM/Gastric Emptying Study IMPRESSION: Normal gastric emptying study with 47% of activity remaining in the stomach at 60 minutes. Reading Location: [facility] CC: Dr. Cecily Garnica DO; ANAY Phillips ~ Wide Load Escort: Signed [facility] 04-29-2024 Radiology Diagnostic study note [facility] Imaging Services [address] [place], [place] [address] Hand Min 3 Views MR#: [id number] Acct: [id number] Name: GEO GUERRERO Rep #: [id number] : 1975 M 48 From: Francis Watts MD PCP: Dr. Cecily Garnica DO Status: RE G CLI Study:Hand Min 3 Views Date of Exam: Exam# [id number] Ordering Dr: Nat Sanchez MD PROCEDURE: HAND MIN 3 VIEWS REASON FOR EXAM: PAIN TECHNIQUE: Three-view imaging of the right hand. COMPARISON: None FINDINGS: Degenerative changes detected at the carpus with bony osteophyte formation whichappears to account for palpable abnormality. This is most prominent base of the 4th metacarpal. No evidence of acute fracture. No bone destruction RAD/Hand Min 3 Views IMPRESSION: Bony osteophyte formation seen at the carpus accounting for patient's symptoms. No acute findings. This is probably due to sequela of old trauma Reading Location: [facility] CC: Dr. Cecily Garnica DO; Dr. Trinidad Sanchez MD ~ Wide Load Escort: Signed [facility] 04-20-2024 Evaluation note Diagnosis Onset Date Resolution Abdominal bloating acute April 20, 2024 6:17am Blood in the stool acute April 20, 2024 6:17am GERD (gastroesophageal reflux disease) acute April 20, 2024 6:17am Loose stools acute April 20, 6:17am Nausea & vomiting acute April 202024 6:17am Dupuytren contracture acute Apr 8:32am Abdominal bloating acute May 03, 2024 9:32am GERD (gastroesophageal reflux disease) acute May 03, 2024 9:32am Nausea & vomiting acute April 162024 9:32am Drug-induced hyperhidrosis acute May 18, 2024 10:26am GERD (gastroesophageal reflux disease) acute May 18, 2024 10:26am Schizophrenia in remission acute May 18, 2024 10:26am Dupuytren contracture acute May 8:33am Dupuytren contracture acute June 23, 2024 9:09am Abdominal bloating acute July 082024 8:44am GERD (gastroesophageal reflux disease) acute July 08, 2024 8:44am Nausea & vomiting acute June 8:44am [facility] Work Phone: 1(887) 862-286903-05-2025 Evaluation note* Diagnosis Onset Date Resolution Status Admit Date Abdominal bloating acute April 20, 2024 6:17am Blood in the stool acute April 20, 2024 6:17am GERD (gastroesophageal reflu x disease) acute April 20, 2024 6:17am Loose stools acute April 20, 6:17am Nausea & vomiting acute April 202024 6:17am Dupuytren contracture acute Apr 8:32am Abdominal bloating acute May 03, 2024 9:32am GERD (gastroesophageal reflu x disease) acute May 03, 2024 9:32am Nausea & vomiting acute April 162024 9:32am Drug-induced hyperhidrosis acute May 18, 2024 10:26am GERD (gastroesophageal reflu x disease) acute May 18, 2024 10:26am Schizophrenia in remission acute May 18, 2024 10:26am Dupuytren contracture acute May 8:33am Dupuytren contracture acute June 23, 2024 9:09am Abdominal bloating acute July 082024 8:44am GERD (gastroesophageal reflu x disease) acute July 08, 2024 8 :44am Nausea & vomiting acute June 8:44am Pain of hand noneactive August 17 3:25pm [facility] Work Phone: 1(694) 190-886403-05-2025 [facility] Medical Records Department [address] [place] [address] History Physical Exam 04/20/24 0734 MR#: [id number] Acct: [id number] Name: GEO GUERRERO Rep #: [id number] : 1975 48 From: Ian Sawant DO PCP: Dr. Cecily Garnica, DO Status:[facility] [place] [place] Location: [place] [address] HPI - General General Date of Admission: 04/20/24 Date of Service: 04/20/24 Chief Complaint: abdominal pain, bloating, change in bowel habits and LGIB HPI Narrative GEO GUERRERO, is a 48 M who presents for the evaluation of GERD, with abdominal disomfort and hemorroids. Pt has had progressively worsening heartburn over the past 8 years. He has been on Nexium 40 mg daily and it is no longer working. He has daily heartburn and nausea. He is vomiting up to three times per week. He gets full and bloated as soon as he starts eating. These symptoms have led to a 15 lbs weight loss over the past few months. He is also having constipation alternating with loose stools. He is having loose stools around 3x per week that are bright yellow and come with extreme urgency. Pt does still have his gallbladder. He has noticed that dairy can be a trigger but no other foods have been identified. He thinks he may have hemorrhoids as he feels something "pop out" when he has a bm. For about 40 minutes after a bm he will feel some pain and pressure near his anus until the hemorrhoid is reduced. He is having bright red blood when he wipes and feels this is related to the presumed hemorrhoid. [facility] Medical History Wears glasses Depression Anxiety Marijuana use Restless legs Migraine headache Seizures Gastric reflux Former smoker Physical exam, pre-employment History of tumor Arthritis Home Medications ???Medication ???Instructions ???Recorded ???Last Taken ???Type risperidone 1 mg tablet 1 mg PO BID 11/10/23 04/19/24 Hist ory buspirone 15 mg tablet 15 mg PO TID 01/06/24 04/19/24 His tory esomeprazole magnesium 40 mg 40 mg PO QDAY #30 caps 01/06/24 Rx capsule,delayed release Held on 04/20/24. Instructions: Order Changed Diltiazem 2% / Lidocaine 5% #1 ea 03/17/24 Unknown Rx ointment (compound) (Diltiazem 2%/Lidocaine 5% ointment (compound)) cholecalciferol (vitamin D3) 62.5 62.5 mcg PO DAILY 03/17/24 History mcg (2,500 unit) capsule olanzapine 2.5 mg tablet (Zyprexa) 2.5 mg PO QHS 03/17/24 04/19/24 History pantoprazole 40 mg tablet,delayed 40 mg PO QDAY #90 tabs 03/17/24 0 04/19/24 Rx release tramadol 50 mg tablet 50 mg PO BID PRN pain #30 tabs 06/10 Unknown Rx Allergy/AdvReac Type Severity Reaction Status Date / Time Penicillins Allergy Swelling Verified 04/18/24 13:44 Family History Father Anxiety Arthritis Hx of blood clots Cancer skin Depression Myocardial infarction Hypertension CVA (cerebral vascular accident) Mother Arthritis Cancer Fibromyalgia Surgical History H/O release of tendon History of removal of cyst Social History household members: family housing: house current occupational status: employed current occupation: [employer] Smoking Status: Former smoker how long ago did patient quit smoking: quit smoking 3yr ago alcohol intake: never substance use type: does not use what type of physical activity do you participate in: walking frequency: 3-4 times per week seatbelt use: always do you feel safe at home: Yes additional social history: no vaping, no substance, ibuprofen and mobic prn. no blood clotting dx history ROS Constitutional Constitutional: Denies fatigue, fever(s), poor appetite, weight gain or weight loss Gastrointestinal Gastrointestinal: Denies belching, bloating, change in bowel habits, change in stool character, chewing difficulty, coffee ground emesis, constipation, cramping, diarrhea, dyspepsia, dysphagia, early satiety, excessive flatus, fecal incontinence, heartburn, hematemesis, hematochezia, hemorrhoids, loose stools, melena, nausea, odynophagia, rectal bleeding, tenesmus, vomiting or weight changes Vital Signs Vital Signs Vital Signs: 04/20/24 06:51 Temperature 98.2 F Temperature Source Temporal Pulse Rate 70 Respiratory Rate 18 Blood Pressure 102/69 Blood Pressure Mean 80 Blood Pressure Source Monitor Blood Pressure Position Semi-Fowlers Blood Pressure Location Left Arm Pulse Ox 100 Oxygen Delivery Method Room Air Weight Weight: 165 lb 5.547 oz Body Mass Index (BMI) 24.4 Physical Exam Const alert, oriented x3, no apparent distress and healthy appe (more content not included)...[facility]01-30-2025 Evaluation note* Diagnosis Onset Date Resolution Status Admit Date Abdominal bloating acute 2024 3:17pm Blood in the stool acute 2024 3:17pm GERD (gastroesophageal reflu x disease) acute March 17 3:17pm Loose stools acute February 3:17pm Nausea & vomiting acute March 17, 2024 3:17pm Abdominal bloating acute April 20, 2024 6:17am Blood in the stool acute April 20, 2024 6:17am GERD (gastroesophageal reflu x disease) acute April 20, 2024 6:17am Loose stools acute April 20 6:17am Nausea & vomiting acute April 202024 6:17am Dupuytren contracture acute Apr 8:32am Abdominal bloating acute May 03, 2024 9:32am GERD (gastroesophageal reflu x disease) acute May 03, 2024 9:32am Nausea & vomiting acute April 162024 9:32am Drug-induced hyperhidrosis acute May 18, 2024 10:26am GERD (gastroesophageal reflu x disease) acute May 18, 2024 10:26am Schizophrenia in remission acute May 18, 2024 10:26am Dupuytren contracture acute May 8:33am Dupuytren contracture acute June 23, 2024 9:09am Abdominal bloating acute July 082024 8:44am GERD (gastroesophageal reflu x disease) acute July 08, 2024 8 :44am Nausea & vomiting acute June 8:44am [facility] Work Phone: 1(357) 860-398412-17-2024 Evaluation note* Diagnosis Onset Date Resolution Status Admit Date Dupuytren contracture acute Dec ember 2023 8:45am Lesion of skin of scalp acute D ec2023 8:52am Dupuytren contracture acute Dec ember 2023 9:26am Dupuytren contracture acute Feb 1:13pm Abdominal bloating acute 2024 3:17pm Blood in the stool acute 2024 3:17pm GERD (gastroesophageal reflu x disease) acute March 17 3:17pm Loose stools acute February 3:17pm Nausea & vomiting acute March 17, 2024 3:17pm Abdominal bloating acute April 20, 2024 6:17am Blood in the stool acute April 20, 2024 6:17am GERD (gastroesophageal reflu x disease) acute April 20, 2024 6:17am Loose stools acute April 20 6:17am Nausea & vomiting acute April 202024 6:17am Dupuytren contracture acute Apr 8:32am Abdominal bloating acute May 03, 2024 9:32am GERD (gastroesophageal reflu x disease) acute May 03, 2024 9:32am Nausea & vomiting acute April 162024 9:32am Drug-induced hyperhidrosis acute May 18, 2024 10:26am GERD (gastroesophageal reflu x disease) acute May 18, 2024 10:26am Schizophrenia in remission acute May 18, 2024 10:26am Dupuytren contracture acute May 8:33am [facility] Work Phone: 1(992) 667-367512-03-2024 Evaluation note* Diagnosis Onset Date Resolution Status Admit Date Dupuytren contracture acute Dec ember 2023 9:17am Dupuytren contracture acute Dec ember 2023 7:26am Dupuytren contracture acute Dec ember 2023 1:51pm Dupuytren contracture acute Dec ember 2023 8:45am Lesion of skin of scalp acute D ec2023 8:52am Dupuytren contracture acute Dec ember 2023 9:26am Dupuytren contracture acute Feb 1:13pm Abdominal bloating acute 2024 3:17pm Blood in the stool acute 2024 3:17pm GERD (gastroesophageal reflu x disease) acute March 17 3:17pm Loose stools acute February 3:17pm Nausea & vomiting acute March 17, 2024 3:17pm Abdominal bloating acute April 20, 2024 6:17am Blood in the stool acute April 20, 2024 6:17am GERD (gastroesophageal reflu x disease) acute April 20, 2024 6:17am Loose stools acute April 20 6:17am Nausea & vomiting acute April 202024 6:17am Dupuytren contracture acute Apr 8:32am Abdominal bloating acute May 03, 2024 9:32am GERD (gastroesophageal reflu x disease) acute May 03, 2024 9:32am Nausea & vomiting acute April 162024 9:32am [facility] Work Phone: 1(842) 711-278210-30-2024 NoteHNO ID: [id number] Author: GREGORY RIVERS MD Service: ? Author Type: Physician Type: Progress Notes Filed: 12/16/2023 09:30 Note Text: HISTORY OF PRESENT ILLNESS: Geo Guerrero is a 48 year old male referred for evaluation of family history of DVT in father. Concern is that patient will have general anaesthesia wondering if he needs post op anticoagulation. Father has history 2 clots per records, one was LE DVT, occurred after surgery of unknown type. Patient has had 3 prior surgeries with general anaesthesia never had a clot after surgery or otherwise. No other family history clots. CLINICAL IMPRESSION: Planned hand surgery Family history of DVT Given patient has had multiple surgeries in past without VTE complications, and this surgery is low risk, do not feel he needs post op anticoagulation. RECOMMENDATION/PLAN: 1. No indication for post op anticoagulation Written and verbal health teaching given to patient, patient verbalizes understanding and agrees with treatment plan. 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 PMH - PAST MEDICAL HISTORY OF Fracture nose x 2 Pneumothorax 2001 [place]? No surgery. No chest tube. PAST SURGICAL HISTORY Procedure Laterality Date EXCISION GANGLION CYST, FOOT PAST SURGICAL HISTORY OF Excision benign tumor right neck PAST SURGICAL HISTORY OF removal of bone spur right foot PAST SURGICAL HISTORY OF Extraction wisdom teeth x 4 FAMILY HISTORY Problem Relation Age of Onset Heart Mother Arthritis Mother SLE, Fibromyalgia Cancer Mother Coronary Artery Disease Father VA x 3, first VA age 46 Social History Tobacco Use Smoking status: Former Types: Cigarettes Smokeless tobacco: Never Tobacco comments: 1 pack every 2 weeks Vaping Use Vaping status: Never Used Substance Use Topics Alcohol use: Not Currently Comment: On weekends Drug use: Yes Comment: Marijuana in past, not currently ALLERGIES: ALLERGIES Allergen Reactions Penicillins Rash Vicodin [Hydrocodon* GI Upset CURRENT OUTPATIENT MEDICATIONS: risperiDONE (RISPERDAL) 1 mg tablet Take 1 tablet by mouth every 12 hours. busPIRone (BUSPAR) 15 mg tablet Take 15 mg by mouth three times a day. OLANZapine (ZYPREXA) 10 mg tablet Take 10 mg by mouth daily at bedtime. hydrOXYzine pamoate (VISTARIL) 50 mg capsule Take 50 mg by mouth four times a day as needed. traZODone (DESYREL) 50 mg tablet Take 50 mg by mouth daily at bedtime. esomeprazole (NEXIUM) 40 mg capsule Take 1 capsule by mouth daily before breakfast. 1/2 hr before meal. traMADol (ULTRAM) 50 mg tablet Take 1 tablet by mouth every 6 hours as needed for Pain. meloxicam (MOBIC) 15 mg tablet Take 1 tablet by mouth once daily. esomeprazole magnesium (NEXIUM 24HR) 22.3 mg cpDR Take 1 capsule by mouth once daily. (Patient not taking: Reported on 12/16/2023) sucralfate (CARAFATE) 1 gram tablet Take 1 tablet by mouth before meals and at bedtime. (Patient not taking: Reported on 11/22/2021) clindamycin (CLEOCIN) 300 mg capsule Take 1 capsule by mouth four times daily. (Patient not taking: Reported on 11/22/2021) Omeprazole-Sodium Bicarbonate 20-1.1 mg-gram cap Take 1 capsule by mouth twice daily. (Patient not taking: Reported on 12/16/2023) REVIEW OF SYSTEMS: GENERAL: No fever, night sweats, weight loss or malaise. All other reviewed and negative other than HPI. PHYSICAL EXAMINATION: VITAL SIGNS: There were no vitals taken for this visit. GENERAL APPEARANCE: Well appearing, in no acute distress, alert and oriented x3, well-hydrated, well nourished. I spent a total of 30 minutes on the date of the service which included preparing to see the patient, [id number] patient care, completing clinical documentation, obtaining and/or reviewing separately obtained history, counseling and educating the patient/family/caregiver, communicating with other HCPs (not separately reported), and communicating results to the patient/family/caregiver. Electronically Signed: Gregory Rivers MD December 16, 2023 9:12 [facility]10-30-2024 History of Present illness Narrative* Gregory Rivers MD - 12/16/2023 9:11 AM EDT HISTORY OF PRESENT ILLNESS: Geo Guerrero is a 48 year old male referred for evaluation of family history of DVT in father. Concern is that patient will have general anaesthesia wondering if he needs post op anticoagulation. Father has history 2 clots per records, one was LE DVT, occurred after surgery of unknown type. Patient has had 3 prior surgeries with general anaesthesia never had a clot after surgery or otherwise. No other family history clots. CLINICAL IMPRESSION: Planned hand surgery Family history of DVT Given patient has had multiple surgeries in past without VTE complications, and this surgery is lowrisk, do not feel he needs post op anticoagulation. RECOMMENDATION/PLAN: 1. No indication for post op anticoagulation Written and verbal health teaching given to patient, patient verbalizes understanding and agrees with treatment plan. 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 PMH - PAST MEDICAL HISTORY OF Fracture nose x 2 Pneumothorax 2001 [place]? No surgery. No chest tube. PAST SURGICAL HISTORY Procedure Laterality Date EXCISION GANGLION CYST, FOOT PAST SURGICAL HISTORY OF Excision benign tumor right neck PAST SURGICAL HISTORY OF removal of bone spur right foot PAST SURGICAL HISTORY OF Extraction wisdom teeth x 4 FAMILY HISTORY Problem Relation Age of Onset Heart Mother Arthritis Mother SLE, Fibromyalgia Cancer Mother Coronary Artery Disease Father [facility], first [facility] age 46 Social History Tobacco Use Smoking status: Former Types: Cigarettes Smokeless tobacco: Never Tobacco comments: 1 pack every 2 weeks Vaping Use Vaping status: Never Used Substance Use Topics Alcohol use: Not Currently Comment: On weekends Drug use: Yes Comment: Marijuana in past, not currently ALLERGIES: ALLERGIES Allergen Reactions Penicillins Rash Vicodin [Hydrocodon* GI Upset CURRENT OUTPATIENT MEDICATIONS: risperiDONE (RISPERDAL) 1 mg tablet Take 1 tablet by mouth every 12 hours. busPIRone (BUSPAR) 15 mg tablet Take 15 mg by mouth three times a day. OLANZapine (ZYPREXA) 10 mg tablet Take 10 mg by mouth daily at bedtime. hydrOXYzine pamoate (VISTARIL) 50 mg capsule Take 50 mg by mouth four times a day as needed. traZODone (DESYREL) 50 mg tablet Take 50 mg by mouth daily at bedtime. esomeprazole (NEXIUM) 40 mg capsule Take 1 capsule by mouth daily before breakfast. 1/2 hr before meal. traMADol (ULTRAM) 50 mg tablet Take 1 tablet by mouth every 6 hours as needed for Pain. meloxicam (MOBIC) 15 mg tablet Take 1 tablet by mouth once daily. esomeprazole magnesium (NEXIUM 24HR) 22.3 mg cpDR Take 1 capsule by mouth once daily. (Patient not taking: Reported on 12/16/2023) sucralfate (CARAFATE) 1 gram tablet Take 1 tablet by mouth before meals and at bedtime. (Patient not taking: Reported on 11/22/2021) clindamycin (CLEOCIN) 300 mg capsule Take 1 capsule by mouth four times daily. (Patient not taking:Reported on 11/22/2021) Omeprazole-Sodium Bicarbonate 20-1.1 mg-gram cap Take 1 capsule by mouth twice daily. (Patient not taking: Reported on 12/16/2023) REVIEW OF SYSTEMS: GENERAL: No fever, night sweats, weight loss or malaise. All other reviewed and negative other than HPI. PHYSICAL EXAMINATION: VITAL SIGNS: There were no vitals taken for this visit. GENERAL APPEARANCE: Well appearing, in no acute distress, alert and oriented x3, well-hydrated, well nourished. I spent a total of 30 minutes on the date of the service which included preparing to see the patient, [id number] patient care, completing clinical documentation, obtaining and/or reviewing separately obtained history, counseling and educating the patient/family/caregiver, communicating with other HCPs (not separately reported), and communicating results to the patient/family/caregiver. Electronically Signed: Gregory Rivers MD December 16, 2023 9:12 AM [facility] Telephone encounter Note * Telephone Encounter - Larry Churchill - 11/30/2023 2:22 PM EDT Patient called back and has been scheduled with for 12/16/23, he confirmed this date,time and location Larry Burt Pss [facility]10-14-2024 Miscellaneous Notes* Telephone Encounter - Larry Churchill - 11/30/2023 2:22 PM EDT Patient called back and has been scheduled with for 12/16/23, he confirmed this date,time and location Larry Burt Pss * Telephone Encounter - Arelis Yancey - 11/30/2023 12:48 PM EDT Lvm for patient to return the call. Please schedule with Dr. 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 TRINIDAD SANCHEZ* Arelis Yancey documented in this encounterC[facility]10-14-[facility]24 Telephone encounter Note * Telephone Encounter - Arelis Yancey - 11/30/2023 12:48 PM EDT Lvm for patient to return the call. Please schedule with Dr. 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 TRINIDAD SANCHEZ* Arelis Yancey [facility]09-20-2024 Note ORIGINAL EXAMINATION: TWO XRAY VIEWS OF THE LEFT FOOT 11/06/2023 2:29 pm COMPARISON: None. HISTORY: ORDERING SYSTEM PROVIDED HISTORY: Reason for Exam: foot pain FINDINGS: No acute fracture or dislocation. There are bony erosions to the inferior surface of the 1st interphalangeal joint and 2nd 3rd and 4th interphalangeal joints which are well corticated and do not appear acute.. The joints of the midfoot appear well maintained. IMPRESSION: No acute process. Bony erosions to the interphalangeal joints which appear remote, possibly related to remote inflammatory arthropathy. I have personally reviewed the images of this examination and agree with the resident's findings and interpretation. Interpreted by: Ok Perkins MD Preliminary Report By: Wayne West MD Electronically signed By Ok Perkins MD Dictated Date: 11/06/2023 3:32:21 PM Prelim Date: 11/06/2023 4:26:27 PM Sign Date: 11/06/2023 4:26:27 PM Ordering Provider: [facility]09-20-2024 Note ORIGINAL EXAMINATION: TWO XRAY VIEWS OF THE LEFT HAND11/06/2023 9:56 am COMPARISON: None HISTORY: ORDERING SYSTEM PROVIDED HISTORY: Reason for Exam: HAND PAIN FINDINGS: Exam limited by patient mobility. No acute fracture or dislocation is identified. The profiled joint spaces are maintained. No aggressive osseous lesions. Contracture of the hand noted. IMPRESSION: Limited by the patient's contractures. No visualized fracture I have personally reviewed the images of this examination and agree with the resident's findings and interpretation. Interpreted by: German Flores MD Preliminary Report By: Wayne West MD Electronically signed By German Flores MD Dictated Date: 11/06/2023 10:07:25 AM Prelim Date: 11/06/2023 11:36:10 AM Sign Date: 11/06/2023 11:36:10 AM Ordering Provider: [facility]08-23-2024 History of Present illness Narrative* Sandy Wright RT(R) - 10/09/2023 2:00 PM EDT Radiology Service Progress Note PATIENT NAME: Geo Guerrero DATE OF SERVICE: October 09, 2023 TIME: 2:15 PM PATIENT IDENTITY VERIFICATION COMPLETED USING TWO (2) IDENTIFIERS: Name and Date of confirmedby patient verbally. FALL SCREENING: Has the patient had 2 falls in the last year or 1 fall with injury or currently using an Ambulatory Assistive Device (Walker, Cane, Wheelchair, Crutches, etc.)? No PATIENT GENDER DATA: Male PATIENT RELEVANT IMPLANT DATA REVIEWED: Not Applicable PATIENT PRESENTS WITH AN IMPLANTABLE OR ATTACHED SMASH PIECER: No RADIOLOGY DEPARTMENT: General X-ray: Exam(s) Completed: Upper Extremity X- Ray(s): Hand, bilateral PERIPHERAL IV DATA: Not applicable SIGNED BY: RT Jean Carlos(uY) October 09, 2023 2:15 PM documented in this encounterC[facility]08-23-2024 NoteHNO ID: [id number] Author: SANDY WRIGHT RT(R) Service: Radiology Author Type: Technologist Type: Progress Notes Filed: 10/09/2023 14:21 Note Text: Radiology Service Progress Note PATIENT NAME: Geo Guerrero DATE OF SERVICE: October 09, 2023 TIME: 2:15 PM PATIENT IDENTITY VERIFICATION COMPLETED USING TWO (2) IDENTIFIERS: Name and Date of confirmed by patient verbally. FALL SCREENING: Has the patient had 2 falls in the last year or 1 fall with injury or currently using an Ambulatory Assistive Device (Walker, Cane, Wheelchair, Crutches, etc.)? No PATIENT GENDER DATA: Male PATIENT RELEVANT IMPLANT DATA REVIEWED: Not Applicable PATIENT PRESENTS WITH AN IMPLANTABLE OR ATTACHED SMASH PIECER: No RADIOLOGY DEPARTMENT: General X-ray: Exam(s) Completed: Upper Extremity X-Ray(s): Hand, bilateral PERIPHERAL IV DATA: Not applicable SIGNED BY: RT Jean Carlos(Yu) October 09, 2023 2:15 [facility]10-07-2022 History of Present illness Narrative* Gabo Alvarado APRN.HOSPITALITY JOB TITLES - 11/22/2021 6:10 PM EDT Subjective HPI Nontoxic male presents urgent care chief plaint abdominal pain. Duration of symptoms 5 days. Associated symptoms nausea vomiting constipation intermittent back pain and abdominal pain. States abdominal pain has been getting worse over the last few days. Rates pain 7-8 out of 10. States abdominal region feels distended. States vomited well over 10 times today. No blood in vomit. States he has not had a bowel movement in over 7 days. Denies any GI history in the past. Denies any fever body aches chills cough chest pain shortness of breath. Past medical history prescription medication use allergies reviewed. .Patient presents with: Nausea & Vomiting: Constiaption, intermittent abd pain rated 7, x5 days. 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 PMH - PAST MEDICAL HISTORY OF Fracture nose x 2 Pneumothorax 2001 [place]? No surgery. No chest tube. PAST SURGICAL HISTORY Procedure Laterality Date EXCISION GANGLION CYST, FOOT PAST SURGICAL HISTORY OF Excision benign tumor right neck PAST SURGICAL HISTORY OF removal of bone spur right foot PAST SURGICAL HISTORY OF Extraction wisdom teeth x 4 ALLERGIES Penicillins and Vicodin [Hydrocodone-Acetaminophen] MEDICATIONS esomeprazole (NEXIUM) 40 mg capsule Take 1 capsule by mouth daily before breakfast. 1/2 hr before meal. esomeprazole magnesium (NEXIUM 24HR) 22.3 mg cpDR Take 1 capsule by mouth once daily. traMADol (ULTRAM) 50 mg tablet Take 1 tablet by mouth every 6 hours as needed for Pain. sucralfate (CARAFATE) 1 gram tablet Take 1 tablet by mouth before meals and at bedtime. (Patient not taking: Reported on 11/22/2021) clindamycin (CLEOCIN) 300 mg capsule Take 1 capsule by mouth four times daily. (Patient not taking:Reported on 11/22/2021) Omeprazole-Sodium Bicarbonate 20-1.1 mg-gram cap Take 1 capsule by mouth twice daily. meloxicam (MOBIC) 15 mg tablet Take 1 tablet by mouth once daily. (Patient not taking: Reported on 11/22/2021) FAMILY HISTORY Problem Relation Age of Onset Heart Mother Arthritis Mother SLE, Fibromyalgia Coronary Artery Disease Father [facility], [facility] age 46 Social History Tobacco Use Smoking status: Some Days Years: 10.00 Types: Cigarettes Smokeless tobacco: Never Tobacco comments: 1 pack every 2 weeks Substance Use Topics Alcohol use: Yes Comment: On weekends Drug use: Yes Comment: Marijuana in past, not currently BP 116/70 Pulse 67 Temp 36.8 C (98.3 F) Resp 18 Wt 60.9 kg (134 lb 3.2 oz) SpO2 98% BMI19.26 kg/m Review of Systems Constitutional: Negative for chills, fever and malaise/fatigue. HENT: Negative for congestion, ear discharge, ear pain, sinus pain and sore throat. Eyes: Negative for blurred vision, pain, discharge and redness. Respiratory: Negative for cough, hemoptysis, sputum production, shortness of breath, wheezing and stridor. Cardiovascular: Negative for chest pain. Gastrointestinal: Positive for abdominal pain, constipation and vomiting. Negative for diarrhea andnausea. Musculoskeletal: Positive for back pain. Negative for myalgias. Skin: Negative for itching and rash. Neurological: Negative for dizziness and headaches. Objective Physical Exam Constitutional: General: He is not in acute distress. Appearance: He is not diaphoretic. HENT: Head: Normocephalic. Eyes: Conjunctiva/sclera: Conjunctivae normal. Pupils: Pupils are equal, round, and reactive to light. Cardiovascular: Rate and Rhythm: Normal rate and regular rhythm. Heart sounds: Normal heart sounds. Pulmonary: Effort: Pulmonary effort is normal. No tachypnea, accessory muscle usage or respiratory distress. Breath sounds: Normal breath sounds. No stridor. Abdominal: General: There is distension. Palpations: Abdomen is soft. Tenderness: There is abdominal tenderness. There is guarding. Musculoskeletal: Cervical back: Normal range of motion and neck supple. No rigidity or tenderness. Lymphadenopathy: Cervical: No cervical adenopathy. Skin: General: Skin is warm and dry. Neurological: Mental Status: He is alert and oriented to person, place, and time. ASSESSMENT/PLAN: 1. Abdominal pain, generalized - ICD9: 789.07, ICD10: R10.84 Patient diagnosed with generalized abdominal pain. Unable to rule out acute abdominal process. Spacious for possible bowel obstruction. With severity of abdominal pain I recommended patient be seen at [facility]. Patient will be transported to ER by POV. Will be accompanied by family member. Patient verbalized understand agrees with plan of care Gabo Alvarado APRN.HOSPITALITY JOB TITLES documented in this encounterBluffton Hospitalaluation + Plan note No data available for this section [facility] Evaluation note* Diagnosis Abdominal pain, generalized- Primary documented in this encounter [facility]* Diagnosis Family history of DVT- Primary Family history of other cardiovascular diseases [facility] No data available for this section [facility] Progress note No data available for this section [facility] Reason for visit Narrative* Diagnostic Procedure Only (Routine) - Closed Specialty Diagnoses / Procedures Referred By Contac t Referred To Contact Radiology / [facility] Diagnoses Pain involving joints of fingers of both hands XR HAND LEFT 3V LATERAL XR HAND RIGHT 3V pain in joints of right hand & pain in joints of left hand*bringing order Agnes Jones np Procedures RADEX HAND MINIMUM 3 VIEWS XR GENERAL 7 Agnes Jones NP [address] [place] [address] [facility] [address] [place] [address] Referral ID Status Reason Start Date Expiration Date Visits Re quested Visits Authorized [id number] Closed 10/09/2023 02/16/2024 1 1 [facility] Summary Purpose Family History No Family History Records Found Relationship Condition Age at Onset Recorded Date/T mode father Anxiety Unknown Arthritis Unknown History of blood clots Unknown Malignant neoplasm Unknown Depression Unknown Myocardial infarction Unknown Hypertension Unknown Cerebrovascular accident (CVA) Unknown mother Arthritis Unknown Fibromyalgia Unknown Advance Directives No Advanced Directives Records Found Advance Directive Response Recorded Date/ Time Living Will No January 05 9:25am Do you have a Healthcare Power of Career Services Director? No January 06, 2024 9:25am Living Will No April 18, 2024 2:46pm Do you have a Healthcare Power of Career Services Director? No April 18, 2024 2:46pm Advance Directive Response Recorded Date/ Time Living Will No April 18, 2024 2:46pm Do you have a Healthcare Power of Career Services Director? No March 3rd, 2025 2:46pm Chief Complaint and Reason for Visit Chief Complaint Admit Date PREOP January 19, 2024 9 :17am Palmar fasciectomy for dupuytrens left a nd ring fi January 27, 2024 7:26am Palmar fasciectomy for dupuytrens left a nd ring fi January 27, 2024 9:07am POST OP WOUND CHECK January 28, 2024 1:51pm post op appt February 02, 2024 8:45am POSSIBLE RING WORM February 05, 2024 8:52am Wound Check February 12, 2024 9:26am 1 M F/U March 10, 2024 1 :13pm RECTAL PROLAPSE March 17, 2024 3 :17pm FOLLOW UP April 29, 2024 8:3 2am RIGHT HAND PAIN April 29, 2024 9:3 7am Follow Up May 03, 2024 9:3 2am DUPUYTREN'S CONTRACTURE/FASCIOTOMY. DR Renita Herrera FAX May 10, 2024 9:00am Reason for Visit Admit Date Dupuytren contracture January 19, 2024 9:17am Dupuytren contracture January 26 7:26am Dupuytren contracture January 27 1:51pm Dupuytren contracture February 01 8:45am Lesion of skin of scalp February 04 024 8:52am Dupuytren contracture February 11 9:26am Dupuytren contracture March 10, 2024 1:13pm Abdominal bloating March 17, 2024 3 :17pm Blood in the stool March 17, 2024 3 :17pm GERD (gastroesophageal reflux disease) J anuary 2024 3:17pm Loose stools March 17, 2024 3 :17pm Nausea & vomiting March 17, 2024 3 :17pm Abdominal bloating April 20, 2024 6:17 am Blood in the stool April 20, 2024 6:17 am GERD (gastroesophageal reflux disease) [facility] 2024 6:17am Loose stools April 20, 2024 6:17 am Nausea & vomiting April 20, 2024 6:17 am Dupuytren contracture April 29, 2024 8 :32am Abdominal bloating May 03, 2024 9:3 2am GERD (gastroesophageal reflux disease) [facility] 2024 9:32am Nausea & vomiting May 03, 2024 9:3 2am Chief Complaint Admit Date post op appt February 02, 2024 8:45am POSSIBLE RING WORM February 05, 2024 8:52am Wound Check February 12, 2024 9:26am 1 M F/U March 10, 2024 1 :13pm RECTAL PROLAPSE March 17, 2024 3 :17pm FOLLOW UP April 29, 2024 8:3 2am RIGHT HAND PAIN April 29, 2024 9:3 7am Follow Up May 03, 2024 9:3 2am NECK PAIN, EXCESSIVE SWEATING IN HANDS A pril 2024 10:26am HEARTBURN, ABD BLOATING, N/V May 26, 2024 10:08am 1 M FU May 27, 2024 8:3 3am DUPUYTREN'S CONTRACTURE/FASCIOTOMY. DR Renita Herrera FAKailee May 31, 2024 9:30am Reason for Visit Admit Date Dupuytren contracture February 01 8:45am Lesion of skin of scalp February 04 024 8:52am Dupuytren contracture February 11 9:26am Dupuytren contracture March 10, 2024 1:13pm Abdominal bloating March 17, 2024 3 :17pm Blood in the stool March 17, 2024 3 :17pm GERD (gastroesophageal reflux disease) J anuary 2024 3:17pm Loose stools March 17, 2024 3 :17pm Nausea & vomiting March 17, 2024 3 :17pm Abdominal bloating April 20, 2024 6:17 am Blood in the stool April 20, 2024 6:17 am GERD (gastroesophageal reflux disease) [facility] 2024 6:17am Loose stools April 20, 2024 6:17 am Nausea & vomiting April 20, 2024 6:17 am Dupuytren contracture April 29, 2024 8 :32am Abdominal bloating May 03, 2024 9:3 2am GERD (gastroesophageal reflux disease) [facility] 2024 9:32am Nausea & vomiting May 03, 2024 9:3 2am Drug-induced hyperhidrosis May 18 10:26am GERD (gastroesophageal reflux disease) A pril 2024 10:26am Schizophrenia in remission May 18 10:26am Dupuytren contracture May 27, 2024 8 :33am Chief Complaint Admit Date RECTAL PROLAPSE March 17, 2024 3 :17pm FOLLOW UP April 29, 2024 8:3 2am RIGHT HAND PAIN April 29, 2024 9:3 7am Follow Up May 03, 2024 9:3 2am NECK PAIN, EXCESSIVE SWEATING IN HANDS A pril 2024 10:26am HEARTBURN, ABD BLOATING, N/V May 26, 2024 10:08am 1 M FU May 27, 2024 8:3 3am DUPUYTREN'S CONTRACTURE/FASCIOTOMY. DR Renita LOVELACE May 31, 2024 9:30am FOLLOW UP June 23, 2024 9:09am 2 M FU July 08, 2024 8:44a m E ORDERS July 08, 2024 8:58a m NO ORDER- PT CALLING July 13, 2024 4:25 pm Reason for Visit Admit Date Abdominal bloating March 17, 2024 3 :17pm Blood in the stool March 17, 2024 3 :17pm GERD (gastroesophageal reflux disease) J anuary 2024 3:17pm Loose stools March 17, 2024 3 :17pm Nausea & vomiting March 17, 2024 3 :17pm Abdominal bloating April 20, 2024 6:17 am Blood in the stool April 20, 2024 6:17 am GERD (gastroesophageal reflux disease) M arch 2024 6:17am Loose stools April 20, 2024 6:17 am Nausea & vomiting April 20, 2024 6:17 am Dupuytren contracture April 29, 2024 8 :32am Abdominal bloating May 03, 2024 9:3 2am GERD (gastroesophageal reflux disease) M arch 2024 9:32am Nausea & vomiting May 03, 2024 9:3 2am Drug-induced hyperhidrosis May 18 10:26am GERD (gastroesophageal reflux disease) A pril 2024 10:26am Schizophrenia in remission May 18 10:26am Dupuytren contracture May 27, 2024 8 :33am Dupuytren contracture June 23, 2024 9:09 am Abdominal bloating July 08, 2024 8:44a m GERD (gastroesophageal reflux disease) M ay 2024 8:44am Nausea & vomiting July 08, 2024 8:44a m Chief Complaint Admit Date FOLLOW UP April 29, 2024 8:3 2am RIGHT HAND PAIN April 29, 2024 9:3 7am Follow Up May 03, 2024 9:3 2am NECK PAIN, EXCESSIVE SWEATING IN HANDS A pril 2024 10:26am HEARTBURN, ABD BLOATING, N/V May 26, 2024 10:08am 1 M FU May 27, 2024 8:3 3am DUPUYTREN'S CONTRACTURE/FASCIOTOMY. DR Renita LOVELACE May 31, 2024 9:30am FOLLOW UP June 23, 2024 9:09am 2 M FU July 08, 2024 8:44a m E ORDERS July 08, 2024 8:58a m NO ORDER- PT CALLING July 13, 2024 4:25 pm Reason for Visit Admit Date Abdominal bloating April 20, 2024 6:17 am Blood in the stool April 20, 2024 6:17 am GERD (gastroesophageal reflux disease) arch 2024 6:17am Loose stools April 20, 2024 6:17 am Nausea & vomiting April 20, 2024 6:17 am Dupuytren contracture April 29, 2024 8 :32am Abdominal bloating May 03, 2024 9:3 2am GERD (gastroesophageal reflux disease) arch 2024 9:32am Nausea & vomiting May 03, 2024 9:3 2am Drug-induced hyperhidrosis May 18 10:26am GERD (gastroesophageal reflux disease) A pril 2024 10:26am Schizophrenia in remission May 18 10:26am Dupuytren contracture May 27, 2024 8 :33am Dupuytren contracture June 23, 2024 9:09 am Abdominal bloating July 08, 2024 8:44a m GERD (gastroesophageal reflux disease) M 2024 8:44am Nausea & vomiting July 08, 2024 8:44a m Chief Complaint Admit Date FOLLOW UP March 14th, 2025 8:3 2am RIGHT HAND PAIN April 29, 2024 9:3 7am Follow Up May 03, 2024 9:3 2am NECK PAIN, EXCESSIVE SWEATING IN HANDS A pril 2024 10:26am HEARTBURN, ABD BLOATING, N/V May 26, 2024 10:08am 1 M FU May 27, 2024 8:3 3am DUPUYTREN'S CONTRACTURE/FASCIOTOMY. DR Renita LOVELACE May 31, 2024 9:30am FOLLOW UP June 23, 2024 9:09am 2 M FU July 08, 2024 8:44a m E ORDERS July 08, 2024 8:58a m NO ORDER- PT CALLING July 13, 2024 4:25 pm Hand pain August 17, 2024 3:25p m Reason for Visit Admit Date Abdominal bloating April 20, 2024 6:17 am Blood in the stool April 20, 2024 6:17 am GERD (gastroesophageal reflux disease) M arch 2024 6:17am Loose stools April 20, 2024 6:17 am Nausea & vomiting April 20, 2024 6:17 am Dupuytren contracture April 29, 2024 8 :32am Abdominal bloating May 03, 2024 9:3 2am GERD (gastroesophageal reflux disease) M arch 2024 9:32am Nausea & vomiting May 03, 2024 9:3 2am Drug-induced hyperhidrosis May 18 10:26am GERD (gastroesophageal reflux disease) A pril 2024 10:26am Schizophrenia in remission May 18 10:26am Dupuytren contracture May 27, 2024 8 :33am Dupuytren contracture June 23, 2024 9:09 am Abdominal bloating July 08, 2024 8:44a m GERD (gastroesophageal reflux disease) M 2024 8:44am Nausea & vomiting July 08, 2024 8:44a m Pain of hand August 17, 2024 3:25p m Additional Source Comments Source Comments (unrecognize d section and content) In the event this informatio n is protected by the Federal Confidentiality of Alcohol and Drug Abuse Patient Records regulations: The Federal rules restrict any use of the information to criminally investigate or prosecute any alcohol or drug abuse patient.[facility] Hospital[facility] the event this information is protected by the Federal Confidentiality of Alcohol and Drug Abuse Patient Records regulations: The Federal rules restrict any use of the information to criminally investigate or prosecute any alcohol or drug abuse patient.[facility] HospitalIn the event this information is protected by the Federal Confidentiality of Alcohol and Drug Abuse Patient Records regulations: The Federal rules restrict any use of the information to criminally investigate or prosecute any alcohol or drug abuse patient.[facility] Hospital[facility] the event this information is protected by the Federal Confidentiality of Alcohol and Drug Abuse Patient Records regulations: The Federal rules restrict any use of the information to criminally investigate or prosecute any alcohol or drug abuse patient.[facility] Reason for Visit (unrecogniz ed section and content) Reason Comments Nausea & Vomiting Constiaption, interm ittent abd pain rated 7, x5 days. Reason Comments Appointment Reason Comments New Patient (unrecognized sect ion and content) No Status Records FoundNo Status Records FoundNo Status Records FoundNo Status Records FoundNo Status Records Found INFORMATION SOURCE (unrecogn ized section and content) DATE CREATED AUTHOR 12/07/2021 [facility] ([place] DATE CREATED AUTHOR AUTHOR'S ORGANIZ ATION 11/12/2023 [facility] DATE CREATED AUTHOR AUTHOR'S ORGANIZ ATION 12/17/2023 [facility] DATE CREATED AUTHOR AUTHOR'S ORGANIZ ATION 03/06/2024 [facility] DATE CREATED AUTHOR AUTHOR'S ORGANIZ ATION 09/04/2024 [facility] Care Teams (unrecognized sec tion and content) Dry Room Attendant Relationship Specialty Start Date End Date Agnes Jones NP [address] [place] [id number] Referring Family Medicine 08/24/23 Dry Room Attendant Relationship Specialty Start Date End Date Cecily Garnica DO [address] [place], [place] [id number] PCP - General Family Medicine 11/30/23 Agnes Jones NP [facility] [place] [phone] Referring Family Medicine 08/24/23 Dry Room Attendant Relationship Specialty Start Date End Date Cecily Garnica DO [address] [place], [place] [id number] PCP - General Family Medicine 11/30/23 Agnes Jones NP [facility] [place] [id number] Referring Family Medicine 08/24/23 Trinidad Sanchez MD [address] [place], [place] [id number] Plastic Surgery 12/16/23 Team Status: Active Member Role Status Dates Dr. Cecily Garnica DO Primary Care Provider Active Team Status: Inactive Member Role Status Dates Dr. Cecily Garnica DO Primary Care Provider Active Start: January 19, 2024 End: January 19, 2024 Dr. Cecily Garnica DO Referring Provider Active Start: January 19, 2024 End: January 19, 2024 Dr. Trinidad Sanchez MD Attending Provider Active Start: January 19, 2024 End: January 19, 2024 Team Status: Inactive Member Role Status Dates Dr. Cecily Garnica DO Primary Care Provider Active Start: January 27, 2024 End: January 27, 2024 Dr. Trinidad Sanchez MD Attending Provider Active Start: January 27, 2024 End: January 27, 2024 Dr. Trinidad Sanchez MD Referring Provider Active Start: January 27, 2024 End: January 27, 2024 Team Status: Active Member Role Status Dates Dr. Cecily Garnica DO Primary Care Provider Active Start: January 27, 2024 Dr. Trinidad Sanchez MD Attending Provider Active Start: January 27, 2024 Dr. Trinidad Sanchez MD Referring Provider Active Start: January 27, 2024 Dr. Trinidad Sanchez MD Other Provider Active Star t: January 27, 2024 Team Status: Inactive Member Role Status Dates Dr. Cecily Garnica DO Primary Care Provider Active Start: January 28, 2024 End: January 28, 2024 Dr. Cecily Garnica DO Referring Provider Active Start: January 28, 2024 End: January 28, 2024 Dr. Trinidad Sanchez MD Attending Provider Active Start: January 28, 2024 End: January 28, 2024 Team Status: Inactive Member Role Status Dates Dr. Cecily Garnica DO Primary Care Provider Active Start: February 02, 2024 End: February 02, 2024 Dr. Cecily Garnica DO Referring Provider Active Start: February 02, 2024 End: February 02, 2024 Dr. Trinidad Sanchez MD Attending Provider Active Start: February 02, 2024 End: February 02, 2024 Team Status: Inactive Member Role Status Dates Dr. Cecily Garnica DO Primary Care Provider Active Start: February 05, 2024 End: February 05, 2024 Dr. Cecily Garnica DO Referring Provider Active Start: February 05, 2024 End: February 05, 2024 ANAY Licona Attending Provider Active St art: February 05, 2024 End: February 05, 2024 Team Status: Inactive Member Role Status Dates Dr. Cecily Garnica DO Primary Care Provider Active Start: February 12, 2024 End: February 12, 2024 Dr. Cecily Garnica DO Referring Provider Active Start: February 12, 2024 End: February 12, 2024 Dr. Trinidad Sanchez MD Attending Provider Active Start: February 12, 2024 End: February 12, 2024 Team Status: Inactive Member Role Status Dates Dr. Cecily Garnica DO Primary Care Provider Active Start: March 10, 2024 End: March 10, 2024 Dr. Cecily Garnica DO Referring Provider Active Start: March 10, 2024 End: March 10, 2024 Dr. Trinidad Sanchez MD Attending Provider Active Start: March 10, 2024 End: March 10, 2024 Team Status: Inactive Member Role Status Dates Dr. Cecily Garnica DO Primary Care Provider Active Start: March 17, 2024 End: March 17, 2024 Dr. Cecily Garnica DO Referring Provider Active Start: March 17, 2024 End: March 17, 2024 ANAY Phillips Attending Provider Active Start: March 17, 2024 End: March 17, 2024 Team Status: Inactive Member Role Status Dates Dr. Cecily Garnica DO Primary Care Provider Active Start: April 20, 2024 End: April 20, 2024 Dr. Cecily Garnica DO Referring Provider Active Start: April 20, 2024 End: April 20, 2024 Dr. Ian Sawant DO Attending Provider Active Start: April 20, 2024 End: April 20, 2024 Team Status: Active Member Role Status Dates Dr. Cecily Garnica DO Primary Care Provider Active Start: April 20, 2024 Dr. Cecily Garnica DO Referring Provider Active Start: April 20, 2024 Dr. Ian Sawant DO Attending Provider Active Start: April 20, 2024 Dr. Ian Sawant DO Other Provider Active St art: April 20, 2024 Team Status: Inactive Member Role Status Dates Dr. Cecily Garnica DO Primary Care Provider Active Start: April 29, 2024 End: April 29, 2024 Dr. Cecily Garnica DO Referring Provider Active Start: April 29, 2024 End: April 29, 2024 Dr. Trinidad Sanchez MD Attending Provider Active Start: April 29, 2024 End: April 29, 2024 Team Status: Inactive Member Role Status Dates Dr. Cecily Garnica DO Primary Care Provider Active Start: April 29, 2024 End: April 29, 2024 Dr. Trinidad Sanchez MD Attending Provider Active Start: April 29, 2024 End: April 29, 2024 Dr. Trinidad Sanchez MD Referring Provider Active Start: April 29, 2024 End: April 29, 2024 Team Status: Inactive Member Role Status Dates Dr. Cecily Garnica DO Primary Care Provider Active Start: May 03, 2024 End: May 03, 2024 Dr. Cecily Garnica DO Referring Provider Active Start: May 03, 2024 End: May 03, 2024 ANAY Phillips Attending Provider Active Start: May 03, 2024 End: May 03, 2024 Team Status: Active Member Role Status Dates Dr. Cecily Garnica DO Primary Care Provider Active Start: May 10, 2024 Dr. Trinidad Sanchez MD Attending Provider Active Start: May 10, 2024 Dr. Trinidad Sanchez MD Referring Provider Active Start: May 10, 2024 Team Status: Inactive Member Role Status Dates Dr. Cecily Garnica DO Primary Care Provider Active Start: May 18, 2024 End: May 18, 2024 Dr. Cecily Garnica DO Attending Provider Active Start: May 18, 2024 End: May 18, 2024 Dr. Cecily Garnica DO Referring Provider Active Start: May 18, 2024 End: May 18, 2024 Team Status: Inactive Member Role Status Dates Dr. Cecily Garnica DO Primary Care Provider Active Start: May 26, 2024 End: May 26, 2024 ANAY Phillips Attending Provider Active Start: May 26, 2024 End: May 26, 2024 ANAY Phillips Referring Provider Active Start: May 26, 2024 End: May 26, 2024 Team Status: Inactive Member Role Status Dates Dr. Cecily Garnica DO Referring Provider Active Start: May 27, 2024 End: May 27, 2024 Dr. Trinidad Sanchez MD Attending Provider Active Start: May 27, 2024 End: May 27, 2024 Team Status: Active Member Role Status Dates Dr. Cecily Garnica DO Primary Care Provider Active Start: May 31, 2024 Dr. Trinidad Sanchez MD Attending Provider Active Start: May 31, 2024 Dr. Trinidad Sanchez MD Referring Provider Active Start: May 31, 2024 Team Status: Active Member Role Status Dates GLORIA DONOVAN [employer] Primary Care Provider Active Team Status: Inactive Member Role Status Dates Dr. Trinidad Sanchez MD Attending Provider Active Start: June 23, 2024 End: June 23, 2024 Team Status: Inactive Member Role Status Dates Dr. Cecily Garnica DO Referring Provider Active Start: July 08, 2024 End: July 08, 2024 ANAY Phillips Attending Provider Active Start: July 08, 2024 End: July 08, 2024 Team Status: Inactive Member Role Status Dates GLORIA ZION , [employer] Primary Care Provider Active Start: July 08, 2024 End: July 08, 2024 ANAY Phillips Attending Provider Active Start: July 08, 2024 End: July 08, 2024 ANAY Phillips Referring Provider Active Start: July 08, 2024 End: July 08, 2024 Team Status: Active Member Role Status Dates GLORIA ZION , [employer] Primary Care Provider Active Start: July 13, 2024 GLORIA ZION , [employer] Attending Provider Active Start: July 13, 2024 GLORIA ZION , [employer] Referring Provider Active Start: July 13, 2024 Team Status: Inactive Member Role Status Dates GLORIA ZION , [employer] Primary Care Provider Active Start: July 13, 2024 End: July 13, 2024 GLORIA ZION , [employer] Attending Provider Active Start: July 13, 2024 End: July 13, 2024 GLORIA ZION , [employer] Referring Provider Active Start: July 13, 2024 End: July 13, 2024 Team Status: Inactive Member Role Status Dates GLORIA ZION , [employer] Primary Care Provider Active Start: July 20, 2024 End: July 20, 2024 Dr. Sarah Godoy MD Attending Provider Active Start: July 20, 2024 End: July 20, 2024 Dr. Sarah Godoy MD Referring Provider Active Start: July 20, 2024 End: July 20, 2024 Team Status: Active Member Role/Relationship Status Dates JOHANA LEE Primary Care Provider Active Team Status: Inactive Member Role/Relationship Status Dates Dr. Cecily Garnica DO Primary Care Provider Active Start: April 20, 2024 End: April 20, 2024 Dr. Cecily Garnica DO Referring Provider Active Start: April 20, 2024 End: April 20, 2024 Dr. Ian Sawant DO Attending Provider Active Start: April 20, 2024 End: April 20, 2024 Team Status: Active Member Role/Relationship Status Dates Dr. Cecily Garnica DO Primary Care Provider Active Start: April 20, 2024 Dr. Cecily Garnica DO Referring Provider Active Start: April 20, 2024 Dr. Ian Sawant DO Attending Provider Active Start: April 20, 2024 Dr. Ian Sawant DO Other Provider Active St art: April 20, 2024 Team Status: Inactive Member Role/Relationship Status Dates Dr. Cecily Garnica DO Primary Care Provider Active Start: April 29, 2024 End: April 29, 2024 Dr. Cecily Garnica DO Referring Provider Active Start: April 29, 2024 End: April 29, 2024 Dr. Trinidad Sanchez MD Attending Provider Active Start: April 29, 2024 End: April 29, 2024 Team Status: Inactive Member Role/Relationship Status Dates Dr. Cecily Garnica DO Primary Care Provider Active Start: April 29, 2024 End: April 29, 2024 Dr. Trinidad Sanchez MD Attending Provider Active Start: April 29, 2024 End: April 29, 2024 Dr. Trinidad Sanchez MD Referring Provider Active Start: April 29, 2024 End: April 29, 2024 Team Status: Inactive Member Role/Relationship Status Dates Dr. Cecily Garnica DO Primary Care Provider Active Start: May 03, 2024 End: May 03, 2024 Dr. Cecily Garnica DO Referring Provider Active Start: May 03, 2024 End: May 03, 2024 ANAY Phillips Attending Provider Active Start: May 03, 2024 End: May 03, 2024 Team Status: Inactive Member Role/Relationship Status Dates Dr. Cecily Garnica DO Primary Care Provider Active Start: May 18, 2024 End: May 18, 2024 Dr. Cecily Garnica DO Attending Provider Active Start: May 18, 2024 End: May 18, 2024 Dr. Cecily Garnica DO Referring Provider Active Start: May 18, 2024 End: May 18, 2024 Team Status: Inactive Member Role/Relationship Status Dates Dr. Cecily Garnica DO Primary Care Provider Active Start: May 26, 2024 End: May 26, 2024 ANAY Phillips Attending Provider Active Start: May 26, 2024 End: May 26, 2024 ANAY Phillips Referring Provider Active Start: May 26, 2024 End: May 26, 2024 Team Status: Inactive Member Role/Relationship Status Dates Dr. Cecily Garnica DO Referring Provider Active Start: May 27, 2024 End: May 27, 2024 Dr. Trinidad Sanchez MD Attending Provider Active Start: May 27, 2024 End: May 27, 2024 Team Status: Active Member Role/Relationship Status Dates Dr. Cecily Garnica DO Primary Care Provider Active Start: May 31, 2024 Dr. Trinidad Sanchez MD Attending Provider Active Start: May 31, 2024 Dr. Trinidad Sanchez MD Referring Provider Active Start: May 31, 2024 Team Status: Inactive Member Role/Relationship Status Dates Dr. Trinidad Sanchez MD Attending Provider Active Start: June 23, 2024 End: June 23, 2024 Team Status: Inactive Member Role/Relationship Status Dates Dr. Cecily Garnica DO Referring Provider Active Start: July 08, 2024 End: July 08, 2024 ANAY Phillips Attending Provider Active Start: July 08, 2024 End: July 08, 2024 Team Status: Inactive Member Role/Relationship Status Dates JOHANA LEE Primary Care Provider Active Start: July 08, 2024 End: July 08, 2024 ANAY Phillips Attending Provider Active Start: July 08, 2024 End: July 08, 2024 ANAY Phillips Referring Provider Active Start: July 08, 2024 End: July 08, 2024 Team Status: Inactive Member Role/Relationship Status Dates GLORIA ZION , [employer] Primary Care Provider Active Start: July 13, 2024 End: July 13, 2024 GLORIA ZION , [employer] Attending Provider Active Start: July 13, 2024 End: July 13, 2024 GLORIA ZION , [employer] Referring Provider Active Start: July 13, 2024 End: July 13, 2024 Team Status: Inactive Member Role/Relationship Status Dates GLORIA ZION , [employer] Primary Care Provider Active Start: July 20, 2024 End: July 20, 2024 Dr. Sarah Godoy MD Attending Provider Active Start: July 20, 2024 End: July 20, 2024 Dr. Sarah Godoy MD Referring Provider Active Start: July 20, 2024 End: July 20, 2024 Team Status: Inactive Member Role/Relationship Status Dates GLORIA ZION , [employer] Primary Care Provider Active Start: August 17, 2024 End: August 17, 2024 GLORIA ZION , [employer] Referring Provider Active Start: August 17, 2024 End: August 17, 2024 Dr. Trinidad Sanchez MD Attending Provider Active Start: August 17, 2024 End: August 17, 2024 FOR RECORDS PERTAINING TO PATIENTS WHO ARE OR HAVE BEEN ENROLLED IN A CHEMICAL DEPENDENCY/SUBSTANCEABUSE PROGRAM, SOME INFORMATION MAY BE OMITTED. This clinical summary was aggregated from multiple sources. Caution should be exercised in using it in the provision of clinical care. This summary normalizes information from multiple sources, and as a consequence, information in this document may materially change the coding, format and clinical context of patient data. In addition, data may be omitted in some cases. CLINICAL DECISIONS SHOULD BE BASED ON THE PRIMARY CLINICAL RECORDS. [employer] [facility]. provides no warranty or guarantee of the accuracy or completeness of information in this document.
== END | disposition home or self-care (01) ==
LOC: OPMRI 08:02
PROVIDERS: PCP Nurse Practitioner Family; Referring Provider Anesthesiology Pain Medicine; Visit Provider Anesthesiology Pain Medicine
DX: M54.12 Radiculopathy, cervical region (principal)
CPT/HCPCS: 72141